=== PATIENT | male | born 1955 | race Caucasian/White ===

== ENCOUNTER 2016-10-30 13:52 | Emergency (ER) | payer BC ==
[2016-10-30 14:08] VITALS: TEMP 97.5
[2016-10-30] MEDS ORDERED: RX INFO: IV CONTRAST WAS GIVEN 1 EACH MISC MISCELLANE PRN (14:42)
[2016-10-30] MEDS ORDERED: KETOROLAC 30 MG/ML 1 ML VIAL IVP STA (14:42)
[2016-10-30] MEDS ORDERED: ONDANSETRON 4 MG/2 ML VIAL IVP STA (14:42)
[2016-10-30 14:52] LABS: Basophils % (A) 0 %; CH 29.2; CHCM 34.8; Eosinophils # (A) 0.2 k/uL (0-0.7); Eosinophils % (A) 2 %; HCT 42.8 % (39.0-53.0); HDW 2.57; HGB 14.5 gm/dL (13.0-17.5); Luc # (Auto) 0.23; Luc % (Auto) 3; Lymphocytes # (A) 2.1 k/uL (1.0-4.8); Lymphocytes % (A) 24 %; MCH 28.7 pg (25.0-35.0); MCV 84.5 fL (80.0-100.0); Mean Platelet Volume 7.3; Monocytes # (A) 0.6 k/uL (0-1.0); Monocytes % (A) 7 %; Neutrophils # (A) 5.7 k/uL (1.3-7.7); Neutrophils % (A) 64 %; RBC 5.07 m/uL (4.30-5.90); RDW 15.4 % (11.5-15.5); WBC 8.8 k/uL (3.8-10.6); WBC (Perox) 8.46
[2016-10-30 15:08] LABS: AST 15 U/L (17-59); Alkaline Phosphatase 101 U/L (38-126); Chloride 101 mmol/L (98-107); Non-African American GFR(MDRD) >60 (>60 ml/min/1.73 sqM); Sodium 136 mmol/L (137-145); Total Bilirubin 0.5 mg/dL (0.2-1.3)
[2016-10-30 15:29] LABS: ALT 30 U/L (21-72); Anion Gap 10 mmol/L; Blood Urea Nitrogen 13 mg/dL (9-20); Calcium 9.3 mg/dL (8.4-10.2); Carbon Dioxide 25 mmol/L (22-30); Glucose 169 mg/dL (74-99); Total Protein 6.9 g/dL (6.3-8.2)
--- NOTE | 2016-10-30 15:42 | ED ---
Abdominal Pain HPI - General Chief Complaint: Abdominal Pain Stated Complaint: ABDOMINAL TRAUMA Time Seen by Provider: 10/30/16 13:58 Source: EMS Mode of arrival: EMS Limitations: no limitations - History of Present Illness Initial Comments: 6-year-old male with past medical history of CHF, DM, GERD, HLD, HTN, OA and CAD presenting for evaluation of left-sided abdominal pain. He states that he was working with a table saw and as he was cutting a piece of board the other end of it kicked back and hit him in the abdomen. He says no ribs were hit when the board flew backwards however he has an abrasion and significant tenderness to the abdomen. He immediately came to the ER for further treatment and evaluation. He denies passing out or being on blood thinners. Has not had a bowel movement or pass urine since the incident. - Related Data Home Medications Medication Instructions Recorded Confirmed Furosemide [Lasix] 40 mg PO DAILY 05/02/14 10/30/16 Ibuprofen [Advil] 200 mg PO Q12HR PRN 05/02/14 10/30/16 Lisinopril [Zestril] 2.5 mg PO DAILY 05/02/14 10/30/16 Metoprolol Tartrate [Lopressor] 25 mg PO DAILY 05/02/14 10/30/16 Potassium Chloride ER [K-Dur 10] 10 meq PO DAILY 05/02/14 10/30/16 Simvastatin [Zocor] 40 mg PO HS 05/02/14 10/30/16 metFORMIN HCL [Glucophage] 1,000 mg PO BID 05/02/14 10/30/16 Allergies Allergy/AdvReac Type Severity Reaction Status Date / Time codeine Allergy Swelling Verified 10/30/16 15:00 Review of Systems ROS Statement: Those systems with pertinent positive or pertinent negative responses have been documented in the HPI. ROS Other: All systems not noted in ROS Statement are negative. Constitutional: Denies: fever, chills Eyes: Denies: eye pain, vision change ENT: Denies: ear pain, throat pain Respiratory: Denies: cough, dyspnea, wheezes Cardiovascular: Denies: chest pain, palpitations Endocrine: Denies: fatigue, polydipsia Gastrointestinal: Reports: abdominal pain, nausea. Denies: vomiting, diarrhea, constipation Genitourinary: Denies: urgency, dysuria Musculoskeletal: Denies: back pain, arthralgia Skin: Denies: rash, lesions Neurological: Denies: headache, weakness Psychiatric: Denies: anxiety, depression Hematological/Lymphatic: Denies: easy bleeding, easy bruising Past Medical History Past Medical History: Chest Pain / Angina, Heart Failure, Diabetes Mellitus, GERD/Reflux, Hyperlipidemia, Hypertension, Osteoarthritis (OA), Skin Disorder, Vascular Disorder Additional Past Medical History / Comment(s): 05/02/14 Pt has been having mostly sharp L sided chest pain and sometimes both sides of chest pained or sometimes center of chest. These pain started about 2 weeks. His physician thought he might have a pulled muscle in his chest-he was put on prednisone and levofloxin according to the pt. Chest pain has been getting worse over past one week. Pt also c/o watering in R eye for the past 3 weeks which he used home remedies on and it is getting better. 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 History of Any Multi-Drug Resistant Organisms: None Reported Past Surgical History: Back Surgery, Heart Catheterization, Orthopedic Surgery, Tonsillectomy Additional Past Surgical History / Comment(s): 2011 Cardiac cath with some blockages seen, low back surgery for ruptured disc, Past Anesthesia/Blood Transfusion Reactions: No Reported Reaction Past Psychological History: No Psychological Hx Reported Smoking Status: Current every day smoker Past Alcohol Use History: None Reported Past Drug Use History: None Reported - Past Family History Father Family Medical History: Coronary Artery Disease (CAD), Myocardial Infarction ([place] ) Additional Family Medical History / Comment(s): Father of [place] at age 68yrs. Mother Family Medical History: Coronary Artery Disease (CAD), Hypertension Additional Family Medical History / Comment(s): Mother has alot of allergies. General Exam Limitations: no limitations General appearance: alert, in distress Head exam: Present: atraumatic, normocephalic, normal inspection Eye exam: Present: normal appearance, PERRL, EOMI. Absent: scleral icterus, conjunctival injection, periorbital swelling ENT exam: Present: normal exam, mucous membranes moist Neck exam: Present: normal inspection. Absent: tenderness, meningismus, lymphadenopathy Respiratory exam: Present: normal lung sounds bilaterally. Absent: respiratory distress, wheezes, rales, rhonchi, stridor Cardiovascular Exam: Present: regular rate, normal rhythm, normal heart sounds. Absent: systolic murmur, diastolic murmur, rubs, gallop, clicks GI/Abdominal exam: Present: soft, tenderness, normal bowel sounds. Absent: distended, guarding, rebound, rigid Rectal exam: Present: deferred Extremities exam: Present: normal inspection, full ROM, normal capillary refill. Absent: tenderness, pedal edema, joint swelling, calf tenderness Back exam: Present: normal inspection Neurological exam: Present: alert, oriented X3, CN II-XII intact Psychiatric exam: Present: normal affect, normal mood Skin exam: Present: warm, dry, abrasion Course Vital Signs 10/30/16 10/30/16 10/30/16 14:04 15:44 16:49 Temperature 97.5 F L Pulse Rate 90 77 78 Respiratory 20 20 18 Rate Blood Pressure 164/74 149/68 142/74 O2 Sat by Pulse 97 97 97 Oximetry 10/30/16 17:23 Temperature 97.5 F L Pulse Rate 78 Respiratory 18 Rate Blood Pressure 142/74 O2 Sat by Pulse 97 Oximetry Medical Decision Making - Medical Decision Making 60-year-old male presented for evaluation of abdominal pain after a board he was cutting on a table saw flew back and hit him in the abdomen. On physical examination he does have a small abrasion to his abdomen however abdomen is soft and non-peritoneal without signs of guarding, rigidity, or rebound. Labs obtained which showed no acute process and CT abdomen and pelvis further revealed no significant traumatic etiology. The patient was informed of all results and on repeat examination he had improvement in his symptoms. He was advised to follow with his primary care physician but to return to this facility if his symptoms should worsen or persist. The patient acknowledged an understanding of this information and agreed with this plan of care. - Lab Data Result diagrams: 10/30/16 14:12 10/30/16 14:12 Lab Results 10/30/16 10/30/16 Range/Units 14:12 14:12 WBC 8.8 (3.8-10.6) k/uL RBC 5.07 (4.30-5.90) m/uL Hgb 14.5 (13.0-17.5) gm/dL Hct 42.8 (39.0-53.0) % MCV 84.5 (80.0-100.0) fL MCH 28.7 (25.0-35.0) pg MCHC 34.0 (31.0-37.0) g/dL RDW 15.4 (11.5-15.5) % Plt Count 259 (150-450) k/uL Neutrophils % 64 % Lymphocytes % 24 % Monocytes % 7 % Eosinophils % 2 % Basophils % 0 % Neutrophils # 5.7 (1.3-7.7) k/uL Lymphocytes # 2.1 (1.0-4.8) k/uL Monocytes # 0.6 (0-1.0) k/uL Eosinophils # 0.2 (0-0.7) k/uL Basophils # 0.0 (0-0.2) k/uL Sodium 136 L (137-145) mmol/L Potassium 4.0 (3.5-5.1) mmol/L Chloride 101 (98-107) mmol/L Carbon Dioxide 25 (22-30) mmol/L Anion Gap 10 mmol/L BUN 13 (9-20) mg/dL Creatinine 0.80 (0.66-1.25) mg/dL Est GFR (MDRD) Af Amer >60 (>60 ml/min/1.73 sqM) Est GFR (MDRD) Non-Af >60 (>60 ml/min/1.73 sqM) Glucose 169 H (74-99) mg/dL Calcium 9.3 (8.4-10.2) mg/dL Total Bilirubin 0.5 (0.2-1.3) mg/dL AST 15 L (17-59) U/L ALT 30 (21-72) U/L Alkaline Phosphatase 101 (38-126) U/L Total Protein 6.9 (6.3-8.2) g/dL Albumin 4.0 (3.5-5.0) g/dL Lipase 275 (23-300) U/L Disposition Clinical Impression: Abdominal pain Disposition: HOME SELF-CARE Condition: Stable Instructions: Abdominal Pain (ED) Referrals: Antonella Summers MD [Primary Care Provider] - 1-2 days Time of Disposition: 17:06
[2016-10-30 16:49] VITALS: BP 142/74; PULSE 78; RESP 18
--- NOTE | 2016-10-30 17:02 | CT ---
EXAMINATION TYPE: CT abdomen pelvis w con DATE OF EXAM: 10/30/2016 COMPARISON: NONE INDICATION: Patient complains of LUQ pain after blunt force trauma to the abdomen. Laceration at sit e. DLP: 993.8 mGycm, Automated exposure control for dose reduction was used. CONTRAST: 100 mL of Omnipaque 300. Study performed without Oral Contrast TECHNIQUE: Axial images were obtained from above the diaphragm to the pubic rami in the axial plane a t 5 mm thick sections. Reconstructed images are reviewed on the computer in the coronal plane. FINDINGS: Limited CT sections are obtained the lung bases. The lung bases are clear. There is calcification a long the pericardial margin. CT ABDOMEN: Liver: Normal. Note is made of a lipoma within the subcutaneous tissues lateral to the tip of the rig ht lobe of the liver. Spleen: Normal. No adjacent fluid collections or ascites is evident. Pancreas: Normal Adrenal glands: There is a 1.7 cm renal nodule on the left adrenal gland. Gallbladder: Gallstone is present. Kidneys: No masses are evident. No hydronephrosis is present. There is a 3.1 cm cyst on the medial left kidney. Delayed images were obtained through the kidneys, which remain unremarkable. Aorta: Vascular calcification is within the aorta. Inferior vena cava: Normal. CT PELVIS: A 1.2 cm periumbilical hernia containing mesenteric fat is present. Loops of bowel within the abdomen and pelvis are normal. Diverticular changes are within the sigm oid colon. No free fluid is within the pelvis. Appendix: Normal as visualized. Urinary bladder: Normal. Genitourinary structures: Prostate is unremarkable Osseous structures: No suspicious lytic or sclerotic lesions. IMPRESSIONS: 1. No suspicious posttraumatic changes. Spleen appears intact. No displaced rib fractures are eviden t.
== END 2016-10-30 17:24 | disposition home or self-care (01) ==
LOC: EC 13:52
DX: R10.9 Unspecified abdominal pain (principal); I11.0 Hypertensive heart disease with heart failure; I50.9 Heart failure, unspecified; E11.9 Type 2 diabetes mellitus without complications; K21.9 Gastro-esophageal reflux disease without esophagitis; E78.5 Hyperlipidemia, unspecified; M19.90 Unspecified osteoarthritis, unspecified site; F17.200 Nicotine dependence, unspecified, uncomplicated; Z79.84 Long term (current) use of oral hypoglycemic drugs; Z79.899 Other long term (current) drug therapy; Z88.5 Allergy status to narcotic agent; W22.8XXA Striking against or struck by other objects, initial encounter
CPT/HCPCS: 36415; 80053; 83690; 85025; 74177; 99285; 96374; 96375; J2405; J1885; Q9967

== ENCOUNTER 2018-03-22 15:05 | Observation (INO) | payer BC ==
[2018-03-22] MEDS ORDERED: MORPHINE SULFATE 4 MG/ML SYRINGE IV STA (15:19)
[2018-03-22] MEDS ORDERED: SODIUM CHLORIDE 0.9% 500 ML 500 ML IV STA (15:19)
--- NOTE | 2018-03-22 15:32 | ED ---
General Adult HPI - General Chief complaint: Abdominal Pain Stated complaint: abdominal pain Time Seen by Provider: 03/22/18 15:15 Source: patient, EMS, RN notes reviewed, old records reviewed Mode of arrival: EMS Limitations: no limitations - History of Present Illness Initial comments: 62-year-old male presents for evaluation of abdominal pain. Patient is 1 day postop laparoscopic umbilical hernia repair. Patient has had pain since the time of discharge. Pain is generalized abdominal pain severe in nature. He denies flatus, denies bowel movement. Denies vomiting. Patient denies any fever or chills. Denies chest pain. - Related Data Home Medications Medication Instructions Recorded Confirmed Furosemide [Lasix] 40 mg PO DAILY 05/02/14 03/22/18 Ibuprofen [Advil] 200 mg PO Q12HR PRN 05/02/14 03/22/18 Lisinopril [Zestril] 2.5 mg PO DAILY 05/02/14 03/22/18 Metoprolol Tartrate [Lopressor] 25 mg PO DAILY 05/02/14 03/22/18 Potassium Chloride ER [K-Dur 10] 10 meq PO DAILY 05/02/14 03/22/18 Simvastatin [Zocor] 40 mg PO HS 05/02/14 03/22/18 metFORMIN HCL [Glucophage] 1,000 mg PO BID 05/02/14 03/22/18 Acetaminophen Tab [Tylenol Tab] 1,000 mg PO Q6HR PRN 03/19/18 03/22/18 Previous Rx's Medication Instructions Recorded Docusate [Colace] 100 mg PO BID #20 capsule 03/21/18 HYDROcodone/APAP 7.5-325MG [Ramona 1 tab PO Q4H PRN 3 Days #18 tab 03/21/18 7.5-325] Allergies Allergy/AdvReac Type Severity Reaction Status Date / Time codeine Allergy Swelling Verified 03/22/18 15:56 Review of Systems ROS Statement: Those systems with pertinent positive or pertinent negative responses have been documented in the HPI. ROS Other: All systems not noted in ROS Statement are negative. Past Medical History Past Medical History: Chest Pain / Angina, Heart Failure, Diabetes Mellitus, GERD/Reflux, Hyperlipidemia, Hypertension, Osteoarthritis (OA), Skin Disorder, Vascular Disorder Additional Past Medical History / Comment(s): 05/02/14 Pt has been having mostly sharp L sided chest pain and sometimes both sides of chest pained or sometimes center of chest. These pain started about 2 weeks. His physician thought he might have a pulled muscle in his chest-he was put on prednisone and levofloxin according to the pt. Chest pain has been getting worse over past one week. Pt also c/o watering in R eye for the past 3 weeks which he used home remedies on and it is getting better. 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 History of Any Multi-Drug Resistant Organisms: None Reported Past Surgical History: Back Surgery, Heart Catheterization, Orthopedic Surgery, Tonsillectomy Additional Past Surgical History / Comment(s): 2011 Cardiac cath with some blockages seen, low back surgery for ruptured disc, LT FOOT SX, BILAT CATARACT SX Past Anesthesia/Blood Transfusion Reactions: No Reported Reaction Past Psychological History: No Psychological Hx Reported Smoking Status: Current every day smoker - Past Family History Sister(s) Family Medical History: Pulmonary Embolus Father Family Medical History: Coronary Artery Disease (CAD), Myocardial Infarction ([place] ) Additional Family Medical History / Comment(s): Father of [place] at age 68yrs. Mother Family Medical History: Cancer, Coronary Artery Disease (CAD), Deep Vein Thrombosis (DVT), Hypertension Additional Family Medical History / Comment(s): Mother has alot of allergies. RARE BLOOD CANCER General Exam Limitations: no limitations General appearance: alert, in no apparent distress Head exam: Present: atraumatic, normocephalic Eye exam: Present: normal appearance, PERRL ENT exam: Present: normal exam Neck exam: Present: normal inspection. Absent: tenderness, meningismus Respiratory exam: Present: normal lung sounds bilaterally. Absent: respiratory distress, wheezes Cardiovascular Exam: Present: regular rate, normal rhythm GI/Abdominal exam: Present: distended, tenderness, rigid. Absent: guarding, rebound Extremities exam: Present: pedal edema (Left lower extremity) Neurological exam: Present: alert, oriented X3, CN II-XII intact. Absent: motor sensory deficit Psychiatric exam: Present: normal affect, normal mood Skin exam: Present: warm, dry, intact. Absent: cyanosis, diaphoretic Course Vital Signs 03/22/18 03/22/18 03/22/18 15:09 17:33 19:22 Temperature 98.7 F 98.2 F Pulse Rate 83 66 82 Respiratory 18 18 17 Rate Blood Pressure 153/85 173/86 160/84 O2 Sat by Pulse 95 92 L 94 L Oximetry Medical Decision Making - Medical Decision Making 62-year-old male presenting with chief complaint of abdominal pain. Patient is 1 day postop laparoscopic umbilical hernia repair. He has mildly distended tender abdomen, surgical incisions are clean dry and intact. Workup in the emergency department reveals CBC with mild leukocytosis, otherwise unremarkable , normal CMP. CT is obtained which is negative for acute intra-abdominal process. No obstruction, no abnormal fluid collection. Patient given multiple doses of pain medication the emergency department, reevaluation he continues to have significant abdominal pain and has not passed gas. Case is discussed with Dr. Tai, will place patient in observation for continued symptomatically treatment of postoperative abdominal pain and likely ileus. PT placed on a clear liquid diet, IV fluids, pain medication and Reglan. - Lab Data Result diagrams: 03/22/18 15:21 03/22/18 15:21 Lab Results 03/22/18 03/22/18 03/22/18 Range/Units 15:21 15:21 15:21 WBC 12.3 H (3.8-10.6) k/uL RBC 4.90 (4.30-5.90) m/uL Hgb 13.6 (13.0-17.5) gm/dL Hct 41.8 (39.0-53.0) % MCV 85.4 (80.0-100.0) fL MCH 27.8 (25.0-35.0) pg MCHC 32.6 (31.0-37.0) g/dL RDW 14.7 (11.5-15.5) % Plt Count 239 (150-450) k/uL Neutrophils % 72 % Lymphocytes % 20 % Monocytes % 5 % Eosinophils % 1 % Basophils % 0 % Neutrophils # 8.9 H (1.3-7.7) k/uL Lymphocytes # 2.4 (1.0-4.8) k/uL Monocytes # 0.6 (0-1.0) k/uL Eosinophils # 0.1 (0-0.7) k/uL Basophils # 0.0 (0-0.2) k/uL Sodium 136 L (137-145) mmol/L Potassium 4.3 (3.5-5.1) mmol/L Chloride 103 (98-107) mmol/L Carbon Dioxide 24 (22-30) mmol/L Anion Gap 9 mmol/L BUN 16 (9-20) mg/dL Creatinine 0.70 (0.66-1.25) mg/dL Est GFR (CKD-EPI)AfAm >90 (>60 ml/min/1.73 sqM) Est GFR (CKD-EPI)NonAf >90 (>60 ml/min/1.73 sqM) Glucose 154 H (74-99) mg/dL Plasma Lactic Acid Tejinder 1.6 (0.7-2.0) mmol/L Calcium 9.1 (8.4-10.2) mg/dL Total Bilirubin 0.7 (0.2-1.3) mg/dL AST 24 (17-59) U/L ALT 33 (21-72) U/L Alkaline Phosphatase 74 (38-126) U/L Total Protein 7.1 (6.3-8.2) g/dL Albumin 4.0 (3.5-5.0) g/dL Amylase 68 (30-110) U/L Lipase 566 H (23-300) U/L Urine Color Urine Appearance (Clear) Urine pH (5.0-8.0) Ur Specific [place] (1.001-1.035) Urine Protein (Negative) Urine Glucose (UA) (Negative) Urine Ketones (Negative) Urine Blood (Negative) Urine Nitrite (Negative) Urine Bilirubin (Negative) Urine Urobilinogen (<2.0) mg/dL Ur Leukocyte Esterase (Negative) 03/22/18 Range/Units 17:56 WBC (3.8-10.6) k/uL RBC (4.30-5.90) m/uL Hgb (13.0-17.5) gm/dL Hct (39.0-53.0) % MCV (80.0-100.0) fL MCH (25.0-35.0) pg MCHC (31.0-37.0) g/dL RDW (11.5-15.5) % Plt Count (150-450) k/uL Neutrophils % % Lymphocytes % % Monocytes % % Eosinophils % % Basophils % % Neutrophils # (1.3-7.7) k/uL Lymphocytes # (1.0-4.8) k/uL Monocytes # (0-1.0) k/uL Eosinophils # (0-0.7) k/uL Basophils # (0-0.2) k/uL Sodium (137-145) mmol/L Potassium (3.5-5.1) mmol/L Chloride (98-107) mmol/L Carbon Dioxide (22-30) mmol/L Anion Gap mmol/L BUN (9-20) mg/dL Creatinine (0.66-1.25) mg/dL Est GFR (CKD-EPI)AfAm (>60 ml/min/1.73 sqM) Est GFR (CKD-EPI)NonAf (>60 ml/min/1.73 sqM) Glucose (74-99) mg/dL Plasma Lactic Acid Tejinder (0.7-2.0) mmol/L Calcium (8.4-10.2) mg/dL Total Bilirubin (0.2-1.3) mg/dL AST (17-59) U/L ALT (21-72) U/L Alkaline Phosphatase (38-126) U/L Total Protein (6.3-8.2) g/dL Albumin (3.5-5.0) g/dL Amylase (30-110) U/L Lipase (23-300) U/L Urine Color Yellow Urine Appearance Clear (Clear) Urine pH 5.5 (5.0-8.0) Ur Specific [place] >1.050 H (1.001-1.035) Urine Protein Trace H (Negative) Urine Glucose (UA) Negative (Negative) Urine Ketones Negative (Negative) Urine Blood Negative (Negative) Urine Nitrite Negative (Negative) Urine Bilirubin Negative (Negative) Urine Urobilinogen <2.0 (<2.0) mg/dL Ur Leukocyte Esterase Negative (Negative) Disposition Clinical Impression: Abdominal pain Disposition: ADMITTED IP TO THIS HOSP Condition: Stable Is patient prescribed a controlled substance at d/c from ED?: No Referrals: Antonella Summers MD [Primary Care Provider] - 1-2 days Decision to Admit Reason: Admit from EC Decision Date: 03/22/18 Decision Time: 19:28
[2018-03-22 15:46] LABS: Basophils % (A) 0 %; Eosinophils # (A) 0.1 k/uL (0-0.7); Eosinophils % (A) 1 %; HCT 41.8 % (39.0-53.0); HGB 13.6 gm/dL (13.0-17.5); Lymphocytes # (A) 2.4 k/uL (1.0-4.8); Lymphocytes % (A) 20 %; MCH 27.8 pg (25.0-35.0); MCHC 32.6 g/dL (31.0-37.0); MCV 85.4 fL (80.0-100.0); Mean Platelet Volume 6.3; Monocytes # (A) 0.6 k/uL (0-1.0); Monocytes % (A) 5 %; Neutrophils # (A) 8.9 k/uL (1.3-7.7); Neutrophils % (A) 72 %; Platelet Count 239 k/uL (150-450); RDW 14.7 % (11.5-15.5); WBC 12.3 k/uL (3.8-10.6)
[2018-03-22 16:02] LABS: ALT 33 U/L (21-72); AST 24 U/L (17-59); Alkaline Phosphatase 74 U/L (38-126); Amylase 68 U/L (30-110); Anion Gap 9 mmol/L; Blood Urea Nitrogen 16 mg/dL (9-20); Calcium 9.1 mg/dL (8.4-10.2); Carbon Dioxide 24 mmol/L (22-30); Chloride 103 mmol/L (98-107); Glucose 154 mg/dL (74-99); Lipase 566 U/L (23-300); Potassium 4.3 mmol/L (3.5-5.1); Sodium 136 mmol/L (137-145); Total Bilirubin 0.7 mg/dL (0.2-1.3); Total Protein 7.1 g/dL (6.3-8.2)
--- NOTE | 2018-03-22 16:10 | XR ---
EXAMINATION TYPE: XR KUB DATE OF EXAM: 03/22/2018 4:02 PM CLINICAL HISTORY: Abdominal pain TECHNIQUE: Single supine KUB image of the abdomen is obtained. COMPARISON: None. FINDINGS: There is mild gaseous dilatation of the colon up to 6.9 cm. There is a paucity of stool in the descending colon and moderate amount retained colonic stool throughout the remainder the colon. F ocus of air is seen within the rectum. No dilated small bowel is seen. Osseous structures are grossly intact with moderate degenerative change of the lumbosacral junction. IMPRESSION: Mild gaseous colonic dilation possibly representing clonic ileus. Distal colonic obstruct ion is possible.
[2018-03-22] MEDS ORDERED: HYDROmorphone 1 MG/ML 1 ML SYRINGE IVP STA (17:12)
--- NOTE | 2018-03-22 17:34 | CT ---
EXAMINATION TYPE: CT abdomen pelvis w con DATE OF EXAM: 03/22/2018 COMPARISON: 10/30/2016 HISTORY: Hernia repair and bowel surgery yesterday, pain since. CT DLP: 1179.4 mGycm Automated exposure control for dose reduction was used. TECHNIQUE: Helical acquisition of images was performed from the lung bases through the pelvis. CONTRAST: Performed without Oral Contrast and with IV Contrast, patient injected with 100 mL of Isovue 300. FINDINGS: ANTERIOR ABDOMINAL WALL: The anterior abdominal wall is intact. Postprocedural subcutaneous adipose c ompartment findings are present, but no unexpected findings. LUNG BASES: No acute findings, but coronary calcifications are noted. In addition, a 1 cm area of thi n pericardial calcification is seen. LIVER/GB: No significant abnormality is appreciated. PANCREAS: No significant abnormality is seen. SPLEEN: No significant abnormality is seen. ADRENALS: No significant abnormality is seen. KIDNEYS: No significant abnormality is seen. FREE AIR: No free air is visualized. RETROPERITONEAL ADENOPATHY: None visualized REPRODUCTIVE ORGANS: No significant abnormality is seen URINARY BLADDER: No significant abnormality is seen. PELVIC ADENOPATHY: None visualized. OSSEOUS STRUCTURES: No significant abnormality is seen. BOWEL: No significant abnormality is seen. OTHER: Prominent nonaneurysmal atherosclerotic changes are seen throughout the visualized arterial an atomy, with aortoiliac inflow stenosis evident. IMPRESSION: Postoperative CT. NO CT FINDING TO CORRESPOND WITH THE CURRENT SYMPTOMS. Incidental: Coronary Calcification with Aortoiliac Inflow Stenosis evident. Incidental: Pericardial Calcification.
[2018-03-22 18:06] LABS: Appearance,Urine Clear (Clear); Bilirubin,Urine Negative (Negative); Blood,Urine Negative (Negative); Color,Urine Yellow; Glucose,Urine (UA) Negative (Negative); Ketones,Urine Negative (Negative); Leukocyte Esterase,Urine Negative (Negative); Nitrite,Urine Negative (Negative); PH, Urine 5.5 (5.0-8.0); Protein,Urine Trace (Negative); Urobilinogen,Urine <2.0 mg/dL (<2.0)
[2018-03-22 18:31] LABS: Specific Gravity,Urine >1.050 (1.001-1.035)
[2018-03-22] MEDS ORDERED: NALOXONE 0.4 MG/ML 1 ML VIAL IV PRN (19:11)
[2018-03-22] MEDS ORDERED: HYDROmorphone 0.5 MG/0.5 ML SYRINGE IVP PRN (19:11)
[2018-03-22 19:48] LABS: Glucose,Whole Blood 143 mg/dL (75-99)
[2018-03-22] MEDS: HYDROmorphone 1 MG/ML 1 ML SYRINGE IVP PRN ×2 (19:55→23:00)
[2018-03-22 21:18] VITALS: BMI 30.5
[2018-03-22] MEDS: SODIUM CHLORIDE 0.9% 1,000 ML IV SCH (23:01)
[2018-03-23] MEDS: METOCLOPRAMIDE 5 MG/ML 2 ML VIAL IVP SCH ×4 (00:11→17:21)
[2018-03-23] MEDS: HYDROmorphone 1 MG/ML 1 ML SYRINGE IVP PRN ×5 (01:55→22:05)
[2018-03-23 04:22] LABS: Hemoglobin A1C 8.5 % (4.0-6.0)
[2018-03-23] MEDS: INSULIN ASPART 100 UNIT/ML 1 ML 10 ML VIAL SQ SCH ×4 (07:19→21:02)
[2018-03-23 07:29] LABS: Glucose,Whole Blood 121 mg/dL (75-99)
[2018-03-23 09:11] LABS: Basophils % (A) 0 %; Eosinophils # (A) 0.1 k/uL (0-0.7); Eosinophils % (A) 1 %; HCT 41.1 % (39.0-53.0); HGB 13.2 gm/dL (13.0-17.5); Lymphocytes # (A) 1.3 k/uL (1.0-4.8); Lymphocytes % (A) 14 %; MCHC 32.1 g/dL (31.0-37.0); MCV 87.1 fL (80.0-100.0); Mean Platelet Volume 7.1; Monocytes # (A) 0.6 k/uL (0-1.0); Monocytes % (A) 6 %; Neutrophils # (A) 7.1 k/uL (1.3-7.7); Neutrophils % (A) 76 %; Platelet Count 213 k/uL (150-450); RBC 4.72 m/uL (4.30-5.90); WBC 9.2 k/uL (3.8-10.6)
[2018-03-23 09:29] LABS: ALT 31 U/L (21-72); AST 24 U/L (17-59); Albumin 3.7 g/dL (3.5-5.0); Alkaline Phosphatase 68 U/L (38-126); Amylase 33 U/L (30-110); Anion Gap 7 mmol/L; Blood Urea Nitrogen 16 mg/dL (9-20); Calcium 8.7 mg/dL (8.4-10.2); Carbon Dioxide 27 mmol/L (22-30); Chloride 104 mmol/L (98-107); Glucose 137 mg/dL (74-99); Lipase 81 U/L (23-300); Potassium 4.1 mmol/L (3.5-5.1); Sodium 138 mmol/L (137-145); Total Bilirubin 0.6 mg/dL (0.2-1.3); Total Protein 6.6 g/dL (6.3-8.2)
[2018-03-23 11:40] LABS: Glucose,Whole Blood 131 mg/dL (75-99)
[2018-03-23] MEDS ORDERED: BISACODYL 10 MG SUPP RECTAL STA (12:21)
--- NOTE | 2018-03-23 12:27 | P.GSHP ---
History of Present Illness H&P Date: 03/23/18 Chief Complaint: abdominal pain CHIEF COMPLAINT: Abdominal pain HISTORY OF PRESENT ILLNESS: 62-year-old male who underwent laparoscopic robotic repair of incarcerated umbilical hernia and partial omentectomy on 03/21/2018. POD #2. The patient was discharged home in stable condition. He returns to the hospital with a chief complaint of abdominal pain. Patient denies passing flatus. Denies BM. Denies nausea or vomiting. WBC 12.3 on admission. Repeat 9.2. Lipase 566 on admission. Repeat normal at 81. He is afebrile. PAST MEDICAL HISTORY: See list. PAST SURGICAL HISTORY: See list. MEDICATIONS: See list. ALLERGIES: See list. SOCIAL HISTORY: No illicit drug use. REVIEW OF SYSTEMS: CONSTITUTIONAL: Denies fever or chills. HEENT: Denies blurred vision, vision changes, or eye pain. Denies hemoptysis ENDOCRINE: Denies heat or cold intolerance. CARDIOVASCULAR: Denies chest pain or pressure. RESPIRATORY: No shortness of breath. GASTROINTESTINAL: Reports abdominal pain. Denies nausea or vomiting. NEURO: Denies history of seizures. PSYCH: No depression or suicidal ideation HEMATOLOGIC: Denies bleeding disorders. LYMPHATIC: The patient denies any lumps and bumps around the neck. GENITOURINARY: Denies any blood in urine or increased urinary frequency. MUSCULOSKELETAL: Denies myalgias. Denies joint swelling. Denies decreased range of motion beyond patients baseline. SKIN: Denies pruitis. Denies rash. PHYSICAL EXAM: VITAL SIGNS: Currently stable. GENERAL: Well-developed in no acute distress. HEENT: No sclera icterus. Extraocular movements grossly intact. Moist buccal mucosa. Head is atraumatic, normocephalic. Hears conversational speech. No nasal drainage. NECK: Supple without lymphadenopathy. CHEST: Non-labored respirations and equal bilateral excursions. CARDIOVASCULAR: Regular rate with regular rhythm. Palpable 2+ radial pulses. ABDOMEN: Soft. Mildly distended. Tenderness noted upon palpation. Surgical incisions clean without drainage. MUSCULOSKELETAL: No clubbing, cyanosis or edema. NEUROLOGIC: No focal or lateralizing signs. Cranial nerves II through XII grossly intact. PSYCH: Appropriate affect. Alert and oriented to person, place and time. SKIN: Well perfused. Good skin turgor. ASSESSMENT: 1. Abdominal pain 2. Postoperative ileus 3. S/P laparoscopic robotic repair of incarcerated umbilical hernia and partial omentectomy on 03/21/2018 PLAN: Reglan 10mg IV q6 hours. Fleets enema x 1. Clear liquid diet as tolerated. Diet may be advanced when patient begins passing flatus. Increase activity as tolerated. Patient encouraged to ambulate in hallways. Nurse practitioner note has been reviewed by physician. Signing provider agrees with the documented findings, assessment, and plan of care. Past Medical History Past Medical History: Chest Pain / Angina, Heart Failure, Diabetes Mellitus, GERD/Reflux, Hyperlipidemia, Hypertension, Osteoarthritis (OA), Skin Disorder, Vascular Disorder Additional Past Medical History / Comment(s): 05/02/14 Pt has been having mostly sharp L sided chest pain and sometimes both sides of chest pained or sometimes center of chest. These pain started about 2 weeks. His physician thought he might have a pulled muscle in his chest-he was put on prednisone and levofloxin according to the pt. Chest pain has been getting worse over past one week. Pt also c/o watering in R eye for the past 3 weeks which he used home remedies on and it is getting better. 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 History of Any Multi-Drug Resistant Organisms: None Reported Past Surgical History: Back Surgery, Heart Catheterization, Orthopedic Surgery, Tonsillectomy Additional Past Surgical History / Comment(s): 2011 Cardiac cath with some blockages seen, low back surgery for ruptured disc, LT FOOT SX, BILAT CATARACT SX Past Anesthesia/Blood Transfusion Reactions: No Reported Reaction Past Psychological History: No Psychological Hx Reported Additional Psychological History / Comment(s): Pt lives at home with his . 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 Pt is independent. Smoking Status: Current every day smoker Past Alcohol Use History: None Reported Additional Past Alcohol Use History / Comment(s): SMOKES 1 PPD SINCE AGE 15 Past Drug Use History: None Reported - Past Family History Sister(s) Family Medical History: Pulmonary Embolus Father Family Medical History: Coronary Artery Disease (CAD), Myocardial Infarction ([place] ) Additional Family Medical History / Comment(s): Father of [place] at age 68yrs. Mother Family Medical History: Cancer, Coronary Artery Disease (CAD), Deep Vein Thrombosis (DVT), Hypertension Additional Family Medical History / Comment(s): Mother has alot of allergies. RARE BLOOD CANCER Medications and Allergies Home Medications Medication Instructions Recorded Confirmed Type Furosemide [Lasix] 40 mg PO DAILY 05/02/14 03/22/18 History Ibuprofen [Advil] 200 mg PO Q12HR PRN 05/02/14 03/22/18 History Lisinopril [Zestril] 2.5 mg PO DAILY 05/02/14 03/22/18 History Metoprolol Tartrate [Lopressor] 25 mg PO DAILY 05/02/14 03/22/18 History Potassium Chloride ER [K-Dur 10] 10 meq PO DAILY 05/02/14 03/22/18 History Simvastatin [Zocor] 40 mg PO HS 05/02/14 03/22/18 History metFORMIN HCL [Glucophage] 1,000 mg PO BID 05/02/14 03/22/18 History Acetaminophen Tab [Tylenol Tab] 1,000 mg PO Q6HR PRN 03/19/18 03/22/18 History Docusate [Colace] 100 mg PO BID #20 capsule 03/21/18 03/22/18 Rx HYDROcodone/APAP 7.5-325MG [Rillito 1 tab PO Q4H PRN 3 Days #18 tab 03/21/1803/22 Rx 7.5-325] Allergies Allergy/AdvReac Type Severity Reaction Status Date / Time codeine Allergy Swelling Verified 03/22/18 15:56 Surgical - Exam Vital Signs Temp Pulse Resp BP Pulse Ox 98.7 F 83 18 153/85 95 03/22/18 15:09 03/22/18 15:09 03/22/18 15:09 03/22/18 15:09 03/22/18 15:09 Results - Labs 03/23/18 08:52 03/23/18 08:52 Abnormal Lab Results - Last 24 Hours (Table) 03/22/18 03/22/18 03/22/18 Range/Units 15:21 15:21 15:21 WBC 12.3 H (3.8-10.6) k/uL Neutrophils # 8.9 H (1.3-7.7) k/uL Sodium 136 L (137-145) mmol/L Creatinine (0.66-1.25) mg/dL Glucose 154 H (74-99) mg/dL POC Glucose (mg/dL) (75-99) mg/dL Hemoglobin A1c 8.5 H (4.0-6.0) % Lipase 566 H (23-300) U/L Ur Specific [place] (1.001-1.035) Urine Protein (Negative) 03/22/18 03/22/18 03/23/18 Range/Units 17:56 19:44 07:17 WBC (3.8-10.6) k/uL Neutrophils # (1.3-7.7) k/uL Sodium (137-145) mmol/L Creatinine (0.66-1.25) mg/dL Glucose (74-99) mg/dL POC Glucose (mg/dL) 143 H 121 H (75-99) mg/dL Hemoglobin A1c (4.0-6.0) % Lipase (23-300) U/L Ur Specific [place] >1.050 H (1.001-1.035) Urine Protein Trace H (Negative) 03/23/18 03/23/18 Range/Units 08:52 11:29 WBC (3.8-10.6) k/uL Neutrophils # (1.3-7.7) k/uL Sodium (137-145) mmol/L Creatinine 0.64 L (0.66-1.25) mg/dL Glucose 137 H (74-99) mg/dL POC Glucose (mg/dL) 131 H (75-99) mg/dL Hemoglobin A1c (4.0-6.0) % Lipase (23-300) U/L Ur Specific [place] (1.001-1.035) Urine Protein (Negative) Diabetes panel 03/22/18 03/22/18 03/23/18 Range/Units 15:21 15:21 08:52 Sodium 136 L 138 (137-145) mmol/L Potassium 4.3 4.1 (3.5-5.1) mmol/L Chloride 103 104 (98-107) mmol/L Carbon Dioxide 24 27 (22-30) mmol/L BUN 16 16 (9-20) mg/dL Creatinine 0.70 0.64 L (0.66-1.25) mg/dL Glucose 154 H 137 H (74-99) mg/dL Hemoglobin A1c 8.5 H (4.0-6.0) % Calcium 9.1 8.7 (8.4-10.2) mg/dL AST 24 24 (17-59) U/L ALT 33 31 (21-72) U/L Alkaline Phosphatase 74 68 (38-126) U/L Total Protein 7.1 6.6 (6.3-8.2) g/dL Albumin 4.0 3.7 (3.5-5.0) g/dL Calcium panel 03/22/18 03/23/18 Range/Units 15:21 08:52 Calcium 9.1 8.7 (8.4-10.2) mg/dL Albumin 4.0 3.7 (3.5-5.0) g/dL Pituitary panel 03/22/18 03/23/18 Range/Units 15:21 08:52 Sodium 136 L 138 (137-145) mmol/L Potassium 4.3 4.1 (3.5-5.1) mmol/L Chloride 103 104 (98-107) mmol/L Carbon Dioxide 24 27 (22-30) mmol/L BUN 16 16 (9-20) mg/dL Creatinine 0.70 0.64 L (0.66-1.25) mg/dL Glucose 154 H 137 H (74-99) mg/dL Calcium 9.1 8.7 (8.4-10.2) mg/dL Adrenal panel 03/22/18 03/23/18 Range/Units 15:21 08:52 Sodium 136 L 138 (137-145) mmol/L Potassium 4.3 4.1 (3.5-5.1) mmol/L Chloride 103 104 (98-107) mmol/L Carbon Dioxide 24 27 (22-30) mmol/L BUN 16 16 (9-20) mg/dL Creatinine 0.70 0.64 L (0.66-1.25) mg/dL Glucose 154 H 137 H (74-99) mg/dL Calcium 9.1 8.7 (8.4-10.2) mg/dL Total Bilirubin 0.7 0.6 (0.2-1.3) mg/dL AST 24 24 (17-59) U/L ALT 33 31 (21-72) U/L Alkaline Phosphatase 74 68 (38-126) U/L Total Protein 7.1 6.6 (6.3-8.2) g/dL Albumin 4.0 3.7 (3.5-5.0) g/dL
[2018-03-23] MEDS: LISINOPRIL 2.5 MG TAB PO SCH (13:27)
[2018-03-23] MEDS: DOCUSATE 100 MG CAP PO SCH ×2 (13:28→22:05)
[2018-03-23] MEDS ORDERED: NA PHOS,M-B/NA PHOS,DI-BA 133 ML ENEMA RECTAL ONE (13:31)
[2018-03-23] MEDS: SODIUM CHLORIDE 0.9% 1,000 ML IV SCH (16:08)
[2018-03-23 17:12] LABS: Glucose,Whole Blood 132 mg/dL (75-99)
[2018-03-23 20:46] LABS: Glucose,Whole Blood 136 mg/dL (75-99)
[2018-03-24] MEDS: METOCLOPRAMIDE 5 MG/ML 2 ML VIAL IVP SCH ×4 (00:57→23:46)
[2018-03-24] MEDS: HYDROmorphone 1 MG/ML 1 ML SYRINGE IVP PRN ×3 (00:57→10:08)
[2018-03-24 07:11] LABS: Glucose,Whole Blood 181 mg/dL (75-99)
[2018-03-24] MEDS: metFORMIN 500 MG TAB PO SCH ×2 (10:03→21:27)
[2018-03-24] MEDS: INSULIN ASPART 100 UNIT/ML 1 ML 10 ML VIAL SQ SCH ×3 (10:03→23:46)
[2018-03-24] MEDS: LISINOPRIL 2.5 MG TAB PO SCH (10:04)
[2018-03-24] MEDS: METOPROLOL TARTRATE 25 MG TAB PO SCH (10:04)
[2018-03-24] MEDS: DOCUSATE 100 MG CAP PO SCH ×2 (10:04→21:27)
--- NOTE | 2018-03-24 11:53 | P.PN ---
Progress Note - Text Progress Note Date: 03/24/18 The patient is resting in his bed. He still has complaints of incisional pain. Patient has anxiety about being discharged home and having significant pain. He did have some small flatus last night. On exam his vital signs are stable. His abdomen is soft. Incision sites are clean dry and intact. Status post robotic system repair of hernia. Patient developed postoperative ileus which is slowly resolving. We dysphagia discharged home tomorrow.
[2018-03-24 12:20] LABS: Glucose,Whole Blood 182 mg/dL (75-99)
[2018-03-24] MEDS ORDERED: SODIUM CHLORIDE 0.9% 1,000 ML BAG ONE (13:00)
[2018-03-24] MEDS ORDERED: METOCLOPRAMIDE 5 MG/ML 2 ML VIAL ONE ×2 (13:00)
[2018-03-24] MEDS ORDERED: HYDROmorphone 1 MG/ML 1 ML SYRINGE ONE ×2 (13:00)
[2018-03-24] MEDS ORDERED: INSULIN ASPART 100 UNIT/ML 1 ML 10 ML VIAL SQ ONE ×2 (13:00)
[2018-03-24 18:47] LABS: Glucose,Whole Blood 116 mg/dL (75-99)
[2018-03-24 20:46] LABS: Glucose,Whole Blood 119 mg/dL (75-99)
[2018-03-24] MEDS: HYDROcodone/APAP 7.5-325MG 1 EACH TAB PO PRN (21:26)
[2018-03-24] MEDS: SODIUM CHLORIDE 0.9% 1,000 ML IV SCH (23:45)
[2018-03-25] MEDS: METOCLOPRAMIDE 5 MG/ML 2 ML VIAL IVP SCH ×3 (00:01→12:08)
[2018-03-25] MEDS: HYDROcodone/APAP 7.5-325MG 1 EACH TAB PO PRN ×3 (04:54→13:16)
[2018-03-25 07:14] LABS: Glucose,Whole Blood 125 mg/dL (75-99)
[2018-03-25] MEDS: INSULIN ASPART 100 UNIT/ML 1 ML 10 ML VIAL SQ SCH ×2 (08:16→12:08)
[2018-03-25 08:18] VITALS: RESP 17
[2018-03-25] MEDS: SODIUM CHLORIDE 0.9% 1,000 ML IV SCH (08:22)
[2018-03-25] MEDS: metFORMIN 500 MG TAB PO SCH (08:24)
[2018-03-25] MEDS: LISINOPRIL 2.5 MG TAB PO SCH (08:25)
[2018-03-25] MEDS: DOCUSATE 100 MG CAP PO SCH (08:25)
[2018-03-25] MEDS: METOPROLOL TARTRATE 25 MG TAB PO SCH (08:25)
[2018-03-25] MEDS: HYDROmorphone 1 MG/ML 1 ML SYRINGE IVP PRN (09:59)
[2018-03-25 11:51] LABS: Glucose,Whole Blood 159 mg/dL (75-99)
[2018-03-25 14:30] VITALS: BP 128/72; PULSE 74; TEMP 98
--- NOTE | 2018-03-25 15:01 | P.DS ---
Providers Date of admission: 03/22/18 19:11 Expected date of discharge: 03/25/18 Attending physician: Thomas Tai Primary care physician: Kristopher Berman [facility] Course: This a 62-year-old male who was readmitted to the hospital after robotic hernia repair due to ileus and postop pain. Patient did well postoperatively. Please see hospital chart for details. Procedures: None Patient Condition at Discharge: Good Plan - Discharge Summary Discharge Rx Participant: No New Discharge Prescriptions: No Action Potassium Chloride ER [K-Dur 10] 10 meq PO DAILY metFORMIN HCL [Glucophage] 1,000 mg PO BID Metoprolol Tartrate [Lopressor] 25 mg PO DAILY Simvastatin [Zocor] 40 mg PO HS Lisinopril [Zestril] 2.5 mg PO DAILY Furosemide [Lasix] 40 mg PO DAILY Ibuprofen [Advil] 200 mg PO Q12HR PRN PRN Reason: Pain Acetaminophen Tab [Tylenol Tab] 1,000 mg PO Q6HR PRN PRN Reason: Pain Docusate [Colace] 100 mg PO BID #20 capsule HYDROcodone/APAP 7.5-325MG [Campbell 7.5-325] 1 tab PO Q4H PRN 3 Days #18 tab PRN Reason: Pain Discharge Medication List Furosemide [Lasix] 40 mg PO DAILY 05/02/14 [History] Ibuprofen [Advil] 200 mg PO Q12HR PRN 05/02/14 [History] Lisinopril [Zestril] 2.5 mg PO DAILY 05/02/14 [History] Metoprolol Tartrate [Lopressor] 25 mg PO DAILY 05/02/14 [History] Potassium Chloride ER [K-Dur 10] 10 meq PO DAILY 05/02/14 [History] Simvastatin [Zocor] 40 mg PO HS 05/02/14 [History] metFORMIN HCL [Glucophage] 1,000 mg PO BID 05/02/14 [History] Acetaminophen Tab [Tylenol Tab] 1,000 mg PO Q6HR PRN 03/19/18 [History] Docusate [Colace] 100 mg PO BID #20 capsule 03/21/18 [Rx] HYDROcodone/APAP 7.5-325MG [Campbell 7.5-325] 1 tab PO Q4H PRN 3 Days #18 tab 03/21 [Rx] Follow up Appointment(s)/Referral(s): Antonella Summers MD [Primary Care Provider] - 1-2 days
--- NOTE | 2018-04-02 07:27 | CDI ---
Date: 04/02/18 CDS/Cp Bleacher Operator Name: Shanon Antoine Phone: If any questions, call Mely Patricia Ultrasound Manager at [phone] Patient Name: Dennys Youngblood Admit Date: 03/22/18 Discharge Date: 03/25/18 ATTENTION: The [facility] Coding Staff appreciate your assistance in clarifying documentation. Please respond to the clarification below the line at the bottom and electronically sign. The [facility] Coding staff will review the response and follow-up if needed. Please note: Queries are made part of the Legal Health Record. If you have any questions, please contact the Ultrasound Manager. Dear Dr. Tai, Please provide clarification as to the cause of the ileus. Please clarify if, in this case, this is a post-operative complication. Thank you for your kind consideration. The cause of the ileus is due to postoperative and narcotic use. YASMINE
== END 2018-03-25 15:40 | disposition home or self-care (01) ==
LOC: EC 15:05 → 4SSUR 19:11
PROVIDERS: ADMIT Surgery; ATTEND Surgery
DX: K91.30 Postprocedural intestinal obstruction, unspecified as to partial versus complete (principal); I25.10 Atherosclerotic heart disease of native coronary artery without angina pectoris; I11.0 Hypertensive heart disease with heart failure; I50.9 Heart failure, unspecified; F17.210 Nicotine dependence, cigarettes, uncomplicated; E78.5 Hyperlipidemia, unspecified; E11.9 Type 2 diabetes mellitus without complications; R60.0 Localized edema; M19.90 Unspecified osteoarthritis, unspecified site; L98.9 Disorder of the skin and subcutaneous tissue, unspecified; Z87.11 Personal history of peptic ulcer disease; Z82.49 Family history of ischemic heart disease and other diseases of the circulatory system; Z80.8 Family history of malignant neoplasm of other organs or systems; Z79.84 Long term (current) use of oral hypoglycemic drugs; Z79.899 Other long term (current) drug therapy; Z88.5 Allergy status to narcotic agent
CPT/HCPCS: 96376 ×5; 96375 ×2; 96361; 96374; 99285; 36415; 80053 ×2; 82150 ×2; 83605; 83690 ×2; 85025 ×2; 81003; 83036; 74018; 74177; G0378 ×4; J2270; J2765 ×3; J1170 ×5; Q9967

== ENCOUNTER 2018-09-27 10:15 | Observation (INO) | payer BC ==
[2018-09-27] MEDS ORDERED: HYDROmorphone 1 MG/ML 1 ML SYRINGE IVP STA (10:59)
--- NOTE | 2018-09-27 11:05 | ED ---
General Adult HPI - General Chief complaint: Extremity Problem,Nontraumatic Stated complaint: Poss blood poisoning Time Seen by Provider: 09/27/18 10:40 Source: patient, family, RN notes reviewed Mode of arrival: ambulatory Limitations: no limitations - History of Present Illness Initial comments: Patient is a pleasant 62-year-old male presenting to the emergency Department with complaints of right ankle as comfort. Onset of symptoms was this morning. Symptoms seem to improve with walking however were much worse following shower. Patient was hardly able to walk. Discomfort is mild to moderate at rest. Patient has noticed some redness. Patient states his right ankle is more swollen than normal. Patient has chronic left leg swelling which is unchanged . Patient denies fever however states he was shaky this morning. Patient does have a history of similar symptoms 2-3 times previously associated with blood poisoning. Patient states previous times for the same area. - Related Data Home Medications Medication Instructions Recorded Confirmed Furosemide [Lasix] 40 mg PO DAILY 05/02/14 09/27/18 Lisinopril [Zestril] 2.5 mg PO DAILY 05/02/14 09/27/18 Metoprolol Tartrate [Lopressor] 25 mg PO DAILY 05/02/14 09/27/18 Potassium Chloride ER [K-Dur 10] 10 meq PO DAILY 05/02/14 09/27/18 Simvastatin [Zocor] 40 mg PO DAILY 05/02/14 09/27/18 metFORMIN HCL [Glucophage] 500 mg PO BID 05/02/14 09/27/18 Allergies Allergy/AdvReac Type Severity Reaction Status Date / Time codeine Allergy Swelling Verified 09/27/18 10:52 Review of Systems ROS Statement: Those systems with pertinent positive or pertinent negative responses have been documented in the HPI. ROS Other: All systems not noted in ROS Statement are negative. Constitutional: Reports: as per HPI Eyes: Denies: eye pain ENT: Denies: ear pain Respiratory: Denies: dyspnea Cardiovascular: Denies: chest pain Endocrine: Denies: fatigue Gastrointestinal: Denies: abdominal pain Genitourinary: Denies: dysuria Musculoskeletal: Denies: back pain Skin: Reports: as per HPI, rash Neurological: Denies: weakness Past Medical History Past Medical History: Chest Pain / Angina, Heart Failure, Diabetes Mellitus, GERD/Reflux, Hyperlipidemia, Hypertension, Osteoarthritis (OA), Skin Disorder, Vascular Disorder Additional Past Medical History / Comment(s): 05/02/14 Pt has been having mostly sharp L sided chest pain and sometimes both sides of chest pained or sometimes center of chest. These pain started about 2 weeks. His physician thought he might have a pulled muscle in his chest-he was put on prednisone and levofloxin according to the pt. Chest pain has been getting worse over past one week. Pt also c/o watering in R eye for the past 3 weeks which he used home remedies on and it is getting better. 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 History of Any Multi-Drug Resistant Organisms: None Reported Past Surgical History: Back Surgery, Heart Catheterization, Orthopedic Surgery, Tonsillectomy Additional Past Surgical History / Comment(s): 2011 Cardiac cath with some blockages seen, low back surgery for ruptured disc, LT FOOT SX, BILAT CATARACT SX Past Anesthesia/Blood Transfusion Reactions: No Reported Reaction Past Psychological History: No Psychological Hx Reported Smoking Status: Current every day smoker Past Alcohol Use History: None Reported Past Drug Use History: None Reported - Past Family History Sister(s) Family Medical History: Pulmonary Embolus Father Family Medical History: Coronary Artery Disease (CAD), Myocardial Infarction ([place]) Additional Family Medical History / Comment(s): Father of [place] at age 68yrs. Mother Family Medical History: Cancer, Coronary Artery Disease (CAD), Deep Vein Thrombosis (DVT), Hypertension Additional Family Medical History / Comment(s): Mother has alot of allergies. RARE BLOOD CANCER General Exam Limitations: no limitations General appearance: alert, in no apparent distress Head exam: Present: atraumatic Eye exam: Present: normal appearance, PERRL ENT exam: Present: normal oropharynx Neck exam: Present: normal inspection Respiratory exam: Present: normal lung sounds bilaterally Cardiovascular Exam: Present: regular rate, normal rhythm Expanded Peripheral pulses: 2+: Dorsalis Pedis (R), Dorsalis Pedis (L) GI/Abdominal exam: Present: soft. Absent: tenderness Extremities exam: Present: full ROM, other (Left Greater than right lower leg swelling which patient states is normal for the left foot greater than normal and the right. There is erythema of the right medial malleolus region extending up towards the mid matthews region. There is tenderness. Minimal warmth.). Absent: calf tenderness Neurological exam: Present: alert Psychiatric exam: Present: normal affect, normal mood Skin exam: Present: erythema Course Vital Signs 09/27/18 09/27/18 10:24 12:27 Temperature 98.6 F 100.7 F H Pulse Rate 95 98 Respiratory 18 20 Rate Blood Pressure 144/74 125/71 O2 Sat by Pulse 99 97 Oximetry Medical Decision Making - Medical Decision Making Patient reevaluated and resting comfortably in bed. Patient has developed fever. Patient and family updated on results and plan. Case was discussed in detail with Dr. Ames, who will admit For Dr. kamara. Patient does meet sepsis criteria diagnosed at 1300. A culture and lactic acid were ordered. IV antibiotics have been ordered. - Lab Data Result diagrams: 09/27/18 11:20 09/27/18 11:20 Lab Results 09/27/18 09/27/18 09/27/18 Range/Units 11:20 11:20 11:20 WBC 19.4 H (3.8-10.6) k/uL RBC 5.30 (4.30-5.90) m/uL Hgb 15.1 (13.0-17.5) gm/dL Hct 46.3 (39.0-53.0) % MCV 87.4 (80.0-100.0) fL MCH 28.4 (25.0-35.0) pg MCHC 32.5 (31.0-37.0) g/dL RDW 15.7 H (11.5-15.5) % Plt Count 238 (150-450) k/uL Neutrophils % 89 % Lymphocytes % 5 % Monocytes % 4 % Eosinophils % 1 % Basophils % 0 % Neutrophils # 17.2 H (1.3-7.7) k/uL Lymphocytes # 1.0 (1.0-4.8) k/uL Monocytes # 0.9 (0-1.0) k/uL Eosinophils # 0.2 (0-0.7) k/uL Basophils # 0.0 (0-0.2) k/uL PT (9.0-12.0) sec INR (<1.2) APTT (22.0-30.0) sec Sodium 136 L (137-145) mmol/L Potassium 4.5 (3.5-5.1) mmol/L Chloride 101 (98-107) mmol/L Carbon Dioxide 24 (22-30) mmol/L Anion Gap 11 mmol/L BUN 14 (9-20) mg/dL Creatinine 0.72 (0.66-1.25) mg/dL Est GFR (CKD-EPI)AfAm >90 (>60 ml/min/1.73 sqM) Est GFR (CKD-EPI)NonAf >90 (>60 ml/min/1.73 sqM) Glucose 203 H (74-99) mg/dL Plasma Lactic Acid Tejinder 2.9 H* (0.7-2.0) mmol/L Uric Acid 5.3 (3.5-8.5) mg/dL Calcium 9.4 (8.4-10.2) mg/dL Total Bilirubin 0.7 (0.2-1.3) mg/dL AST 20 (17-59) U/L ALT 19 L (21-72) U/L Alkaline Phosphatase 96 (38-126) U/L C-Reactive Protein 12.8 H (<10.0) mg/L Total Protein 7.6 (6.3-8.2) g/dL Albumin 4.3 (3.5-5.0) g/dL 09/27/18 Range/Units 11:20 WBC (3.8-10.6) k/uL RBC (4.30-5.90) m/uL Hgb (13.0-17.5) gm/dL Hct (39.0-53.0) % MCV (80.0-100.0) fL MCH (25.0-35.0) pg MCHC (31.0-37.0) g/dL RDW (11.5-15.5) % Plt Count (150-450) k/uL Neutrophils % % Lymphocytes % % Monocytes % % Eosinophils % % Basophils % % Neutrophils # (1.3-7.7) k/uL Lymphocytes # (1.0-4.8) k/uL Monocytes # (0-1.0) k/uL Eosinophils # (0-0.7) k/uL Basophils # (0-0.2) k/uL PT 9.6 (9.0-12.0) sec INR 0.9 (<1.2) APTT 21.8 L (22.0-30.0) sec Sodium (137-145) mmol/L Potassium (3.5-5.1) mmol/L Chloride (98-107) mmol/L Carbon Dioxide (22-30) mmol/L Anion Gap mmol/L BUN (9-20) mg/dL Creatinine (0.66-1.25) mg/dL Est GFR (CKD-EPI)AfAm (>60 ml/min/1.73 sqM) Est GFR (CKD-EPI)NonAf (>60 ml/min/1.73 sqM) Glucose (74-99) mg/dL Plasma Lactic Acid Tejinder (0.7-2.0) mmol/L Uric Acid (3.5-8.5) mg/dL Calcium (8.4-10.2) mg/dL Total Bilirubin (0.2-1.3) mg/dL AST (17-59) U/L ALT (21-72) U/L Alkaline Phosphatase (38-126) U/L C-Reactive Protein (<10.0) mg/L Total Protein (6.3-8.2) g/dL Albumin (3.5-5.0) g/dL - Radiology Data Radiology results: report reviewed (Ultrasound negative for DVT), image reviewed (Right ankle x-ray negative for any acute process.) Critical Care Time Critical Care Time: Yes Total Critical Care Time: 32 Disposition Clinical Impression: Cellulitis, Severe sepsis Disposition: ADMITTED IP TO THIS HOSP Is patient prescribed a controlled substance at d/c from ED?: No Referrals: Antonella Summers MD [Primary Care Provider] - 1-2 days Decision Time: 13:07
[2018-09-27 11:44] LABS: Basophils % (A) 0 %; Eosinophils # (A) 0.2 k/uL (0-0.7); Eosinophils % (A) 1 %; HCT 46.3 % (39.0-53.0); HGB 15.1 gm/dL (13.0-17.5); Lymphocytes % (A) 5 %; MCH 28.4 pg (25.0-35.0); MCHC 32.5 g/dL (31.0-37.0); MCV 87.4 fL (80.0-100.0); Mean Platelet Volume 7.4; Monocytes # (A) 0.9 k/uL (0-1.0); Monocytes % (A) 4 %; Neutrophils # (A) 17.2 k/uL (1.3-7.7); Neutrophils % (A) 89 %; Platelet Count 238 k/uL (150-450); RDW 15.7 % (11.5-15.5); WBC 19.4 k/uL (3.8-10.6)
[2018-09-27 11:47] LABS: ALT 19 U/L (21-72); AST 20 U/L (17-59); African American GFR (CKD) >90 (>60 ml/min/1.73 sqM); Albumin 4.3 g/dL (3.5-5.0); Alkaline Phosphatase 96 U/L (38-126); Anion Gap 11 mmol/L; Blood Urea Nitrogen 14 mg/dL (9-20); C Reactive Protein 12.8 mg/L (<10.0); Calcium 9.4 mg/dL (8.4-10.2); Carbon Dioxide 24 mmol/L (22-30); Chloride 101 mmol/L (98-107); Glucose 203 mg/dL (74-99); Potassium 4.5 mmol/L (3.5-5.1); Sodium 136 mmol/L (137-145); Total Bilirubin 0.7 mg/dL (0.2-1.3); Total Protein 7.6 g/dL (6.3-8.2); Uric Acid 5.3 mg/dL (3.5-8.5)
[2018-09-27 11:57] LABS: INR 0.9 (<1.2); Prothrombin Time 9.6 sec (9.0-12.0)
--- NOTE | 2018-09-27 12:07 | US ---
EXAMINATION TYPE: US venous doppler duplex LE RT DATE OF EXAM: 09/27/2018 12:01 PM COMPARISON: NONE CLINICAL HISTORY: Pain. Right ankle pain. SIDE PERFORMED: Right TECHNIQUE: The lower extremity deep venous system is examined utilizing real time linear array sonog sony with graded compression, doppler sonography and color-flow sonography. VESSELS IMAGED: External Iliac Vein (EIV) Common Femoral Vein Deep Femoral Vein Greater Saphenous Vein * Femoral Vein Popliteal Vein Small Saphenous Vein * Proximal Calf Veins (* superficial vessels) Grayscale, color doppler, spectral doppler imaging performed of the deep veins of the right lower ext remity. There is normal flow, compressibility, vascular waveforms. Right Leg: Negative for DVT IMPRESSION: No sonographic evidence of deep venous arthrosis within the right lower extremity.
--- NOTE | 2018-09-27 12:23 | XR ---
EXAMINATION TYPE: XR ankle complete RT DATE OF EXAM: 09/27/2018 COMPARISON: NONE HISTORY: Pain FINDINGS: Three views of the ankle demonstrate the ankle mortise to be intact and symmetric. The joint spaces are preserved. The osseous structures are intact. IMPRESSION: 1. No definite acute fracture or dislocation, if symptoms persist follow-up study in 7 to 10 days wou ld be suggested.
[2018-09-27 12:26] LABS: Partial Thromboplastin Time 21.8 sec (22.0-30.0)
[2018-09-27] MEDS ORDERED: cefTRIAXone IN SWFI 1,000 MG/10 ML SYRINGE IVP STA (13:05)
[2018-09-27] MEDS ORDERED: VANCOMYCIN IV PER PHARMACY 1 EACH MISC MISCELLANE PRN (13:05)
[2018-09-27] MEDS ORDERED: ACETAMINOPHEN TAB 500 MG TAB PO STA (13:07)
[2018-09-27] MEDS ORDERED: HYDROmorphone 1 MG/ML 1 ML SYRINGE IVP PRN (13:07)
[2018-09-27] MEDS ORDERED: NALOXONE 0.4 MG/ML 1 ML VIAL IV PRN (13:07)
[2018-09-27] MEDS ORDERED: SODIUM CHLORIDE 0.9% 1,000 ML IV STA (13:07)
[2018-09-27 13:16] LABS: Glucose,Whole Blood 180 mg/dL (75-99)
[2018-09-27] MEDS ORDERED: metFORMIN 500 MG TAB PO STA (13:17)
[2018-09-27] MEDS ORDERED: VANCOMYCIN 1,750 MG in SODIUM CHLORIDE 0.9% 500 ML 500 ML IVPB ONE (13:30)
--- NOTE | 2018-09-27 15:02 | P.HPIM ---
History of Present Illness 60-year-old male came in with the complaints of redness swelling in the right ankle area. Patient was having burning discomfort in that area. Patient is found herself is around the ankle patient doesn't have any lymphadenopathy or streaking on exam. Patient denied any previous history of MRSA. Patient was started on vancomycin which will be set switched to cefazolin. Patient had fever here in the hospital. Blood cultures were obtained. Patient does have lactic acidosis and leukocytosis consistent with severe sepsis. She is diabetic and does take metformin at home which will be held because of lactic acidosis Review of Systems REVIEW OF SYSTEMS: CONSTITUTIONAL: No fever, no malaise, no fatigue. HEENT: No recent visual problems or hearing problems. Denied any sore throat. CARDIOVASCULAR: No chest pain, orthopnea, PND, no palpitations, no syncope. PULMONARY: No shortness of breath, no cough, no hemoptysis. GASTROINTESTINAL: No diarrhea, no nausea, no vomiting, no abdominal pain. NEUROLOGICAL: No headaches, no weakness, no numbness. HEMATOLOGICAL: Denies any bleeding or petechiae. GENITOURINARY: Denies any burning micturition, frequency, or urgency. MUSCULOSKELETAL/RHEUMATOLOGICAL: Denies any joint pain, swelling, or any muscle pain. ENDOCRINE: Denies any polyuria or polydipsia. The rest of the 14-point review of systems is negative. 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 History of Any Multi-Drug Resistant Organisms: None Reported Past Surgical History: Back Surgery, Heart Catheterization, Orthopedic Surgery, Tonsillectomy Additional Past Surgical History / Comment(s): 02/2018 umbilical hernia repair with "bowel complication", 2011 cardiac cath with some blockages, lower back surgery d/t ruptured discs, L foot surgery d/t injury, bilateral laser eye surgery for cataracts Past Anesthesia/Blood Transfusion Reactions: No Reported Reaction Smoking Status: Current every day smoker - Past Family History Sister(s) Family Medical History: Pulmonary Embolus Father Family Medical History: Coronary Artery Disease (CAD), Myocardial Infarction (DC) Additional Family Medical History / Comment(s): Father of DC at age 68yrs. Mother Family Medical History: Cancer, Coronary Artery Disease (CAD), Deep Vein Thrombosis (DVT), Hypertension Additional Family Medical History / Comment(s): Mother has alot of allergies. RARE BLOOD CANCER Medications and Allergies Home Medications Medication Instructions Recorded Confirmed Type Furosemide [Lasix] 40 mg PO DAILY 05/02/14 09/27/18 History Lisinopril [Zestril] 2.5 mg PO DAILY 05/02/14 09/27/18 History Metoprolol Tartrate [Lopressor] 25 mg PO DAILY 05/02/14 09/27/18 History Potassium Chloride ER [K-Dur 10] 10 meq PO DAILY 05/02/14 09/27/18 History Simvastatin [Zocor] 40 mg PO DAILY 05/02/14 09/27/18 History metFORMIN HCL [Glucophage] 500 mg PO BID 05/02/14 09/27/18 History Allergies Allergy/AdvReac Type Severity Reaction Status Date / Time codeine Allergy Swelling Verified 09/27/18 10:52 Physical Exam Vitals: Vital Signs Temp Pulse Pulse Resp BP BP Pulse Ox 09/27/18 14:32 99 F 91 17 119/55 96 09/27/18 13:35 98.2 F 93 18 129/70 96 09/27/18 12:27 100.7 F H 98 20 125/71 97 09/27/18 10:24 98.6 F 95 18 144/74 99 Intake and Output 09/26/18 09/27/18 09/27/18 22:59 06:59 14:59 Other: Weight 95.254 kg PHYSICAL EXAMINATION: GENERAL: The patient is alert and oriented x3, not in any acute distress. Well developed, well nourished. HEENT: Pupils are round and equally reacting to light. EOMI. No scleral icterus. No conjunctival pallor. Normocephalic, atraumatic. No pharyngeal erythema. No thyromegaly. CARDIOVASCULAR: S1 and S2 present. No murmurs, rubs, or gallops. PULMONARY: Chest is clear to auscultation, no wheezing or crackles. ABDOMEN: Soft, nontender, nondistended, normoactive bowel sounds. No palpable organomegaly. MUSCULOSKELETAL: No joint swelling or deformity. EXTREMITIES: No cyanosis, clubbing,. NEUROLOGICAL: Gross neurological examination did not reveal any focal deficits. SKIN: Right ankle cellulitis with circumferential redness local is of temperature patient does have swelling in the left leg as well but no cellu litis. Results CBC & Chem 7: 09/27/18 11:20 09/27/18 11:20 Labs: Abnormal Lab Results - Last 24 Hours (Table) 09/27/18 09/27/18 09/27/18 Range/Units 11:20 11:20 11:20 WBC 19.4 H (3.8-10.6) k/uL RDW 15.7 H (11.5-15.5) % Neutrophils # 17.2 H (1.3-7.7) k/uL APTT (22.0-30.0) sec Sodium 136 L (137-145) mmol/L Glucose 203 H (74-99) mg/dL POC Glucose (mg/dL) (75-99) mg/dL Plasma Lactic Acid Tejinder 2.9 H* (0.7-2.0) mmol/L ALT 19 L (21-72) U/L C-Reactive Protein 12.8 H (<10.0) mg/L 09/27/18 09/27/18 Range/Units 11:20 13:14 WBC (3.8-10.6) k/uL RDW (11.5-15.5) % Neutrophils # (1.3-7.7) k/uL APTT 21.8 L (22.0-30.0) sec Sodium (137-145) mmol/L Glucose (74-99) mg/dL POC Glucose (mg/dL) 180 H (75-99) mg/dL Plasma Lactic Acid Tejinder (0.7-2.0) mmol/L ALT (21-72) U/L C-Reactive Protein (<10.0) mg/L Assessment and Plan Plan: -Sepsis secondary to let us of the right lower extremity: Patient will be started on IV antibiotics patient was switched to ceftezole and vancomycin were discontinued with is no history of MRSA clinical exam findings are more consistent with a streptococcal infection. Blood cultures were obtained. -Lactic acidosis secondary to sepsis metformin will be held patient will continued on IV fluids -Type 2 diabetes mellitus patient with sliding scale insulin -Hypertension hold off lisinopril because of sepsis and concern for hypotension -Hyperlipidemia -Chronic venous insufficiency bilateral lower legs, rule out DVT -Gastroesophageal reflux disease -Patient will need GI prophylaxis due to prophylaxis early ambulation
[2018-09-27 16:59] LABS: Glucose,Whole Blood 226 mg/dL (75-99)
[2018-09-27] MEDS: SODIUM CHLORIDE 0.9% 1,000 ML IV SCH ×2 (17:43→21:24)
[2018-09-27] MEDS: INSULIN ASPART (NovoLOG) 100 UNIT/ML VIAL SQ SCH (17:44)
[2018-09-27 20:01] LABS: Glucose,Whole Blood 194 mg/dL (75-99)
[2018-09-27] MEDS ORDERED: metFORMIN 500 MG TAB PO SCH (21:00)
[2018-09-27] MEDS: FAMOTIDINE 20 MG TAB PO SCH (21:23)
[2018-09-28] MEDS ORDERED: VANCOMYCIN 1,750 MG in SODIUM CHLORIDE 0.9% 500 ML 500 ML IVPB SCH ×2
[2018-09-28] MEDS: HYDROcodone/APAP 5-325MG 1 EACH TAB PO PRN ×3 (00:43→21:37)
[2018-09-28 06:59] LABS: Glucose,Whole Blood 151 mg/dL (75-99)
[2018-09-28] MEDS: FAMOTIDINE 20 MG TAB PO SCH ×2 (08:27→21:36)
[2018-09-28] MEDS: ATORVASTATIN 20 MG TAB PO SCH (08:27)
[2018-09-28] MEDS: METOPROLOL TARTRATE 25 MG TAB PO SCH (08:27)
[2018-09-28] MEDS: POTASSIUM CHLORIDE ER 10 MEQ TAB.ER.PRT PO SCH (08:27)
[2018-09-28] MEDS: INSULIN ASPART (NovoLOG) 100 UNIT/ML VIAL SQ SCH ×3 (08:27→17:03)
[2018-09-28] MEDS ORDERED: LISINOPRIL 2.5 MG TAB PO SCH (09:00)
[2018-09-28] MEDS ORDERED: FUROSEMIDE 40 MG TAB PO SCH (09:00)
[2018-09-28 11:13] LABS: Glucose,Whole Blood 230 mg/dL (75-99)
[2018-09-28] MEDS: SODIUM CHLORIDE 0.9% 1,000 ML IV SCH ×2 (12:36→16:03)
--- NOTE | 2018-09-28 15:59 | P.CONS ---
History of Present Illness - Reason for Consult Consult date: 09/28/18 Right lower extremity cellulitis Requesting physician: Crispin Ames - Chief Complaint Right leg pain swelling redness 1 day - History of Present Illness Patient is 62-year-old male presenting to the ER at [facility] with chief complaint of right leg pain swelling and redness along with a fever and chills that started the morning of presentation to the hospital. Denies any history of any trauma patient did have diffuse swelling redness of th e right lower extremity he did have some dull aching pain to the right leg at times throbbing about 6-7 out of 10 and no radiation did have some pain on putting pressure and walking on that leg with the symptom the patient presented to the hospital the patient was evaluated by the physician patient did have a low-grade fever 100.7 along with elevated white count of 19.4 with a left shift the patient had did have a right lower extremity Doppler was negative for DVT the patient has been started on cefazolin but he did receive a dose of vancomycin the ER infections with positive for further recommendation regarding antibiotic therapy Review of Systems Positive point has been mentioned in the HPI rest of the systems are negative Past Medical History Past Medical History: Chest Pain / Angina, Heart Failure, Diabetes Mellitus, GERD/Reflux, Hyperlipidemia, Hypertension, Osteoarthritis (OA), Skin Disorder, Vascular Disorder Additional Past Medical History / Comment(s): Chronic L leg edema and occasi onally R leg edema, "blood poisoning"/cellulitis L leg twice, L achilles injury years ago, varicose veins L leg, NIDDM type II, neuropathy bilateral feet, duodenal ulcer that are healed, pt states he has been seen for some kind of skin condition that gives him areas of discoloration-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 History of Any Multi-Drug Resistant Organisms: None Reported Past Surgical History: Back Surgery, Heart Catheterization, Orthopedic Surgery, Tonsillectomy Additional Past Surgical History / Comment(s): 02/2018 umbilical hernia repair with "bowel complication", 2011 cardiac cath with some blockages, lower back surgery d/t ruptured discs, L foot surgery d/t injury, bilateral laser eye jorge camila for cataracts Past Anesthesia/Blood Transfusion Reactions: No Reported Reaction Smoking Status: Current every day smoker - Past Family History Sister(s) Family Medical History: Pulmonary Embolus Father Family Medical History: Coronary Artery Disease (CAD), Myocardial Infarction (DC) Additional Family Medical History / Comment(s): Father of DC at age 68yrs. Mother Family Medical History: Cancer, Coronary Artery Disease (CAD), Deep Vein Thrombosis (DVT), Hypertension Additional Family Medical History / Comment(s): Mother has alot of allergies. RARE BLOOD CANCER Medications and Allergies Home Medications Medication Instructions Recorded Confirmed Type Furosemide [Lasix] 40 mg PO DAILY 05/02/14 09/27/18 History Lisinopril [Zestril] 2.5 mg PO DAILY 05/02/14 09/27/18 History Metoprolol Tartrate [Lopressor] 25 mg PO DAILY 05/02/14 09/27/18 History Potassium Chloride ER [K-Dur 10] 10 meq PO DAILY 05/02/14 09/27/18 History Simvastatin [Zocor] 40 mg PO DAILY 05/02/14 09/27/18 History metFORMIN HCL [Glucophage] 500 mg PO BID 05/02/14 09/27/18 History Allergies Allergy/AdvReac Type Severity Reaction Status Date / Time codeine Allergy Swelling Verified 09/27/18 10:52 Physical Exam Vitals: Vital Signs Temp Pulse Resp BP Pulse Ox 09/28/18 11:44 97.6 F 75 18 148/74 96 09/28/18 04:48 98.2 F 76 16 108/53 93 L 09/27/18 20:51 98.2 F 89 16 125/66 97 Intake and Output 09/27/18 09/28/18 09/28/18 22:59 06:59 14:59 Intake Total 590 1730 Balance 590 1730 Intake: Intake, IV Titration 1140 Amount Sodium Chloride 0.9% 1, 1040 000 ml @ 130 mls/hr IV . Q7H42M [facility] Rx#:[id number] ceFAZolin 2 gm In Sodium 100 Chloride 0.9% 50 ml @ 100 mls/hr IVPB Q8HR [facility] Rx# :[id number] Oral 590 590 Other: Voiding Method Toilet Toilet # Voids 1 2 GENERAL DESCRIPTION: Middle-aged male lying in bed, no distress. No tachypnea or accessory muscle of respiration use. HEENT: Shows Pallor , no scleral icterus. Oral mucous membrane is dry. No pharyngeal erythema or thrush NECK: Trachea central, no thyromegaly. LUNGS: Unlabored breathing. Clear to auscultation anteriorly. No wheeze or crac kle. HEART: S1, S2, regular rate and rhythm. No loud murmur ABDOMEN: Soft, no tenderness , guarding or rigidity, no organomegaly EXTREMITIES: Right lower extremity with diffuse swelling and minimal redness slightly warm and tender to touch no open wound or any drainage. SKIN: No rash, no masses palpable. NEUROLOGICAL: The patient is awake, alert, oriented x3, mood and affect normal. Results CBC & Chem 7: 09/27/18 11:20 09/27/18 11:20 Labs: Abnormal Lab Results - Last 24 Hours (Table) 09/27/18 09/27/18 09/28/18 Range/Units 16:58 19:59 06:58 POC Glucose (mg/dL) 226 H 194 H 151 H (75-99) mg/dL 09/28/18 Range/Units 11:12 POC Glucose (mg/dL) 230 H (75-99) mg/dL Microbiology - Last 24 Hours (Table) 09/27/18 12:23 Blood Culture - Preliminary Blood No Growth after 24 hours 09/27/18 11:20 Blood Culture - Preliminary Blood No Growth after 24 hours Assessment and Plan Assessment: 1-patient admitted to the hospital with sepsis in this patient who did have a low-grade fever 100.7 mild tachycardia with heart rate of 91 and elevated white count 19,000 sources acute right lower extremity cellulitis with diffuse swelling redness likely streptococcal disease clinically doubt MRSA or gram- negative infection (1) Sepsis Current Visit: Yes Status: Acute Code(s): A41.9 - SEPSIS, UNSPECIFIED ORGANISM SNOMED Code(s): 13896771 (2) Cellulitis Current Visit: Yes Status: Acute Code(s): L03.90 - CELLULITIS, UNSPECIFIED SNOMED Code(s): 946811492 Plan: 1-marked the area of the redness and is an RN has been advised to apply Daniel wrap from just above the toe to below the knee 2-cefazolin 2 g daily down to continue will give him a few doses of clindamycin 900 every 8 hours 3-if the patient continued to improve to finish therapy with oral Keflex 500 mg by mouth every 6 hours for 7-10 days and a close outpatient follow-up We will follow on clinical condition and cultures to further adjust medication if needed Thank you for this consultation will follow this patient with you Time with Patient: Greater than 30
[2018-09-28] MEDS: CLINDAMYCIN 900 MG in DEXTROSE 5% IN WATER 50 ML IVPB SCH ×4 (16:03→23:32)
[2018-09-28 16:53] LABS: Glucose,Whole Blood 174 mg/dL (75-99)
[2018-09-28 20:09] LABS: Glucose,Whole Blood 241 mg/dL (75-99)
[2018-09-29] MEDS: HYDROcodone/APAP 5-325MG 1 EACH TAB PO PRN ×2 (02:31→12:58)
[2018-09-29 06:51] LABS: Glucose,Whole Blood 152 mg/dL (75-99)
[2018-09-29 07:27] LABS: Basophils % (A) 0 %; Eosinophils # (A) 0.1 k/uL (0-0.7); Eosinophils % (A) 2 %; HGB 12.2 gm/dL (13.0-17.5); Lymphocytes # (A) 1.5 k/uL (1.0-4.8); Lymphocytes % (A) 21 %; MCH 27.6 pg (25.0-35.0); MCHC 32.1 g/dL (31.0-37.0); MCV 86.1 fL (80.0-100.0); Mean Platelet Volume 7.1; Monocytes # (A) 0.6 k/uL (0-1.0); Monocytes % (A) 9 %; Neutrophils # (A) 4.3 k/uL (1.3-7.7); Neutrophils % (A) 64 %; Platelet Count 180 k/uL (150-450); RBC 4.41 m/uL (4.30-5.90); RDW 14.8 % (11.5-15.5); WBC 6.8 k/uL (3.8-10.6)
[2018-09-29 07:41] LABS: African American GFR (CKD) >90 (>60 ml/min/1.73 sqM); Anion Gap 6 mmol/L; Blood Urea Nitrogen 13 mg/dL (9-20); Calcium 8.6 mg/dL (8.4-10.2); Carbon Dioxide 26 mmol/L (22-30); Chloride 106 mmol/L (98-107); Glucose 156 mg/dL (74-99); Potassium 4.3 mmol/L (3.5-5.1); Sodium 138 mmol/L (137-145)
[2018-09-29] MEDS: POTASSIUM CHLORIDE ER 10 MEQ TAB.ER.PRT PO SCH (08:04)
[2018-09-29] MEDS: METOPROLOL TARTRATE 25 MG TAB PO SCH (08:05)
[2018-09-29] MEDS: INSULIN ASPART (NovoLOG) 100 UNIT/ML VIAL SQ SCH (08:05)
[2018-09-29] MEDS: FAMOTIDINE 20 MG TAB PO SCH (08:05)
[2018-09-29] MEDS: ATORVASTATIN 20 MG TAB PO SCH (08:05)
[2018-09-29] MEDS: CLINDAMYCIN 900 MG in DEXTROSE 5% IN WATER 50 ML IVPB SCH ×2 (09:13)
[2018-09-29 11:29] LABS: Glucose,Whole Blood 217 mg/dL (75-99)
[2018-09-29 11:56] VITALS: BP 162/77; PULSE 68; RESP 17; TEMP 97.9
--- NOTE | 2018-09-29 12:45 | P.DS ---
Providers Date of admission: 09/27/18 13:08 Attending physician: Crispin Ames Consults: 09/28/18 14:47 Consult Physician Routine Consulting Provider: Chas Archuleta Consult Reason/Comments: cellulitis Do you want consulting provider notified?: Yes Primary care physician: [facility] Course: Patient was admitted facilities of the right leg significant improvement on Cefazolin and patient will be discharged on Keflex. Patient was also on clindamycin here. Patient had lactic as well as on admission which is secondary to sepsis metformin may be contributing to that as well because of which I discarded metformin patient was started on Januvia, if Januvia is expensive patient can resume his metformin and follow up with primary care physician as an outpatient PHYSICAL EXAMINATION: GENERAL: The patient is alert and oriented x3, not in any acute distress. Well developed, well nourished. HEENT: Pupils are round and equally reacting to light. EOMI. No scleral icterus. No conjunctival pallor. Normocephalic, atraumatic. No pharyngeal erythema. No thyromegaly. CARDIOVASCULAR: S1 and S2 present. No murmurs, rubs, or gallops. PULMONARY: Chest is clear to auscultation, no wheezing or crackles. ABDOMEN: Soft, nontender, nondistended, normoactive bowel sounds. No palpable organomegaly. MUSCULOSKELETAL: No joint swelling or deformity. EXTREMITIES: No cyanosis, clubbing, bilateral lower extremity edema secondary to chronic venous stasis patient will resume his Lasix on as-needed basis along with Daniel bandages NEUROLOGICAL: Gross neurological examination did not reveal any focal deficits. SKIN: No rashes. Assessment and Plan Plan: -Sepsis secondary to right lower extremity cellulitis: Improved -Lactic acidosis secondary to sepsis metformin from improved with IV fluids -Type 2 diabetes mellitus patient with sliding scale insulin -Hypertension patient will resume his lisinopril -Hyperlipidemia -Chronic venous insufficiency bilateral lower legs, ruled out DVT -Gastroesophageal reflux disease Plan - Discharge Summary Discharge Rx Participant: No New Discharge Prescriptions: New Cephalexin [Keflex] 500 mg PO Q8HR #21 cap sitaGLIPtin [Januvia] 100 mg PO DAILY #30 tab Continue Potassium Chloride ER [K-Dur 10] 10 meq PO DAILY Metoprolol Tartrate [Lopressor] 25 mg PO DAILY Simvastatin [Zocor] 40 mg PO DAILY Lisinopril [Zestril] 2.5 mg PO DAILY Furosemide [Lasix] 40 mg PO DAILY Discontinued metFORMIN HCL [Glucophage] 500 mg PO BID Discharge Medication List Furosemide [Lasix] 40 mg PO DAILY 05/02/14 [History] Lisinopril [Zestril] 2.5 mg PO DAILY 05/02/14 [History] Metoprolol Tartrate [Lopressor] 25 mg PO DAILY 05/02/14 [History] Potassium Chloride ER [K-Dur 10] 10 meq PO DAILY 05/02/14 [History] Simvastatin [Zocor] 40 mg PO DAILY 05/02/14 [History] Cephalexin [Keflex] 500 mg PO Q8HR #21 cap 09/29/18 [Rx] sitaGLIPtin [Januvia] 100 mg PO DAILY #30 tab 09/29/18 [Rx] Follow up Appointment(s)/Referral(s): Antonella Summers MD [Primary Care Provider] - 1-2 days (patient to call Dr. Summers's office to schedule follow up appointment. The office is closed at time of discharge. ) [facility] [NON-STAFF] - 1-2 Days Chas Archuleta MD [STAFF PHYSICIAN] - 1 Week (patient to call Dr. Archuleta's office to schedule follow up appointment. The office is closed at time of discharge. ) Patient Instructions/Handouts: Cephalexin (By mouth), Sitagliptin (By mouth), Cellulitis (DC), Sepsis (GEN) Discharge Disposition: HOME SELF-CARE
--- NOTE | 2018-09-29 16:34 | P.PN ---
Subjective Progress Note Date: 09/28/18 Principal diagnosis: This is a 62-year-old male that was admitted to the hospital for right lower extremity cellulitis and is being monitored closely. Patient states today that his right ankle area is more swollen than previous and is concerned because he has not been taking his Lasix that he takes normally at home. Patient did have an elevated lactic level of 2.9 yesterday that has improved to 1.7. Patient is currently on IV antibiotics. Infectious disease was consulted. We will discontinue IV fluids at this time and continue to monitor closely. We will recheck a.m. labs. Patient is drinking plenty of water and tolerating diet. Patient denies any pain with walking on that extremity. Patient states that he can feel the pain and pressure while he is lying in bed. Patient denies any shortness of breath, chest pain, or palpitations at this time. Patient is afeb rile. Guarded prognosis. Objective - Vital Signs Vital signs: Vital Signs Temp 97.9 F 09/29/18 11:55 Pulse 68 09/29/18 11:55 Resp 17 09/29/18 11:55 BP 162/77 09/29/18 11:55 Pulse Ox 98 09/29/18 11:55 Intake & Output 09/28/18 09/29/18 09/29/18 18:59 06:59 18:59 Intake Total 50 450 Balance 50 450 Intake: Intake, IV Titration 50 100 Amount Clindamycin 900 mg In 50 Dextrose 5% in Water 50 ml @ 50 mls/hr IVPB Q8HR [facility] Rx#:[id number] ceFAZolin 2 gm In Sodium 50 50 Chloride 0.9% 50 ml @ 100 mls/hr IVPB Q8HR REPLACED BY [facility] Rx# :[id number] Oral 350 Other: Voiding Method Toilet Toilet Toilet # Voids 1 - Exam This is a 62-year-old male sitting up in bed in no acute distress. Vital signs are stable. HEENT: Conjunctive are normal. EOMs intact Neck: No JVD noted, supple Cardiovascular: S1 and S2 are normal. No murmurs noted. Respiratory: Lung sounds clear to auscultation with no wheezing or rhonchi noted Abdomen: Soft, non-tender, obese Legs: Mild pedal edema noted bilaterally. Right foot and lower extremity displays some redness, warmth, swelling Nervous system: No focal deficits gait is steady Skin: No rashes or lesions noted. Some redness and swelling noted to the right lower extremity and right foot. - Labs CBC & Chem 7: 09/29/18 06:57 09/29/18 06:57 Labs: Abnormal Lab Results - Last 24 Hours (Table) 09/28/18 09/28/18 09/29/18 Range/Units 16:50 20:08 06:49 Hgb (13.0-17.5) gm/dL Hct (39.0-53.0) % Creatinine (0.66-1.25) mg/dL Glucose (74-99) mg/dL POC Glucose (mg/dL) 174 H 241 H 152 H (75-99) mg/dL 09/29/18 09/29/18 09/29/18 Range/Units 06:57 06:57 11:28 Hgb 12.2 L (13.0-17.5) gm/dL Hct 38.0 L (39.0-53.0) % Creatinine 0.62 L (0.66-1.25) mg/dL Glucose 156 H (74-99) mg/dL POC Glucose (mg/dL) 217 H (75-99) mg/dL Microbiology - Last 24 Hours (Table) 09/27/18 12:23 Blood Culture - Preliminary Blood No Growth after 48 hours 09/27/18 11:20 Blood Culture - Preliminary Blood No Growth after 48 hours Assessment and Plan Assessment: Sepsis secondary to cellulitis of the right lower extremity: Patient is on IV antibiotic therapy. Infectious disease is consulted. Lactic acidosis secondary to sepsis: Metformin was held, patient was on IV fluids and will be discontinued. Will continue to monitor vital signs and labs. Diabetes mellitus type 2: Metformin was discontinued and patient will be monitored and treated with sliding scale Hypertension Hyperlipidemia Chronic venous insufficiency to bilateral lower legs, DVT ruled out Gastroesophageal reflux disease GI prophylaxis DVT prophylaxis with early ambulation Recommendations and discussion: Recommend to continue current medication management and symptomatic treatment. Will continue to monitor closely. Infectious disease was consulted and will await report. Patient will continue on IV antibiotics at this time. Guarded prognosis. Further recommendations to follow. Possible discharge in 24 to 48 hours.
== END 2018-09-29 13:30 | disposition home or self-care (01) ==
LOC: EC 10:15 → 3NMEDONC 13:08
PROVIDERS: ADMIT Internal Medicine; ATTEND Internal Medicine
DX: A41.9 Sepsis, unspecified organism (principal); R65.20 Severe sepsis without septic shock; I11.0 Hypertensive heart disease with heart failure; I50.9 Heart failure, unspecified; M19.90 Unspecified osteoarthritis, unspecified site; K21.9 Gastro-esophageal reflux disease without esophagitis; I87.2 Venous insufficiency (chronic) (peripheral); E11.42 Type 2 diabetes mellitus with diabetic polyneuropathy; L03.115 Cellulitis of right lower limb; E87.2 Acidosis; E78.5 Hyperlipidemia, unspecified; Z98.42 Cataract extraction status, left eye; Z98.41 Cataract extraction status, right eye; Z79.84 Long term (current) use of oral hypoglycemic drugs; F17.200 Nicotine dependence, unspecified, uncomplicated; Z87.11 Personal history of peptic ulcer disease; Z79.899 Other long term (current) drug therapy; Z82.49 Family history of ischemic heart disease and other diseases of the circulatory system; Z80.9 Family history of malignant neoplasm, unspecified; Z88.5 Allergy status to narcotic agent
CPT/HCPCS: 96361 ×3; 96365; 96366 ×2; 96367; 96376; 96375; 99291; 36415; 97161; 80053; 80048; 83605; 84550; 85025 ×2; 85610; 85730; 86140; 87040; 73610; 93971; G0378 ×3; J0690 ×3; J0696; J1170

== ENCOUNTER 2018-10-26 09:56 | Emergency (ER) | payer BC ==
[2018-10-26] MEDS ORDERED: ONDANSETRON 4 MG/2 ML VIAL IVP STA (10:28)
[2018-10-26] MEDS ORDERED: SODIUM CHLORIDE 0.9% 1,000 ML IV STA (10:28)
[2018-10-26] MEDS ORDERED: MORPHINE SULFATE 4 MG/ML SYRINGE IVP STA (10:28)
--- NOTE | 2018-10-26 10:37 | ED ---
General Adult HPI - General Chief complaint: Extremity Injury, Lower Stated complaint: Leg Weakness Time Seen by Provider: 10/26/18 10:06 Source: patient Mode of arrival: ambulatory Limitations: no limitations - History of Present Illness Initial comments: Patient is a 62-year-old male with past medical history of diabetes and hypertension, presenting to emergency Department with complaints of right lower leg pain x 1 day. Patient was recently hospitalized for cellulitis of the right lower leg on 09/27/18, and he feels like it has not completely cleared up. Patient started having increase in pain and swelling yesterday and it continues to progress. 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 Patient states it is very painful to walk and he is having increase in redness as well. Patient denies any recorded fevers but states he has been feeling warm and was nauseous and vomiting yesterday. Patient denies diarrhea, urinary complaints. Patient denies chest pain, shortness of breath. Patient has no other complaints at this time. Upon arrival to ER, vital signs are stable, afebrile - Related Data Home Medications Medication Instructions Recorded Confirmed Furosemide [Lasix] 40 mg PO DAILY 05/02/14 10/26/18 Lisinopril [Zestril] 2.5 mg PO DAILY 05/02/14 10/26/18 Metoprolol Tartrate [Lopressor] 25 mg PO DAILY 05/02/14 10/26/18 Potassium Chloride ER [K-Dur 10] 10 meq PO DAILY 05/02/14 10/26/18 Simvastatin [Zocor] 40 mg PO DAILY 05/02/14 10/26/18 Previous Rx's Medication Instructions Recorded sitaGLIPtin [Januvia] 100 mg PO DAILY #30 tab 09/29/18 Cephalexin [Keflex] 500 mg PO Q6HR 10 Days #40 cap 10/26/18 Ketorolac [Toradol] 10 mg PO Q8HR #15 tab 10/26/18 Allergies Allergy/AdvReac Type Severity Reaction Status Date / Time codeine Allergy Swelling Verified 10/26/18 10:46 Review of Systems ROS Statement: Those systems with pertinent positive or pertinent negative responses have been documented in the HPI. ROS Other: All systems not noted in ROS Statement are negative. 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 History of Any Multi-Drug Resistant Organisms: None Reported Past Surgical History: Back Surgery, Heart Catheterization, Orthopedic Surgery, Tonsillectomy Additional Past Surgical History / Comment(s): 02/2018 umbilical hernia repair with "bowel complication", 2011 cardiac cath with some blockages, lower back surgery d/t ruptured discs, L foot surgery d/t injury, bilateral laser eye surgery for cataracts Past Anesthesia/Blood Transfusion Reactions: No Reported Reaction Past Psychological History: No Psychological Hx Reported Smoking Status: Current every day smoker Past Alcohol Use History: None Reported Past Drug Use History: None Reported - Past Family History Sister(s) Family Medical History: Pulmonary Embolus Father Family Medical History: Coronary Artery Disease (CAD), Myocardial Infarction (MS) Additional Family Medical History / Comment(s): Father of MS at age 68yrs. Mother Family Medical History: Cancer, Coronary Artery Disease (CAD), Deep Vein Thrombo sis (DVT), Hypertension Additional Family Medical History / Comment(s): Mother has alot of allergies. RARE BLOOD CANCER General Exam - General Exam Comments Initial Comments: GENERAL: Well-appearing, well-nourished and in no acute distress, although appears uncomfortable. HEAD: Atraumatic, normocephalic. EYES: Pupils equal round and reactive to light, extraocular movements intact, sclera anicteric, conjunctiva are normal. ENT: TMs normal, nares patent, oropharynx clear without exudates. Moist mucous membranes. NECK: Normal range of motion, supple without lymphadenopathy or JVD. LUNGS: Breath sounds clear to auscultation bilaterally and equal. No wheezes rales or rhonchi. HEART: Regular rate and rhythm without murmurs, rubs or gallops. ABDOMEN: Soft, nontender, normoactive bowel sounds. No guarding, no rebound. No masses appreciated. : Deferred EXTREMITIES: Right lower leg is erythematous, painful to touch, and warm compared to other lower leg. Bilateral lower leg edema, R>L. neurovascular intact. Normal range of motion although painful of the right ankle. NEUROLOGICAL: Cranial nerves II through XII grossly intact. Normal speech, normal gait. PSYCH: Normal mood, normal affect. SKIN: Warm, Dry, normal turgor, no rashes, except for described above. Limitations: no limitations Course Vital Signs 10/26/18 10/26/18 10:02 13:15 Temperature 98.1 F 98.0 F Pulse Rate 100 86 Respiratory 8 L 16 Rate Blood Pressure 157/78 140/73 O2 Sat by Pulse 98 99 Oximetry Medical Decision Making - Medical Decision Making Patient is a 62-year-old male presenting with pain and redness in his right lower leg x 1 day. Patient was recently hospitalized for right lower leg cellulitis one month ago. Was discharged on Keflex. Patient reports improvement until yesterday when he noticed increased in pain and swelling. Patient denies fever, chills, diarrhea. Upon presentation today, vital signs stable, afebrile. On exam patient has erythema and mild edema to the right lower leg, right ankle area. Pain with palpation. White count is 13.4, CMP is within normal limits. Lactic acid is 1.6. Ultrasound of right lower extremity reveals no evidence for DVT. Patient will be given 1 g Rocephin in the ER and discharged home on Keflex 4 times daily. Patient will follow up with Dr. Summers on Monday. Patient is in agreement with this plan. Return parameters were discussed with the patient he verbalizes understanding. Case discussed with Dr. Mccormick. - Lab Data Result diagrams: 10/26/18 10:54 10/26/18 10:54 Lab Results 10/26/18 10/26/18 10/26/18 Range/Units 10:54 10:54 10:54 WBC 13.4 H (3.8-10.6) k/uL RBC 5.09 (4.30-5.90) m/uL Hgb 14.5 (13.0-17.5) gm/dL Hct 43.6 (39.0-53.0) % MCV 85.7 (80.0-100.0) fL MCH 28.5 (25.0-35.0) pg MCHC 33.3 (31.0-37.0) g/dL RDW 16.2 H (11.5-15.5) % Plt Count 207 (150-450) k/uL Neutrophils % 85 % Lymphocytes % 9 % Monocytes % 4 % Eosinophils % 1 % Basophils % 0 % Neutrophils # 11.4 H (1.3-7.7) k/uL Lymphocytes # 1.2 (1.0-4.8) k/uL Monocytes # 0.6 (0-1.0) k/uL Eosinophils # 0.1 (0-0.7) k/uL Basophils # 0.0 (0-0.2) k/uL Anisocytosis Slight PT (9.0-12.0) sec INR (<1.2) APTT (22.0-30.0) sec Sodium 137 (137-145) mmol/L Potassium 4.2 (3.5-5.1) mmol/L Chloride 103 (98-107) mmol/L Carbon Dioxide 24 (22-30) mmol/L Anion Gap 10 mmol/L BUN 17 (9-20) mg/dL Creatinine 0.75 (0.66-1.25) mg/dL Est GFR (CKD-EPI)AfAm >90 (>60 ml/min/1.73 sqM) Est GFR (CKD-EPI)NonAf >90 (>60 ml/min/1.73 sqM) Glucose 185 H (74-99) mg/dL Plasma Lactic Acid Tejinder 1.6 (0.7-2.0) mmol/L Calcium 9.4 (8.4-10.2) mg/dL Total Bilirubin 0.7 (0.2-1.3) mg/dL AST 14 L (17-59) U/L ALT 21 (21-72) U/L Alkaline Phosphatase 77 (38-126) U/L Total Protein 6.9 (6.3-8.2) g/dL Albumin 3.8 (3.5-5.0) g/dL 10/26/18 Range/Units 10:54 WBC (3.8-10.6) k/uL RBC (4.30-5.90) m/uL Hgb (13.0-17.5) gm/dL Hct (39.0-53.0) % MCV (80.0-100.0) fL MCH (25.0-35.0) pg MCHC (31.0-37.0) g/dL RDW (11.5-15.5) % Plt Count (150-450) k/uL Neutrophils % % Lymphocytes % % Monocytes % % Eosinophils % % Basophils % % Neutrophils # (1.3-7.7) k/uL Lymphocytes # (1.0-4.8) k/uL Monocytes # (0-1.0) k/uL Eosinophils # (0-0.7) k/uL Basophils # (0-0.2) k/uL Anisocytosis PT 9.9 (9.0-12.0) sec INR 0.9 (<1.2) APTT 23.4 (22.0-30.0) sec Sodium (137-145) mmol/L Potassium (3.5-5.1) mmol/L Chloride (98-107) mmol/L Carbon Dioxide (22-30) mmol/L Anion Gap mmol/L BUN (9-20) mg/dL Creatinine (0.66-1.25) mg/dL Est GFR (CKD-EPI)AfAm (>60 ml/min/1.73 sqM) Est GFR (CKD-EPI)NonAf (>60 ml/min/1.73 sqM) Glucose (74-99) mg/dL Plasma Lactic Acid Tejinder (0.7-2.0) mmol/L Calcium (8.4-10.2) mg/dL Total Bilirubin (0.2-1.3) mg/dL AST (17-59) U/L ALT (21-72) U/L Alkaline Phosphatase (38-126) U/L Total Protein (6.3-8.2) g/dL Albumin (3.5-5.0) g/dL Disposition Clinical Impression: Cellulitis of right lower leg Disposition: HOME SELF-CARE Condition: Stable Instructions (If sedation given, give patient instructions): Cellulitis (ED) Additional Instructions: Please return to the Emergency Department if symptoms worsen or any other concerns. Follow-up with Dr. Summers on Monday. Prescriptions: Cephalexin [Keflex] 500 mg PO Q6HR 10 Days #40 cap Ketorolac [Toradol] 10 mg PO Q8HR #15 tab Is patient prescribed a controlled substance at d/c from ED?: No Referrals: Antonella Summers MD [Primary Care Provider] - 1-2 days
[2018-10-26 11:32] LABS: Anisocytosis Slight; Basophils % (A) 0 %; Eosinophils # (A) 0.1 k/uL (0-0.7); Eosinophils % (A) 1 %; HCT 43.6 % (39.0-53.0); HGB 14.5 gm/dL (13.0-17.5); Lymphocytes # (A) 1.2 k/uL (1.0-4.8); Lymphocytes % (A) 9 %; MCH 28.5 pg (25.0-35.0); MCHC 33.3 g/dL (31.0-37.0); MCV 85.7 fL (80.0-100.0); Mean Platelet Volume 7.3; Monocytes # (A) 0.6 k/uL (0-1.0); Monocytes % (A) 4 %; Neutrophils # (A) 11.4 k/uL (1.3-7.7); Neutrophils % (A) 85 %; Platelet Count 207 k/uL (150-450); RBC 5.09 m/uL (4.30-5.90); RDW 16.2 % (11.5-15.5); WBC 13.4 k/uL (3.8-10.6)
[2018-10-26 11:35] LABS: ALT 21 U/L (21-72); AST 14 U/L (17-59); African American GFR (CKD) >90 (>60 ml/min/1.73 sqM); Albumin 3.8 g/dL (3.5-5.0); Alkaline Phosphatase 77 U/L (38-126); Anion Gap 10 mmol/L; Blood Urea Nitrogen 17 mg/dL (9-20); Calcium 9.4 mg/dL (8.4-10.2); Carbon Dioxide 24 mmol/L (22-30); Chloride 103 mmol/L (98-107); Glucose 185 mg/dL (74-99); INR 0.9 (<1.2); Partial Thromboplastin Time 23.4 sec (22.0-30.0); Potassium 4.2 mmol/L (3.5-5.1); Prothrombin Time 9.9 sec (9.0-12.0); Sodium 137 mmol/L (137-145); Total Bilirubin 0.7 mg/dL (0.2-1.3); Total Protein 6.9 g/dL (6.3-8.2)
--- NOTE | 2018-10-26 11:39 | US ---
EXAMINATION TYPE: US venous doppler duplex LE RT DATE OF EXAM: 10/26/2018 10:30 AM COMPARISON: NONE CLINICAL HISTORY: Pain. Pain SIDE PERFORMED: Right TECHNIQUE: The lower extremity deep venous system is examined utilizing real time linear array sonog sony with graded compression, doppler sonography and color-flow sonography. VESSELS IMAGED: External Iliac Vein (EIV) Common Femoral Vein Deep Femoral Vein Greater Saphenous Vein * Femoral Vein Popliteal Vein Small Saphenous Vein * Proximal Calf Veins (* superficial vessels) Right Leg: Negative for DVT IMPRESSION: Grayscale, color doppler, spectral doppler imaging performed of the deep veins of the lo wer extremities. There is no diagnostic evidence of DVT as visualized
[2018-10-26] MEDS ORDERED: cefTRIAXone IN SWFI 1,000 MG/10 ML SYRINGE IVP STA (13:07)
[2018-10-26 13:39] VITALS: BP 140/73; PULSE 86; RESP 16; TEMP 98
== END 2018-10-26 13:36 | disposition home or self-care (01) ==
LOC: EC 09:56
DX: L03.115 Cellulitis of right lower limb (principal); R60.0 Localized edema; M25.571 Pain in right ankle and joints of right foot; E78.5 Hyperlipidemia, unspecified; I11.0 Hypertensive heart disease with heart failure; I50.9 Heart failure, unspecified; F17.200 Nicotine dependence, unspecified, uncomplicated; Z88.5 Allergy status to narcotic agent; Z79.899 Other long term (current) drug therapy
CPT/HCPCS: 99284; 96374; 96375 ×2; 96361; 36415; 80053; 83605; 85025; 85610; 85730; 87040; 93971; J2270; J2405; J0696

== ENCOUNTER → 2018-12-19 | Outpatient (CLI) | payer BC ==
[2018-12-19 08:19] LABS: African American GFR (CKD) >90 (>60 ml/min/1.73 sqM); Blood Urea Nitrogen 16 mg/dL (9-20)
--- NOTE | 2018-12-19 09:38 | CT ---
EXAMINATION TYPE: CT abdomen wo/w con DATE OF EXAM: 12/19/2018 COMPARISON: CT abdomen and pelvis March 22, [address] October 30, 2016 HISTORY: Abn MRI, renal mass of Lt kidney CT DLP: 1540 mGycm, Automated Exposure Control for Dose Reduction was Utilized. CONTRAST: CT scan of the abdomen is performed with oral and without and with IV Contrast, patient injected with 100 mL of Isovue 300. FINDINGS: LUNG BASES: Persistent pericardial calcification anteriorly. LIVER/GB: Noncontrast images show liver hypodense relative to spleen consistent with diffuse fatty in filtration. Small dependent gallstone in gallbladder axial image 26 series 3 redemonstrated. PANCREAS: No significant abnormality is seen. SPLEEN: No significant abnormality is seen. ADRENALS: There is stable from 2017 CT 1.9 cm left adrenal mass axial image 24. Hounsfield units aver age -1 on noncontrast images. Findings are consistent with benign lipid rich adenoma. KIDNEYS: Noncontrast images show no renal calculi bilaterally. Postcontrast images show symmetric or directly uptake and excretion without hydronephrosis seen bilaterally. There is persistent round exop hytic 2.9 cm lesion mid pole level medially posteriorly left kidney image 37 unchanged in size and ap pearance from 2017 CT with Hounsfield units averaging 15 without definitive postcontrast enhancement both reflect a proteinaceous cyst given interval stability from prior CTs BOWEL: Oral contrast has not reached terminal ileum. Normal-appearing appendix from cecum in the righ t mid to lower abdomen is noted. There is no suspicious small or large bowel dilatation. There is mod [id number] concentric wall thickening of a moderate length segment jejunal loop just past ligame nt of Treitz in the left midabdomen. LYMPH NODES: No greater than 1cm abdominal lymph nodes are appreciated. OSSEOUS STRUCTURES: No significant abnormality is seen. OTHER: Moderate to severe calcified plaque of the aorta extends into branch vessels. Suspect signific ant stenosis at origin of celiac artery coronal image 61 and sagittal image 42. IMPRESSION: 1. Presumed lesion of concern is slightly proteinaceous 2.9 cm cyst posterior medially mid pole level left kidney. Correlate with outside MRI advised. This lesion is unchanged from October 30, 2016 CT. Bosniak type II lesion. 2. Note is made of a moderate to severe focal enteritis involving proximal jejunum. Differential incl udes infectious inflammatory and ischemic etiologies. 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 Advise endovascular surgical referral to further assess.
== END | disposition home or self-care (01) ==
LOC: RADCTMAIN 07:38
PROVIDERS: ATTEND Internal Medicine
DX: N28.89 Other specified disorders of kidney and ureter (principal); K52.89 Other specified noninfective gastroenteritis and colitis; Z88.5 Allergy status to narcotic agent
CPT/HCPCS: 82565; 84520; 74170; 36415; Q9967

== ENCOUNTER 2020-07-11 16:22 | Inpatient (IN) | payer BC ==
--- NOTE | 2020-07-11 16:49 | ED ---
General Adult HPI - General Chief complaint: Chest Pain Stated complaint: chest pain Time Seen by Provider: 07/11/20 16:47 Source: patient Mode of arrival: ambulatory Limitations: no limitations - History of Present Illness Initial comments: Patient presents the ED with his for evaluation. Patient states for the past 2 months or so, he has been experiencing intermittent pain that begins in his right upper abdomen and radiates up to the right side of his chest. Patient states that this pain has radiated to his right shoulder at times as well. Patient states that his pain is worse after eating. Patient states that he has a history of a hiatal hernia and GERD. Patient states that his pain is very mild currently. Patient denies trauma or injury, fever or chills, headache, focal neuro deficit, left-sided chest pain, neck/jaw/back pain, pleuritic pain, dyspnea, cough or cold symptoms, palpitations, dizziness, nausea/vomiting/diaphoresis, abdominal pain, urinary symptoms, leg or calf swelling or pain, or any other symptoms or complaints. - Related Data Home Medications Medication Instructions Recorded Confirmed Furosemide [Lasix] 40 mg PO DAILY 05/02/14 07/11/20 Metoprolol Tartrate [Lopressor] 25 mg PO DAILY 05/02/14 07/11/20 Potassium Chloride ER [K-Dur 10] 10 meq PO DAILY 05/02/14 07/11/20 Simvastatin [Zocor] 40 mg PO HS 05/02/14 07/11/20 lisinopriL [Zestril] 2.5 mg PO DAILY 05/02/14 07/11/20 metFORMIN HCL [Glucophage] 500 mg PO TID 07/11/20 07/11/20 Previous Rx's Medication Instructions Recorded sitaGLIPtin [Januvia] 100 mg PO DAILY #30 tab 09/29/18 Allergies Allergy/AdvReac Type Severity Reaction Status Date / Time codeine Allergy Swelling Verified 07/11/20 18:55 Review of Systems ROS Statement: Those systems with pertinent positive or pertinent negative responses have been documented in the HPI. ROS Other: All systems not noted in ROS Statement are negative. 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 History of Any Multi-Drug Resistant Organisms: None Reported Past Surgical History: Back Surgery, Heart Catheterization, Orthopedic Surgery, Tonsillectomy Additional Past Surgical History / Comment(s): 02/2018 umbilical hernia repair with "bowel complication", 2011 cardiac cath with some blockages, lower back surgery d/t ruptured discs, L foot surgery d/t injury, bilateral laser eye surgery for cataracts Past Anesthesia/Blood Transfusion Reactions: No Reported Reaction Past Psychological History: No Psychological Hx Reported Smoking Status: Current every day smoker Past Alcohol Use History: None Reported Past Drug Use History: None Reported - Past Family History Sister(s) Family Medical History: Pulmonary Embolus Father Family Medical History: Coronary Artery Disease (CAD), Myocardial Infarction (M I) Additional Family Medical History / Comment(s): Father of DC at age 68yrs. Mother Family Medical History: Cancer, Coronary Artery Disease (CAD), Deep Vein Thrombosis (DVT), Hypertension Additional Family Medical History / Comment(s): Mother has alot of allergies. RARE BLOOD CANCER General Exam Limitations: no limitations Course Vital Signs 07/11/20 07/11/20 07/11/20 16:24 16:38 18:02 Temperature 97.7 F Pulse Rate 92 89 82 Respiratory 20 20 18 Rate Blood Pressure 178/82 196/95 179/77 O2 Sat by Pulse 97 99 97 Oximetry 07/11/20 19:10 Temperature Pulse Rate 98 Respiratory 20 Rate Blood Pressure 182/99 O2 Sat by Pulse 99 Oximetry - Reevaluation(s) Reevaluation #1: 07/11/20 19:27 Case, H&P, test results and ED management were discussed with ZAY Kline. She accepts hospital admission on behalf of herself and Dr. Henderson. She agrees with cardiology consultation. She has no further recommendations at this time. 07/11/20 19:43 Patient denies development of any new symptoms while in the ED. Patient remains alert and breathing comfortably with a normal room air oxygen saturation. Patient and are aware of the patient's test results, and patient agrees with hospital admission at this time. EKG Findings - EKG Comments: EKG Findings:: Normal sinus rhythm, no ectopy, ventricular rate of 96 bpm, normal TX and QRS intervals, mildly prolonged QTc interval of 467 ms, left anterior fascicular block, minimal voltage criteria for LVH, anterolateral ST and T-wave abnormality Medical Decision Making - Medical Decision Making Given the patient's test results, EKG findings and elevated troponin, I suspect that the patient's right-sided chest pain radiating to his right shoulder is likely atypical pain from coronary artery disease. I suspect the patient has likely had a non-ST elevation DC. Patient has been treated with oral aspirin, as well as IV heparin in the ED. ZAY Kline has accepted hospital admission. A cardiology consultation order has been placed. - Lab Data Result diagrams: 07/11/20 17:03 07/11/20 17:03 Lab Results 07/11/20 07/11/20 07/11/20 Range/Units 17:03 17:03 17:03 WBC 11.0 H (3.8-10.6) k/uL RBC 4.90 (4.30-5.90) m/uL Hgb 14.1 (13.0-17.5) gm/dL Hct 41.1 (39.0-53.0) % MCV 83.8 (80.0-100.0) fL MCH 28.7 (25.0-35.0) pg MCHC 34.2 (31.0-37.0) g/dL RDW 15.5 (11.5-15.5) % Plt Count 236 (150-450) k/uL MPV 7.7 Neutrophils % 68 % Lymphocytes % 22 % Monocytes % 7 % Eosinophils % 2 % Basophils % 0 % Neutrophils # 7.5 (1.3-7.7) k/uL Lymphocytes # 2.4 (1.0-4.8) k/uL Monocytes # 0.8 (0-1.0) k/uL Eosinophils # 0.2 (0-0.7) k/uL Basophils # 0.0 (0-0.2) k/uL PT 10.3 (9.0-12.0) sec INR 1.0 (<1.2) APTT 20.9 L (22.0-30.0) sec D-Dimer 1.00 H (<0.60) mg/L FEU Sodium 138 (137-145) mmol/L Potassium 4.4 (3.5-5.1) mmol/L Chloride 104 (98-107) mmol/L Carbon Dioxide 23 (22-30) mmol/L Anion Gap 11 mmol/L BUN 9 (9-20) mg/dL Creatinine 0.75 (0.66-1.25) mg/dL Est GFR (CKD-EPI)AfAm >90 (>60 ml/min/1.73 sqM) Est GFR (CKD-EPI)NonAf >90 (>60 ml/min/1.73 sqM) Glucose 148 H (74-99) mg/dL Calcium 9.6 (8.4-10.2) mg/dL Total Bilirubin 0.5 (0.2-1.3) mg/dL AST 27 (17-59) U/L ALT 31 (4-49) U/L Alkaline Phosphatase 89 (38-126) U/L Troponin I (0.000-0.034) ng/mL NT-Pro-B Natriuret Pep pg/mL Total Protein 7.3 (6.3-8.2) g/dL Albumin 4.3 (3.5-5.0) g/dL Lipase 371 H (23-300) U/L 07/11/20 07/11/20 Range/Units 17:03 17:03 WBC (3.8-10.6) k/uL RBC (4.30-5.90) m/uL Hgb (13.0-17.5) gm/dL Hct (39.0-53.0) % MCV (80.0-100.0) fL MCH (25.0-35.0) pg MCHC (31.0-37.0) g/dL RDW (11.5-15.5) % Plt Count (150-450) k/uL MPV Neutrophils % % Lymphocytes % % Monocytes % % Eosinophils % % Basophils % % Neutrophils # (1.3-7.7) k/uL Lymphocytes # (1.0-4.8) k/uL Monocytes # (0-1.0) k/uL Eosinophils # (0-0.7) k/uL Basophils # (0-0.2) k/uL PT (9.0-12.0) sec INR (<1.2) APTT (22.0-30.0) sec D-Dimer (<0.60) mg/L FEU Sodium (137-145) mmol/L Potassium (3.5-5.1) mmol/L Chloride (98-107) mmol/L Carbon Dioxide (22-30) mmol/L Anion Gap mmol/L BUN (9-20) mg/dL Creatinine (0.66-1.25) mg/dL Est GFR (CKD-EPI)AfAm (>60 ml/min/1.73 sqM) Est GFR (CKD-EPI)NonAf (>60 ml/min/1.73 sqM) Glucose (74-99) mg/dL Calcium (8.4-10.2) mg/dL Total Bilirubin (0.2-1.3) mg/dL AST (17-59) U/L ALT (4-49) U/L Alkaline Phosphatase (38-126) U/L Troponin I 0.254 H* (0.000-0.034) ng/mL NT-Pro-B Natriuret Pep 848 pg/mL Total Protein (6.3-8.2) g/dL Albumin (3.5-5.0) g/dL Lipase (23-300) U/L - Radiology Data Radiology results: report reviewed (Chest x-ray: Normal chest, no change; gallbladder ultrasound: There is a single gallstone identified, there is evidence of fatty infiltration of the liver, no dilated ducts; CT angiogram chest: No evidence of pulmonary embolism, atherosclerotic vascular disease) Critical Care Time Critical Care Time: Yes Total Critical Care Time: 50 (NSTEMI) Disposition Clinical Impression: Chest pain, Elevated troponin Narrative: Suspected NSTEMI Disposition: ADMITTED IP TO THIS [facility] Condition: Stable Is patient prescribed a controlled substance at d/c from ED?: No Referrals: Antonella Summers MD [Primary Care Provider] - 1-2 days Time of Disposition: 19:27
[2020-07-11] MEDS ORDERED: MAG HYDROX/AL HYDROX/SIMETH 30 ML, HYOSCYAMINE ELIXIR 10 ML, LIDOCAINE VISCOUS 2% 10 ML PO STA ×3 (16:59)
[2020-07-11 17:13] LABS: Basophils % (A) 0 %; Eosinophils # (A) 0.2 k/uL (0-0.7); Eosinophils % (A) 2 %; HCT 41.1 % (39.0-53.0); HGB 14.1 gm/dL (13.0-17.5); Lymphocytes # (A) 2.4 k/uL (1.0-4.8); Lymphocytes % (A) 22 %; MCH 28.7 pg (25.0-35.0); MCHC 34.2 g/dL (31.0-37.0); MCV 83.8 fL (80.0-100.0); Mean Platelet Volume 7.7; Monocytes # (A) 0.8 k/uL (0-1.0); Monocytes % (A) 7 %; Neutrophils # (A) 7.5 k/uL (1.3-7.7); Neutrophils % (A) 68 %; Platelet Count 236 k/uL (150-450); RDW 15.5 % (11.5-15.5)
[2020-07-11 17:21] LABS: ALT 31 U/L (4-49); AST 27 U/L (17-59); African American GFR (CKD) >90 (>60 ml/min/1.73 sqM); Albumin 4.3 g/dL (3.5-5.0); Alkaline Phosphatase 89 U/L (38-126); Anion Gap 11 mmol/L; Blood Urea Nitrogen 9 mg/dL (9-20); Calcium 9.6 mg/dL (8.4-10.2); Carbon Dioxide 23 mmol/L (22-30); Chloride 104 mmol/L (98-107); Glucose 148 mg/dL (74-99); Lipase 371 U/L (23-300); Non-African American GFR(CKD) >90 (>60 ml/min/1.73 sqM); Potassium 4.4 mmol/L (3.5-5.1); Sodium 138 mmol/L (137-145); Total Bilirubin 0.5 mg/dL (0.2-1.3); Total Protein 7.3 g/dL (6.3-8.2)
[2020-07-11 17:37] LABS: Partial Thromboplastin Time 20.9 sec (22.0-30.0); Prothrombin Time 10.3 sec (9.0-12.0)
--- NOTE | 2020-07-11 17:46 | XR ---
EXAMINATION TYPE: XR chest 2V DATE OF EXAM: 07/11/2020 COMPARISON: 05/02/2014 HISTORY: Chest pain TECHNIQUE: FINDINGS: Heart and mediastinum are normal. Lungs are clear. Diaphragm is normal. Bony thorax is inta ct. There are chest leads. IMPRESSION: Normal chest. No change.
[2020-07-11] MEDS ORDERED: ASPIRIN 81 MG PO STA (17:56)
--- NOTE | 2020-07-11 18:40 | US ---
EXAMINATION TYPE: US gallbladder DATE OF EXAM: 07/11/2020 COMPARISON: CT 2019 CLINICAL HISTORY: pain. Chest pain, N/V EXAM MEASUREMENTS: Liver Length: 15.5 cm Gallbladder Wall: 0.2 cm CBD: 0.5 cm Right Kidney: 11.1 x 5.3 x 5.5 cm Pancreas: obscured by overlying midline bowel gas Liver: attenuating, increased echogenicity, heterogeneous with 2.6cm hypoechoic area near gallbladde r Gallbladder: 0.9cm echogenic focus seen Evidence for sonographic Paul's sign: no CBD: visualized portions wnl, limited by overlying bowel gas Right Kidney: wnl IMPRESSION: There is a single gallstone identified. There is evidence of fatty infiltration of the liver. No dila mitchell ducts.
--- NOTE | 2020-07-11 19:12 | CT ---
EXAMINATION TYPE: CT chest angio for PE DATE OF EXAM: 07/11/2020 COMPARISON: None HISTORY: Right sided chest pain with shortness of breath. CT DLP: 547 mGycm Automated exposure control for dose reduction was used. CONTRAST: Performed with IV Contrast, patient injected with 100 mL of Isovue 370. There are 3-D post processed images. The lungs are clear of consolidation. There is no evidence of a pulmonary mass. There is no pleural e ffusion. Heart appears normal. There is no pericardial effusion. There is no mediastinal adenopathy. There are no hilar masses. Thoracic aorta is atheromatous. There is variable plaque formation in the descending thoracic aorta. There is normal contrast opacification of the pulmonary arteries. There are no filling defects. There is 2.4 cm cyst on the posterior left kidney. There is 1.5 cm hypodensity left adrenal gland that is likely benign. This appears unchanged compared to CT scan of 12/16/2018. Thoracic spine is intact. There is no compression fracture. Sternum is intact. The ribs appear intact . IMPRESSION: No evidence of pulmonary embolism. Atherosclerotic vascular disease.
[2020-07-11] MEDS ORDERED: HEPARIN SODIUM 1,000 UN/ML (10ML VL) IV PRN (19:35)
[2020-07-11] MEDS ORDERED: HEPARIN SODIUM 1,000 UN/ML (10ML VL) IV ONE (19:35)
[2020-07-11] MEDS: HEPARIN SOD,PORK IN 0.45% NACL 25,000 UNIT in 0.45% NACL 1 250ML.BAG IV SCH (20:28)
[2020-07-11 21:14] LABS: Basophils % (A) 0 %; Eosinophils # (A) 0.3 k/uL (0-0.7); Eosinophils % (A) 3 %; HCT 40.2 % (39.0-53.0); HGB 13.6 gm/dL (13.0-17.5); Lymphocytes # (A) 1.9 k/uL (1.0-4.8); Lymphocytes % (A) 19 %; MCH 28.4 pg (25.0-35.0); MCHC 33.8 g/dL (31.0-37.0); MCV 84.2 fL (80.0-100.0); Mean Platelet Volume 7.8; Monocytes # (A) 0.7 k/uL (0-1.0); Monocytes % (A) 7 %; Neutrophils # (A) 6.8 k/uL (1.3-7.7); Neutrophils % (A) 69 %; Platelet Count 222 k/uL (150-450); RBC 4.77 m/uL (4.30-5.90); RDW 15.6 % (11.5-15.5); WBC 9.8 k/uL (3.8-10.6)
[2020-07-11 21:42] LABS: INR 1.1 (<1.2); Partial Thromboplastin Time 41.2 sec (22.0-30.0); Prothrombin Time 11.1 sec (9.0-12.0)
[2020-07-11] MEDS: ATORVASTATIN 20 MG TAB PO SCH (22:27)
[2020-07-12 04:03] LABS: Basophils % (A) 0 %; Eosinophils # (A) 0.2 k/uL (0-0.7); Eosinophils % (A) 3 %; HCT 38.6 % (39.0-53.0); HGB 12.8 gm/dL (13.0-17.5); Lymphocytes % (A) 27 %; MCH 28.1 pg (25.0-35.0); MCHC 33.2 g/dL (31.0-37.0); MCV 84.6 fL (80.0-100.0); Mean Platelet Volume 7.4; Monocytes # (A) 0.7 k/uL (0-1.0); Monocytes % (A) 9 %; Neutrophils # (A) 4.4 k/uL (1.3-7.7); Neutrophils % (A) 59 %; Platelet Count 217 k/uL (150-450); RBC 4.56 m/uL (4.30-5.90); RDW 15.6 % (11.5-15.5); WBC 7.4 k/uL (3.8-10.6)
[2020-07-12 04:14] LABS: ALT 28 U/L (4-49); AST 22 U/L (17-59); African American GFR (CKD) >90 (>60 ml/min/1.73 sqM); Albumin 3.6 g/dL (3.5-5.0); Alkaline Phosphatase 78 U/L (38-126); Anion Gap 7 mmol/L; Blood Urea Nitrogen 10 mg/dL (9-20); Carbon Dioxide 26 mmol/L (22-30); Chloride 106 mmol/L (98-107); Glucose 137 mg/dL (74-99); Non-African American GFR(CKD) >90 (>60 ml/min/1.73 sqM); Potassium 4.7 mmol/L (3.5-5.1); Sodium 139 mmol/L (137-145); Total Bilirubin 0.3 mg/dL (0.2-1.3); Total Protein 6.4 g/dL (6.3-8.2)
[2020-07-12 04:31] LABS: Partial Thromboplastin Time 33.7 sec (22.0-30.0); Prothrombin Time 10.6 sec (9.0-12.0)
[2020-07-12 06:17] LABS: Glucose,Whole Blood 114 mg/dL (75-99)
[2020-07-12] MEDS: INSULIN ASPART (NovoLOG) 100 UNIT/ML VIAL SQ SCH ×4 (06:19→20:53)
[2020-07-12] MEDS ORDERED: metFORMIN 500 MG TAB PO SCH (07:30)
[2020-07-12] MEDS: POTASSIUM CHLORIDE ER 10 MEQ TAB.ER.PRT PO SCH (08:08)
[2020-07-12] MEDS: LINAGLIPTIN 5 MG TABLET PO SCH (08:08)
[2020-07-12] MEDS: METOPROLOL TARTRATE 25 MG TAB PO SCH (08:08)
[2020-07-12] MEDS ORDERED: FUROSEMIDE 40 MG TAB PO SCH (09:00)
[2020-07-12 11:55] LABS: Glucose,Whole Blood 124 mg/dL (75-99)
--- NOTE | 2020-07-12 14:12 | P.HPIM ---
History of Present Illness H&P Date: 07/12/20 Chief Complaint: Chest pain 64-year-old Patient, with history of hypertension, hyperlipidemia, diabetes mellitus, CHF, presents the ED with his for evaluation. Patient states for the past 2 months or so, he has been experiencing intermittent pain that begins in his right upper abdomen and radiates up to the right side of his chest. Patient states that this pain has radiated to his right shoulder at times as well. Patient states that his pain is worse after eating. Patient states that he has a history of a hiatal hernia and GERD. Patient states that his pain is very mild currently. Patient denies trauma or injury, fever or chills, headache, focal neuro deficit, left-sided chest pain, neck/jaw/back pain, pleuritic pain, dyspnea, cough or cold symptoms, palpitations, dizziness, nausea/vomiting/diaphoresis, abdominal pain, urinary symptoms, leg or calf swe lling or pain, or any other symptoms or complaints. EKG Findings:: Normal sinus rhythm, no ectopy, ventricular rate of 96 bpm, normal KS and QRS intervals, mildly prolonged QTc interval of 467 ms, left anterior fascicular block, minimal voltage criteria for LVH, anterolateral ST and T-wave abnormality Labs done in ED revealed WBC of 11.0, hemoglobin of 14.1 and platelet count of 236; chemical profile sodium 138, potassium 4.4, BUN/creatinine of 19/0.75 and blood glucose of 148; lipase of 370; troponin is elevated at 0.254; proBNP of 848 Chest x-ray: Normal chest, no change; gallbladder ultrasound: There is a single gallstone identified, there is evidence of fatty infiltration of the liver, no dilated ducts; CT angiogram chest: No evidence of pulmonary embolism, ath erosclerotic vascular disease Patient is started on IV heparin infusion and is admitted to the hospital for further cardiac evaluation Review of Systems REVIEW OF SYSTEMS: CONSTITUTIONAL: No fever, no malaise, no fatigue. HEENT: No recent visual problems or hearing problems. Denied any sore throat. CARDIOVASCULAR: Positive for chest pain, orthopnea, PND, no palpitations, no syncope. PULMONARY: No shortness of breath, no cough, no hemoptysis. GASTROINTESTINAL: No diarrhea, no nausea, no vomiting, no abdominal pain. NEUROLOGICAL: No headaches, no weakness, no numbness. HEMATOLOGICAL: Denies any bleeding or petechiae. GENITOURINARY: Denies any burning micturition, frequency, or urgency. MUSCULOSKELETAL/RHEUMATOLOGICAL: Denies any joint pain, swelling, or any muscle pain. ENDOCRINE: Denies any polyuria or polydipsia. The rest of the 14-point review of systems is negative. Past Medical History Past Medical History: Chest Pain / Angina, Heart Failure, Diabetes Mellitus, GERD/Reflux, Hyperlipidemia, Hypertension, Osteoarthritis (OA), Skin Disorder, Vascular Disorder Additional Past Medical History / Comment(s): Chronic L leg edema and occasionally R leg edema, varicose veins L leg, NIDDM type II, neuropathy bilateral feet, duodenal ulcer that are healed, arthritis R wrist, post op umbilical hernia ileus/infection, History of Any Multi-Drug Resistant Organisms: None Reported Past Surgical History: Back Surgery, Heart Catheterization, Orthopedic Surgery, Tonsillectomy Additional Past Surgical History / Comment(s): 02/2018 umbilical hernia repair with "bowel complication", 2011 cardiac cath with some blockages, lower back surgery d/t ruptured discs, L foot surgery d/t injury, bilateral laser eye surgery for cataracts Past Anesthesia/Blood Transfusion Reactions: No Reported Reaction Past Psychological History: No Psychological Hx Reported Smoking Status: Current every day smoker Past Alcohol Use History: None Reported Additional Past Alcohol Use History / Comment(s): SMOKES 1 PPD SINCE AGE 15 Past Drug Use History: None Reported - Past Family History Sister(s) Family Medical History: Pulmonary Embolus Father Family Medical History: Coronary Artery Disease (CAD), Myocardial Infarction ([place]) Additional Family Medical History / Comment(s): Father of [place] at age 68yrs. Mother Family Medical History: Cancer, Coronary Artery Disease (CAD), Deep Vein Thrombosis (DVT), Hypertension Additional Family Medical History / Comment(s): Mother has alot of allergies. RARE BLOOD CANCER Medications and Allergies Home Medications Medication Instructions Recorded Confirmed Type Furosemide [Lasix] 40 mg PO DAILY 05/02/14 07/11/20 History Metoprolol Tartrate [Lopressor] 25 mg PO DAILY 05/02/14 07/11/20 History Potassium Chloride ER [K-Dur 10] 10 meq PO DAILY 05/02/14 07/11/20 History Simvastatin [Zocor] 40 mg PO HS 05/02/14 07/11/20 History lisinopriL [Zestril] 2.5 mg PO DAILY 05/02/14 07/11/20 History sitaGLIPtin [Januvia] 100 mg PO DAILY #30 tab 09/29/18 07/11/20 Rx metFORMIN HCL [Glucophage] 500 mg PO TID 07/11/20 07/11/20 History Allergies Allergy/AdvReac Type Severity Reaction Status Date / Time codeine Allergy Swelling Verified 07/11/20 18:55 Physical Exam Vitals: Vital Signs Temp Pulse Pulse Resp BP BP Pulse Ox 07/12/20 12:16 98.2 F 71 18 135/77 97 07/12/20 08:05 98.1 F 73 16 139/62 97 07/12/20 04:00 97.7 F 84 16 180/80 97 07/12/20 00:59 92 16 07/12/20 00:00 92 16 164/74 97 07/11/20 21:38 98.1 F 87 18 188/86 99 07/11/20 21:36 98.1 F 77 18 176/92 99 07/11/20 20:15 98.1 F 75 18 173/81 99 07/11/20 19:10 98 20 182/99 99 07/11/20 18:02 82 18 179/77 97 07/11/20 16:38 89 20 196/95 99 07/11/20 16:24 97.7 F 92 20 178/82 97 Intake and Output 07/11/20 07/12/20 07/12/20 22:59 06:59 14:59 Intake Total 15.333 83.092 105.628 Balance 15.333 83.092 105.628 Intake: Intake, IV Titration 15.333 83.092 105.628 Amount Heparin Sod,Pork in 0.45% 15.333 83.092 105.628 NaCl 25,000 unit In 0.45 % NaCl 1 250ml.bag @ 11. 023 UNITS/KG/HR 10 mls/hr IV .Q24H [facility] Rx#: [id number] Other: Voiding Method Toilet Toilet # Voids 2 Weight 90.718 kg 90.5 kg - Constitutional General appearance: Present: average body habitus, cooperative, no acute distress - EENT Eyes: Present: anicteric sclerae, EOMI, PERRLA, normal appearance ENT: Present: hearing grossly normal, normal oropharynx Ears: bilateral: normal - Neck Neck: Present: normal ROM. Absent: lymphadenopathy, rigidity, thyromegaly Carotids: negative: bruit present Thyroid: bilateral: normal size, negative: enlarged, nodule - Respiratory Respiratory: bilateral: CTA, negative: rales, rhonchi, wheezing - Cardiovascular Rhythm: regular Heart sounds: normal: S1, S2 Abnormal Heart Sounds: Absent: systolic murmur, diastolic murmur - Gastrointestinal General gastrointestinal: Present: normal bowel sounds, soft. Absent: distended, organomegaly, tenderness - Genitourinary Genitourinary Comment(s): deferred - Integumentary Integumentary: Present: normal turgor. Absent: jaundiced, rash, ulcer - Neurologic Neurologic: Present: CNII-XII intact. Absent: focal deficits - Musculoskeletal Musculoskeletal: Present: gait normal, strength equal bilaterally - Psychiatric Psychiatric: Present: A&O x's 3, appropriate affect, intact judgment & insight Results CBC & Chem 7: 07/12/20 03:35 07/12/20 03:35 Labs: Abnormal Lab Results - Last 24 Hours (Table) 07/11/20 07/11/20 07/11/20 Range/Units 17:03 17:03 17:03 WBC 11.0 H (3.8-10.6) k/uL Hgb (13.0-17.5) gm/dL Hct (39.0-53.0) % RDW (11.5-15.5) % APTT 20.9 L (22.0-30.0) sec D-Dimer 1.00 H (<0.60) mg/L FEU Glucose 148 H (74-99) mg/dL POC Glucose (mg/dL) (75-99) mg/dL Troponin I (0.000-0.034) ng/mL Lipase 371 H (23-300) U/L 07/11/20 07/11/20 07/11/20 Range/Units 17:03 21:01 21:01 WBC (3.8-10.6) k/uL Hgb (13.0-17.5) gm/dL Hct (39.0-53.0) % RDW 15.6 H (11.5-15.5) % APTT 41.2 H (22.0-30.0) sec D-Dimer (<0.60) mg/L FEU Glucose (74-99) mg/dL POC Glucose (mg/dL) (75-99) mg/dL Troponin I 0.254 H* (0.000-0.034) ng/mL Lipase (23-300) U/L 07/11/20 07/11/20 07/12/20 Range/Units 21:01 23:44 03:35 WBC (3.8-10.6) k/uL Hgb (13.0-17.5) gm/dL Hct (39.0-53.0) % RDW (11.5-15.5) % APTT (22.0-30.0) sec D-Dimer (<0.60) mg/L FEU Glucose 137 H (74-99) mg/dL POC Glucose (mg/dL) (75-99) mg/dL Troponin I 0.356 H* 0.330 H* (0.000-0.034) ng/mL Lipase (23-300) U/L 07/12/20 07/12/20 07/12/20 Range/Units 03:35 03:35 06:11 WBC (3.8-10.6) k/uL Hgb 12.8 L (13.0-17.5) gm/dL Hct 38.6 L (39.0-53.0) % RDW 15.6 H (11.5-15.5) % APTT 33.7 H (22.0-30.0) sec D-Dimer (<0.60) mg/L FEU Glucose (74-99) mg/dL POC Glucose (mg/dL) 114 H (75-99) mg/dL Troponin I (0.000-0.034) ng/mL Lipase (23-300) U/L 07/12/20 07/12/20 Range/Units 10:23 11:54 WBC (3.8-10.6) k/uL Hgb (13.0-17.5) gm/dL Hct (39.0-53.0) % RDW (11.5-15.5) % APTT 43.8 H (22.0-30.0) sec D-Dimer (<0.60) mg/L FEU Glucose (74-99) mg/dL POC Glucose (mg/dL) 124 H (75-99) mg/dL Troponin I (0.000-0.034) ng/mL Lipase (23-300) U/L Thrombosis Risk Factor Assmnt - Choose All That Apply Any of the Below Risk Factors Present?: Yes Each Factor Represents 1 point: Swollen legs (current) Other Risk Factors: Yes Each Risk Factor Represents 2 Points: Age 61-74 years Other congenital or acquired thrombophilia - If yes, enter type in comment: No Thrombosis Risk Factor Assessment Total Risk Factor Score: 3 Thrombosis Risk Factor Assessment Level: Moderate Risk Assessment and Plan Assessment: 1. Non-ST elevation [place] - Patient is started on IV heparin, received aspirin 324 mg 1 in ED and Lipitor 20 mg daily at bedtime - We will plan to trend troponin and monitor EKG; cardiology is consulted and recommendations are pending - 2-D echocardiogram ordered and results are pending 2. Hypertension; stable on home dose of metoprolol 25 mg daily and lisinopril 2.5 mg daily 3. Hyperlipidemia; Lipitor 20 mg by mouth daily at bedtime 4. Diabetes mellitus type 2; Tradjenta 5 mg daily; we will monitor Accu-Cheks every before meals and at bedtime with insulin sliding scale 5. History of congestive heart failure; compensated; patient will continue with home dose of Lasix 40 mg daily; we will monitor strict NEAL's, daily weights; low-salt and fluid restricted diet 6. Elevated lipase; patient is currently asymptomatic; gallbladder ultrasound reveals single gallstone with fatty infiltration of liver; bile ducts are unremarkable; we will monitor closely for any biliary symptoms DVT prophylaxis; SCDs/IV heparin CODE STATUS; full code
[2020-07-12] MEDS ORDERED: SODIUM CHLORIDE 0.9% 1,000 ML in EMPTY BAG 1 BAG IV ONE (16:34)
[2020-07-12] MEDS ORDERED: ASPIRIN 325 MG TAB PO STA (16:34)
[2020-07-12] MEDS ORDERED: ALPRAZolam 0.5 MG TAB PO PRN (16:34)
[2020-07-12] MEDS ORDERED: NITROGLYCERIN SL TABS 0.4 MG TAB SUBLINGUAL PRN (16:34)
[2020-07-12] MEDS ORDERED: ALPRAZolam 0.25 MG TAB PO PRN (16:34)
[2020-07-12] MEDS ORDERED: ATORVASTATIN 80 MG TAB PO STA (16:34)
--- NOTE | 2020-07-12 16:34 | P.CRDCN ---
History of Present Illness History of present illness: HISTORY OF PRESENTING ILLNESS This is a pleasant 64-year-old with past medical history significant for hypertension, hyperlipidemia, tobacco abuse, back pain, previous nonobstructive coronary artery disease by last heart catheterization 2011. Patient has not believe he is followed in some time however passed followed with Dr. Flores. He has noted over the last month or so episodes of pain in the right-sided chest pressure sensation which is worse after eating as well as worse with minimal exercise. He states normally it will ease up after 5-10 minutes of rest or after digesting. Patient minutes to some associated diaphoresis at times and some nausea. He had an episode which occurred yesterday without any bleeding and while at rest and therefore decided from the emergency department. In emergency he had a CAT scan and after CAT scan he had a further episode while transferring to the bed. He has had no recurrence since being in the hospital. Blood work showed white blood cell count 7.4, hemoglobin 12.8, platelets 217, BUN 10, creatinine 0.78, AST 22, ALT 28, alk phos 78, troponin 0.25, 0.35, 0.33, 0.29, d-dimer 1.0, oquendo virus not detected, lipase 371, proBNP 848. He therefore underwent CTA which showed no PE however did show vascular calcifications. He admits he is still smoking, occasional alcohol and no illicit drugs. EKG showed normal sinus rhythm, ST depressions V3 through V6, mildly prolonged QT. Gallbladder ultrasound showed 1 gallstone without any d ilated ducts. REVIEW OF SYSTEMS At the time of my exam: CONSTITUTIONAL: Denies fever or chills. CARDIOVASCULAR: +chest pain, +shortness of breath, no orthopnea, PND or palpitations. RESPIRATORY: Denies cough. GASTROINTESTINAL: Denies abdominal pain, diarrhea, constipation, +nausea, no vomiting. MUSCULOSKELETAL: Denies myalgias. NEUROLOGIC: Denies numbness, tingling or weakness. ENDOCRINE: Denies fatigue, weight change, polydipsia or polyurina. GENITOURINARY: Denies burning, hematuria or urgency with micturation. HEMATOLOGIC: Denies history of anemia or bleeding. PHYSICAL EXAMINATION Vital signs reviewed. CONSTITUTIONAL: No apparent distress, obese HEENT: Head is normocephalic. Pupils are equal, round. Sclerae anicteric. Mucous membranes of the mouth are moist. No JVD. No carotid bruit. CHEST EXAMINATION: Lungs are clear to auscultation. No chest wall tenderness is noted on palpation or with deep breathing. HEART EXAMINATION: Regular rate and rhythm. S1, S2 heard. No murmurs, gallops or rub. ABDOMEN: Soft, nontender. Positive bowel sounds. EXTREMITIES: 2+ peripheral pulses, no lower extremity edema and no calf tenderness. NEUROLOGIC EXAMINATION: Patient is awake, alert and oriented x3. ASSESSMENT 1. Non-STEMI with what appears to be unstable angina, postprandial angina 2. History of non-obstructive coronary artery disease by prior heart catheterization approximately 9 years ago 3. Hypertension 4. Hyperlipidemia 5. Diabetes mellitus type 2 6. Obesity 7. Tobacco abuse PLAN Patient with new symptoms over the last few months worsening with what appears to be unstable angina, chest pain at rest and postprandial angina. Patient did have incidental gallstones noted however suspect majority of his symptoms are related to angina. Recommend left heart catheterization with possible PCI. Continue aspirin and heparin drip. Check 2-D echo. Tobacco cessation. Further recommendations to follow. Past Medical History Past Medical History: Chest Pain / Angina, Heart Failure, Diabetes Mellitus, GERD/Reflux, Hyperlipidemia, Hypertension, Osteoarthritis (OA), Skin Disorder, Vascular Disorder Additional Past Medical History / Comment(s): Chronic L leg edema and occasionally R leg edema, varicose veins L leg, NIDDM type II, neuropathy bilateral feet, duodenal ulcer that are healed, arthritis R wrist, post op umbilical hernia ileus/infection, History of Any Multi-Drug Resistant Organisms: None Reported Past Surgical History: Back Surgery, Heart Catheterization, Orthopedic Surgery, Tonsillectomy Additional Past Surgical History / Comment(s): 02/2018 umbilical hernia repair with "bowel complication", 2011 cardiac cath with some blockages, lower back surgery d/t ruptured discs, L foot surgery d/t injury, bilateral laser eye surgery for cataracts Past Anesthesia/Blood Transfusion Reactions: No Reported Reaction Past Psychological History: No Psychological Hx Reported Smoking Status: Current every day smoker Past Alcohol Use History: None Reported Additional Past Alcohol Use History / Comment(s): SMOKES 1 PPD SINCE AGE 15 Past Drug Use History: None Reported - Past Family History Sister(s) Family Medical History: Pulmonary Embolus Father Family Medical History: Coronary Artery Disease (CAD), Myocardial Infarction ([place]) Additional Family Medical History / Comment(s): Father of [place] at age 68yrs. Mother Family Medical History: Cancer, Coronary Artery Disease (CAD), Deep Vein Thrombosis (DVT), Hypertension Additional Family Medical History / Comment(s): Mother has alot of allergies. RARE BLOOD CANCER Medications and Allergies Home Medications Medication Instructions Recorded Confirmed Type Furosemide [Lasix] 40 mg PO DAILY 05/02/14 07/11/20 History Metoprolol Tartrate [Lopressor] 25 mg PO DAILY 05/02/14 07/11/20 History Potassium Chloride ER [K-Dur 10] 10 meq PO DAILY 05/02/14 07/11/20 History Simvastatin [Zocor] 40 mg PO HS 05/02/14 07/11/20 History lisinopriL [Zestril] 2.5 mg PO DAILY 05/02/14 07/11/20 History sitaGLIPtin [Januvia] 100 mg PO DAILY #30 tab 09/29/18 07/11/20 Rx metFORMIN HCL [Glucophage] 500 mg PO TID 07/11/20 07/11/20 History Allergies Allergy/AdvReac Type Severity Reaction Status Date / Time codeine Allergy Swelling Verified 07/11/20 18:55 Physical Exam Vitals: Vital Signs Temp Pulse Pulse Resp BP BP Pulse Ox 07/12/20 15:27 98.3 F 76 16 122/58 97 07/12/20 14:00 18 07/12/20 12:16 98.2 F 71 18 135/77 97 07/12/20 08:05 98.1 F 73 16 139/62 97 07/12/20 04:00 97.7 F 84 16 180/80 97 07/12/20 00:59 92 16 07/12/20 00:00 92 16 164/74 97 07/11/20 21:38 98.1 F 87 18 188/86 99 07/11/20 21:36 98.1 F 77 18 176/92 99 07/11/20 20:15 98.1 F 75 18 173/81 99 07/11/20 19:10 98 20 182/99 99 07/11/20 18:02 82 18 179/77 97 07/11/20 16:38 89 20 196/95 99 Intake and Output 07/12/20 07/12/20 07/12/20 06:59 14:59 22:59 Intake Total 83.092 341.628 Balance 83.092 341.628 Intake: Intake, IV Titration 83.092 105.628 Amount Heparin Sod,Pork in 0.45% 83.092 105.628 NaCl 25,000 unit In 0.45 % NaCl 1 250ml.bag @ 11. 023 UNITS/KG/HR 10 mls/hr IV .Q24H [facility] Rx#: [id number] Oral 236 Other: Voiding Method Toilet Toilet # Voids 2 Weight 90.5 kg Results 07/12/20 03:35 07/12/20 03:35 Cardiac Enzymes 07/11/20 07/11/20 07/11/20 Range/Units 17:03 17:03 21:01 AST 27 (17-59) U/L Troponin I 0.254 H* 0.356 H* (0.000-0.034) ng/mL 07/11/20 07/12/20 07/12/20 Range/Units 23:44 03:35 14:43 AST 22 (17-59) U/L Troponin I 0.330 H* 0.296 H* (0.000-0.034) ng/mL Coagulation 07/11/20 07/11/20 07/12/20 Range/Units 17:03 21:01 03:35 PT 10.3 11.1 10.6 (9.0-12.0) sec APTT 20.9 L 41.2 H 33.7 H (22.0-30.0) sec 07/12/20 Range/Units 10:23 PT (9.0-12.0) sec APTT 43.8 H (22.0-30.0) sec CBC 07/11/20 07/11/20 07/12/20 Range/Units 17:03 21:01 03:35 WBC 11.0 H 9.8 7.4 (3.8-10.6) k/uL RBC 4.90 4.77 4.56 (4.30-5.90) m/uL Hgb 14.1 13.6 12.8 L (13.0-17.5) gm/dL Hct 41.1 40.2 38.6 L (39.0-53.0) % Plt Count 236 222 217 (150-450) k/uL Comprehensive Metabolic Panel 07/11/20 07/12/20 Range/Units 17:03 03:35 Sodium 138 139 (137-145) mmol/L Potassium 4.4 4.7 (3.5-5.1) mmol/L Chloride 104 106 (98-107) mmol/L Carbon Dioxide 23 26 (22-30) mmol/L BUN 9 10 (9-20) mg/dL Creatinine 0.75 0.78 (0.66-1.25) mg/dL Glucose 148 H 137 H (74-99) mg/dL Calcium 9.6 9.0 (8.4-10.2) mg/dL AST 27 22 (17-59) U/L ALT 31 28 (4-49) U/L Alkaline Phosphatase 89 78 (38-126) U/L Total Protein 7.3 6.4 (6.3-8.2) g/dL Albumin 4.3 3.6 (3.5-5.0) g/dL Current Medications Generic Name Dose Route Start Last Admin Trade Name Freq PRN Reason Stop Dose Admin Aspirin 81 mg 07/12/20 16:15 Aspirin 81 Mg PO DAILY OSEI Atorvastatin Calcium 20 mg 07/11/20 21:00 07/11/20 22:27 Atorvastatin 20 Mg Tab PO Not Given HS OSEI Furosemide 40 mg 07/12/20 09:00 07/12/20 08:08 Furosemide 40 Mg Tab PO 40 mg DAILY OSEI Administration Heparin Sodium (Porcine) 0 unit 07/11/20 19:35 Heparin Sodium 1,000 Un/Ml (10ml Vl) IV PER PROTOCOL PRN Low PTT Protocol Heparin Sodium/Sodium Chloride 250 mls @ 10 mls/hr 07/11/20 19:45 07/12/20 12:18 25,000 unit/ Sodium Chloride IV 18.023 units/kg/hr .Q24H [facility]SEI 16.35 mls/hr Titration Protocol 11.023 UNITS/KG/HR Insulin Aspart 0 unit 07/12/20 07:30 07/12/20 12:04 Insulin Aspart (Novolog) 100 Unit/Ml Vial SQ Not Given ACHS OSEI Protocol Linagliptin 5 mg 07/12/20 09:00 07/12/20 08:08 Linagliptin 5 Mg Tablet PO 5 mg DAILY O[facility]I Administration Lisinopril 2.5 mg 07/12/20 09:00 07/12/20 08:08 Lisinopril 2.5 Mg Tab PO 2.5 mg DAILY OSEI Administration Metoprolol Tartrate 25 mg 07/12/20 09:00 07/12/20 08:08 Metoprolol Tartrate 25 Mg Tab PO 25 mg DAILY [facility] Administration Morphine Sulfate 4 mg 07/11/20 20:39 Morphine Sulfate 4 Mg/Ml Syringe IVP Q4H PRN Pain Potassium Chloride 10 meq 07/12/20 09:00 07/12/20 08:08 Potassium Chloride Er 10 Meq Tab.Er.Prt PO 10 meq DAILY OSEI Administration Intake and Output 07/12/20 07/12/20 07/12/20 06:59 14:59 22:59 Intake Total 83.092 341.628 Balance 83.092 341.628 Intake: Intake, IV Titration 83.092 105.628 Amount Heparin Sod,Pork in 0.45% 83.092 105.628 NaCl 25,000 unit In 0.45 % NaCl 1 250ml.bag @ 11. 023 UNITS/KG/HR 10 mls/hr IV .Q24H [facility] Rx#: [id number] Oral 236 Other: Voiding Method Toilet Toilet # Voids 2 Weight 90.5 kg 07/12/20 03:35 07/12/20 03:35
[2020-07-12 17:10] LABS: Glucose,Whole Blood 136 mg/dL (75-99)
[2020-07-12] MEDS: ASPIRIN 81 MG PO SCH (18:07)
[2020-07-12] MEDS: HEPARIN SOD,PORK IN 0.45% NACL 25,000 UNIT in 0.45% NACL 1 250ML.BAG IV SCH (18:20)
[2020-07-12 19:57] LABS: Glucose,Whole Blood 175 mg/dL (75-99)
[2020-07-12] MEDS: ATORVASTATIN 20 MG TAB PO SCH (20:53)
[2020-07-12 23:07] LABS: Hemoglobin A1C 7.3 % (4.0-6.0)
[2020-07-13] MEDS: HEPARIN SOD,PORK IN 0.45% NACL 25,000 UNIT in 0.45% NACL 1 250ML.BAG IV SCH ×2 (03:33→18:18)
[2020-07-13 06:01] LABS: Glucose,Whole Blood 135 mg/dL (75-99)
[2020-07-13] MEDS: METOPROLOL TARTRATE 25 MG TAB PO SCH (06:33)
[2020-07-13] MEDS: INSULIN ASPART (NovoLOG) 100 UNIT/ML VIAL SQ SCH ×4 (06:37→20:17)
[2020-07-13] MEDS: ASPIRIN 81 MG PO SCH (06:39)
[2020-07-13] MEDS: POTASSIUM CHLORIDE ER 10 MEQ TAB.ER.PRT PO SCH (06:39)
[2020-07-13] MEDS ORDERED: HEPARIN SODIUM,PORCINE 10,000 UNIT in SODIUM CHLORIDE 0.9% 1,000 ML IRRIGATION PRN ×4 (07:00)
[2020-07-13] MEDS ORDERED: HEPARIN SODIUM,PORCINE 2,500 UNIT in SODIUM CHLORIDE 0.9% 250 ML IRRIGATION PRN ×4 (07:00)
[2020-07-13 07:59] LABS: Basophils % (A) 0 %; Eosinophils # (A) 0.2 k/uL (0-0.7); Eosinophils % (A) 2 %; HCT 36.9 % (39.0-53.0); Lymphocytes # (A) 1.2 k/uL (1.0-4.8); Lymphocytes % (A) 15 %; MCH 27.8 pg (25.0-35.0); MCHC 32.6 g/dL (31.0-37.0); MCV 85.1 fL (80.0-100.0); Mean Platelet Volume 7.6; Monocytes # (A) 0.5 k/uL (0-1.0); Monocytes % (A) 7 %; Neutrophils # (A) 5.6 k/uL (1.3-7.7); Neutrophils % (A) 74 %; Platelet Count 187 k/uL (150-450); RBC 4.33 m/uL (4.30-5.90); RDW 15.8 % (11.5-15.5); WBC 7.7 k/uL (3.8-10.6)
[2020-07-13] MEDS ORDERED: ALPRAZolam 0.5 MG TAB PO PRN (08:24)
[2020-07-13] MEDS ORDERED: ALPRAZolam 0.25 MG TAB PO PRN (08:24)
[2020-07-13] MEDS ORDERED: ATORVASTATIN 80 MG TAB PO STA (08:24)
[2020-07-13] MEDS ORDERED: NITROGLYCERIN SL TABS 0.4 MG TAB SUBLINGUAL PRN (08:24)
[2020-07-13] MEDS ORDERED: ASPIRIN 325 MG TAB PO STA (08:24)
[2020-07-13] MEDS ORDERED: SODIUM CHLORIDE 0.9% 1,000 ML in EMPTY BAG 1 BAG IV ONE (08:24)
[2020-07-13] MEDS ORDERED: LIDOCAINE 1% INJ 10MG/ML (20 ML MDV) ONE (08:38)
[2020-07-13] MEDS ORDERED: fentaNYL (PF) 50 MCG/ML 2 ML AMP ONE (08:38)
[2020-07-13] MEDS ORDERED: IV FLUID CONTINUATION 550 ML IV ONE (08:50)
[2020-07-13] MEDS ORDERED: MIDAZOLAM 2 MG/2 ML VIAL IVP ONE (09:10)
[2020-07-13] MEDS ORDERED: fentaNYL (PF) 50 MCG/ML 2 ML AMP IVP ONE (09:10)
[2020-07-13] MEDS ORDERED: LIDOCAINE 1% INJ 10MG/ML (20 ML MDV) SQ ONE (09:12)
[2020-07-13] MEDS ORDERED: NITROGLYCERIN OINT 1 INCH/GM PACKET TOPICAL ONE ×2 (09:42→09:46)
[2020-07-13 09:46] LABS: African American GFR (CKD) >90 (>60 ml/min/1.73 sqM); Anion Gap 6 mmol/L; Blood Urea Nitrogen 12 mg/dL (9-20); Carbon Dioxide 22 mmol/L (22-30); Chloride 110 mmol/L (98-107); Glucose 140 mg/dL (74-99); Non-African American GFR(CKD) >90 (>60 ml/min/1.73 sqM); Potassium 4.7 mmol/L (3.5-5.1); Sodium 138 mmol/L (137-145)
[2020-07-13] MEDS ORDERED: IOPAMIDOL-370 100ML BTL INJ ONE ×2 (09:46)
[2020-07-13 11:10] LABS: Glucose,Whole Blood 113 mg/dL (75-99)
[2020-07-13] MEDS ORDERED: RX INFO: IV CONTRAST WAS GIVEN 1 EACH MISC MISCELLANE PRN (11:22)
[2020-07-13] MEDS ORDERED: HYDROmorphone 0.5 MG/0.5 ML SYRINGE IVP STA ×2 (11:22→11:29)
[2020-07-13] MEDS ORDERED: HYDROmorphone 0.5 MG/0.5 ML SYRINGE IVP ONE (11:31)
[2020-07-13 11:52] LABS: Magnesium 2.2 mg/dL (1.6-2.3)
--- NOTE | 2020-07-13 12:41 | ECHOF ---
Referral Reason:pre CABG MEASUREMENTS -------- HEIGHT: 175.3 cm WEIGHT: 92.1 kg BP: RVIDd: 2.5 cm (< 3.3) IVSd: 1.2 cm (0.6 - 1.1) LVIDd: 4.3 cm (3.9 - 5.3) LVPWd: 1.2 cm (0.6 - 1.1) IVSs: 1.7 cm LVIDs: 2.8 cm LVPWs: 1.5 cm LA Diam: 3.2 cm (2.7 - 3.8) Ao Diam: 3.0 cm (2.0 - 3.7) AV Cusp: 1.6 cm (1.5 - 2.6) MV EXCURSION: 16.659 mm (> 18.000) MV EF SLOPE: 89 mm/s (70 - 150) EPSS: 0.9 cm MV E Drew: 0.83 m/s MV DecT: 247 ms MV A Drew: 0.86 m/s MV E/A Ratio: 0.96 AV maxP.22 mmHg AV meanP.67 mmHg RAP: 15.00 mmHg RVSP: 35.15 mmHg FINDINGS -------- Sinus rhythm. This was a technically adequate study. The left ventricular size is normal. There is borderline concentric left ventricular hypertrophy. Overall left ventricular systolic function is mild-moderately impaired with, an EF between 40 - 45 % . Basal anteroseptal LV wall motion is hypokinetic. Mid anteroseptal LV wall motion is normal. Apical septum LV wall motion is hypokinetic. Inferior basal Hypokinesis The right ventricle is normal in size. The left atrium is normal in size. The right atrium is normal in size. Interatrial and interventricular septum intact. There is mild aortic valve sclerosis. Peak/mean gradient across the Aortic Valve is 11.22mmHg / 5.6 7mmHg. Mild mitral annular calcification present. Mild mitral regurgitation is present. Trace tricuspid regurgitation present. There is mild pulmonary hypertension. The right ventricula r systolic pressure, as measured by Doppler, is 35.15mmHg. Trace/mild (physiologic) pulmonic regurgitation. The aortic root size is normal. The inferior vena cava is dilated with no significant inspiratory collapse which is consistent estima mitchell right atrial pressure of >15 mmHg. There is no pericardial effusion. CONCLUSIONS -------- 1. The left ventricular size is normal. 2. There is borderline concentric left ventricular hypertrophy. 3. Overall left ventricular systolic function is mild-moderately impaired with, an EF between 40 - 45 %. 4. Mid anteroseptal LV wall motion is normal. 5. Apical septum LV wall motion is hypokinetic. 6. Inferior basal Hypokinesis 7. There is mild aortic valve sclerosis. 8. Peak/mean gradient across the Aortic Valve is 11.22mmHg / 5.67mmHg. 9. Mild mitral annular calcification present. 10. Mild mitral regurgitation is present. 11. Trace tricuspid regurgitation present. 12. There is mild pulmonary hypertension. 13. The right ventricular systolic pressure, as measured by Doppler, is 35.15mmHg. 14. Trace/mild (physiologic) pulmonic regurgitation. 15. The inferior vena cava is dilated with no significant inspiratory collapse which is consistent es timated right atrial pressure of >15 mmHg. 16. There is no pericardial effusion. RIDING TEACHER: Racquel Anderson RDCS
[2020-07-13 12:59] LABS: Glucose,Whole Blood 94 mg/dL (75-99)
[2020-07-13] MEDS ORDERED: IPRATROPIUM-ALBUTEROL 3 ML NEB INHALATION PRN (13:08)
[2020-07-13] MEDS ORDERED: MD COMMUNICATION TO PHARMACY 1 EACH MISC PO ONE ×2 (14:10→14:12)
[2020-07-13] MEDS: LINAGLIPTIN 5 MG TABLET PO SCH (14:20)
--- NOTE | 2020-07-13 14:27 | US ---
EXAMINATION TYPE: US carotid duplex BILAT DATE OF EXAM: 07/13/2020 COMPARISON: NONE CLINICAL HISTORY: Pre-Op Cardiac Surgery. EXAM MEASUREMENTS: RIGHT: Peak Systolic Velocity (PSV) cm/sec ----- Right CCA: 67.7 ----- Right ICA: 118.2 ----- Right ECA: 90.5 ICA/CCA ratio: 1.7 RIGHT: End Diastole cm/sec ----- Right CCA: 13.8 ----- Right ICA: 45.7 ----- Right ECA: 14.1 LEFT: Peak Systolic Velocity (PSV) cm/sec ----- Left CCA: 64.7 ----- Left ICA: 139.9 ----- Left ECA: 102.7 ICA/CCA ratio: 2.2 LEFT: End Diastole cm/sec ----- Left CCA: 14.2 ----- Left ICA: 38.1 ----- Left ECA: 22.0 VERTEBRALS (direction of flow): Right Vertebral: Antegrade Left Vertebral: Antegrade Mild to moderate atherosclerotic changes mild proximal left internal carotid artery velocity increase in velocity noted. Grayscale, color Doppler, spectral Doppler imaging performed of the carotid arter ies. IMPRESSION: There is some borderline hemodynamic significant stenosis of the proximal internal caroti d artery on the left likely corresponding to 50-69% diameter reduction by Doppler criteria, an indire ct measurement of carotid stenosis Criteria for Assigning % of Stenosis / Diameter reduction (Estimation based on the indirect measurements of the internal carotid artery velocities (ICA PSV). 1. Normal (no stenosis)=ICA PSV < 125 cm/s: ratio < 2.0: ICA EDV<40 cm/s. 2. Less than 50% stenosis=ICA PSV < 125 cm/s: ratio < 2.0: ICA EDV<40 cm/s. 3. 50 to 69% stenosis=ICA PSV of 125 to 230 cm/s: ration 2.0 ? 4.0: ICA EDV 40-100 cm/s. 4. Greater than 70% stenosis to near occlusion= ICA PSV > 230 cm/s: ratio > 4.0: ICA EDV > 100 cm/s. 5. Near occlusion= ICA PSV velocities may be low or undetectable: variable ratio and ICA EDV. 6. Total occlusion=unable to detect flow.
--- NOTE | 2020-07-13 14:46 | P.CNPUL ---
History of Present Illness Consult date: 07/13/20 Requesting physician: Ed Henderson Reason for consult: dyspnea, chest pain Chief complaint: Coronary artery disease, preop clearance, possible COPD. History of present illness: Pulmonary consult dated 07/13/2020. 64-year-old male, who presents to the emergency department, for evaluation. He apparently came into the ED with complaints of 2 months or so of intermittent chest pain. Apparently initially started in the area of the right upper abdomen, and radiated into the right side of his chest. Sometimes when into his right shoulder as well. Apparently the pain is worse after eating. He does have a history of hiatal hernia and acid reflux disease. The patient underwent a thorough evaluation, including a catheterization, which apparently showed evidence of significant coronary artery disease, including left main disease. Unfortunately, the catheterization report is not yet available. The patient may end up having open heart surgery tomorrow. We are asked to see the patient in preoperative evaluation. He has not yet had his preoperative lung function test. A chest x-ray was normal. A CT angiogram was negative for pulmonary embolism, but did show atherosclerotic vascular disease, and also calcification of the pericardium. The patient likely does have some underlying chronic lung disease as he smoked since the age of 15, to the age of 64, at 1 pack a day. Sometimes he smoked more than that. 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 When asked about symptoms, such as shortness of breath, he only admits to chronic morning cough, with occasional clear to white phlegm production, and wheezing, according to her significant other. He denies any hemoptysis. He doesn't really even admit to shortness of breath. Lab data includes a white count 7.7, hemoglobin 12, hematocrit 36.9, and platelet count 187,000. Sodium 138, potassium 4.7, Seferino 110, CO2 22, anion gap 6, BUN 12, creatinine 0.71. Review of Systems REVIEW OF SYSTEMS: CONSTITUTIONAL: [Negative.] NEUROLOGIC: [ Negative.] HEENT: [ Negative.] CARDIAC: Chest pain. PULMONARY: Chronic cough, occasional phlegm production, and wheezing. GI: Right upper quadrant abdominal pain. : [Negative.] RHEUMATOLOGIC: [ Negative.] IMMUNOLOGIC: [ Negative.] ENDOCRINE: [Negative. ] DERMATOLOGIC: [Negative.] Past Medical History Past Medical History: Chest Pain / Angina, Heart Failure, Diabetes Mellitus, GERD/Reflux, Hyperlipidemia, Hypertension, Osteoarthritis (OA), Skin Disorder, Vascular Disorder Additional Past Medical History / Comment(s): Chronic L leg edema and occasionally R leg edema, varicose veins L leg, NIDDM type II, neuropathy b ilateral feet, duodenal ulcer that are healed, arthritis R wrist, post op umbilical hernia ileus/infection, History of Any Multi-Drug Resistant Organisms: None Reported Past Surgical History: Back Surgery, Heart Catheterization, Orthopedic Surgery, Tonsillectomy Additional Past Surgical History / Comment(s): 02/2018 umbilical hernia repair with "bowel complication", 2011 cardiac cath with some blockages, lower back surgery d/t ruptured discs, L foot surgery d/t injury, bilateral laser eye surgery for cataracts Past Anesthesia/Blood Transfusion Reactions: No Reported Reaction Past Psychological History: No Psychological Hx Reported Smoking Status: Current every day smoker Past Alcohol Use History: None Reported Additional Past Alcohol Use History / Comment(s): SMOKES 1 PPD SINCE AGE 15 Past Drug Use History: None Reported - Past Family History Sister(s) Family Medical History: Pulmonary Embolus Father Family Medical History: Coronary Artery Disease (CAD), Myocardial Infarction (SC) Additional Family Medical History / Comment(s): Father of SC at age 68yrs. Mother Family Medical History: Cancer, Coronary Artery Disease (CAD), Deep Vein Thrombosis (DVT), Hypertension Additional Family Medical History / Comment(s): Mother has alot of allergies. RARE BLOOD CANCER Medications and Allergies Home Medications Medication Instructions Recorded Confirmed Type Furosemide [Lasix] 40 mg PO DAILY 05/02/14 07/11/20 History Metoprolol Tartrate [Lopressor] 25 mg PO DAILY 05/02/14 07/11/20 History Potassium Chloride ER [K-Dur 10] 10 meq PO DAILY 05/02/14 07/11/20 History Simvastatin [Zocor] 40 mg PO HS 05/02/14 07/11/20 History lisinopriL [Zestril] 2.5 mg PO DAILY 05/02/14 07/11/20 History sitaGLIPtin [Januvia] 100 mg PO DAILY #30 tab 09/29/18 07/11/20 Rx metFORMIN HCL [Glucophage] 500 mg PO TID 07/11/20 07/11/20 History Allergies Allergy/AdvReac Type Severity Reaction Status Date / Time codeine Allergy Swelling Verified 07/11/20 18:55 Physical Exam Osteopathic Statement: *. No significant issues noted on an osteopathic structural exam other than those noted in the History and Physical/Consult. Vitals: Vital Signs Temp Pulse Pulse Pulse Resp BP Pulse Ox 07/13/20 14:00 62 18 95 07/13/20 13:45 70 93 L 07/13/20 13:30 66 93 L 07/13/20 13:15 64 92 L 07/13/20 13:07 97.5 F L 64 16 102/63 94 L 07/13/20 13:02 67 12 95 07/13/20 12:05 69 16 137/70 97 07/13/20 11:32 66 16 151/74 96 07/13/20 11:05 72 16 166/77 97 07/13/20 10:50 66 16 140/68 95 07/13/20 10:35 68 16 146/70 96 07/13/20 10:20 66 16 153/73 96 07/13/20 08:00 98.3 F 64 18 167/67 97 07/13/20 04:00 98.1 F 79 16 155/71 96 07/13/20 00:00 98.3 F 78 18 143/66 97 07/12/20 20:00 98.3 F 79 16 125/49 95 07/12/20 15:27 98.3 F 76 16 122/58 97 Intake and Output 07/12/20 07/13/20 07/13/20 22:59 06:59 14:59 Intake Total 304.205 132.435 250 Balance 304.205 132.435 250 Intake: IV 250 0.9 Sodium Chloride 75 Intake, IV Titration 64.205 132.435 Amount Heparin Sod,Pork in 0.45% 64.205 132.435 NaCl 25,000 unit In 0.45 % NaCl 1 250ml.bag @ 11. 023 UNITS/KG/HR 10 mls/hr IV .Q24H [facility] Rx#: [id number] Oral 240 Other: Voiding Method Toilet Toilet # Voids 1 1 Weight 92.5 kg ABP, PAP, CO, CI - Last 8 Hours Arterial Blood Pressure 94/58 Arterial Blood Pressure 107/64 Arterial Blood Pressure 96/59 Arterial Blood Pressure 101/61 Arterial Blood Pressure 122/78 No acute distress, oriented 3. Currently, patient's on room air, with saturations of 95%. HEENT examination is grossly unremarkable. Neck supple. Full range of motion. No adenopathy thyromegaly or neck vein distention. Cardiovascular examination reveals regular rhythm rate. S1-S2 normal. No S3 or S4. No discernible murmur noted. Heart rate 62 bpm. Lungs reveal mostly clear breath sounds. A few scattered mild rhonchi are noted. Breath sounds are equal bilaterally but diminished throughout. No wheezes or crackles appreciated. Abdomen soft bowel sounds are heard. No masses or tenderness. Extremities are intact. No cyanosis clubbing or edema. Skin is without rash or lesion. Neurologic examination is brief but nonfocal. Results - Laboratory Findings CBC and BMP: 07/13/20 07:18 07/13/20 07:18 PT/INR, D-dimer PT 10.6 sec (9.0-12.0) 07/12/20 03:35 INR 1.0 (<1.2) 07/12/20 03:35 D-Dimer 1.00 mg/L FEU (<0.60) H 07/11/20 17:03 Abnormal lab findings: Abnormal Labs 07/11/20 07/11/20 07/11/20 17:03 17:03 17:03 WBC 11.0 H Hgb Hct RDW APTT 20.9 L D-Dimer 1.00 H Chloride Glucose 148 H POC Glucose (mg/dL) Hemoglobin A1c Troponin I HDL Cholesterol Lipase 371 H 07/11/20 07/11/20 07/11/20 17:03 21:01 21:01 WBC Hgb Hct RDW 15.6 H APTT 41.2 H D-Dimer Chloride Glucose POC Glucose (mg/dL) Hemoglobin A1c Troponin I 0.254 H* HDL Cholesterol Lipase 07/11/20 07/11/20 07/12/20 21:01 23:44 03:35 WBC Hgb Hct RDW APTT D-Dimer Chloride Glucose 137 H POC Glucose (mg/dL) Hemoglobin A1c Troponin I 0.356 H* 0.330 H* HDL Cholesterol Lipase 07/12/20 07/12/20 07/12/20 03:35 03:35 06:11 WBC Hgb 12.8 L Hct 38.6 L RDW 15.6 H APTT 33.7 H D-Dimer Chloride Glucose POC Glucose (mg/dL) 114 H Hemoglobin A1c Troponin I HDL Cholesterol Lipase 07/12/20 07/12/20 07/12/20 10:23 10:23 11:54 WBC Hgb Hct RDW APTT 43.8 H D-Dimer Chloride Glucose POC Glucose (mg/dL) 124 H Hemoglobin A1c 7.3 H Troponin I HDL Cholesterol Lipase 07/12/20 07/12/20 07/12/20 14:43 17:09 18:32 WBC Hgb Hct RDW APTT 52.3 H D-Dimer Chloride Glucose POC Glucose (mg/dL) 136 H Hemoglobin A1c Troponin I 0.296 H* HDL Cholesterol Lipase 07/12/20 07/13/20 07/13/20 19:56 05:59 07:18 WBC Hgb 12.0 L Hct 36.9 L RDW 15.8 H APTT D-Dimer Chloride Glucose POC Glucose (mg/dL) 175 H 135 H Hemoglobin A1c Troponin I HDL Cholesterol Lipase 07/13/20 07/13/20 07/13/20 07:18 07:18 11:08 WBC Hgb Hct RDW APTT D-Dimer Chloride 110 H Glucose 140 H POC Glucose (mg/dL) 113 H Hemoglobin A1c Troponin I HDL Cholesterol 34 L Lipase - Diagnostic Findings Chest x-ray: image reviewed CT scan - chest: image reviewed Assessment and Plan Assessment: Significant coronary artery disease including left main disease, with anticipated bypass grafting tomorrow. Probable COPD based on 50 years of tobacco use, and symptoms of cough, phlegm production, and wheezing. Spirometry have yet to be completed. History of angina pectoris. History of diabetes mellitus. History of heart failure. History of gastroesophageal reflux disease. History of hyperlipidemia. History of hypertension. History of DJD. History of varicose veins. History of bilateral lower extremity neuropathy. History of duodenal ulcer. Plan: Plan dated 07/13/2020. The patient has not yet had his pulmonary function test. He denies any shortness of breath on exertion. He does admit to chronic cough phlegm production and occasional wheezing. The patient has smoked for 50 years. Jared tional recommendations and suggestions are forthcoming. We will continue to follow. Apparently having surgery tomorrow morning. The patient apparently has left main disease. The catheterization report is not yet available. Time with Patient: Greater than 30
[2020-07-13 15:51] LABS: Appearance,Urine Clear (Clear); Bilirubin,Urine Negative (Negative); Blood,Urine Negative (Negative); Color,Urine Yellow; Glucose,Urine (UA) Negative (Negative); Ketones,Urine Negative (Negative); Leukocyte Esterase,Urine Negative (Negative); Nitrite,Urine Negative (Negative); Protein,Urine Negative (Negative); Urobilinogen,Urine <2.0 mg/dL (<2.0)
[2020-07-13 15:52] LABS: Amylase 47 U/L (30-110); Lipase 112 U/L (23-300)
--- NOTE | 2020-07-13 16:12 | P.PN ---
Subjective 64-year-old the female was admitted for non-ST elevation myocardial infarction underwent cardiac catheterization which showed critical lesion in left anterior descending patient will undergo coronary artery bypass grafting tomorrow. Cardio thoracic surgery was consulted. Patient is presently on IV heparin. Constitutional: Denied any fatigue denied any fever. Cardio vascular: denied any chest pain, palpitations Gastrointestinal denied any nausea vomiting Pulmonary: Denied any shortness of breath cough Neurologic denied any new focal deficits All inpatient medications were reviewed and appropriate changes in these medications as dictated in the interval history and assessment and plan. Objective - Vital Signs Vital signs: Vital Signs Temp 97.5 F L 07/13/20 13:07 Pulse 66 07/13/20 15:15 Resp 14 07/13/20 15:15 BP 146/80 07/13/20 15:15 Pulse Ox 94 L 07/13/20 15:15 Intake & Output 07/12/20 07/13/20 07/13/20 18:59 06:59 18:59 Intake Total 627.575 150.693 331 Output Total 300 Balance 627.575 150.693 31 Weight 92.5 kg Intake: IV 331 0.9 Sodium Chloride 150 pressure bag 6 Intake, IV Titration 151.575 150.693 Amount Heparin Sod,Pork in 0.45% 151.575 150.693 NaCl 25,000 unit In 0.45 % NaCl 1 250ml.bag @ 11. 023 UNITS/KG/HR 10 mls/hr IV .Q24H [facility] Rx#: [id number] Oral 476 Output: Urine 300 Other: Voiding Method Toilet Toilet # Voids 2 1 1 ABP, PAP, CO, CI - Last Documented Arterial Blood Pressure 119/68 - Exam PHYSICAL EXAMINATION: GENERAL: The patient is alert and oriented x3, not in any acute distress. Well developed, well nourished. HEENT: Pupils are round and equally reacting to light. EOMI. No scleral icterus. No conjunctival pallor. Normocephalic, atraumatic. No pharyngeal erythema. No thyromegaly. CARDIOVASCULAR: S1 and S2 present. No murmurs, rubs, or gallops. PULMONARY: Chest is clear to auscultation, no wheezing or crackles. ABDOMEN: Soft, nontender, nondistended, normoactive bowel sounds. No palpable organomegaly. MUSCULOSKELETAL: No joint swelling or deformity. EXTREMITIES: No cyanosis, clubbing, or pedal edema. NEUROLOGICAL: Gross neurological examination did not reveal any focal deficits. SKIN: No rashes. - Labs CBC & Chem 7: 07/13/20 07:18 07/13/20 07:18 Labs: Abnormal Lab Results - Last 24 Hours (Table) 07/12/20 07/12/20 07/12/20 Range/Units 10:23 17:09 18:32 Hgb (13.0-17.5) gm/dL Hct (39.0-53.0) % RDW (11.5-15.5) % APTT 52.3 H (22.0-30.0) sec Chloride (98-107) mmol/L Glucose (74-99) mg/dL POC Glucose (mg/dL) 136 H (75-99) mg/dL Hemoglobin A1c 7.3 H (4.0-6.0) % HDL Cholesterol (40-60) mg/dL 07/12/20 07/13/20 07/13/20 Range/Units 19:56 05:59 07:18 Hgb 12.0 L (13.0-17.5) gm/dL Hct 36.9 L (39.0-53.0) % RDW 15.8 H (11.5-15.5) % APTT (22.0-30.0) sec Chloride (98-107) mmol/L Glucose (74-99) mg/dL POC Glucose (mg/dL) 175 H 135 H (75-99) mg/dL Hemoglobin A1c (4.0-6.0) % HDL Cholesterol (40-60) mg/dL 07/13/20 07/13/20 07/13/20 Range/Units 07:18 07:18 11:08 Hgb (13.0-17.5) gm/dL Hct (39.0-53.0) % RDW (11.5-15.5) % APTT (22.0-30.0) sec Chloride 110 H (98-107) mmol/L Glucose 140 H (74-99) mg/dL POC Glucose (mg/dL) 113 H (75-99) mg/dL Hemoglobin A1c (4.0-6.0) % HDL Cholesterol 34 L (40-60) mg/dL Assessment and Plan Plan: 1 acute non-ST elevation myocardial infarction: Patient is being continued on IV heparin patient is on aspirin patient underwent cardiac catheterization which showed LAD lesion for which patient will undergo coronary artery artery bypass grafting referred to cardiology is documentation for further details -Hypertension -hyperlipidemia -Type 2 diabetes mellitus -Nicotine use: Counseling was provided
[2020-07-13 16:28] LABS: Hepatitis A Antibody IgM Non-Reactive (Non-Reactive); Hepatitis B Core IgM Non-Reactive (Non-Reactive); Hepatitis B Surface Antigen Non-Reactive (Non-Reactive); Hepatitis C IgG Antibody Non-Reactive (Non-Reactive)
--- NOTE | 2020-07-13 16:45 | P.GSCN ---
History of Present Illness Consult date: 07/13/20 Reason for Consult: Multivessel coronary artery disease, non-ST elevated myocardial infarction this admission. Requesting physician: Bruce Archibald History of present illness: This is a 64-year-old gentleman who follows with Dr. Summers on an outpatient basis for his primary care service. He is also seen Dr. Archibald in the past from [facility] but has not followed up on a regular basis. He is a past medical history significant for hypertension, hyperlipidemia, remote history of pneumonia with pericarditis, congestive heart failure with diastolic dysfunction, obesity with a BMI 30.1,diabetes mellitus type 2, skin disorder, chronic back pain, neuropathy to his bilateral lower extremities, peripheral vas cular disease, GERD, and chronic ongoing tobacco abuse smoking 1 pack per day. On 07/11/2020 the patient presents to the emergency department here at [facility] with complaints of right upper quadrant pain, right chest pain, right shoulder pain and radiating pain down his right arm. The patient reports that this pain has been episodic over the last couple of months which is progressively been getting worse. The pain was also associated with some nausea and vomiting and denies any complaints of shortness of breath, diaphoresis, headache, fever, chills, dizziness, presyncope or syncope. On admission a 12- lead EKG was completed which demonstrated normal sinus rhythm with left anterior fascicular block,and ST and T-wave abnormality. Initial laboratory results showed a WBC count 9.8, hemoglobin 13.6, hematocrit 40.2, platelets 222, d-dimer 1.00, BUN 9, creatinine 0.75, glucose 148, hemoglobin A1c 7.3, and positive troponins as high as 0.356. His last troponin was trending down at 0.296. A COVID 19 test was shown as nondetected and of note the patient reports he had his vaccination about 3 weeks ago for COVID 19. A CT chest angiogram for pulmonary embolism was completed which showed no evidence of pulmonary embolism, atherosclerotic vascular disease and some pericardial calcification on the right side. Subsequently, due to the patient's presenting symptoms, EKG changes and positive troponins a consult was placed to Dr. Archibald from [facility] for further evaluation and treatment recommendations. The patient underwent a heart catheterization today performed by Dr. Archibald which demonstrated multivessel coronary artery disease with left main stenosis of 70%. A 2-D echocardiogram was also completed which showed an overall left ventricular systolic function to be mild to moderately impaired with an ejection fraction between 40 and 45%, peak/mean gradient across aortic valve to be 11.22 mmHg/5.67 mmHg, mild mitral annular calcification, mild mitral valve regurgitation, trace tricuspid valve regurgitation and trace/mild pulmonic regurgitation. Due to the findings on the heart catheterization a consult was placed to Dr. Rosanna Jarvis from cardiothoracic surgery for further evaluation, and treatment recommendations including myocardial revascularization surgery. Review of Systems A 14 point review of systems was completed and was negative except as mentioned in the HPI. Past Medical History Past Medical History: Chest Pain / Angina, Heart Failure, Diabetes Mellitus, GE RD/Reflux, Hyperlipidemia, Hypertension, Osteoarthritis (OA), Skin Disorder, Vascular Disorder Additional Past Medical History / Comment(s): Chronic L leg edema and occasional ly R leg edema, varicose veins right leg, NIDDM type II, neuropathy bilateral feet, duodenal ulcer that are healed, arthritis R wrist, post op umbilical hernia ileus/infection,remote history of pneumonia with pericarditis. History of Any Multi-Drug Resistant Organisms: None Reported Past Surgical History: Back Surgery, Heart Catheterization, Hernia Repair, Orthopedic Surgery, Tonsillectomy Additional Past Surgical History / Comment(s): 02/2018 umbilical hernia repair with "bowel complication", 2011 cardiac cath with some blockages, lower back surgery d/t ruptured discs, L foot surgery d/t injury, bilateral laser eye cavazos rgery for cataracts Past Anesthesia/Blood Transfusion Reactions: No Reported Reaction Past Psychological History: No Psychological Hx Reported Smoking Status: Current every day smoker Past Alcohol Use History: None Reported Additional Past Alcohol Use History / Comment(s): SMOKES 1 PPD SINCE AGE 15 Past Drug Use History: None Reported - Past Family History Sister(s) Family Medical History: Pulmonary Embolus Father Family Medical History: Coronary Artery Disease (CAD), Myocardial Infarction (VT) Additional Family Medical History / Comment(s): Father of VT at age 68yrs. Mother Family Medical History: Cancer, Coronary Artery Disease (CAD), Deep Vein Thrombosis (DVT), Hypertension Additional Family Medical History / Comment(s): Mother has alot of allergies. RARE BLOOD CANCER Medications and Allergies Home Medications Medication Instructions Recorded Confirmed Type Furosemide [Lasix] 40 mg PO DAILY 05/02/14 07/11/20 History Metoprolol Tartrate [Lopressor] 25 mg PO DAILY 05/02/14 07/11/20 History Potassium Chloride ER [K-Dur 10] 10 meq PO DAILY 05/02/14 07/11/20 History Simvastatin [Zocor] 40 mg PO HS 05/02/14 07/11/20 History lisinopriL [Zestril] 2.5 mg PO DAILY 05/02/14 07/11/20 History sitaGLIPtin [Januvia] 100 mg PO DAILY #30 tab 09/29/18 07/11/20 Rx metFORMIN HCL [Glucophage] 500 mg PO TID 07/11/20 07/11/20 History Allergies Allergy/AdvReac Type Severity Reaction Status Date / Time codeine Allergy Swelling Verified 07/11/20 18:55 Surgical - Exam Vital Signs Temp Pulse Resp BP Pulse Ox 97.7 F 92 20 178/82 97 07/11/20 16:24 07/11/20 16:24 07/11/20 16:24 07/11/20 16:24 07/11/20 16:24 - General well developed, well nourished, no distress, moderate pain (to his back), chronically ill, obese - Eyes PERRL, normal ocular movement - ENT normal pinna, normal nares, normal mucosa, no hearing loss, no congestion, poor jail - Neck Neck is supple, no JVD. no masses, no bruits, trachea midline, no venous distension - Respiratory Lung sounds are essentially clear throughout, diminished to his bilateral bases. Respirations are symmetrical and nonlabored. No wheezes, rhonchi or crackles. Oxygen saturation is 97% on room air. - Cardiovascular Regular rhythm and rate, negative for S3, gallop or murmur. Bedside telemetry showing normal sinus rhythm heart rate 70 bpm. No edema present. Right groin femoral sheath in place and functioning. - Abdomen Abdomen is soft, nontender and nondistended. Active bowel sounds present all 4 abdominal quadrants. No guarding or rigidity. No organomegaly appreciated. - Genitourinary Deferred - Rectum Deferred - Integumentary Skin is warm and dry. No clubbing or cyanosis is present. no rash - Neurologic Cranial nerves II through XII intact. No focal deficits. - Musculoskeletal Moves all 4 extremities with equal strength. - Psychiatric oriented to time, oriented to person, oriented to place, speech is normal, memory intact Results - Labs 07/13/20 07:18 07/13/20 07:18 Abnormal Lab Results - Last 24 Hours (Table) 07/12/20 07/12/20 07/12/20 Range/Units 10:23 14:43 17:09 Hgb (13.0-17.5) gm/dL Hct (39.0-53.0) % RDW (11.5-15.5) % APTT (22.0-30.0) sec Chloride (98-107) mmol/L Glucose (74-99) mg/dL POC Glucose (mg/dL) 136 H (75-99) mg/dL Hemoglobin A1c 7.3 H (4.0-6.0) % Troponin I 0.296 H* (0.000-0.034) ng/mL HDL Cholesterol (40-60) mg/dL 07/12/20 07/12/20 07/13/20 Range/Units 18:32 19:56 05:59 Hgb (13.0-17.5) gm/dL Hct (39.0-53.0) % RDW (11.5-15.5) % APTT 52.3 H (22.0-30.0) sec Chloride (98-107) mmol/L Glucose (74-99) mg/dL POC Glucose (mg/dL) 175 H 135 H (75-99) mg/dL Hemoglobin A1c (4.0-6.0) % Troponin I (0.000-0.034) ng/mL HDL Cholesterol (40-60) mg/dL 07/13/20 07/13/20 07/13/20 Range/Units 07:18 07:18 07:18 Hgb 12.0 L (13.0-17.5) gm/dL Hct 36.9 L (39.0-53.0) % RDW 15.8 H (11.5-15.5) % APTT (22.0-30.0) sec Chloride 110 H (98-107) mmol/L Glucose 140 H (74-99) mg/dL POC Glucose (mg/dL) (75-99) mg/dL Hemoglobin A1c (4.0-6.0) % Troponin I (0.000-0.034) ng/mL HDL Cholesterol 34 L (40-60) mg/dL 07/13/20 Range/Units 11:08 Hgb (13.0-17.5) gm/dL Hct (39.0-53.0) % RDW (11.5-15.5) % APTT (22.0-30.0) sec Chloride (98-107) mmol/L Glucose (74-99) mg/dL POC Glucose (mg/dL) 113 H (75-99) mg/dL Hemoglobin A1c (4.0-6.0) % Troponin I (0.000-0.034) ng/mL HDL Cholesterol (40-60) mg/dL Diabetes panel 07/12/20 07/13/20 07/13/20 Range/Units 10:23 07:18 07:18 Sodium 138 (137-145) mmol/L Potassium 4.7 (3.5-5.1) mmol/L Chloride 110 H (98-107) mmol/L Carbon Dioxide 22 (22-30) mmol/L BUN 12 (9-20) mg/dL Creatinine 0.71 (0.66-1.25) mg/dL Glucose 140 H (74-99) mg/dL Hemoglobin A1c 7.3 H (4.0-6.0) % Calcium 9.0 (8.4-10.2) mg/dL Triglycerides 116 (<150) mg/dL HDL Cholesterol 34 L (40-60) mg/dL Thyroid panel 07/13/20 Range/Units 07:18 TSH 2.500 (0.465-4.680) mIU/L Calcium panel 07/13/20 Range/Units 07:18 Calcium 9.0 (8.4-10.2) mg/dL Pituitary panel 07/13/20 07/13/20 Range/Units 07:18 07:18 Sodium 138 (137-145) mmol/L Potassium 4.7 (3.5-5.1) mmol/L Chloride 110 H (98-107) mmol/L Carbon Dioxide 22 (22-30) mmol/L BUN 12 (9-20) mg/dL Creatinine 0.71 (0.66-1.25) mg/dL Glucose 140 H (74-99) mg/dL Calcium 9.0 (8.4-10.2) mg/dL TSH 2.500 (0.465-4.680) mIU/L Adrenal panel 07/13/20 Range/Units 07:18 Sodium 138 (137-145) mmol/L Potassium 4.7 (3.5-5.1) mmol/L Chloride 110 H (98-107) mmol/L Carbon Dioxide 22 (22-30) mmol/L BUN 12 (9-20) mg/dL Creatinine 0.71 (0.66-1.25) mg/dL Glucose 140 H (74-99) mg/dL Calcium 9.0 (8.4-10.2) mg/dL - Imaging Chest x-ray: report reviewed, image reviewed CT scan - chest: report reviewed, image reviewed Additional studies: 2-D echocardiogram results and cardiac catheterization results and films reviewed by Dr. Rosanna Jarvis from cardiothoracic surgery. Assessment and Plan Assessment: 1. Multivessel coronary artery disease with left main disease 2. Overall left ventricular systolic function mild to moderately impaired with an ejection fraction between 40 and 45% 3. Non-ST elevated myocardial infarction this admission, with elevated troponins as high as 0.356 4. History of hypertension 5. History of hyperlipidemia 6. Diabetes mellitus type 2, with preoperative hemoglobin A1c 7.3% 7. Obesity with a BMI of 30.1 kg/m 8. Chronic ongoing tobacco dependence 9. History of chronic back pain, degenerative joint disease 10. Remote history of pneumonia with pericarditis 11. History of skin disorder 12. History of bilateral lower extremity neuropathy 13. Peripheral vascular disease 14. Gastroesophageal reflux disease 15. Varicose veins to his right lower extremity 16. Preoperative elevation of his lipase 371, cholelithiasis, lipase has normalized and is 112 today Plan: The patient was seen and examined at his bedside in the intensive care unit. H is chart and diagnostics were reviewed. He was seen and examined by Dr. Rosanna Jarvis from cardiothoracic surgery. Preoperative testing and preoperative teaching initiated. Dr. Jarvis discussed the risks and benefits of myocardial revascularization surgery with the patient including the STS risk score. Knowing and understanding the risks of myocardial revascularization surgery he wishes to proceed with the surgery which will be scheduled tomorrow 07/14/2020 to be performed by Dr. Rosanna Jarvis. Continue to maximize medical management with aspirin, statin and beta kale. Okay to remove femoral sheath from his right groin when okay with cardiology. We will discontinue his heparin drip at 7 AM tomorrow 07/14/2020. The importance of risk modifications including smoking cessation was discussed with the patient. Encourage use of his incentive spirometry 10 times every hour while awake. Consult pulmonary for/critical care medicine for preoperative pulmonary clearance. We were unable to obtain a 5 m walk test as the patient is on bed rest. Nothing by mouth after midnight. More recommendations to follow based on patient's clinical course. Thank you Dr. Archibald for this consult and we look forward to working with you in the care of this patient. Time with Patient: Greater than 30
[2020-07-13] MEDS: IPRATROPIUM-ALBUTEROL 3 ML NEB INHALATION SCH ×2 (16:54→20:59)
[2020-07-13 17:02] LABS: Glucose,Whole Blood 132 mg/dL (75-99)
--- NOTE | 2020-07-13 18:57 | CC ---
CARDIAC CATHETERIZATION REPORT INDICATION: Acute ltc-[id number]-elevation MN. PROCEDURE NOTE: After obtaining informed consent, left heart catheterization and coronary angiogram were performed via the right femoral artery using standard Jessi catheters. Patient has significant peripheral arterial disease and we had to use special Glidewire to traverse the common iliac artery and the lower abdominal aorta and used a long exchange- length wire to exchange the catheters in the descending thoracic aorta. Procedure was completed uneventfully. Patient received moderate conscious sedation. Total sedation time was 31 minutes. FINDINGS: HEMODYNAMICS: Left ventricular end-diastolic pressure is 28 mm. There is no significant gradient across the aortic valve. LEFT VENTRICULOGRAM: Left ventriculogram was not performed. ANGIOGRAPHIC DATA Left main coronary artery. Left main coronary artery appears calcified. The distal left main shows an 80% to 90% stenosis and the stenosis extends into the ostial portion of the circumflex coronary artery. LAD shows mild to moderate atherosclerotic plaque in its mid portion. Right coronary artery is a codominant system. It shows mild nonobstructive disease in its mid portion. CONCLUSIONS: Severe left main coronary artery stenosis with involvement of the ostium of the circumflex coronary artery. PLAN: Patient needs emergent bypass surgery. He is hemodynamically stable at the moment. He will be treated with aspirin, Lipitor, IV heparin, beta blockers and nitroglycerin paste. I will leave the sheath in until he is seen by the cardiothoracic surgeon sees him. I called and spoke to Dr. Jarvis, who is going to see him as soon as he can today. MMODL / IJN: [id number] /
[2020-07-13] MEDS ORDERED: LACTATED RINGERS 1,000 ML IV SCH (19:15)
[2020-07-13 19:58] LABS: Glucose,Whole Blood 173 mg/dL (75-99)
[2020-07-13] MEDS: ATORVASTATIN 20 MG TAB PO SCH (20:17)
[2020-07-13] MEDS: MORPHINE SULFATE 4 MG/ML SYRINGE IVP PRN (20:22)
[2020-07-13] MEDS: SYMBICORT 160-4.5 MCG INHALER INHALATION SCH (20:59)
[2020-07-13] MEDS ORDERED: MUPIROCIN 2% OINT 22 GM TUBE NASAL SCH (21:00)
[2020-07-14] MEDS: MORPHINE SULFATE 4 MG/ML SYRINGE IVP PRN ×2 (00:38→03:56)
[2020-07-14 04:40] LABS: Basophils % (A) 0 %; Eosinophils # (A) 0.2 k/uL (0-0.7); Eosinophils % (A) 2 %; HCT 34.2 % (39.0-53.0); HGB 11.5 gm/dL (13.0-17.5); Lymphocytes # (A) 1.4 k/uL (1.0-4.8); Lymphocytes % (A) 14 %; MCH 28.8 pg (25.0-35.0); MCHC 33.6 g/dL (31.0-37.0); MCV 85.7 fL (80.0-100.0); Mean Platelet Volume 8.7; Monocytes # (A) 0.7 k/uL (0-1.0); Monocytes % (A) 8 %; Neutrophils # (A) 7.2 k/uL (1.3-7.7); Neutrophils % (A) 75 %; Platelet Count 150 k/uL (150-450); RBC 3.99 m/uL (4.30-5.90); RDW 15.8 % (11.5-15.5); WBC 9.7 k/uL (3.8-10.6)
[2020-07-14] MEDS ORDERED: TRANEXAMIC ACID 2,000 MG in SODIUM CHLORIDE 0.9% 80 ML IV ONE (05:00)
[2020-07-14] MEDS ORDERED: SODIUM BICARB 8.4% 50 ML SYR (1 MEQ/ML) IV ONE (05:00)
[2020-07-14] MEDS ORDERED: MANNITOL 25% 12.5 GM/50 ML VIAL IV ONE ×2 (05:00)
[2020-07-14] MEDS ORDERED: [UNRECOGNIZED DRUG - OTHER] IV SCH ×6 (05:00)
[2020-07-14] MEDS ORDERED: ALBUMIN HUMAN 25% 50 ML in EMPTY BAG 1 BAG IVPB ONE (05:00)
[2020-07-14] MEDS ORDERED: ALBUMIN HUMAN 5% 500 ML in EMPTY BAG 1 BAG IVPB ONE ×6 (05:00)
[2020-07-14] MEDS ORDERED: CHLORHEXIDINE GLUCONATE 15 ML CUP MUCOUS MEM ONE (05:00)
[2020-07-14] MEDS ORDERED: POTASSIUM CHLORIDE IV SCH ×6 (05:00)
[2020-07-14] MEDS ORDERED: DILTIAZEM 125 MG in SODIUM CHLORIDE 0.9% 100 ML IV SCH (05:00)
[2020-07-14] MEDS ORDERED: ATORVASTATIN 10 MG TAB PO ONE (05:00)
[2020-07-14] MEDS ORDERED: NITROGLYCERIN-D5W PMX 50 MG in DEXTROSE/WATER 1 250ML.BAG IV SCH (05:00)
[2020-07-14] MEDS ORDERED: ELECTROLYTE-A SOLUTION 1,000 ML with POTASSIUM CHLORIDE 100 MEQ, MAGNESIUM SULFATE 16 M... IV SCH ×5 (05:00)
[2020-07-14] MEDS ORDERED: METOPROLOL TARTRATE 12.5 MG TAB PO ONE (05:00)
[2020-07-14] MEDS ORDERED: CALCIUM CHLORIDE 100 MG/ML 10 ML SYRINGE IVP ONE (05:00)
[2020-07-14] MEDS ORDERED: INSULIN REGULAR 100 UNIT in SODIUM CHLORIDE 0.9% 100 ML IV SCH (05:00)
[2020-07-14] MEDS ORDERED: DEXTROSE 5% IN WATER 1,000 ML with POTASSIUM CHLORIDE 110 MEQ, MAGNESIUM SULFATE 16 MEQ... IV SCH ×5 (05:00)
[2020-07-14] MEDS ORDERED: NOREPINEPHRINE 4 MG in SODIUM CHLORIDE 0.9% 250 ML IV SCH (05:00)
[2020-07-14] MEDS ORDERED: MAGNESIUM SULFATE SYG 4.06 MEQ/ML SYRINGE IV ONE (05:00)
[2020-07-14] MEDS ORDERED: SODIUM CHLORIDE 0.9% 1,000 ML IV SCH (05:00)
[2020-07-14] MEDS ORDERED: WATER IV SCH ×6 (05:00)
[2020-07-14] MEDS ORDERED: PROTAMINE SULFATE 250 MG in EMPTY BAG 1 BAG IV ONE (05:00)
[2020-07-14] MEDS ORDERED: PHENYLEPHRINE 40 MG in SODIUM CHLORIDE 0.9% 250 ML IV ONE (05:00)
[2020-07-14] MEDS ORDERED: ceFAZolin 1,000 MG in SODIUM CHLORIDE 0.9% IRRIGATIO 1,000 ML IRRIGATION ONE (05:00)
[2020-07-14] MEDS ORDERED: PROTAMINE SULFATE 10 MG/ML 25 ML VIAL IV ONE ×2 (05:00→09:21)
[2020-07-14] MEDS ORDERED: ELECTROLYTE-A SOLUTION 1,000 ML with POTASSIUM CHLORIDE 40 MEQ, MAGNESIUM SULFATE 16 ME... IV SCH ×5 (05:00)
[2020-07-14] MEDS ORDERED: NITROGLYCERIN-D5W PMX 25 MG/250 ML BTL IV ONE (05:00)
[2020-07-14] MEDS ORDERED: ASPIRIN 325 MG TAB PO ONE (05:00)
[2020-07-14] MEDS ORDERED: DEXTROSE IV SCH ×6 (05:00)
[2020-07-14] MEDS ORDERED: HEPARIN SODIUM 1,000 UN/ML (10ML VL) IV ONE (05:00)
[2020-07-14] MEDS ORDERED: PHENYLEPHRINE 10 MG/ML VIAL IV ONE (05:00)
[2020-07-14] MEDS ORDERED: HEPARIN SODIUM,PORCINE 5,000 UNIT in SODIUM CHLORIDE 0.9% 500 ML 500 ML IV ONE (05:00)
[2020-07-14] MEDS ORDERED: PAPAVERINE 360 MG in SODIUM CHLORIDE 0.9% 90 ML IV ONE (05:00)
[2020-07-14] MEDS: ATORVASTATIN 20 MG TAB PO SCH (05:13)
[2020-07-14 05:52] LABS: ALT 30 U/L (4-49); AST 27 U/L (17-59); African American GFR (CKD) >90 (>60 ml/min/1.73 sqM); Albumin 3.5 g/dL (3.5-5.0); Alkaline Phosphatase 72 U/L (38-126); Anion Gap 7 mmol/L; Blood Urea Nitrogen 12 mg/dL (9-20); Calcium 8.7 mg/dL (8.4-10.2); Carbon Dioxide 23 mmol/L (22-30); Chloride 108 mmol/L (98-107); Glucose 114 mg/dL (74-99); Non-African American GFR(CKD) >90 (>60 ml/min/1.73 sqM); Potassium 4.5 mmol/L (3.5-5.1); Sodium 138 mmol/L (137-145); Total Bilirubin 0.6 mg/dL (0.2-1.3); Total Protein 6.4 g/dL (6.3-8.2)
[2020-07-14] MEDS: INSULIN ASPART (NovoLOG) 100 UNIT/ML VIAL SQ SCH (06:09)
[2020-07-14] MEDS: IPRATROPIUM-ALBUTEROL 3 ML NEB INHALATION SCH ×3 (08:02→16:23)
[2020-07-14] MEDS: SYMBICORT 160-4.5 MCG INHALER INHALATION SCH (08:02)
[2020-07-14] MEDS ORDERED: PHENYLEPHRINE-0.9% NACL SYG 1,000 MCG/10 ML SYRINGE ONE (09:21)
[2020-07-14] MEDS ORDERED: MAGNESIUM SULFATE 4 MEQ/ML 10ML VIAL ONE (09:21)
[2020-07-14] MEDS ORDERED: LIDOCAINE 2% SYG (PF) 100 MG/5 ML ONE (09:21)
[2020-07-14] MEDS ORDERED: fentaNYL (PF) 50 MCG/ML 50 ML VIAL ONE (09:21)
[2020-07-14] MEDS ORDERED: fentaNYL (PF) 50 MCG/ML 2 ML AMP ONE (09:21)
[2020-07-14] MEDS ORDERED: SODIUM CHLORIDE 0.9% (PF) 10 ML VIAL ONE (09:21)
[2020-07-14] MEDS ORDERED: VECURONIUM 10 MG VIAL IV ONE (09:21)
[2020-07-14] MEDS ORDERED: SODIUM CHLORIDE 0.9% 100 ML BAG ONE (09:21)
[2020-07-14] MEDS ORDERED: MIDAZOLAM 2 MG/2 ML VIAL ONE (09:21)
[2020-07-14] MEDS ORDERED: SODIUM CHLORIDE 0.9% 250 ML BAG ONE (09:21)
[2020-07-14] MEDS ORDERED: CALCIUM CHLORIDE 100 MG/ML 10 ML SYRINGE ONE (09:21)
[2020-07-14] MEDS ORDERED: HEPARIN SODIUM,PORCINE 10,000 UNIT/ML 1 ML VIAL ONE (09:21)
[2020-07-14] MEDS ORDERED: ALBUMIN HUMAN 5% (25gm) 500 ML VIAL IVPB ONE (09:21)
[2020-07-14] MEDS ORDERED: TRANEXAMIC ACID 1,000 MG/10 ML VIAL ONE (09:21)
[2020-07-14] MEDS ORDERED: SUCCINYLCHOLINE CHLORIDE 100 MG/5 ML SYR IV ONE (09:21)
[2020-07-14] MEDS ORDERED: ceFAZolin 1,000 MG VIAL ONE (09:21)
[2020-07-14] MEDS ORDERED: ELECTROLYTE-A SOLUTION 1,000 ML with POTASSIUM CHLORIDE 40 MEQ, MAGNESIUM SULFATE 16 ME... IV ONE ×5 (11:00)
[2020-07-14] MEDS ORDERED: ELECTROLYTE-A SOLUTION 1,000 ML with POTASSIUM CHLORIDE 100 MEQ, MAGNESIUM SULFATE 16 M... IV ONE ×5 (11:00)
[2020-07-14 11:29] LABS: ABG Base Excess -0.7 mmol/L; ABG Glucose Whole Blood 111 mg/dL (75-99); ABG HCO3 24 mmol/L (21-25); ABG Hematocrit 33 % (34.0-46.0); ABG Ionized Calcium 4.8 mg/dL (4.5-5.3); ABG Lactic Acid Whole Blood 0.8 mmol/L (0.5-1.6); ABG PCO2 41 mmHg (35-45); ABG PH 7.38 (7.35-7.45); ABG PO2 380 mmHg (83-108); ABG Potassium Whole Blood 4.6 mmol/L (3.4-4.5); ABG Sodium Whole Blood 138 mmol/L (135-146); ABG TCO2 26 mmol/L (19-24)
--- NOTE | 2020-07-14 11:50 | P.PN ---
Subjective Progress Note Date: 07/14/20 HISTORY OF PRESENT ILLNESS: Patient examined this morning at the bedside with Dr. Archibald. Patient underwent cardiac cath yesterday revealing multivessel coronary artery disease with left main stenosis of 70%. Patient was seen and evaluated by cardiothoracic surgery and is scheduled for surgery today. He denies chest pain or pressure. Denies shortness of breath. Echocardiogram completed revealing ejection fraction 40- 45%, mild aortic valve sclerosis, mild mitral regurgitation, trace tricuspid regurgitation, and mild pulmonary hypertension. Blood pressure 149/86. Telemetry reveals sinus mechanism. PHYSICAL EXAM: VITAL SIGNS: Reviewed. GENERAL: Well-developed in no acute distress. NECK: Supple. No JVD or thyromegaly LUNGS: Respirations even and unlabored. Lungs essentially clear to auscultation bilaterally. HEART: Regular rate and rhythm. S1 and S2 heard. EXTREMITIES: Normal range of motion. No clubbing or cyanosis. Peripheral pulses intact. No lower extremity edema ASSESSMENT: Non-STEMI Multivessel coronary artery disease with left main disease Hypertension Hyperlipidemia Diabetes Mellitus Peripheral vascular disease GERD Chronic back pain Nicotine dependence PLAN: Continue aspirin, lipitor, and metoprolol Begin YEIMI postoperatively when appropriate Add nitro paste per Dr. Archibald Patient to undergo CABG today Will continue to follow patient postoperatively and make further recommendations Nurse practitioner note has been reviewed by physician. Signing provider agrees with the documented findings, assessment, and plan of care. Objective - Vital Signs Vital signs: Vital Signs Temp 98 F 07/14/20 08:00 Pulse 71 07/14/20 08:17 Resp 13 07/14/20 08:05 BP 149/86 07/14/20 08:05 Pulse Ox 96 07/14/20 08:05 Intake & Output 07/13/20 07/14/20 07/14/20 18:59 06:59 18:59 Intake Total 797.163 440 228.739 Output Total 300 800 0 Balance 497.163 -360 228.739 Weight 93.5 kg Intake: IV 556 440 20 0.9 Sodium Chloride 375 Lactated Ringers 1,000 ml 440 20 @ 20 mls/hr IV .Q24H REPLACED BY [facility] Rx#:[id number] pressure bag 6 Intake, IV Titration 241.163 208.739 Amount Heparin Sod,Pork in 0.45% 241.163 208.739 NaCl 25,000 unit In 0.45 % NaCl 1 250ml.bag @ 11. 023 UNITS/KG/HR 10 mls/hr IV .Q24H REPLACED BY [facility] Rx#: [id number] Output: Urine 300 800 0 Other: Voiding Method Urinal Urinal Urinal # Voids 1 ABP, PAP, CO, CI - Last Documented Arterial Blood Pressure 119/68 - Labs CBC & Chem 7: 07/14/20 04:07 07/14/20 04:07 Labs: Abnormal Lab Results - Last 24 Hours (Table) 07/13/20 07/13/20 07/13/20 Range/Units 07:18 15:22 15:22 RBC (4.30-5.90) m/uL Hgb (13.0-17.5) gm/dL Hct (39.0-53.0) % RDW (11.5-15.5) % APTT (22.0-30.0) sec Chloride (98-107) mmol/L Glucose (74-99) mg/dL POC Glucose (mg/dL) (75-99) mg/dL HDL Cholesterol 34 L (40-60) mg/dL Ur Specific Waterman 1.050 H (1.001-1.035) Crossmatch See Detail 07/13/20 07/13/20 07/14/20 Range/Units 17:01 19:57 00:14 RBC (4.30-5.90) m/uL Hgb (13.0-17.5) gm/dL Hct (39.0-53.0) % RDW (11.5-15.5) % APTT 47.2 H (22.0-30.0) sec Chloride (98-107) mmol/L Glucose (74-99) mg/dL POC Glucose (mg/dL) 132 H 173 H (75-99) mg/dL HDL Cholesterol (40-60) mg/dL Ur Specific Waterman (1.001-1.035) Crossmatch 07/14/20 07/14/20 Range/Units 04:07 04:07 RBC 3.99 L (4.30-5.90) m/uL Hgb 11.5 L (13.0-17.5) gm/dL Hct 34.2 L (39.0-53.0) % RDW 15.8 H (11.5-15.5) % APTT (22.0-30.0) sec Chloride 108 H (98-107) mmol/L Glucose 114 H (74-99) mg/dL POC Glucose (mg/dL) (75-99) mg/dL HDL Cholesterol (40-60) mg/dL Ur Specific Waterman (1.001-1.035) Crossmatch Microbiology - Last 24 Hours (Table) 07/13/20 13:40 Nasal Screen MRSA/MSSA - Preliminary Nasopharyngeal Swab
[2020-07-14 13:42] LABS: ABG Base Excess -1.2 mmol/L; ABG Glucose Whole Blood 128 mg/dL (75-99); ABG HCO3 24 mmol/L (21-25); ABG Hematocrit 30 % (34.0-46.0); ABG Ionized Calcium 4.7 mg/dL (4.5-5.3); ABG Lactic Acid Whole Blood 1.3 mmol/L (0.5-1.6); ABG PCO2 41 mmHg (35-45); ABG PH 7.38 (7.35-7.45); ABG PO2 395 mmHg (83-108); ABG Potassium Whole Blood 4.5 mmol/L (3.4-4.5); ABG Sodium Whole Blood 137 mmol/L (135-146); ABG TCO2 25 mmol/L (19-24)
[2020-07-14 14:42] LABS: ABG Glucose Whole Blood 132 mg/dL (75-99); ABG HCO3 23 mmol/L (21-25); ABG Hematocrit 25 % (34.0-46.0); ABG Ionized Calcium 4.2 mg/dL (4.5-5.3); ABG Lactic Acid Whole Blood 1.5 mmol/L (0.5-1.6); ABG PCO2 38 mmHg (35-45); ABG PH 7.39 (7.35-7.45); ABG PO2 310 mmHg (83-108); ABG Potassium Whole Blood 4.8 mmol/L (3.4-4.5); ABG Sodium Whole Blood 133 mmol/L (135-146); ABG TCO2 24 mmol/L (19-24)
[2020-07-14] MEDS ORDERED: ALBUMIN HUMAN 5% 250 ML IVPB ONE (15:12)
[2020-07-14 15:19] LABS: ABG Base Excess -2.3 mmol/L; ABG Glucose Whole Blood 139 mg/dL (75-99); ABG HCO3 24 mmol/L (21-25); ABG Hematocrit 26 % (34.0-46.0); ABG Ionized Calcium 4.4 mg/dL (4.5-5.3); ABG Oxygen Saturation 99.4 % (94-97); ABG PCO2 47 mmHg (35-45); ABG PH 7.32 (7.35-7.45); ABG PO2 129 mmHg (83-108); ABG Potassium Whole Blood 5.8 mmol/L (3.4-4.5); ABG Sodium Whole Blood 135 mmol/L (135-146); ABG TCO2 25 mmol/L (19-24)
[2020-07-14 15:51] LABS: ABG Base Excess -2.5 mmol/L; ABG Glucose Whole Blood 167 mg/dL (75-99); ABG HCO3 23 mmol/L (21-25); ABG Ionized Calcium 4.3 mg/dL (4.5-5.3); ABG PCO2 44 mmHg (35-45); ABG PH 7.33 (7.35-7.45); ABG PO2 317 mmHg (83-108); ABG Sodium Whole Blood 133 mmol/L (135-146); ABG TCO2 25 mmol/L (19-24)
[2020-07-14] MEDS ORDERED: NITROGLYCERIN OINT 1 INCH/GM PACKET TOPICAL SCH (16:00)
[2020-07-14 16:08] LABS: ABG Lactic Acid Whole Blood 2.1 mmol/L (0.5-1.6)
[2020-07-14 16:09] LABS: ABG Hematocrit 23 % (34.0-46.0); ABG Lactic Acid Whole Blood 2.6 mmol/L (0.5-1.6)
[2020-07-14 16:14] LABS: ABG Base Excess -1.1 mmol/L; ABG Glucose Whole Blood 169 mg/dL (75-99); ABG HCO3 25 mmol/L (21-25); ABG Ionized Calcium 4.3 mg/dL (4.5-5.3); ABG PCO2 45 mmHg (35-45); ABG PH 7.35 (7.35-7.45); ABG PO2 270 mmHg (83-108); ABG Potassium Whole Blood 5.9 mmol/L (3.4-4.5); ABG Sodium Whole Blood 136 mmol/L (135-146); ABG TCO2 26 mmol/L (19-24)
[2020-07-14 17:20] LABS: ABG Base Excess -1.8 mmol/L; ABG Glucose Whole Blood 141 mg/dL (75-99); ABG HCO3 23 mmol/L (21-25); ABG Ionized Calcium 4.9 mg/dL (4.5-5.3); ABG PCO2 36 mmHg (35-45); ABG PH 7.41 (7.35-7.45); ABG PO2 388 mmHg (83-108); ABG Sodium Whole Blood 137 mmol/L (135-146); ABG TCO2 24 mmol/L (19-24)
[2020-07-14] MEDS ORDERED: Phosphorus Replacement Protoco 1 EACH MISC MISCELLANE PRN (17:37)
[2020-07-14] MEDS ORDERED: MORPHINE SULFATE 2 MG/ML SYRINGE IVP PRN (17:37)
[2020-07-14] MEDS ORDERED: BENZOCAINE/MENTHOL LOZENG 1 EACH LOZENGE MUCOUS MEM PRN (17:37)
[2020-07-14] MEDS ORDERED: DEXTROSE 5% IN WATER 100 ML with AMIODARONE 150 MG IV PRN (17:37)
[2020-07-14] MEDS ORDERED: METOCLOPRAMIDE 5 MG/ML 2 ML VIAL IVP PRN (17:37)
[2020-07-14] MEDS ORDERED: IPRATROPIUM-ALBUTEROL 3 ML NEB INHALATION PRN (17:37)
[2020-07-14] MEDS ORDERED: Magnesium Replacement Protocol 1 EACH MISC MISCELLANE PRN (17:37)
[2020-07-14] MEDS ORDERED: ONDANSETRON 4 MG/2 ML VIAL IVP PRN (17:37)
[2020-07-14] MEDS ORDERED: ALBUMIN HUMAN 5% 250 ML in EMPTY BAG 1 BAG IVPB PRN (17:37)
[2020-07-14] MEDS ORDERED: AMIODARONE 360 MG in DEXTROSE 5% IN WATER 200 ML IV PRN ×2 (17:37)
[2020-07-14] MEDS ORDERED: Potassium Replacement Protocol 1 EACH MISC MISCELLANE PRN (17:37)
[2020-07-14] MEDS ORDERED: AMIODARONE 450 MG in DEXTROSE 5% IN WATER 250 ML IV PRN ×2 (17:37)
[2020-07-14] MEDS ORDERED: CALCIUM GLUCONATE 2 GM in SODIUM CHLORIDE 0.9% 100 ML IVPB PRN (17:37)
[2020-07-14 17:42] LABS: ABG Base Excess -1.8 mmol/L; ABG Glucose Whole Blood 124 mg/dL (75-99); ABG HCO3 23 mmol/L (21-25); ABG Hematocrit 26 % (34.0-46.0); ABG Ionized Calcium 4.7 mg/dL (4.5-5.3); ABG PCO2 35 mmHg (35-45); ABG PH 7.42 (7.35-7.45); ABG PO2 344 mmHg (83-108); ABG Potassium Whole Blood 4.7 mmol/L (3.4-4.5); ABG Sodium Whole Blood 137 mmol/L (135-146); ABG TCO2 24 mmol/L (19-24)
[2020-07-14] MEDS: SODIUM CHLORIDE 0.9% 1,000 ML IV SCH (18:00)
[2020-07-14] MEDS: NITROGLYCERIN-D5W PMX 50 MG in DEXTROSE/WATER 1 250ML.BAG IV SCH (18:00)
[2020-07-14 18:10] LABS: Glucose,Whole Blood 130 mg/dL (75-99)
[2020-07-14 18:17] LABS: ABG Hematocrit 23 % (34.0-46.0); ABG Lactic Acid Whole Blood 3.6 mmol/L (0.5-1.6)
[2020-07-14 18:18] LABS: ABG Hematocrit 22 % (34.0-46.0); ABG Lactic Acid Whole Blood 4.1 mmol/L (0.5-1.6)
[2020-07-14 18:18] LABS: ABG Lactic Acid Whole Blood 3.7 mmol/L (0.5-1.6)
[2020-07-14 18:27] LABS: Basophils % (A) 0 %; Eosinophils % (A) 1 %; Lymphocytes # (A) 0.9 k/uL (1.0-4.8); Lymphocytes % (A) 13 %; MCH 28.5 pg (25.0-35.0); MCHC 33.4 g/dL (31.0-37.0); MCV 85.4 fL (80.0-100.0); Mean Platelet Volume 9.1; Monocytes # (A) 0.5 k/uL (0-1.0); Monocytes % (A) 7 %; Neutrophils # (A) 5.5 k/uL (1.3-7.7); Neutrophils % (A) 78 %; RBC 3.04 m/uL (4.30-5.90); RDW 15.9 % (11.5-15.5); WBC 7.1 k/uL (3.8-10.6)
[2020-07-14 18:29] LABS: ALT 17 U/L (4-49); AST 25 U/L (17-59); African American GFR (CKD) >90 (>60 ml/min/1.73 sqM); Albumin 2.5 g/dL (3.5-5.0); Alkaline Phosphatase 34 U/L (38-126); Anion Gap 5 mmol/L; Blood Urea Nitrogen 11 mg/dL (9-20); Calcium 8.3 mg/dL (8.4-10.2); Carbon Dioxide 23 mmol/L (22-30); Chloride 108 mmol/L (98-107); Glucose 117 mg/dL (74-99); INR 1.2 (<1.2); Magnesium 2.5 mg/dL (1.6-2.3); Non-African American GFR(CKD) >90 (>60 ml/min/1.73 sqM); Partial Thromboplastin Time 27.4 sec (22.0-30.0); Potassium 4.8 mmol/L (3.5-5.1); Prothrombin Time 12.3 sec (9.0-12.0); Sodium 136 mmol/L (137-145); Total Bilirubin 0.7 mg/dL (0.2-1.3); Total Protein 4.4 g/dL (6.3-8.2)
[2020-07-14 18:30] LABS: HGB 8.7 gm/dL (13.0-17.5)
[2020-07-14] MEDS: INSULIN REGULAR 100 UNIT in SODIUM CHLORIDE 0.9% 100 ML IV SCH (18:31)
[2020-07-14 18:35] LABS: Platelet Count 92 k/uL (150-450)
[2020-07-14 18:38] LABS: ABG Base Excess -1.3 mmol/L; ABG HCO3 25 mmol/L (21-25); ABG PCO2 47 mmHg (35-45); ABG PH 7.33 (7.35-7.45); ABG PO2 314 mmHg (83-108); ABG TCO2 26 mmol/L (19-24); Allen Test Performed? Yes
--- NOTE | 2020-07-14 18:46 | OP ---
OPERATIVE REPORT DATE OF SURGERY: 07/14/2020 SURGEON: Dr. Rosanna Jarvis. ASSISTANTS: 1. MARTHA Quinones. 2. MARTHA Eid. PREOPERATIVE DIAGNOSES: 1. Uif-IF-mlwkbtctu myocardial infarction. 2. Moderate left ventricular dysfunction. 3. Obesity. 4. Hypertension. 5. Hyperlipidemia. 6. Diabetes mellitus. 7. Aortoiliac occlusive disease. 8. Prior history of pericarditis with calcified pericardium on CT scan. 9. Tobacco abuse. POSTOPERATIVE DIAGNOSES: 1. Dml-AV-ummkbmjqv myocardial infarction. 2. Moderate left ventricular dysfunction. 3. Obesity. 4. Hypertension. 5. Hyperlipidemia. 6. Diabetes mellitus. 7. Aortoiliac occlusive disease. 8. Prior history of pericarditis with calcified pericardium on CT scan. 9. Tobacco abuse. 10.Presence of extensive pericardial adhesions and a calcified pericardial plaque into the diaphragmatic surface of the right ventricle with diffuse coronary artery disease. PROCEDURE: 1. Lysis of pericardial adhesions. 2. Triple-vessel coronary artery bypass grafting using the left internal mammary artery to the left anterior descending artery, the left radial artery from the aorta to the obtuse marginal artery, reverse saphenous vein graft from the aorta to the right coronary artery. 3. Endoscopic harvesting of the left radial artery. 4. Endoscopic harvesting of the left greater saphenous vein. 5. Intraoperative graft flow measurements using the [employer] system. 6. Intraoperative transesophageal echocardiogram and epiaortic scanning. INDICATION FOR SURGERY: The patient is a 64-year-old gentleman who presented with chest pain and was ruled in for a zot-PS-ykkqxjugm myocardial infarction. Cardiac catheterization followed and that showed severe left main disease with moderate mid RCA disease. Ejection fraction was estimated at around 40%. During cardiac catheterization via the right femoral artery, presence of aortoiliac disease was encountered. On a CT scan of the abdomen and pelvis performed last year, the patient had evidence of severe calcification of the distal aorta and the aortoiliac bifurcation. The patient is a current smoker. In view of his severe left main disease, the patient was taken at this point urgently the next day after cardiac catheterization for coronary artery bypass grafting. Chest CT scan showed calcified pericardial plaque laterally on the right side. Patient admits to a history of pneumonia and water around the heart, likely representing pericarditis at that time. The STS risk was discussed with him. He understood it and agreed to proceed. DESCRIPTION OF THE PROCEDURE: With the patient in supine position in the preoperative holding area, right internal jugular [place]-Justin catheter and a right radial arterial line were placed. PA pressure was 47/22. Cardiac index was 2.1. Subsequently the patient was brought to the operating room and general endotracheal anesthesia was induced uneventfully. A Lou catheter was inserted. He received 2 grams of cefazolin intravenously. The chest, abdomen , both lower extremeties and the left upper extremity were prepped and draped using ChloraPrep. Ioban was used to cover the skin. Transesophageal echocardiogram confirmed the preoperative finding of mild to moderate left ventricular dysfunction with distal anteroapical hypokinesia and no significant mitral valve regurgitation. A midline sternotomy was performed and no bone wax was used. Ostene was used. The left hemisternum was elevated and the left internal mammary artery was harvested in a somewhat skeletonized fashion. The left pleura was intentionally opened in this process and was drained with a 19-Surinamese Mateo drain. The right pleura remained grossly intact. The patient was given 5000 units of heparin. The mammary artery was clipped distally and transected. It had an excellent pulsatile flow in it and was around 2 mm in diameter. In the same setting, the left radial artery was initially exposed at the wrist, and a clamping trial revealed preserved signal in the left index oxygen saturation probe. Subsequently the radial artery was harvested endoscopically without using a tourniquet. The forearm incision was closed over a drain. The radial artery was prepared by incising the fascia all along its volar aspect and clipping all its branches. It was of good quality, around 2.5 mm in diameter. Also in the same setting, the left greater saphenous vein was harvested endoscopically from groin to above ankle level. We had a good segment at the level of the thigh, which was around 4 mm in diameter. The leg incisions were closed over a drain. The vein was harvested after administration of 2500 units of heparin to the patient. Ankeney retractor was used. Mediastinal fat was transected between 2 ties. Epiaortic scanning revealed concentric intimal thickening and some posterior wall disease, but no protruding atheroma. At this point we could palpate an anterior calcified pericardial plaque, more so to the right side. We opened the pericardium over the aorta and there were adhesions. Those were lysed over the aorta. Subsequently we worked our way to the right side and were able to dissect the right atrial appendage and just a partial part of the right atrium, as there were dense adhesions at that level. Beyond that was a calcified pericardium with dense adhesions. For that reason, I heparinized and placed a couple of pledgeted pursestrings for the aortic cannulation in the proximal arch and a pledgeted pursestring at the level of the right atrial appendage. Aortic cannulation and venous cannulation with a 21-Surinamese Soft flow cannula and a 3-stage 29-Surinamese cannula were performed, respectively. Antegrade cardioplegia catheter was placed after placement of a horizontal mattress suture in the mid ascending aorta. No retrograde catheter or strategy was pursued in this case. All the conduits were prepped before going on bypass. The patient's temperature was allowed to drift down to 34 degrees Celsius. At this point, we proceeded with tedious dissection of the heart. The adhesions on the left side were moderate and were all taken down sharply. However, the adhesions around the right atrium and the diaphragmatic surface of the right ventricle were dense and partially calcified. Eventually we freed the right ventricle. At the level of the diaphragmatic surface there were two spicules of calcium into the muscle of the RV, which were dissected. At this point, the aorta was clamped and myocardial protection was achieved with an initial dose of 1.2 L of antegrade cold blood cardioplegia. All subsequent doses were given retrograde at 15-minute intervals. The first distal anastomosis was between a segment of vein and the RCA proper, which was found in all these dense adhesions and was around 2 mm in diameter, thickened, using Prolene 7-0 in continuous fashion. The second distal anastomosis was between the left radial artery and the obtuse marginal artery, which was a vessel with scattered disease and wall disease eccentrically. It was opened, was around 1.5 mm in diameter, using Prolene 7-0 in continuous fashion. The left atrial appendage was totally sucked into the adhesions, and for that reason it was not excluded. The third and last distal anastomosis was between the left internal mammary artery and the mid to distal aspect of the left anterior descending artery, which was opened and was around 1.5 mm in diameter, somewhat thickened, using Prolene 7-0 in continuous fashion. A groove was made in the left pleural pericardial fat to accommodate the mammary artery medial to the lung and away from the posterior sternal table. Satisfied with the distal anastomoses, slow rewarming was started as we punched out 2 buttons of the ascending aorta and performed 2 proximal anastomoses of the vein and the radial artery to the aorta using running Prolene. The patient was given lidocaine and magnesium. De-airing maneuvers were performed. Subsequently, with the aortic root vent on maximum, we unclamped the aorta. The patient regained spontaneous sinus rhythm. Two 19-Surinamese Mateo drains were left substernally. Two monopolar atrial pacing wires were affixed to the pursestring around the right atrial appendage. After a period of reperfusion, we were able to wean off cardiopulmonary bypass without the need of any inotropic or vasopressor support. Cardiac index was 3 and PA pressure was 40/20. ISSA showed almost normal LV function. At this point, we proceeded with graft flow measurements using the [employer] system. A 4 mm probe was selected. The flow into the vein to the RCA was 51 mL/minute, pulsatility index of 2, and diastolic filling of 49%, showing an excellent functioning graft. The flow into the radial artery to the obtuse marginal artery was excellent at 120 mL/minute, pulsatility index of 0.9, and diastolic filling of 64%, showing an excellent functioning patent graft. The flow into the left internal mammary artery to the left anterior descending artery was 37 mL/minute, pulsatility index of 2.4, diastolic filling of 66%, showing an excellent functioning graft. With that, all pump suckers were stopped and test-dose, then full-dose protamine was given. Decannulation followed. FloSeal was applied to all the anastomotic sites and to the sloughed area into the diaphragmatic surface of the RV where pledgeted 4-0 Prolene was used to control an epicardial venous bleed. Another pledgeted 4-0 Prolene was used to control mid right atrial wall bleeding. Eventually hemostasis was satisfactory. Pericardial fat was approximated over the heart and all the grafts. After ensuring adequate hemostasis and hemodynamics and after correct sponge, instrument and needle counts, the sternum was closed using 5 [id number]-bl-wimhw cables after interposing Fibrillar between the sternal edges. Thorough irrigation with cefazolin followed. The rest of the closure proceeded in layers. Skin glue was applied. Patient did not receive any blood bank products but received 500 mL of Cell Saver blood. He was transferred to the ICU in stable condition with excellent hemodynamics on low-dose nitroglycerin for radial artery spasm prevention. SHELLY / JAYCEN: [id number] / MTDD
--- NOTE | 2020-07-14 19:07 | XR ---
EXAMINATION TYPE: XR chest 1V portable DATE OF EXAM: 07/14/2020 COMPARISON: CT 07/11/2020. HISTORY: Postoperative cardiac surgery. TECHNIQUE: Single frontal view of the chest is obtained. FINDINGS: There is demonstration of an endotracheal tube terminating 3.9 cm above the prasanna. There is a nasogastric tube with tip overlying the stomach. There is a right IJ [place]-Justin catheter with tip overlying the pulmonary outflow tract. There is mild perihilar and bibasilar opacities, most notable of the left lung base. There is a left chest tube in place. No significant pleural effusion or pneum othorax. The cardiac silhouette is mildly enlarged. Cardiothoracic postsurgical changes are seen. Oth erwise no acute osseous abnormality. IMPRESSION: Cardiac postoperative changes with support apparatus in place as above.
[2020-07-14] MEDS: CLEVIDIPINE BUTYRATE 25 MG in EMPTY BAG 1 BAG IV SCH ×2 (19:15→20:54)
[2020-07-14 19:20] LABS: Glucose,Whole Blood 118 mg/dL (75-99)
[2020-07-14] MEDS: ACETAMINOPHEN IV (For NPO) 1,000 MG in EMPTY BAG 1 BAG IVPB SCH (19:58)
[2020-07-14] MEDS: MUPIROCIN 2% OINT 22 GM TUBE NASAL SCH ×2 (19:59→20:02)
[2020-07-14] MEDS ORDERED: IPRATROPIUM-ALBUTEROL 3 ML NEB INHALATION SCH (20:00)
[2020-07-14] MEDS: traMADol 50 MG TAB PO SCH (20:08)
[2020-07-14 20:31] LABS: Glucose,Whole Blood 132 mg/dL (75-99)
[2020-07-14] MEDS: KETOROLAC 15 MG/ML 1 ML VIAL IVP SCH (20:33)
[2020-07-14 20:35] LABS: Anisocytosis Slight; Basophils % (A) 0 %; Eosinophils # (A) 0.1 k/uL (0-0.7); Eosinophils % (A) 1 %; HCT 30.8 % (39.0-53.0); HGB 9.8 gm/dL (13.0-17.5); Hypochromasia Slight; Lymphocytes # (A) 1.1 k/uL (1.0-4.8); Lymphocytes % (A) 12 %; MCH 27.4 pg (25.0-35.0); MCHC 31.9 g/dL (31.0-37.0); MCV 85.7 fL (80.0-100.0); Monocytes # (A) 0.6 k/uL (0-1.0); Monocytes % (A) 7 %; Neutrophils # (A) 7.1 k/uL (1.3-7.7); Neutrophils % (A) 79 %; Platelet Count 121 k/uL (150-450); RBC 3.59 m/uL (4.30-5.90)
[2020-07-14 21:51] LABS: Glucose,Whole Blood 162 mg/dL (75-99)
[2020-07-14 22:03] LABS: ABG Base Excess -1.9 mmol/L; ABG HCO3 24 mmol/L (21-25); ABG Oxygen Saturation 94.9 % (94-97); ABG PCO2 47 mmHg (35-45); ABG PH 7.32 (7.35-7.45); ABG PO2 78 mmHg (83-108); ABG TCO2 26 mmol/L (19-24); Allen Test Performed? Yes
[2020-07-14 23:01] LABS: Glucose,Whole Blood 169 mg/dL (75-99)
[2020-07-14 23:07] LABS: Anisocytosis Slight; Basophils % (A) 0 %; Eosinophils % (A) 0 %; HCT 31.6 % (39.0-53.0); HGB 9.9 gm/dL (13.0-17.5); Hypochromasia Slight; Lymphocytes # (A) 0.7 k/uL (1.0-4.8); Lymphocytes % (A) 7 %; MCH 27.2 pg (25.0-35.0); MCHC 31.3 g/dL (31.0-37.0); MCV 86.8 fL (80.0-100.0); Mean Platelet Volume 9.8; Monocytes # (A) 0.6 k/uL (0-1.0); Monocytes % (A) 6 %; Neutrophils # (A) 8.5 k/uL (1.3-7.7); Neutrophils % (A) 85 %; Platelet Count 129 k/uL (150-450); RBC 3.64 m/uL (4.30-5.90); WBC 9.9 k/uL (3.8-10.6)
[2020-07-15 00:08] LABS: Glucose,Whole Blood 167 mg/dL (75-99)
[2020-07-15] MEDS: HEPARIN SODIUM,PORCINE/PF 5,000 UNIT/0.5 ML SYRINGE SQ SCH ×3 (00:23→17:04)
[2020-07-15] MEDS: ACETAMINOPHEN IV (For NPO) 1,000 MG in EMPTY BAG 1 BAG IVPB SCH (00:54)
[2020-07-15 01:07] LABS: Glucose,Whole Blood 160 mg/dL (75-99)
[2020-07-15] MEDS: CLEVIDIPINE BUTYRATE 25 MG in EMPTY BAG 1 BAG IV SCH ×5 (01:08→23:50)
[2020-07-15 02:18] LABS: Glucose,Whole Blood 141 mg/dL (75-99)
[2020-07-15] MEDS: KETOROLAC 15 MG/ML 1 ML VIAL IVP SCH ×4 (02:19→20:32)
[2020-07-15 03:41] LABS: Glucose,Whole Blood 130 mg/dL (75-99)
[2020-07-15 04:09] LABS: Basophils % (A) 0 %; Eosinophils % (A) 0 %; HCT 28.3 % (39.0-53.0); HGB 9.8 gm/dL (13.0-17.5); Lymphocytes # (A) 0.6 k/uL (1.0-4.8); Lymphocytes % (A) 7 %; MCHC 34.5 g/dL (31.0-37.0); Mean Platelet Volume 8.6; Monocytes # (A) 0.7 k/uL (0-1.0); Monocytes % (A) 8 %; Neutrophils # (A) 7.7 k/uL (1.3-7.7); Neutrophils % (A) 84 %; Platelet Count 112 k/uL (150-450); RBC 3.37 m/uL (4.30-5.90); WBC 9.1 k/uL (3.8-10.6)
[2020-07-15 04:35] LABS: ALT 22 U/L (4-49); AST 40 U/L (17-59); African American GFR (CKD) >90 (>60 ml/min/1.73 sqM); Albumin 2.9 g/dL (3.5-5.0); Alkaline Phosphatase 47 U/L (38-126); Anion Gap 3 mmol/L; Blood Urea Nitrogen 10 mg/dL (9-20); Calcium 8.2 mg/dL (8.4-10.2); Carbon Dioxide 27 mmol/L (22-30); Chloride 108 mmol/L (98-107); Glucose 124 mg/dL (74-99); Magnesium 2.3 mg/dL (1.6-2.3); Non-African American GFR(CKD) >90 (>60 ml/min/1.73 sqM); Potassium 4.2 mmol/L (3.5-5.1); Sodium 138 mmol/L (137-145); Total Bilirubin 0.7 mg/dL (0.2-1.3); Total Protein 5.1 g/dL (6.3-8.2)
[2020-07-15 06:11] LABS: Glucose,Whole Blood 105 mg/dL (75-99)
[2020-07-15 07:11] LABS: Glucose,Whole Blood 132 mg/dL (75-99)
[2020-07-15] MEDS: IPRATROPIUM-ALBUTEROL 3 ML NEB INHALATION SCH ×4 (07:16→22:40)
[2020-07-15] MEDS: SYMBICORT 160-4.5 MCG INHALER INHALATION SCH ×2 (07:16→22:39)
[2020-07-15 08:12] LABS: Glucose,Whole Blood 152 mg/dL (75-99)
[2020-07-15] MEDS: METOPROLOL TARTRATE 25 MG TAB PO SCH ×2 (08:26→20:34)
[2020-07-15] MEDS: CLOPIDOGREL 75 MG TAB PO SCH (08:27)
[2020-07-15] MEDS: PANTOPRAZOLE 40 MG/10 ML VIAL IVP SCH (08:27)
[2020-07-15] MEDS: ATORVASTATIN 40 MG TAB PO SCH (08:27)
[2020-07-15] MEDS: ASPIRIN 325 MG TAB PO SCH (08:27)
[2020-07-15] MEDS: traMADol 50 MG TAB PO SCH ×3 (08:27→22:13)
[2020-07-15] MEDS ORDERED: METOPROLOL TARTRATE 12.5 MG TAB PO SCH (09:00)
[2020-07-15] MEDS ORDERED: MAGNESIUM HYDROXIDE 2,400 MG/10 ML CUP PO PRN (09:00)
[2020-07-15] MEDS ORDERED: amLODIPine 5 MG TAB PO SCH (09:00)
[2020-07-15] MEDS ORDERED: bisacodyL 10 MG SUPP RECTAL PRN (09:00)
--- NOTE | 2020-07-15 09:11 | P.PN ---
Subjective Progress Note Date: 07/15/20 Principal diagnosis: Symptomatic multivessel coronary artery disease with left main disease, non-ST elevated myocardial infarction this admission. Past medical history significant for hypertension, hyperlipidemia, diabetes mellitus type 2 with a preoperative hemoglobin A1c of 7.3%, obesity, chronic ongoing tobacco dependence, history of chronic back pain with degenerative joint disease, remote history of pneumonia with pericarditis, peripheral vascular disease, history of skin disorder, neuropathy to his bilateral lower extremities, GERD, varicose veins to his right lower extremity and evidence of cholelithiasis on preoperative abdominal ultrasound. 1. Multivessel coronary artery disease with left main disease 2. Overall left ventricular systolic function mild to moderately impaired with an ejection fraction between 40 and 45% 3. Non-ST elevated myocardial infarction this admission, with elevated troponins as high as 0.356 4. History of hypertension 5. History of hyperlipidemia 6. Diabetes mellitus type 2, with preoperative hemoglobin A1c 7.3% 7. Obesity with a BMI of 30.1 kg/m 8. Chronic ongoing tobacco dependence 9. History of chronic back pain, degenerative joint disease 10. Remote history of pneumonia with pericarditis 11. History of skin disorder 12. History of bilateral lower extremity neuropathy 13. Peripheral vascular disease 14. Gastroesophageal reflux disease 15. Varicose veins to his right lower extremity 16. Preoperative elevation of his lipase 371, cholelithiasis, lipase has normalized and is 112 today POD #1 lysis of pericardial adhesions, triple-vessel coronary artery bypass grafting using the left internal mammary artery to left anterior descending coronary artery, the left radial artery from the aorta to the obtuse marginal coronary artery, and a reverse greater saphenous vein graft from the aorta to the right coronary artery. Endoscopic harvesting of the left radial artery, endoscopic harvesting of the left greater saphenous vein, intraoperative graft flow measurement using the [employer] system, intraoperative transesophageal echocardiogram and epi-aortic scanning. Postoperative acute blood loss anemia and thrombocytopenia, expected outcome given hemodilution and cardiopulmonary bypass. The patient was seen in follow-up today 07/15/2020 at his bedside in the intensive care unit. Currently he is sitting up to the bedside chair, as awake, alert and oriented 3 and is in no acute apparent distress. He is complaining of some surgical type pain to his chest tube insertion sites and denies any complaints of shortness of breath. He was successfully extubated at 10:15 PM last night and is currently on 6 L nasal cannula with oxygen saturations 95%. He is achieving 500-750 mL on his incentive spirometry with much encouragement. He remains hemodynamically stable. Cleviprex drip is infusing at 5 mg per hour for blood pressure control. Bedside telemetry showing normal sinus rhythm heart rate 75 BPM. Right IJ Cordis and Adams-Justin catheter remains in place with current hemodynamic showing a cardiac output of 5.2, cardiac index 2.5, PA pressures 24/7 and CVP 5 mmHg. Mediastinal and left pleural chest tubes remain in place to low continuous wall suction -20 cm H2O. No air leak is present. Draining thin serosanguineous drainage. Mediastinal chest tubes drained 80 mL output in the last 8 hours and 210 mL output since surgery. Left pleural chest tube drained 70 mL output in the last 8 hours and 210 mL output since surgery. Eugene catheter remains in place with 950 mL of urine output in the last 8 hours. Objective - Vital Signs Vital signs: Vital Signs Temp 99.9 F H 07/15/20 08:00 Pulse 90 07/15/20 08:00 Resp 15 07/15/20 08:00 BP 127/54 07/15/20 04:15 Pulse Ox 92 L 07/15/20 08:00 Intake & Output 07/14/20 07/15/20 07/15/20 18:59 06:59 18:59 Intake Total 166.102 3228.647 163.371 Output Total 2310 2092 145 Balance -1946.761 -1082.353 18.371 Weight 95.1 kg Intake: IV 154.5 829.5 118 Cardiac Output 20 120 30 Lactated Ringers 1,000 ml 20 @ 20 mls/hr IV .Q24H [facility] Rx#:[id number] Nitroglycerin-D5w Pmx 50 1.5 1.5 mg In Dextrose/Water 1 250ml.bag @ 5 MCG/MIN 1.5 mls/hr IV .Q24H [facility] Rx#: [id number] Pressure Bags 9 108 18 Sodium Chloride 0.9% 1, 50 600 70 000 ml @ 20 mls/hr IV . Q24H [facility] Rx#:[id number] Intake, IV Titration 208.739 180.147 45.371 Amount Clevidipine Butyrate 25 137.667 21.800 mg In Empty Bag 1 bag @ 1 MG/HR 2 mls/hr IV .Q24H [facility] Rx#:[id number] Heparin Sod,Pork in 0.45% 208.739 NaCl 25,000 unit In 0.45 % NaCl 1 250ml.bag @ 11. 023 UNITS/KG/HR 10 mls/hr IV .Q24H [facility] Rx#: [id number] Insulin Regular 100 unit 37.244 3.771 In Sodium Chloride 0.9% 100 ml @ Per Protocol IV .Q0M [facility] Rx#:[id number] Nitroglycerin-D5w Pmx 50 19.8 mg In Dextrose/Water 1 250ml.bag @ 5 MCG/MIN 1.5 mls/hr IV .Q24H [facility] Rx#: [id number] propofoL 1,000 mg In 5.236 Empty Bag 1 bag @ Titrate IV .Q0M [facility] Rx#: [id number] Output: Chest Tube Drainage 125 297 20 Bilateral Lower 75 141 10 Mediastinal Chest Tube Left Lateral 50 156 10 Chest Drainage 30 Left Calf 20 Left Wrist 10 Urine 685 1765 125 Estimated Blood Loss 1500 Other: Voiding Method Indwelling Catheter Indwelling Catheter ABP, PAP, CO, CI - Last Documented Arterial Blood Pressure 134/38 Pulmonary Artery Pressure 26/6 Cardiac Output 7.4 Cardiac Index 3.5 - Exam CONSTITUTIONAL: Sitting up to the bedside chair in the intensive care unit, appears comfortable, cooperative, no apparent acute distress. HEENT: Neck is supple, no JVD, no lymphadenopathy. Right IJ Cordis and Adams- Justin catheter in place and functioning. RESPIRATORY: Lungs sounds essentially clear throughout, diminished to his bilateral bases. Respirations are symmetrical and nonlabored. Currently on 6 L nasal cannula with oxygen saturations 95%. Able to achieve 500-750 mL on his incentive spirometry. Strong cough. CARDIOVASCULAR: Regular rhythm and rate. S1 and S2 present, negative for S3, gallop or murmur. Sternum is stable. Palpable peripheral pulses bilaterally, positive Doppler pulses to his bilateral peels. +1 edema to his bilateral lower extremities. No calf pain or tenderness noted. Heart hugger in place with patient demonstrating appropriate use. Knee-high DOINE hose and sequential compression devices in place to his bilateral lower extremities. GASTROINTESTINAL: Abdomen soft, nontender, nondistended. Hypoactive bowel sounds present 4 quadrants. Tolerating diet. Passing flatus. No guarding or rigidity. GENITOURINARY: Eugene present draining clear, yellow urine. Output 950 mL in the last 8 hours INTEGUMENTARY: Skin is warm and dry with evidence of good perfusion. Midline sternal incision clean dry and well approximated, covered with dry intact dressing. Left lower extremity EVH sites well approximated without redness or drainage. Left arm radial artery harvest sites clean, dry and approximated. No drainage or redness is present. NEUROLOGIC: Cranial nerves II through XII intact. No focal deficits. MUSKULOSKELETAL: Able to move all extremities, strength equal bilaterally, generalized weakness. PSYCHIATRIC: Alert and oriented to person place and time, appropriate affect, intact judgment and insight. INVASIVE LINES AND TUBES: Mediastinal/left pleural chest tubes present and connected to low continuous wall suction, no air leaks present. Mediastinal tube with 80 mL of thin serosanguineous drainage overnight, 210 mL output since surgery. Left pleural chest tube with 70 mL of thin serosanguineous drainage overnight, 210 mL output since surgery. Atrial epicardial pacemaker wires present, connected to generator, AAI backup rate 50 bpm. Right internal jugular Adams/Cordis, right radial arterial line present. Last CO 5.2, CI 2.5, PA 24/7 and CVP 5 mmHg. Left arm VANGIE drain in place with scant thin serosanguineous drainage, 10 mL output in the last 8 hours. Left lower extremity VANGIE drain in place with scant thin serosanguineous drainage with 20 mL output in the last 8 hours. - Labs CBC & Chem 7: 07/15/20 03:40 07/15/20 03:40 Labs: Abnormal Lab Results - Last 24 Hours (Table) 07/13/20 07/14/20 07/14/20 Range/Units 15:22 11:31 13:44 RBC (4.30-5.90) m/uL Hgb (13.0-17.5) gm/dL Hct (39.0-53.0) % RDW (11.5-15.5) % Plt Count (150-450) k/uL Neutrophils # (1.3-7.7) k/uL Lymphocytes # (1.0-4.8) k/uL PT (9.0-12.0) sec INR (<1.2) ABG pH (7.35-7.45) ABG pCO2 (35-45) mmHg ABG pO2 380 H 395 H (83-108) mmHg ABG Total CO2 26 H 25 H (19-24) mmol/L ABG O2 Saturation 100.0 H 100.0 H (94-97) % ABG Hematocrit 33 L 30 L (34.0-46.0) % ABG Sodium (135-146) mmol/L ABG Potassium 4.6 H (3.4-4.5) mmol/L ABG Ionized Calcium (4.5-5.3) mg/dL ABG Glucose 111 H 128 H (75-99) mg/dL ABG Lactic Acid (0.5-1.6) mmol/L Hemoglobin 10.9 L 9.7 L (13.0-17.5) gm/dL Sodium (137-145) mmol/L Chloride (98-107) mmol/L Glucose (74-99) mg/dL POC Glucose (mg/dL) (75-99) mg/dL Calcium (8.4-10.2) mg/dL Magnesium (1.6-2.3) mg/dL Alkaline Phosphatase (38-126) U/L Total Protein (6.3-8.2) g/dL Albumin (3.5-5.0) g/dL Arterial Blood Potassium 4.6 H (3.4-4.5) mmol/L Arterial Blood Glucose 111 H 128 H (75-99) mg/dL Crossmatch See Detail 07/14/20 07/14/20 07/14/20 Range/Units 14:43 15:21 15:53 RBC (4.30-5.90) m/uL Hgb (13.0-17.5) gm/dL Hct (39.0-53.0) % RDW (11.5-15.5) % Plt Count (150-450) k/uL Neutrophils # (1.3-7.7) k/uL Lymphocytes # (1.0-4.8) k/uL PT (9.0-12.0) sec INR (<1.2) ABG pH 7.32 L 7.33 L (7.35-7.45) ABG pCO2 47 H (35-45) mmHg ABG pO2 310 H 129 H 317 H (83-108) mmHg ABG Total CO2 25 H 25 H (19-24) mmol/L ABG O2 Saturation 100.0 H 99.4 H 100.0 H (94-97) % ABG Hematocrit 25 L 26 L 23 L (34.0-46.0) % ABG Sodium 133 L 133 L (135-146) mmol/L ABG Potassium 4.8 H 5.8 H 6.0 H (3.4-4.5) mmol/L ABG Ionized Calcium 4.2 L 4.4 L 4.3 L (4.5-5.3) mg/dL ABG Glucose 132 H 139 H 167 H (75-99) mg/dL ABG Lactic Acid 2.1 H 2.6 H* (0.5-1.6) mmol/L Hemoglobin 8.1 L 8.3 L 7.6 L (13.0-17.5) gm/dL Sodium (137-145) mmol/L Chloride (98-107) mmol/L Glucose (74-99) mg/dL POC Glucose (mg/dL) (75-99) mg/dL Calcium (8.4-10.2) mg/dL Magnesium (1.6-2.3) mg/dL Alkaline Phosphatase (38-126) U/L Total Protein (6.3-8.2) g/dL Albumin (3.5-5.0) g/dL Arterial Blood Potassium 4.8 H 5.8 H 6.0 H (3.4-4.5) mmol/L Arterial Blood Glucose 132 H 139 H 167 H (75-99) mg/dL Crossmatch 07/14/20 07/14/20 07/14/20 Range/Units 16:16 17:22 17:43 RBC (4.30-5.90) m/uL Hgb (13.0-17.5) gm/dL Hct (39.0-53.0) % RDW (11.5-15.5) % Plt Count (150-450) k/uL Neutrophils # (1.3-7.7) k/uL Lymphocytes # (1.0-4.8) k/uL PT (9.0-12.0) sec INR (<1.2) ABG pH (7.35-7.45) ABG pCO2 (35-45) mmHg ABG pO2 270 H 388 H 344 H (83-108) mmHg ABG Total CO2 26 H (19-24) mmol/L ABG O2 Saturation 100.0 H 100.0 H 100.0 H (94-97) % ABG Hematocrit 23 L 22 L 26 L (34.0-46.0) % ABG Sodium (135-146) mmol/L ABG Potassium 5.9 H 5.0 H 4.7 H (3.4-4.5) mmol/L ABG Ionized Calcium 4.3 L (4.5-5.3) mg/dL ABG Glucose 169 H 141 H 124 H (75-99) mg/dL ABG Lactic Acid 3.6 H* 4.1 H* 3.7 H* (0.5-1.6) mmol/L Hemoglobin 7.5 L 7.3 L 8.4 L (13.0-17.5) gm/dL Sodium (137-145) mmol/L Chloride (98-107) mmol/L Glucose (74-99) mg/dL POC Glucose (mg/dL) (75-99) mg/dL Calcium (8.4-10.2) mg/dL Magnesium (1.6-2.3) mg/dL Alkaline Phosphatase (38-126) U/L Total Protein (6.3-8.2) g/dL Albumin (3.5-5.0) g/dL Arterial Blood Potassium 5.9 H 5.0 H 4.7 H (3.4-4.5) mmol/L Arterial Blood Glucose 169 H 141 H 124 H (75-99) mg/dL Crossmatch 07/14/20 07/14/20 07/14/20 Range/Units 18:07 18:08 18:08 RBC 3.04 L (4.30-5.90) m/uL Hgb 8.7 L D (13.0-17.5) gm/dL Hct 26.0 L (39.0-53.0) % RDW 15.9 H (11.5-15.5) % Plt Count 92 L (150-450) k/uL Neutrophils # (1.3-7.7) k/uL Lymphocytes # 0.9 L (1.0-4.8) k/uL PT 12.3 H (9.0-12.0) sec INR 1.2 H (<1.2) ABG pH (7.35-7.45) ABG pCO2 (35-45) mmHg ABG pO2 (83-108) mmHg ABG Total CO2 (19-24) mmol/L ABG O2 Saturation (94-97) % ABG Hematocrit (34.0-46.0) % ABG Sodium (135-146) mmol/L ABG Potassium (3.4-4.5) mmol/L ABG Ionized Calcium (4.5-5.3) mg/dL ABG Glucose (75-99) mg/dL ABG Lactic Acid (0.5-1.6) mmol/L Hemoglobin (13.0-17.5) gm/dL Sodium (137-145) mmol/L Chloride (98-107) mmol/L Glucose (74-99) mg/dL POC Glucose (mg/dL) 130 H (75-99) mg/dL Calcium (8.4-10.2) mg/dL Magnesium (1.6-2.3) mg/dL Alkaline Phosphatase (38-126) U/L Total Protein (6.3-8.2) g/dL Albumin (3.5-5.0) g/dL Arterial Blood Potassium (3.4-4.5) mmol/L Arterial Blood Glucose (75-99) mg/dL Crossmatch 07/14/20 07/14/20 07/14/20 Range/Units 18:08 18:31 19:19 RBC (4.30-5.90) m/uL Hgb (13.0-17.5) gm/dL Hct (39.0-53.0) % RDW (11.5-15.5) % Plt Count (150-450) k/uL Neutrophils # (1.3-7.7) k/uL Lymphocytes # (1.0-4.8) k/uL PT (9.0-12.0) sec INR (<1.2) ABG pH 7.33 L (7.35-7.45) ABG pCO2 47 H (35-45) mmHg ABG pO2 314 H (83-108) mmHg ABG Total CO2 26 H (19-24) mmol/L ABG O2 Saturation 100.0 H (94-97) % ABG Hematocrit (34.0-46.0) % ABG Sodium (135-146) mmol/L ABG Potassium (3.4-4.5) mmol/L ABG Ionized Calcium (4.5-5.3) mg/dL ABG Glucose (75-99) mg/dL ABG Lactic Acid (0.5-1.6) mmol/L Hemoglobin (13.0-17.5) gm/dL Sodium 136 L (137-145) mmol/L Chloride 108 H (98-107) mmol/L Glucose 117 H (74-99) mg/dL POC Glucose (mg/dL) 118 H (75-99) mg/dL Calcium 8.3 L (8.4-10.2) mg/dL Magnesium 2.5 H (1.6-2.3) mg/dL Alkaline Phosphatase 34 L (38-126) U/L Total Protein 4.4 L (6.3-8.2) g/dL Albumin 2.5 L (3.5-5.0) g/dL Arterial Blood Potassium (3.4-4.5) mmol/L Arterial Blood Glucose (75-99) mg/dL Crossmatch 07/14/20 07/14/20 07/14/20 Range/Units 20:26 20:32 21:50 RBC 3.59 L (4.30-5.90) m/uL Hgb 9.8 L (13.0-17.5) gm/dL Hct 30.8 L (39.0-53.0) % RDW 16.0 H (11.5-15.5) % Plt Count 121 L (150-450) k/uL Neutrophils # (1.3-7.7) k/uL Lymphocytes # (1.0-4.8) k/uL PT (9.0-12.0) sec INR (<1.2) ABG pH (7.35-7.45) ABG pCO2 (35-45) mmHg ABG pO2 (83-108) mmHg ABG Total CO2 (19-24) mmol/L ABG O2 Saturation (94-97) % ABG Hematocrit (34.0-46.0) % ABG Sodium (135-146) mmol/L ABG Potassium (3.4-4.5) mmol/L ABG Ionized Calcium (4.5-5.3) mg/dL ABG Glucose (75-99) mg/dL ABG Lactic Acid (0.5-1.6) mmol/L Hemoglobin (13.0-17.5) gm/dL Sodium (137-145) mmol/L Chloride (98-107) mmol/L Glucose (74-99) mg/dL POC Glucose (mg/dL) 132 H 162 H (75-99) mg/dL Calcium (8.4-10.2) mg/dL Magnesium (1.6-2.3) mg/dL Alkaline Phosphatase (38-126) U/L Total Protein (6.3-8.2) g/dL Albumin (3.5-5.0) g/dL Arterial Blood Potassium (3.4-4.5) mmol/L Arterial Blood Glucose (75-99) mg/dL Crossmatch 07/14/20 07/14/20 07/14/20 Range/Units 22:00 22:55 22:59 RBC 3.64 L (4.30-5.90) m/uL Hgb 9.9 L (13.0-17.5) gm/dL Hct 31.6 L (39.0-53.0) % RDW 16.0 H (11.5-15.5) % Plt Count 129 L (150-450) k/uL Neutrophils # 8.5 H (1.3-7.7) k/uL Lymphocytes # 0.7 L (1.0-4.8) k/uL PT (9.0-12.0) sec INR (<1.2) ABG pH 7.32 L (7.35-7.45) ABG pCO2 47 H (35-45) mmHg ABG pO2 78 L (83-108) mmHg ABG Total CO2 26 H (19-24) mmol/L ABG O2 Saturation (94-97) % ABG Hematocrit (34.0-46.0) % ABG Sodium (135-146) mmol/L ABG Potassium (3.4-4.5) mmol/L ABG Ionized Calcium (4.5-5.3) mg/dL ABG Glucose (75-99) mg/dL ABG Lactic Acid (0.5-1.6) mmol/L Hemoglobin (13.0-17.5) gm/dL Sodium (137-145) mmol/L Chloride (98-107) mmol/L Glucose (74-99) mg/dL POC Glucose (mg/dL) 169 H (75-99) mg/dL Calcium (8.4-10.2) mg/dL Magnesium (1.6-2.3) mg/dL Alkaline Phosphatase (38-126) U/L Total Protein (6.3-8.2) g/dL Albumin (3.5-5.0) g/dL Arterial Blood Potassium (3.4-4.5) mmol/L Arterial Blood Glucose (75-99) mg/dL Crossmatch 07/15/20 07/15/20 07/15/20 Range/Units 00:08 01:06 02:16 RBC (4.30-5.90) m/uL Hgb (13.0-17.5) gm/dL Hct (39.0-53.0) % RDW (11.5-15.5) % Plt Count (150-450) k/uL Neutrophils # (1.3-7.7) k/uL Lymphocytes # (1.0-4.8) k/uL PT (9.0-12.0) sec INR (<1.2) ABG pH (7.35-7.45) ABG pCO2 (35-45) mmHg ABG pO2 (83-108) mmHg ABG Total CO2 (19-24) mmol/L ABG O2 Saturation (94-97) % ABG Hematocrit (34.0-46.0) % ABG Sodium (135-146) mmol/L ABG Potassium (3.4-4.5) mmol/L ABG Ionized Calcium (4.5-5.3) mg/dL ABG Glucose (75-99) mg/dL ABG Lactic Acid (0.5-1.6) mmol/L Hemoglobin (13.0-17.5) gm/dL Sodium (137-145) mmol/L Chloride (98-107) mmol/L Glucose (74-99) mg/dL POC Glucose (mg/dL) 167 H 160 H 141 H (75-99) mg/dL Calcium (8.4-10.2) mg/dL Magnesium (1.6-2.3) mg/dL Alkaline Phosphatase (38-126) U/L Total Protein (6.3-8.2) g/dL Albumin (3.5-5.0) g/dL Arterial Blood Potassium (3.4-4.5) mmol/L Arterial Blood Glucose (75-99) mg/dL Crossmatch 07/15/20 07/15/20 07/15/20 Range/Units 03:39 03:40 03:40 RBC 3.37 L (4.30-5.90) m/uL Hgb 9.8 L (13.0-17.5) gm/dL Hct 28.3 L (39.0-53.0) % RDW 16.0 H (11.5-15.5) % Plt Count 112 L (150-450) k/uL Neutrophils # (1.3-7.7) k/uL Lymphocytes # 0.6 L (1.0-4.8) k/uL PT (9.0-12.0) sec INR (<1.2) ABG pH (7.35-7.45) ABG pCO2 (35-45) mmHg ABG pO2 (83-108) mmHg ABG Total CO2 (19-24) mmol/L ABG O2 Saturation (94-97) % ABG Hematocrit (34.0-46.0) % ABG Sodium (135-146) mmol/L ABG Potassium (3.4-4.5) mmol/L ABG Ionized Calcium (4.5-5.3) mg/dL ABG Glucose (75-99) mg/dL ABG Lactic Acid (0.5-1.6) mmol/L Hemoglobin (13.0-17.5) gm/dL Sodium (137-145) mmol/L Chloride 108 H (98-107) mmol/L Glucose 124 H (74-99) mg/dL POC Glucose (mg/dL) 130 H (75-99) mg/dL Calcium 8.2 L (8.4-10.2) mg/dL Magnesium (1.6-2.3) mg/dL Alkaline Phosphatase (38-126) U/L Total Protein 5.1 L (6.3-8.2) g/dL Albumin 2.9 L (3.5-5.0) g/dL Arterial Blood Potassium (3.4-4.5) mmol/L Arterial Blood Glucose (75-99) mg/dL Crossmatch 07/15/20 07/15/20 07/15/20 Range/Units 06:10 07:10 08:11 RBC (4.30-5.90) m/uL Hgb (13.0-17.5) gm/dL Hct (39.0-53.0) % RDW (11.5-15.5) % Plt Count (150-450) k/uL Neutrophils # (1.3-7.7) k/uL Lymphocytes # (1.0-4.8) k/uL PT (9.0-12.0) sec INR (<1.2) ABG pH (7.35-7.45) ABG pCO2 (35-45) mmHg ABG pO2 (83-108) mmHg ABG Total CO2 (19-24) mmol/L ABG O2 Saturation (94-97) % ABG Hematocrit (34.0-46.0) % ABG Sodium (135-146) mmol/L ABG Potassium (3.4-4.5) mmol/L ABG Ionized Calcium (4.5-5.3) mg/dL ABG Glucose (75-99) mg/dL ABG Lactic Acid (0.5-1.6) mmol/L Hemoglobin (13.0-17.5) gm/dL Sodium (137-145) mmol/L Chloride (98-107) mmol/L Glucose (74-99) mg/dL POC Glucose (mg/dL) 105 H 132 H 152 H (75-99) mg/dL Calcium (8.4-10.2) mg/dL Magnesium (1.6-2.3) mg/dL Alkaline Phosphatase (38-126) U/L Total Protein (6.3-8.2) g/dL Albumin (3.5-5.0) g/dL Arterial Blood Potassium (3.4-4.5) mmol/L Arterial Blood Glucose (75-99) mg/dL Crossmatch Microbiology - Last 24 Hours (Table) 07/13/20 13:40 Nasal Screen MRSA/MSSA - Final Nasopharyngeal Swab Assessment and Plan Assessment: 1. Multivessel coronary artery disease with left main disease, status post three-vessel coronary artery bypass grafting surgery 2. Overall left ventricular systolic function mild to moderately impaired with an ejection fraction between 40 and 45% 3. Non-ST elevated myocardial infarction this admission, with elevated troponins as high as 0.356 4. COPD with a preoperative FEV1 59% of predicted value 5. History of hypertension 6. History of hyperlipidemia 7. Diabetes mellitus type 2, with preoperative hemoglobin A1c 7.3% 8. Obesity with a BMI of 30.1 kg/m 9. Chronic ongoing tobacco dependence 10. History of chronic back pain, degenerative joint disease 11. Remote history of pneumonia with pericarditis, with calcified pericardium on computed tomography scan of the chest 12. History of skin disorder 13. History of bilateral lower extremity neuropathy 14. Peripheral vascular disease, with aortoiliac occlusive disease 15. Gastroesophageal reflux disease 16. Varicose veins to his right lower extremity 17. Preoperative elevation of his lipase 371, cholelithiasis, lipase has normalized and is 112 today 18. Postoperative acute blood loss anemia, expected Plan: 1. Continue to optimize medical management with aspirin, statin, Plavix and beta kale. Metoprolol tartrate increased to 25 mg by mouth twice a day today. 2. Start amlodipine 5 mg by mouth daily for radial artery spasm prophylaxis. Please do not to discontinue calcium channel kale without discussing with cardiac surgery prior. 3. Wean oxygen as tolerated. Encourage incentive spirometry use 10x every hour while, bronchodilators per pulmonology management. 4. Increase activity, ambulate as tolerated. PT/OT/cardiac rehab consulted. 5. Will monitor daily labs and daily CXR. Electrolyte replacement per protocol. 6. Insulin management per primary care. Patient needs tight blood sugar control to promote healing, union of the sternal bone. The patient is a diabetic with a preoperative hemoglobin A1c of 7.3%. 7. GI/DVT prophylaxis. 8. Remove Adams-Justin catheter, keep right IJ Cordis in place to continuous CVP monitoring. 9. Continue chest tubes for another 24 hours. 10. Continue eugene catheter for another 24 hours for strict accurate I/Os. Daily weights. 11. Pain control with current medication regimen. Toradol has been added. 12. Wean Cleviprex to off. 13. Discontinue nitroglycerin drip. 14. Risk modification discussed with the patient including importance of smoking cessation. 15. More recommendations to follow based on patient's clinical course. Time with Patient: Greater than 30
--- NOTE | 2020-07-15 09:36 | P.ARTDOP ---
Arterial Doppler Study performed: Bilateral radial artery testing Date of study: 07/13/2020 Reason for study: Preop CABG Doppler assessment shows no significant right to left or segmental pressure gradient. On plethysmography with radial artery compression we observe 56 mmHg change on the right and 43 mmHg change on the left. Right radial measures 3.2 x 3 mm proximally, 3.2 x 2.5 mm mid, and 3.4 x 3 mm distally. Left radial measures 3.4 x 3 2 mm proximally, 2.5 x 2.7 mm mid, and 3.1 x 2.7 mm distally. Impression: Neither radial artery meets criteria for use based on greater than 40 mmHg pressure change on radial artery compression.
--- NOTE | 2020-07-15 09:50 | P.VSCSTY ---
Greater Saphenous Vein Mapping This is bilateral lower extremity greater saphenous vein mapping. Date of service: 07/13/2020 Vein quality and ultrasound appearance: We see no intraluminal thrombus or wall changes. Vein size groin right : Not visualized due to sheath groin left: 6.8 x 7.0 High thigh right: 7.6 x 5.3 high thigh left: 4.2 x 4.1 Mid thigh right: 5.1 x 4.1 mid thigh left: 2.9 x 2.5 Above-knee right: 5.8 x 3.8 above- knee left: 4.3 x 3.3 Below knee right: 5.2 x 3.9 below-knee left: 3.5 x 3.2 Mid calf right: 2.2 x 1.9 mid calf left: 2.9 x 2.0 Ankle right: 3.1 x 2.1 ankle left: 3.8 x 2.9 Impression: Usable bilateral greater saphenous vein. High in the thigh may be a bit large for use on the right..
--- NOTE | 2020-07-15 09:58 | P.PN ---
Subjective Progress Note Date: 07/15/20 Principal diagnosis: Coronary artery disease status post coronary artery bypass grafting 64-year-old male, who presents to the emergency department, for evaluation. He apparently came into the ED with complaints of 2 months or so of intermittent chest pain. Apparently initially started in the area of the right upper abdomen, and radiated into the right side of his chest. Sometimes when into his right shoulder as well. Apparently the pain is worse after eating. He does h ave a history of hiatal hernia and acid reflux disease. The patient underwent a thorough evaluation, including a catheterization, which apparently showed evidence of significant coronary artery disease, including left main disease. Unfortunately, the catheterization report is not yet available. The patient may end up having open heart surgery tomorrow. We are asked to see the patient in preoperative evaluation. He has not yet had his preoperative lung function test. A chest x-ray was normal. A CT angiogram was negative for pulmonary embolism, but did show atherosclerotic vascular disease, and also calcification of the pericardium. The patient likely does have some underlying chronic lung disease as he smoked since the age of 15, to the age of 64, at 1 pack a day. Sometimes he smoked more than that. 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 When asked about symptoms, such as shortness of breath, he only admits to chronic morning cough, with occasional clear to white phlegm production, and wheezing, according to her significant other. He denies any hemoptysis. He doesn't really even admit to shortness of breath. Lab data includes a white count 7.7, hemoglobin 12, hematocrit 36.9, and platelet count 187,000. Sodium 138, potassium 4.7, Seferino 110, CO2 22, anion gap 6, BUN 12, creatinine 0.71. The patient is seen today 07/15/2020 in follow-up in the intensive care unit. This is postoperative day #1. He did undergo coronary artery bypass grafting 3 yesterday with a GARCIA to the LAD, left radial artery to the obtuse marginal, saphenous vein graft to the RCA. He was extubated at 4.5 hours after surgery. He is currently sitting up in a chair at the bedside. Awake and alert in no acute distress. His pain is fairly well managed. He is currently on 6 L high flow nasal cannula to maintain O2 saturation in the 90s. He is 0.9 normal saline at KVO. [place] proximal at 5 mg per hour, insulin drip at 4 units per hour. Heparin for DVT prophylaxis. Receiving cefazolin per protocol. PA pressure 26/6, CVP is 4. Cardiac output 7.4. Cardiac index 3.5. Chest x-ray revealing mild perihilar and basilar opacities. Mediastinal chest tube in place 2, left pleural chest tube in place. White count 9.1. Hemoglobin 9.8. Platelets 112. Sodium 138. Potassium 4.2. Creatinine 0.71. AST 40. ALT 22. Albumin 2.9. Glucose 124. Objective - Vital Signs Vital signs: Vital Signs Temp 99.9 F H 07/15/20 08:00 Pulse 91 07/15/20 09:00 Resp 18 07/15/20 09:00 BP 127/54 07/15/20 04:15 Pulse Ox 94 L 07/15/20 09:00 Intake & Output 07/14/20 07/15/20 07/15/20 18:59 06:59 18:59 Intake Total 990.175 5780.647 192.371 Output Total 2310 2092 180 Balance -1946.761 -1082.353 12.371 Weight 95.1 kg Intake: IV 154.5 829.5 147 Cardiac Output 20 120 30 Lactated Ringers 1,000 ml 20 @ 20 mls/hr IV .Q24H [facility] Rx#:[id number] Nitroglycerin-D5w Pmx 50 1.5 1.5 mg In Dextrose/Water 1 250ml.bag @ 5 MCG/MIN 1.5 mls/hr IV .Q24H [facility] Rx#: [id number] Pressure Bags 9 108 27 Sodium Chloride 0.9% 1, 50 600 90 000 ml @ 20 mls/hr IV . Q24H [facility] Rx#:[id number] Intake, IV Titration 208.739 180.147 45.371 Amount Clevidipine Butyrate 25 137.667 21.800 mg In Empty Bag 1 bag @ 1 MG/HR 2 mls/hr IV .Q24H [facility] Rx#:[id number] Heparin Sod,Pork in 0.45% 208.739 NaCl 25,000 unit In 0.45 % NaCl 1 250ml.bag @ 11. 023 UNITS/KG/HR 10 mls/hr IV .Q24H [facility] Rx#: [id number] Insulin Regular 100 unit 37.244 3.771 In Sodium Chloride 0.9% 100 ml @ Per Protocol IV .Q0M [facility] Rx#:[id number] Nitroglycerin-D5w Pmx 50 19.8 mg In Dextrose/Water 1 250ml.bag @ 5 MCG/MIN 1.5 mls/hr IV .Q24H [facility] Rx#: [id number] propofoL 1,000 mg In 5.236 Empty Bag 1 bag @ Titrate IV .Q0M [facility] Rx#: [id number] Output: Chest Tube Drainage 125 297 20 Bilateral Lower 75 141 10 Mediastinal Chest Tube Left Lateral 50 156 10 Chest Drainage 30 Left Calf 20 Left Wrist 10 Urine 685 1765 160 Estimated Blood Loss 1500 Other: Voiding Method Indwelling Catheter Indwelling Catheter ABP, PAP, CO, CI - Last Documented Arterial Blood Pressure 129/34 Pulmonary Artery Pressure 26/6 Cardiac Output 7.4 Cardiac Index 3.5 - Exam GENERAL EXAM: Alert, oriented, pleasant 64-year-old gentleman, on 6 L nasal cannula, up in a chair at the bedside. HEAD: Normocephalic. EYES: Normal reaction of pupils, equal size. NOSE: Clear with pink turbinates. THROAT: No erythema or exudates. NECK: No masses, no JVD. [place] catheter in place CHEST: Sternal dressing dry and intact. Heart Hugger in place. Mediastinal chest tube 2, left pleural chest tube in place. LUNGS: Equal air entry with few scattered rhonchi. CVS: S1 and S2 normal with no audible murmur, regular rhythm. ABDOMEN: No hepatosplenomegaly, normal bowel sounds, no guarding or rigidity. SPINE: No scoliosis or deformity SKIN: No rashes CENTRAL NERVOUS SYSTEM: No focal deficits, tone is normal in all 4 extremities. EXTREMITIES: Left radial VANGIE, left lower extremity VANGIE in place. Dressings dry and intact. There is trace peripheral edema. No clubbing, no cyanosis. Peripheral pulses are intact. - Labs CBC & Chem 7: 07/15/20 03:40 07/15/20 03:40 Labs: Abnormal Lab Results - Last 24 Hours (Table) 07/13/20 07/14/20 07/14/20 Range/Units 15:22 11:31 13:44 RBC (4.30-5.90) m/uL Hgb (13.0-17.5) gm/dL Hct (39.0-53.0) % RDW (11.5-15.5) % Plt Count (150-450) k/uL Neutrophils # (1.3-7.7) k/uL Lymphocytes # (1.0-4.8) k/uL PT (9.0-12.0) sec INR (<1.2) ABG pH (7.35-7.45) ABG pCO2 (35-45) mmHg ABG pO2 380 H 395 H (83-108) mmHg ABG Total CO2 26 H 25 H (19-24) mmol/L ABG O2 Saturation 100.0 H 100.0 H (94-97) % ABG Hematocrit 33 L 30 L (34.0-46.0) % ABG Sodium (135-146) mmol/L ABG Potassium 4.6 H (3.4-4.5) mmol/L ABG Ionized Calcium (4.5-5.3) mg/dL ABG Glucose 111 H 128 H (75-99) mg/dL ABG Lactic Acid (0.5-1.6) mmol/L Hemoglobin 10.9 L 9.7 L (13.0-17.5) gm/dL Sodium (137-145) mmol/L Chloride (98-107) mmol/L Glucose (74-99) mg/dL POC Glucose (mg/dL) (75-99) mg/dL Calcium (8.4-10.2) mg/dL Magnesium (1.6-2.3) mg/dL Alkaline Phosphatase (38-126) U/L Total Protein (6.3-8.2) g/dL Albumin (3.5-5.0) g/dL Arterial Blood Potassium 4.6 H (3.4-4.5) mmol/L Arterial Blood Glucose 111 H 128 H (75-99) mg/dL Crossmatch See Detail 07/14/20 07/14/20 07/14/20 Range/Units 14:43 15:21 15:53 RBC (4.30-5.90) m/uL Hgb (13.0-17.5) gm/dL Hct (39.0-53.0) % RDW (11.5-15.5) % Plt Count (150-450) k/uL Neutrophils # (1.3-7.7) k/uL Lymphocytes # (1.0-4.8) k/uL PT (9.0-12.0) sec INR (<1.2) ABG pH 7.32 L 7.33 L (7.35-7.45) ABG pCO2 47 H (35-45) mmHg ABG pO2 310 H 129 H 317 H (83-108) mmHg ABG Total CO2 25 H 25 H (19-24) mmol/L ABG O2 Saturation 100.0 H 99.4 H 100.0 H (94-97) % ABG Hematocrit 25 L 26 L 23 L (34.0-46.0) % ABG Sodium 133 L 133 L (135-146) mmol/L ABG Potassium 4.8 H 5.8 H 6.0 H (3.4-4.5) mmol/L ABG Ionized Calcium 4.2 L 4.4 L 4.3 L (4.5-5.3) mg/dL ABG Glucose 132 H 139 H 167 H (75-99) mg/dL ABG Lactic Acid 2.1 H 2.6 H* (0.5-1.6) mmol/L Hemoglobin 8.1 L 8.3 L 7.6 L (13.0-17.5) gm/dL Sodium (137-145) mmol/L Chloride (98-107) mmol/L Glucose (74-99) mg/dL POC Glucose (mg/dL) (75-99) mg/dL Calcium (8.4-10.2) mg/dL Magnesium (1.6-2.3) mg/dL Alkaline Phosphatase (38-126) U/L Total Protein (6.3-8.2) g/dL Albumin (3.5-5.0) g/dL Arterial Blood Potassium 4.8 H 5.8 H 6.0 H (3.4-4.5) mmol/L Arterial Blood Glucose 132 H 139 H 167 H (75-99) mg/dL Crossmatch 07/14/20 07/14/20 07/14/20 Range/Units 16:16 17:22 17:43 RBC (4.30-5.90) m/uL Hgb (13.0-17.5) gm/dL Hct (39.0-53.0) % RDW (11.5-15.5) % Plt Count (150-450) k/uL Neutrophils # (1.3-7.7) k/uL Lymphocytes # (1.0-4.8) k/uL PT (9.0-12.0) sec INR (<1.2) ABG pH (7.35-7.45) ABG pCO2 (35-45) mmHg ABG pO2 270 H 388 H 344 H (83-108) mmHg ABG Total CO2 26 H (19-24) mmol/L ABG O2 Saturation 100.0 H 100.0 H 100.0 H (94-97) % ABG Hematocrit 23 L 22 L 26 L (34.0-46.0) % ABG Sodium (135-146) mmol/L ABG Potassium 5.9 H 5.0 H 4.7 H (3.4-4.5) mmol/L ABG Ionized Calcium 4.3 L (4.5-5.3) mg/dL ABG Glucose 169 H 141 H 124 H (75-99) mg/dL ABG Lactic Acid 3.6 H* 4.1 H* 3.7 H* (0.5-1.6) mmol/L Hemoglobin 7.5 L 7.3 L 8.4 L (13.0-17.5) gm/dL Sodium (137-145) mmol/L Chloride (98-107) mmol/L Glucose (74-99) mg/dL POC Glucose (mg/dL) (75-99) mg/dL Calcium (8.4-10.2) mg/dL Magnesium (1.6-2.3) mg/dL Alkaline Phosphatase (38-126) U/L Total Protein (6.3-8.2) g/dL Albumin (3.5-5.0) g/dL Arterial Blood Potassium 5.9 H 5.0 H 4.7 H (3.4-4.5) mmol/L Arterial Blood Glucose 169 H 141 H 124 H (75-99) mg/dL Crossmatch 07/14/20 07/14/20 07/14/20 Range/Units 18:07 18:08 18:08 RBC 3.04 L (4.30-5.90) m/uL Hgb 8.7 L D (13.0-17.5) gm/dL Hct 26.0 L (39.0-53.0) % RDW 15.9 H (11.5-15.5) % Plt Count 92 L (150-450) k/uL Neutrophils # (1.3-7.7) k/uL Lymphocytes # 0.9 L (1.0-4.8) k/uL PT 12.3 H (9.0-12.0) sec INR 1.2 H (<1.2) ABG pH (7.35-7.45) ABG pCO2 (35-45) mmHg ABG pO2 (83-108) mmHg ABG Total CO2 (19-24) mmol/L ABG O2 Saturation (94-97) % ABG Hematocrit (34.0-46.0) % ABG Sodium (135-146) mmol/L ABG Potassium (3.4-4.5) mmol/L ABG Ionized Calcium (4.5-5.3) mg/dL ABG Glucose (75-99) mg/dL ABG Lactic Acid (0.5-1.6) mmol/L Hemoglobin (13.0-17.5) gm/dL Sodium (137-145) mmol/L Chloride (98-107) mmol/L Glucose (74-99) mg/dL POC Glucose (mg/dL) 130 H (75-99) mg/dL Calcium (8.4-10.2) mg/dL Magnesium (1.6-2.3) mg/dL Alkaline Phosphatase (38-126) U/L Total Protein (6.3-8.2) g/dL Albumin (3.5-5.0) g/dL Arterial Blood Potassium (3.4-4.5) mmol/L Arterial Blood Glucose (75-99) mg/dL Crossmatch 07/14/20 07/14/20 07/14/20 Range/Units 18:08 18:31 19:19 RBC (4.30-5.90) m/uL Hgb (13.0-17.5) gm/dL Hct (39.0-53.0) % RDW (11.5-15.5) % Plt Count (150-450) k/uL Neutrophils # (1.3-7.7) k/uL Lymphocytes # (1.0-4.8) k/uL PT (9.0-12.0) sec INR (<1.2) ABG pH 7.33 L (7.35-7.45) ABG pCO2 47 H (35-45) mmHg ABG pO2 314 H (83-108) mmHg ABG Total CO2 26 H (19-24) mmol/L ABG O2 Saturation 100.0 H (94-97) % ABG Hematocrit (34.0-46.0) % ABG Sodium (135-146) mmol/L ABG Potassium (3.4-4.5) mmol/L ABG Ionized Calcium (4.5-5.3) mg/dL ABG Glucose (75-99) mg/dL ABG Lactic Acid (0.5-1.6) mmol/L Hemoglobin (13.0-17.5) gm/dL Sodium 136 L (137-145) mmol/L Chloride 108 H (98-107) mmol/L Glucose 117 H (74-99) mg/dL POC Glucose (mg/dL) 118 H (75-99) mg/dL Calcium 8.3 L (8.4-10.2) mg/dL Magnesium 2.5 H (1.6-2.3) mg/dL Alkaline Phosphatase 34 L (38-126) U/L Total Protein 4.4 L (6.3-8.2) g/dL Albumin 2.5 L (3.5-5.0) g/dL Arterial Blood Potassium (3.4-4.5) mmol/L Arterial Blood Glucose (75-99) mg/dL Crossmatch 07/14/20 07/14/20 07/14/20 Range/Units 20:26 20:32 21:50 RBC 3.59 L (4.30-5.90) m/uL Hgb 9.8 L (13.0-17.5) gm/dL Hct 30.8 L (39.0-53.0) % RDW 16.0 H (11.5-15.5) % Plt Count 121 L (150-450) k/uL Neutrophils # (1.3-7.7) k/uL Lymphocytes # (1.0-4.8) k/uL PT (9.0-12.0) sec INR (<1.2) ABG pH (7.35-7.45) ABG pCO2 (35-45) mmHg ABG pO2 (83-108) mmHg ABG Total CO2 (19-24) mmol/L ABG O2 Saturation (94-97) % ABG Hematocrit (34.0-46.0) % ABG Sodium (135-146) mmol/L ABG Potassium (3.4-4.5) mmol/L ABG Ionized Calcium (4.5-5.3) mg/dL ABG Glucose (75-99) mg/dL ABG Lactic Acid (0.5-1.6) mmol/L Hemoglobin (13.0-17.5) gm/dL Sodium (137-145) mmol/L Chloride (98-107) mmol/L Glucose (74-99) mg/dL POC Glucose (mg/dL) 132 H 162 H (75-99) mg/dL Calcium (8.4-10.2) mg/dL Magnesium (1.6-2.3) mg/dL Alkaline Phosphatase (38-126) U/L Total Protein (6.3-8.2) g/dL Albumin (3.5-5.0) g/dL Arterial Blood Potassium (3.4-4.5) mmol/L Arterial Blood Glucose (75-99) mg/dL Crossmatch 07/14/20 07/14/20 07/14/20 Range/Units 22:00 22:55 22:59 RBC 3.64 L (4.30-5.90) m/uL Hgb 9.9 L (13.0-17.5) gm/dL Hct 31.6 L (39.0-53.0) % RDW 16.0 H (11.5-15.5) % Plt Count 129 L (150-450) k/uL Neutrophils # 8.5 H (1.3-7.7) k/uL Lymphocytes # 0.7 L (1.0-4.8) k/uL PT (9.0-12.0) sec INR (<1.2) ABG pH 7.32 L (7.35-7.45) ABG pCO2 47 H (35-45) mmHg ABG pO2 78 L (83-108) mmHg ABG Total CO2 26 H (19-24) mmol/L ABG O2 Saturation (94-97) % ABG Hematocrit (34.0-46.0) % ABG Sodium (135-146) mmol/L ABG Potassium (3.4-4.5) mmol/L ABG Ionized Calcium (4.5-5.3) mg/dL ABG Glucose (75-99) mg/dL ABG Lactic Acid (0.5-1.6) mmol/L Hemoglobin (13.0-17.5) gm/dL Sodium (137-145) mmol/L Chloride (98-107) mmol/L Glucose (74-99) mg/dL POC Glucose (mg/dL) 169 H (75-99) mg/dL Calcium (8.4-10.2) mg/dL Magnesium (1.6-2.3) mg/dL Alkaline Phosphatase (38-126) U/L Total Protein (6.3-8.2) g/dL Albumin (3.5-5.0) g/dL Arterial Blood Potassium (3.4-4.5) mmol/L Arterial Blood Glucose (75-99) mg/dL Crossmatch 07/15/20 07/15/20 07/15/20 Range/Units 00:08 01:06 02:16 RBC (4.30-5.90) m/uL Hgb (13.0-17.5) gm/dL Hct (39.0-53.0) % RDW (11.5-15.5) % Plt Count (150-450) k/uL Neutrophils # (1.3-7.7) k/uL Lymphocytes # (1.0-4.8) k/uL PT (9.0-12.0) sec INR (<1.2) ABG pH (7.35-7.45) ABG pCO2 (35-45) mmHg ABG pO2 (83-108) mmHg ABG Total CO2 (19-24) mmol/L ABG O2 Saturation (94-97) % ABG Hematocrit (34.0-46.0) % ABG Sodium (135-146) mmol/L ABG Potassium (3.4-4.5) mmol/L ABG Ionized Calcium (4.5-5.3) mg/dL ABG Glucose (75-99) mg/dL ABG Lactic Acid (0.5-1.6) mmol/L Hemoglobin (13.0-17.5) gm/dL Sodium (137-145) mmol/L Chloride (98-107) mmol/L Glucose (74-99) mg/dL POC Glucose (mg/dL) 167 H 160 H 141 H (75-99) mg/dL Calcium (8.4-10.2) mg/dL Magnesium (1.6-2.3) mg/dL Alkaline Phosphatase (38-126) U/L Total Protein (6.3-8.2) g/dL Albumin (3.5-5.0) g/dL Arterial Blood Potassium (3.4-4.5) mmol/L Arterial Blood Glucose (75-99) mg/dL Crossmatch 07/15/20 07/15/20 07/15/20 Range/Units 03:39 03:40 03:40 RBC 3.37 L (4.30-5.90) m/uL Hgb 9.8 L (13.0-17.5) gm/dL Hct 28.3 L (39.0-53.0) % RDW 16.0 H (11.5-15.5) % Plt Count 112 L (150-450) k/uL Neutrophils # (1.3-7.7) k/uL Lymphocytes # 0.6 L (1.0-4.8) k/uL PT (9.0-12.0) sec INR (<1.2) ABG pH (7.35-7.45) ABG pCO2 (35-45) mmHg ABG pO2 (83-108) mmHg ABG Total CO2 (19-24) mmol/L ABG O2 Saturation (94-97) % ABG Hematocrit (34.0-46.0) % ABG Sodium (135-146) mmol/L ABG Potassium (3.4-4.5) mmol/L ABG Ionized Calcium (4.5-5.3) mg/dL ABG Glucose (75-99) mg/dL ABG Lactic Acid (0.5-1.6) mmol/L Hemoglobin (13.0-17.5) gm/dL Sodium (137-145) mmol/L Chloride 108 H (98-107) mmol/L Glucose 124 H (74-99) mg/dL POC Glucose (mg/dL) 130 H (75-99) mg/dL Calcium 8.2 L (8.4-10.2) mg/dL Magnesium (1.6-2.3) mg/dL Alkaline Phosphatase (38-126) U/L Total Protein 5.1 L (6.3-8.2) g/dL Albumin 2.9 L (3.5-5.0) g/dL Arterial Blood Potassium (3.4-4.5) mmol/L Arterial Blood Glucose (75-99) mg/dL Crossmatch 07/15/20 07/15/20 07/15/20 Range/Units 06:10 07:10 08:11 RBC (4.30-5.90) m/uL Hgb (13.0-17.5) gm/dL Hct (39.0-53.0) % RDW (11.5-15.5) % Plt Count (150-450) k/uL Neutrophils # (1.3-7.7) k/uL Lymphocytes # (1.0-4.8) k/uL PT (9.0-12.0) sec INR (<1.2) ABG pH (7.35-7.45) ABG pCO2 (35-45) mmHg ABG pO2 (83-108) mmHg ABG Total CO2 (19-24) mmol/L ABG O2 Saturation (94-97) % ABG Hematocrit (34.0-46.0) % ABG Sodium (135-146) mmol/L ABG Potassium (3.4-4.5) mmol/L ABG Ionized Calcium (4.5-5.3) mg/dL ABG Glucose (75-99) mg/dL ABG Lactic Acid (0.5-1.6) mmol/L Hemoglobin (13.0-17.5) gm/dL Sodium (137-145) mmol/L Chloride (98-107) mmol/L Glucose (74-99) mg/dL POC Glucose (mg/dL) 105 H 132 H 152 H (75-99) mg/dL Calcium (8.4-10.2) mg/dL Magnesium (1.6-2.3) mg/dL Alkaline Phosphatase (38-126) U/L Total Protein (6.3-8.2) g/dL Albumin (3.5-5.0) g/dL Arterial Blood Potassium (3.4-4.5) mmol/L Arterial Blood Glucose (75-99) mg/dL Crossmatch Microbiology - Last 24 Hours (Table) 07/13/20 13:40 Nasal Screen MRSA/MSSA - Final Nasopharyngeal Swab Assessment and Plan Assessment: 1 Significant coronary artery disease including left main disease, status post coronary artery bypass grafting utilizing a GARCIA to the LAD, left radial artery to the OM, SVG to the RCA. Postoperative day #1. 2 Probable COPD based on 50 years of tobacco use, and symptoms of cough, phlegm production, and wheezing. Patient was extubated and 4.5 hours postop. Currently on 6 L. 3 History of angina pectoris. 4 History of diabetes mellitus. 5 History of heart failure. 6 History of gastroesophageal reflux disease. 7 History of hyperlipidemia. 8 History of hypertension. 9 History of DJD. 10 History of varicose veins. 11 History of bilateral lower extremity neuropathy. 12 History of duodenal ulcer. Plan: The patient was seen and evaluated by Dr. Hernandez Chest x-ray and labs reviewed Encouraged increased use of the incentive spirometer Titrate the FiO2 as tolerated Continue bronchodilators Increase his activity as tolerated We will continue to follow I, the cosigning physician, performed a history & physical examination of the patient. Lungs sounds few scattered rhonchi. Maintaining good O2 saturations in the 90s on 6 L/m per nasal cannula. I discussed the assessment and plan of care with my nurse practitioner, Kelsey Tang. I attest to the above note as dictated by her.
[2020-07-15 10:03] LABS: Glucose,Whole Blood 251 mg/dL (75-99)
--- NOTE | 2020-07-15 10:15 | XR ---
EXAMINATION TYPE: XR chest 1V portable DATE OF EXAM: 07/15/2020 COMPARISON: Chest x-ray 07/14/2020 HISTORY: Postop cardiac surgery TECHNIQUE: Single frontal view of the chest is obtained. FINDINGS: Right jugular central venous catheter remains in place with the tip overlying the pulmonar y artery, median sternal drains are in place. There is a left chest tube as on prior, no evident pneu mothorax. Endotracheal tube and orogastric tube have been removed. Patient is post median sternotomy. Cardiac mediastinal silhouette shows a similar appearance. Lung volumes are low. Retrocardiac densit y obscures the left hemidiaphragm. Central vascularity and interstitium appear prominently. IMPRESSION: Interval extubation. Difficult to exclude pulmonary venous hypertension and interstitial edema, findings may be due to technique, expiratory exam.
--- NOTE | 2020-07-15 11:21 | P.PN ---
Subjective Progress Note Date: 07/15/20 HISTORY OF PRESENT ILLNESS: 07/14/2020 Patient examined this morning at the bedside with Dr. Archibald. Patient underwent cardiac cath yesterday revealing multivessel coronary artery disease with left main stenosis of 70%. Patient was seen and evaluated by cardiothoracic surgery and is scheduled for surgery today. He denies chest pain or pressure. Denies shortness of breath. Echocardiogram completed revealing ejection fraction 40- 45%, mild aortic valve sclerosis, mild mitral regurgitation, trace tricuspid regurgitation, and mild pulmonary hypertension. Blood pressure 149/86. Telemetry reveals sinus mechanism. 07/15/2020 Patient is s/p CABG x 3 with GARCIA to LAD, left radial artery to obtuse marginal, and reverse saphenous vein graft to the RCA with Dr. Jarvis. POD #1. Patient e xamined this morning in the ICU. Patient was extubated yesterday. Patient is on 4L NC with oxygen saturations greater than 92%. Patient is sitting up in the chair. Patient is on Cleviprex infusion. Patient complains of discomfort this morning and has not been using his incentive spirometer very often. PHYSICAL EXAM: VITAL SIGNS: Reviewed. GENERAL: Well-developed in no acute distress. NECK: Supple. No JVD or thyromegaly LUNGS: Respirations even and unlabored. Lungs diminished bilaterally. Chest tubes noted. HEART: Regular rate and rhythm. S1 and S2 heard. Heart hugger present. Sternal dressing clean dry and intact. EXTREMITIES: Normal range of motion. No clubbing or cyanosis. Peripheral pulses intact. No lower extremity edema ASSESSMENT: Non-STEMI Multivessel coronary artery disease with left main disease, s/p CABG x 3 with GARCIA to LAD, left radial artery to obtuse marginal, and reverse saphenous vein graft to the RCA Hypertension Hyperlipidemia Diabetes Mellitus Peripheral vascular disease GERD Chronic back pain Nicotine dependence PLAN: Postoperative management per CTS Continue aspirin, lipitor, amlodipine, and metoprolol Resume home dose of YEIMI postoperatively when appropriate Increase activity as tolerated Encouraged use of incentive spirometer Will continue to follow patient postoperatively and make further recommendations Nurse practitioner note has been reviewed by physician. Signing provider agrees with the documented findings, assessment, and plan of care. Objective - Vital Signs Vital signs: Vital Signs Temp 99.9 F H 07/15/20 08:00 Pulse 80 07/15/20 10:59 Resp 12 07/15/20 10:00 BP 127/54 07/15/20 04:15 Pulse Ox 94 L 07/15/20 10:00 Intake & Output 07/14/20 07/15/20 07/15/20 18:59 06:59 18:59 Intake Total 905.529 8804.647 228.980 Output Total 2310 2092 290 Balance -1946.761 -1082.353 -61.020 Weight 95.1 kg Intake: IV 154.5 829.5 176 Cardiac Output 20 120 30 Lactated Ringers 1,000 ml 20 @ 20 mls/hr IV .Q24H [facility] Rx#:[id number] Nitroglycerin-D5w Pmx 50 1.5 1.5 mg In Dextrose/Water 1 250ml.bag @ 5 MCG/MIN 1.5 mls/hr IV .Q24H [facility] Rx#: [id number] Pressure Bags 9 108 36 Sodium Chloride 0.9% 1, 50 600 110 000 ml @ 20 mls/hr IV . Q24H [facility] Rx#:[id number] Intake, IV Titration 208.739 180.147 52.980 Amount Clevidipine Butyrate 25 137.667 21.800 mg In Empty Bag 1 bag @ 1 MG/HR 2 mls/hr IV .Q24H [facility] Rx#:[id number] Heparin Sod,Pork in 0.45% 208.739 NaCl 25,000 unit In 0.45 % NaCl 1 250ml.bag @ 11. 023 UNITS/KG/HR 10 mls/hr IV .Q24H [facility] Rx#: [id number] Insulin Regular 100 unit 37.244 11.380 In Sodium Chloride 0.9% 100 ml @ Per Protocol IV .Q0M [facility] Rx#:[id number] Nitroglycerin-D5w Pmx 50 19.8 mg In Dextrose/Water 1 250ml.bag @ 5 MCG/MIN 1.5 mls/hr IV .Q24H [facility] Rx#: [id number] propofoL 1,000 mg In 5.236 Empty Bag 1 bag @ Titrate IV .Q0M [facility] Rx#: [id number] Output: Chest Tube Drainage 125 297 30 Bilateral Lower 75 141 15 Mediastinal Chest Tube Left Lateral 50 156 15 Chest Drainage 30 Left Calf 20 Left Wrist 10 Urine 685 1765 260 Estimated Blood Loss 1500 Other: Voiding Method Indwelling Catheter Indwelling Catheter Indwelling Catheter ABP, PAP, CO, CI - Last Documented Arterial Blood Pressure 126/35 Pulmonary Artery Pressure 26/6 Cardiac Output 7.4 Cardiac Index 3.5 - Labs CBC & Chem 7: 07/15/20 03:40 07/15/20 03:40 Labs: Abnormal Lab Results - Last 24 Hours (Table) 07/13/20 07/14/20 07/14/20 Range/Units 15:22 11:31 13:44 RBC (4.30-5.90) m/uL Hgb (13.0-17.5) gm/dL Hct (39.0-53.0) % RDW (11.5-15.5) % Plt Count (150-450) k/uL Neutrophils # (1.3-7.7) k/uL Lymphocytes # (1.0-4.8) k/uL PT (9.0-12.0) sec INR (<1.2) ABG pH (7.35-7.45) ABG pCO2 (35-45) mmHg ABG pO2 380 H 395 H (83-108) mmHg ABG Total CO2 26 H 25 H (19-24) mmol/L ABG O2 Saturation 100.0 H 100.0 H (94-97) % ABG Hematocrit 33 L 30 L (34.0-46.0) % ABG Sodium (135-146) mmol/L ABG Potassium 4.6 H (3.4-4.5) mmol/L ABG Ionized Calcium (4.5-5.3) mg/dL ABG Glucose 111 H 128 H (75-99) mg/dL ABG Lactic Acid (0.5-1.6) mmol/L Hemoglobin 10.9 L 9.7 L (13.0-17.5) gm/dL Sodium (137-145) mmol/L Chloride (98-107) mmol/L Glucose (74-99) mg/dL POC Glucose (mg/dL) (75-99) mg/dL Calcium (8.4-10.2) mg/dL Magnesium (1.6-2.3) mg/dL Alkaline Phosphatase (38-126) U/L Total Protein (6.3-8.2) g/dL Albumin (3.5-5.0) g/dL Arterial Blood Potassium 4.6 H (3.4-4.5) mmol/L Arterial Blood Glucose 111 H 128 H (75-99) mg/dL Crossmatch See Detail 07/14/20 07/14/20 07/14/20 Range/Units 14:43 15:21 15:53 RBC (4.30-5.90) m/uL Hgb (13.0-17.5) gm/dL Hct (39.0-53.0) % RDW (11.5-15.5) % Plt Count (150-450) k/uL Neutrophils # (1.3-7.7) k/uL Lymphocytes # (1.0-4.8) k/uL PT (9.0-12.0) sec INR (<1.2) ABG pH 7.32 L 7.33 L (7.35-7.45) ABG pCO2 47 H (35-45) mmHg ABG pO2 310 H 129 H 317 H (83-108) mmHg ABG Total CO2 25 H 25 H (19-24) mmol/L ABG O2 Saturation 100.0 H 99.4 H 100.0 H (94-97) % ABG Hematocrit 25 L 26 L 23 L (34.0-46.0) % ABG Sodium 133 L 133 L (135-146) mmol/L ABG Potassium 4.8 H 5.8 H 6.0 H (3.4-4.5) mmol/L ABG Ionized Calcium 4.2 L 4.4 L 4.3 L (4.5-5.3) mg/dL ABG Glucose 132 H 139 H 167 H (75-99) mg/dL ABG Lactic Acid 2.1 H 2.6 H* (0.5-1.6) mmol/L Hemoglobin 8.1 L 8.3 L 7.6 L (13.0-17.5) gm/dL Sodium (137-145) mmol/L Chloride (98-107) mmol/L Glucose (74-99) mg/dL POC Glucose (mg/dL) (75-99) mg/dL Calcium (8.4-10.2) mg/dL Magnesium (1.6-2.3) mg/dL Alkaline Phosphatase (38-126) U/L Total Protein (6.3-8.2) g/dL Albumin (3.5-5.0) g/dL Arterial Blood Potassium 4.8 H 5.8 H 6.0 H (3.4-4.5) mmol/L Arterial Blood Glucose 132 H 139 H 167 H (75-99) mg/dL Crossmatch 07/14/20 07/14/20 07/14/20 Range/Units 16:16 17:22 17:43 RBC (4.30-5.90) m/uL Hgb (13.0-17.5) gm/dL Hct (39.0-53.0) % RDW (11.5-15.5) % Plt Count (150-450) k/uL Neutrophils # (1.3-7.7) k/uL Lymphocytes # (1.0-4.8) k/uL PT (9.0-12.0) sec INR (<1.2) ABG pH (7.35-7.45) ABG pCO2 (35-45) mmHg ABG pO2 270 H 388 H 344 H (83-108) mmHg ABG Total CO2 26 H (19-24) mmol/L ABG O2 Saturation 100.0 H 100.0 H 100.0 H (94-97) % ABG Hematocrit 23 L 22 L 26 L (34.0-46.0) % ABG Sodium (135-146) mmol/L ABG Potassium 5.9 H 5.0 H 4.7 H (3.4-4.5) mmol/L ABG Ionized Calcium 4.3 L (4.5-5.3) mg/dL ABG Glucose 169 H 141 H 124 H (75-99) mg/dL ABG Lactic Acid 3.6 H* 4.1 H* 3.7 H* (0.5-1.6) mmol/L Hemoglobin 7.5 L 7.3 L 8.4 L (13.0-17.5) gm/dL Sodium (137-145) mmol/L Chloride (98-107) mmol/L Glucose (74-99) mg/dL POC Glucose (mg/dL) (75-99) mg/dL Calcium (8.4-10.2) mg/dL Magnesium (1.6-2.3) mg/dL Alkaline Phosphatase (38-126) U/L Total Protein (6.3-8.2) g/dL Albumin (3.5-5.0) g/dL Arterial Blood Potassium 5.9 H 5.0 H 4.7 H (3.4-4.5) mmol/L Arterial Blood Glucose 169 H 141 H 124 H (75-99) mg/dL Crossmatch 07/14/20 07/14/20 07/14/20 Range/Units 18:07 18:08 18:08 RBC 3.04 L (4.30-5.90) m/uL Hgb 8.7 L D (13.0-17.5) gm/dL Hct 26.0 L (39.0-53.0) % RDW 15.9 H (11.5-15.5) % Plt Count 92 L (150-450) k/uL Neutrophils # (1.3-7.7) k/uL Lymphocytes # 0.9 L (1.0-4.8) k/uL PT 12.3 H (9.0-12.0) sec INR 1.2 H (<1.2) ABG pH (7.35-7.45) ABG pCO2 (35-45) mmHg ABG pO2 (83-108) mmHg ABG Total CO2 (19-24) mmol/L ABG O2 Saturation (94-97) % ABG Hematocrit (34.0-46.0) % ABG Sodium (135-146) mmol/L ABG Potassium (3.4-4.5) mmol/L ABG Ionized Calcium (4.5-5.3) mg/dL ABG Glucose (75-99) mg/dL ABG Lactic Acid (0.5-1.6) mmol/L Hemoglobin (13.0-17.5) gm/dL Sodium (137-145) mmol/L Chloride (98-107) mmol/L Glucose (74-99) mg/dL POC Glucose (mg/dL) 130 H (75-99) mg/dL Calcium (8.4-10.2) mg/dL Magnesium (1.6-2.3) mg/dL Alkaline Phosphatase (38-126) U/L Total Protein (6.3-8.2) g/dL Albumin (3.5-5.0) g/dL Arterial Blood Potassium (3.4-4.5) mmol/L Arterial Blood Glucose (75-99) mg/dL Crossmatch 07/14/20 07/14/20 07/14/20 Range/Units 18:08 18:31 19:19 RBC (4.30-5.90) m/uL Hgb (13.0-17.5) gm/dL Hct (39.0-53.0) % RDW (11.5-15.5) % Plt Count (150-450) k/uL Neutrophils # (1.3-7.7) k/uL Lymphocytes # (1.0-4.8) k/uL PT (9.0-12.0) sec INR (<1.2) ABG pH 7.33 L (7.35-7.45) ABG pCO2 47 H (35-45) mmHg ABG pO2 314 H (83-108) mmHg ABG Total CO2 26 H (19-24) mmol/L ABG O2 Saturation 100.0 H (94-97) % ABG Hematocrit (34.0-46.0) % ABG Sodium (135-146) mmol/L ABG Potassium (3.4-4.5) mmol/L ABG Ionized Calcium (4.5-5.3) mg/dL ABG Glucose (75-99) mg/dL ABG Lactic Acid (0.5-1.6) mmol/L Hemoglobin (13.0-17.5) gm/dL Sodium 136 L (137-145) mmol/L Chloride 108 H (98-107) mmol/L Glucose 117 H (74-99) mg/dL POC Glucose (mg/dL) 118 H (75-99) mg/dL Calcium 8.3 L (8.4-10.2) mg/dL Magnesium 2.5 H (1.6-2.3) mg/dL Alkaline Phosphatase 34 L (38-126) U/L Total Protein 4.4 L (6.3-8.2) g/dL Albumin 2.5 L (3.5-5.0) g/dL Arterial Blood Potassium (3.4-4.5) mmol/L Arterial Blood Glucose (75-99) mg/dL Crossmatch 07/14/20 07/14/20 07/14/20 Range/Units 20:26 20:32 21:50 RBC 3.59 L (4.30-5.90) m/uL Hgb 9.8 L (13.0-17.5) gm/dL Hct 30.8 L (39.0-53.0) % RDW 16.0 H (11.5-15.5) % Plt Count 121 L (150-450) k/uL Neutrophils # (1.3-7.7) k/uL Lymphocytes # (1.0-4.8) k/uL PT (9.0-12.0) sec INR (<1.2) ABG pH (7.35-7.45) ABG pCO2 (35-45) mmHg ABG pO2 (83-108) mmHg ABG Total CO2 (19-24) mmol/L ABG O2 Saturation (94-97) % ABG Hematocrit (34.0-46.0) % ABG Sodium (135-146) mmol/L ABG Potassium (3.4-4.5) mmol/L ABG Ionized Calcium (4.5-5.3) mg/dL ABG Glucose (75-99) mg/dL ABG Lactic Acid (0.5-1.6) mmol/L Hemoglobin (13.0-17.5) gm/dL Sodium (137-145) mmol/L Chloride (98-107) mmol/L Glucose (74-99) mg/dL POC Glucose (mg/dL) 132 H 162 H (75-99) mg/dL Calcium (8.4-10.2) mg/dL Magnesium (1.6-2.3) mg/dL Alkaline Phosphatase (38-126) U/L Total Protein (6.3-8.2) g/dL Albumin (3.5-5.0) g/dL Arterial Blood Potassium (3.4-4.5) mmol/L Arterial Blood Glucose (75-99) mg/dL Crossmatch 07/14/20 07/14/20 07/14/20 Range/Units 22:00 22:55 22:59 RBC 3.64 L (4.30-5.90) m/uL Hgb 9.9 L (13.0-17.5) gm/dL Hct 31.6 L (39.0-53.0) % RDW 16.0 H (11.5-15.5) % Plt Count 129 L (150-450) k/uL Neutrophils # 8.5 H (1.3-7.7) k/uL Lymphocytes # 0.7 L (1.0-4.8) k/uL PT (9.0-12.0) sec INR (<1.2) ABG pH 7.32 L (7.35-7.45) ABG pCO2 47 H (35-45) mmHg ABG pO2 78 L (83-108) mmHg ABG Total CO2 26 H (19-24) mmol/L ABG O2 Saturation (94-97) % ABG Hematocrit (34.0-46.0) % ABG Sodium (135-146) mmol/L ABG Potassium (3.4-4.5) mmol/L ABG Ionized Calcium (4.5-5.3) mg/dL ABG Glucose (75-99) mg/dL ABG Lactic Acid (0.5-1.6) mmol/L Hemoglobin (13.0-17.5) gm/dL Sodium (137-145) mmol/L Chloride (98-107) mmol/L Glucose (74-99) mg/dL POC Glucose (mg/dL) 169 H (75-99) mg/dL Calcium (8.4-10.2) mg/dL Magnesium (1.6-2.3) mg/dL Alkaline Phosphatase (38-126) U/L Total Protein (6.3-8.2) g/dL Albumin (3.5-5.0) g/dL Arterial Blood Potassium (3.4-4.5) mmol/L Arterial Blood Glucose (75-99) mg/dL Crossmatch 07/15/20 07/15/20 07/15/20 Range/Units 00:08 01:06 02:16 RBC (4.30-5.90) m/uL Hgb (13.0-17.5) gm/dL Hct (39.0-53.0) % RDW (11.5-15.5) % Plt Count (150-450) k/uL Neutrophils # (1.3-7.7) k/uL Lymphocytes # (1.0-4.8) k/uL PT (9.0-12.0) sec INR (<1.2) ABG pH (7.35-7.45) ABG pCO2 (35-45) mmHg ABG pO2 (83-108) mmHg ABG Total CO2 (19-24) mmol/L ABG O2 Saturation (94-97) % ABG Hematocrit (34.0-46.0) % ABG Sodium (135-146) mmol/L ABG Potassium (3.4-4.5) mmol/L ABG Ionized Calcium (4.5-5.3) mg/dL ABG Glucose (75-99) mg/dL ABG Lactic Acid (0.5-1.6) mmol/L Hemoglobin (13.0-17.5) gm/dL Sodium (137-145) mmol/L Chloride (98-107) mmol/L Glucose (74-99) mg/dL POC Glucose (mg/dL) 167 H 160 H 141 H (75-99) mg/dL Calcium (8.4-10.2) mg/dL Magnesium (1.6-2.3) mg/dL Alkaline Phosphatase (38-126) U/L Total Protein (6.3-8.2) g/dL Albumin (3.5-5.0) g/dL Arterial Blood Potassium (3.4-4.5) mmol/L Arterial Blood Glucose (75-99) mg/dL Crossmatch 07/15/20 07/15/20 07/15/20 Range/Units 03:39 03:40 03:40 RBC 3.37 L (4.30-5.90) m/uL Hgb 9.8 L (13.0-17.5) gm/dL Hct 28.3 L (39.0-53.0) % RDW 16.0 H (11.5-15.5) % Plt Count 112 L (150-450) k/uL Neutrophils # (1.3-7.7) k/uL Lymphocytes # 0.6 L (1.0-4.8) k/uL PT (9.0-12.0) sec INR (<1.2) ABG pH (7.35-7.45) ABG pCO2 (35-45) mmHg ABG pO2 (83-108) mmHg ABG Total CO2 (19-24) mmol/L ABG O2 Saturation (94-97) % ABG Hematocrit (34.0-46.0) % ABG Sodium (135-146) mmol/L ABG Potassium (3.4-4.5) mmol/L ABG Ionized Calcium (4.5-5.3) mg/dL ABG Glucose (75-99) mg/dL ABG Lactic Acid (0.5-1.6) mmol/L Hemoglobin (13.0-17.5) gm/dL Sodium (137-145) mmol/L Chloride 108 H (98-107) mmol/L Glucose 124 H (74-99) mg/dL POC Glucose (mg/dL) 130 H (75-99) mg/dL Calcium 8.2 L (8.4-10.2) mg/dL Magnesium (1.6-2.3) mg/dL Alkaline Phosphatase (38-126) U/L Total Protein 5.1 L (6.3-8.2) g/dL Albumin 2.9 L (3.5-5.0) g/dL Arterial Blood Potassium (3.4-4.5) mmol/L Arterial Blood Glucose (75-99) mg/dL Crossmatch 07/15/20 07/15/20 07/15/20 Range/Units 06:10 07:10 08:11 RBC (4.30-5.90) m/uL Hgb (13.0-17.5) gm/dL Hct (39.0-53.0) % RDW (11.5-15.5) % Plt Count (150-450) k/uL Neutrophils # (1.3-7.7) k/uL Lymphocytes # (1.0-4.8) k/uL PT (9.0-12.0) sec INR (<1.2) ABG pH (7.35-7.45) ABG pCO2 (35-45) mmHg ABG pO2 (83-108) mmHg ABG Total CO2 (19-24) mmol/L ABG O2 Saturation (94-97) % ABG Hematocrit (34.0-46.0) % ABG Sodium (135-146) mmol/L ABG Potassium (3.4-4.5) mmol/L ABG Ionized Calcium (4.5-5.3) mg/dL ABG Glucose (75-99) mg/dL ABG Lactic Acid (0.5-1.6) mmol/L Hemoglobin (13.0-17.5) gm/dL Sodium (137-145) mmol/L Chloride (98-107) mmol/L Glucose (74-99) mg/dL POC Glucose (mg/dL) 105 H 132 H 152 H (75-99) mg/dL Calcium (8.4-10.2) mg/dL Magnesium (1.6-2.3) mg/dL Alkaline Phosphatase (38-126) U/L Total Protein (6.3-8.2) g/dL Albumin (3.5-5.0) g/dL Arterial Blood Potassium (3.4-4.5) mmol/L Arterial Blood Glucose (75-99) mg/dL Crossmatch 07/15/20 Range/Units 10:02 RBC (4.30-5.90) m/uL Hgb (13.0-17.5) gm/dL Hct (39.0-53.0) % RDW (11.5-15.5) % Plt Count (150-450) k/uL Neutrophils # (1.3-7.7) k/uL Lymphocytes # (1.0-4.8) k/uL PT (9.0-12.0) sec INR (<1.2) ABG pH (7.35-7.45) ABG pCO2 (35-45) mmHg ABG pO2 (83-108) mmHg ABG Total CO2 (19-24) mmol/L ABG O2 Saturation (94-97) % ABG Hematocrit (34.0-46.0) % ABG Sodium (135-146) mmol/L ABG Potassium (3.4-4.5) mmol/L ABG Ionized Calcium (4.5-5.3) mg/dL ABG Glucose (75-99) mg/dL ABG Lactic Acid (0.5-1.6) mmol/L Hemoglobin (13.0-17.5) gm/dL Sodium (137-145) mmol/L Chloride (98-107) mmol/L Glucose (74-99) mg/dL POC Glucose (mg/dL) 251 H (75-99) mg/dL Calcium (8.4-10.2) mg/dL Magnesium (1.6-2.3) mg/dL Alkaline Phosphatase (38-126) U/L Total Protein (6.3-8.2) g/dL Albumin (3.5-5.0) g/dL Arterial Blood Potassium (3.4-4.5) mmol/L Arterial Blood Glucose (75-99) mg/dL Crossmatch Microbiology - Last 24 Hours (Table) 07/13/20 13:40 Nasal Screen MRSA/MSSA - Final Nasopharyngeal Swab
[2020-07-15 11:23] LABS: Glucose,Whole Blood 191 mg/dL (75-99)
[2020-07-15 12:11] LABS: Glucose,Whole Blood 173 mg/dL (75-99)
[2020-07-15] MEDS: SODIUM CHLORIDE 0.9% 1,000 ML IV SCH (12:52)
[2020-07-15 12:59] LABS: Glucose,Whole Blood 148 mg/dL (75-99)
[2020-07-15 14:23] LABS: Glucose,Whole Blood 186 mg/dL (75-99)
--- NOTE | 2020-07-15 14:44 | P.PN ---
Subjective 64-year-old the female was admitted for non-ST elevation myocardial infarction underwent cardiac catheterization which showed critical lesion in left anterior descending patient will undergo coronary artery bypass grafting tomorrow. Cardio thoracic surgery was consulted. Patient is presently on IV heparin. 07/15/2020 and patient is postoperative day one underwent coronary artery bypass grafting which is a GARCIA to LAD and left radial artery to obtuse marginal and saphenous vein graft to RCA. Patient was extubated yesterday. Patient prese ntly has 2 chest tubes left and mediastinal. Patient is presently on insulin drip. Patient is also on clevedipine. Patient has a [place] in place Constitutional: Denied any fatigue denied any fever. Cardio vascular: denied any chest pain, palpitations Gastrointestinal denied any nausea vomiting Pulmonary: Denied any shortness of breath cough Neurologic denied any new focal deficits All inpatient medications were reviewed and appropriate changes in these medications as dictated in the interval history and assessment and plan. Objective - Vital Signs Vital signs: Vital Signs Temp 97.7 F 07/15/20 12:00 Pulse 80 07/15/20 14:00 Resp 15 07/15/20 14:00 BP 127/54 07/15/20 04:15 Pulse Ox 94 L 07/15/20 14:00 Intake & Output 07/14/20 07/15/20 07/15/20 18:59 06:59 18:59 Intake Total 683.485 0338.647 407.793 Output Total 2310 2092 765 Balance -1946.761 -1082.353 -357.207 Weight 95.1 kg Intake: IV 154.5 829.5 280 Cardiac Output 20 120 30 Lactated Ringers 1,000 ml 20 @ 20 mls/hr IV .Q24H [facility] Rx#:[id number] Nitroglycerin-D5w Pmx 50 1.5 1.5 mg In Dextrose/Water 1 250ml.bag @ 5 MCG/MIN 1.5 mls/hr IV .Q24H [facility] Rx#: [id number] Pressure Bags 9 108 60 Sodium Chloride 0.9% 1, 50 600 190 000 ml @ 20 mls/hr IV . Q24H [facility] Rx#:[id number] Intake, IV Titration 208.739 180.147 127.793 Amount Clevidipine Butyrate 25 137.667 68.400 mg In Empty Bag 1 bag @ 1 MG/HR 2 mls/hr IV .Q24H [facility] Rx#:[id number] Heparin Sod,Pork in 0.45% 208.739 NaCl 25,000 unit In 0.45 % NaCl 1 250ml.bag @ 11. 023 UNITS/KG/HR 10 mls/hr IV .Q24H [facility] Rx#: [id number] Insulin Regular 100 unit 37.244 39.593 In Sodium Chloride 0.9% 100 ml @ Per Protocol IV .Q0M [facility] Rx#:[id number] Nitroglycerin-D5w Pmx 50 19.8 mg In Dextrose/Water 1 250ml.bag @ 5 MCG/MIN 1.5 mls/hr IV .Q24H [facility] Rx#: [id number] propofoL 1,000 mg In 5.236 Empty Bag 1 bag @ Titrate IV .Q0M [facility] Rx#: [id number] Output: Chest Tube Drainage 125 297 100 Bilateral Lower 75 141 55 Mediastinal Chest Tube Left Lateral 50 156 45 Chest Drainage 30 Left Calf 20 Left Wrist 10 Urine 685 1765 665 Estimated Blood Loss 1500 Other: Voiding Method Indwelling Catheter Indwelling Catheter Indwelling Catheter ABP, PAP, CO, CI - Last Documented Arterial Blood Pressure 117/41 Pulmonary Artery Pressure 26/6 Cardiac Output 7.4 Cardiac Index 3.5 - Exam PHYSICAL EXAMINATION: GENERAL: The patient is alert and oriented x3, not in any acute distress. Well developed, well nourished. HEENT: Pupils are round and equally reacting to light. EOMI. No scleral icterus. No conjunctival pallor. Normocephalic, atraumatic. No pharyngeal erythema. No th yromegaly. CARDIOVASCULAR: S1 and S2 present. No murmurs, rubs, or gallops. PULMONARY: Chest is clear to auscultation, no wheezing or crackles. Chest tubes and [place] as mentioned above ABDOMEN: Soft, nontender, nondistended, normoactive bowel sounds. No palpable organomegaly. MUSCULOSKELETAL: No joint swelling or deformity. EXTREMITIES: No cyanosis, clubbing, or pedal edema. NEUROLOGICAL: Gross neurological examination did not reveal any focal deficits. SKIN: No rashes. - Labs CBC & Chem 7: 07/15/20 03:40 07/15/20 03:40 Labs: Abnormal Lab Results - Last 24 Hours (Table) 05/07/14/20 07/14/20 Range/Units 15:22 11:31 13:44 RBC (4.30-5.90) m/uL Hgb (13.0-17.5) gm/dL Hct (39.0-53.0) % RDW (11.5-15.5) % Plt Count (150-450) k/uL Neutrophils # (1.3-7.7) k/uL Lymphocytes # (1.0-4.8) k/uL PT (9.0-12.0) sec INR (<1.2) ABG pH (7.35-7.45) ABG pCO2 (35-45) mmHg ABG pO2 380 H 395 H (83-108) mmHg ABG Total CO2 26 H 25 H (19-24) mmol/L ABG O2 Saturation 100.0 H 100.0 H (94-97) % ABG Hematocrit 33 L 30 L (34.0-46.0) % ABG Sodium (135-146) mmol/L ABG Potassium 4.6 H (3.4-4.5) mmol/L ABG Ionized Calcium (4.5-5.3) mg/dL ABG Glucose 111 H 128 H (75-99) mg/dL ABG Lactic Acid (0.5-1.6) mmol/L Hemoglobin 10.9 L 9.7 L (13.0-17.5) gm/dL Sodium (137-145) mmol/L Chloride (98-107) mmol/L Glucose (74-99) mg/dL POC Glucose (mg/dL) (75-99) mg/dL Calcium (8.4-10.2) mg/dL Magnesium (1.6-2.3) mg/dL Alkaline Phosphatase (38-126) U/L Total Protein (6.3-8.2) g/dL Albumin (3.5-5.0) g/dL Arterial Blood Potassium 4.6 H (3.4-4.5) mmol/L Arterial Blood Glucose 111 H 128 H (75-99) mg/dL Crossmatch See Detail 07/14/20 07/14/20 07/14/20 Range/Units 14:43 15:21 15:53 RBC (4.30-5.90) m/uL Hgb (13.0-17.5) gm/dL Hct (39.0-53.0) % RDW (11.5-15.5) % Plt Count (150-450) k/uL Neutrophils # (1.3-7.7) k/uL Lymphocytes # (1.0-4.8) k/uL PT (9.0-12.0) sec INR (<1.2) ABG pH 7.32 L 7.33 L (7.35-7.45) ABG pCO2 47 H (35-45) mmHg ABG pO2 310 H 129 H 317 H (83-108) mmHg ABG Total CO2 25 H 25 H (19-24) mmol/L ABG O2 Saturation 100.0 H 99.4 H 100.0 H (94-97) % ABG Hematocrit 25 L 26 L 23 L (34.0-46.0) % ABG Sodium 133 L 133 L (135-146) mmol/L ABG Potassium 4.8 H 5.8 H 6.0 H (3.4-4.5) mmol/L ABG Ionized Calcium 4.2 L 4.4 L 4.3 L (4.5-5.3) mg/dL ABG Glucose 132 H 139 H 167 H (75-99) mg/dL ABG Lactic Acid 2.1 H 2.6 H* (0.5-1.6) mmol/L Hemoglobin 8.1 L 8.3 L 7.6 L (13.0-17.5) gm/dL Sodium (137-145) mmol/L Chloride (98-107) mmol/L Glucose (74-99) mg/dL POC Glucose (mg/dL) (75-99) mg/dL Calcium (8.4-10.2) mg/dL Magnesium (1.6-2.3) mg/dL Alkaline Phosphatase (38-126) U/L Total Protein (6.3-8.2) g/dL Albumin (3.5-5.0) g/dL Arterial Blood Potassium 4.8 H 5.8 H 6.0 H (3.4-4.5) mmol/L Arterial Blood Glucose 132 H 139 H 167 H (75-99) mg/dL Crossmatch 07/14/20 07/14/20 07/14/20 Range/Units 16:16 17:22 17:43 RBC (4.30-5.90) m/uL Hgb (13.0-17.5) gm/dL Hct (39.0-53.0) % RDW (11.5-15.5) % Plt Count (150-450) k/uL Neutrophils # (1.3-7.7) k/uL Lymphocytes # (1.0-4.8) k/uL PT (9.0-12.0) sec INR (<1.2) ABG pH (7.35-7.45) ABG pCO2 (35-45) mmHg ABG pO2 270 H 388 H 344 H (83-108) mmHg ABG Total CO2 26 H (19-24) mmol/L ABG O2 Saturation 100.0 H 100.0 H 100.0 H (94-97) % ABG Hematocrit 23 L 22 L 26 L (34.0-46.0) % ABG Sodium (135-146) mmol/L ABG Potassium 5.9 H 5.0 H 4.7 H (3.4-4.5) mmol/L ABG Ionized Calcium 4.3 L (4.5-5.3) mg/dL ABG Glucose 169 H 141 H 124 H (75-99) mg/dL ABG Lactic Acid 3.6 H* 4.1 H* 3.7 H* (0.5-1.6) mmol/L Hemoglobin 7.5 L 7.3 L 8.4 L (13.0-17.5) gm/dL Sodium (137-145) mmol/L Chloride (98-107) mmol/L Glucose (74-99) mg/dL POC Glucose (mg/dL) (75-99) mg/dL Calcium (8.4-10.2) mg/dL Magnesium (1.6-2.3) mg/dL Alkaline Phosphatase (38-126) U/L Total Protein (6.3-8.2) g/dL Albumin (3.5-5.0) g/dL Arterial Blood Potassium 5.9 H 5.0 H 4.7 H (3.4-4.5) mmol/L Arterial Blood Glucose 169 H 141 H 124 H (75-99) mg/dL Crossmatch 07/14/20 07/14/20 07/14/20 Range/Units 18:07 18:08 18:08 RBC 3.04 L (4.30-5.90) m/uL Hgb 8.7 L D (13.0-17.5) gm/dL Hct 26.0 L (39.0-53.0) % RDW 15.9 H (11.5-15.5) % Plt Count 92 L (150-450) k/uL Neutrophils # (1.3-7.7) k/uL Lymphocytes # 0.9 L (1.0-4.8) k/uL PT 12.3 H (9.0-12.0) sec INR 1.2 H (<1.2) ABG pH (7.35-7.45) ABG pCO2 (35-45) mmHg ABG pO2 (83-108) mmHg ABG Total CO2 (19-24) mmol/L ABG O2 Saturation (94-97) % ABG Hematocrit (34.0-46.0) % ABG Sodium (135-146) mmol/L ABG Potassium (3.4-4.5) mmol/L ABG Ionized Calcium (4.5-5.3) mg/dL ABG Glucose (75-99) mg/dL ABG Lactic Acid (0.5-1.6) mmol/L Hemoglobin (13.0-17.5) gm/dL Sodium (137-145) mmol/L Chloride (98-107) mmol/L Glucose (74-99) mg/dL POC Glucose (mg/dL) 130 H (75-99) mg/dL Calcium (8.4-10.2) mg/dL Magnesium (1.6-2.3) mg/dL Alkaline Phosphatase (38-126) U/L Total Protein (6.3-8.2) g/dL Albumin (3.5-5.0) g/dL Arterial Blood Potassium (3.4-4.5) mmol/L Arterial Blood Glucose (75-99) mg/dL Crossmatch 07/14/20 07/14/20 07/14/20 Range/Units 18:08 18:31 19:19 RBC (4.30-5.90) m/uL Hgb (13.0-17.5) gm/dL Hct (39.0-53.0) % RDW (11.5-15.5) % Plt Count (150-450) k/uL Neutrophils # (1.3-7.7) k/uL Lymphocytes # (1.0-4.8) k/uL PT (9.0-12.0) sec INR (<1.2) ABG pH 7.33 L (7.35-7.45) ABG pCO2 47 H (35-45) mmHg ABG pO2 314 H (83-108) mmHg ABG Total CO2 26 H (19-24) mmol/L ABG O2 Saturation 100.0 H (94-97) % ABG Hematocrit (34.0-46.0) % ABG Sodium (135-146) mmol/L ABG Potassium (3.4-4.5) mmol/L ABG Ionized Calcium (4.5-5.3) mg/dL ABG Glucose (75-99) mg/dL ABG Lactic Acid (0.5-1.6) mmol/L Hemoglobin (13.0-17.5) gm/dL Sodium 136 L (137-145) mmol/L Chloride 108 H (98-107) mmol/L Glucose 117 H (74-99) mg/dL POC Glucose (mg/dL) 118 H (75-99) mg/dL Calcium 8.3 L (8.4-10.2) mg/dL Magnesium 2.5 H (1.6-2.3) mg/dL Alkaline Phosphatase 34 L (38-126) U/L Total Protein 4.4 L (6.3-8.2) g/dL Albumin 2.5 L (3.5-5.0) g/dL Arterial Blood Potassium (3.4-4.5) mmol/L Arterial Blood Glucose (75-99) mg/dL Crossmatch 07/14/20 07/14/20 07/14/20 Range/Units 20:26 20:32 21:50 RBC 3.59 L (4.30-5.90) m/uL Hgb 9.8 L (13.0-17.5) gm/dL Hct 30.8 L (39.0-53.0) % RDW 16.0 H (11.5-15.5) % Plt Count 121 L (150-450) k/uL Neutrophils # (1.3-7.7) k/uL Lymphocytes # (1.0-4.8) k/uL PT (9.0-12.0) sec INR (<1.2) ABG pH (7.35-7.45) ABG pCO2 (35-45) mmHg ABG pO2 (83-108) mmHg ABG Total CO2 (19-24) mmol/L ABG O2 Saturation (94-97) % ABG Hematocrit (34.0-46.0) % ABG Sodium (135-146) mmol/L ABG Potassium (3.4-4.5) mmol/L ABG Ionized Calcium (4.5-5.3) mg/dL ABG Glucose (75-99) mg/dL ABG Lactic Acid (0.5-1.6) mmol/L Hemoglobin (13.0-17.5) gm/dL Sodium (137-145) mmol/L Chloride (98-107) mmol/L Glucose (74-99) mg/dL POC Glucose (mg/dL) 132 H 162 H (75-99) mg/dL Calcium (8.4-10.2) mg/dL Magnesium (1.6-2.3) mg/dL Alkaline Phosphatase (38-126) U/L Total Protein (6.3-8.2) g/dL Albumin (3.5-5.0) g/dL Arterial Blood Potassium (3.4-4.5) mmol/L Arterial Blood Glucose (75-99) mg/dL Crossmatch 07/14/20 07/14/20 07/14/20 Range/Units 22:00 22:55 22:59 RBC 3.64 L (4.30-5.90) m/uL Hgb 9.9 L (13.0-17.5) gm/dL Hct 31.6 L (39.0-53.0) % RDW 16.0 H (11.5-15.5) % Plt Count 129 L (150-450) k/uL Neutrophils # 8.5 H (1.3-7.7) k/uL Lymphocytes # 0.7 L (1.0-4.8) k/uL PT (9.0-12.0) sec INR (<1.2) ABG pH 7.32 L (7.35-7.45) ABG pCO2 47 H (35-45) mmHg ABG pO2 78 L (83-108) mmHg ABG Total CO2 26 H (19-24) mmol/L ABG O2 Saturation (94-97) % ABG Hematocrit (34.0-46.0) % ABG Sodium (135-146) mmol/L ABG Potassium (3.4-4.5) mmol/L ABG Ionized Calcium (4.5-5.3) mg/dL ABG Glucose (75-99) mg/dL ABG Lactic Acid (0.5-1.6) mmol/L Hemoglobin (13.0-17.5) gm/dL Sodium (137-145) mmol/L Chloride (98-107) mmol/L Glucose (74-99) mg/dL POC Glucose (mg/dL) 169 H (75-99) mg/dL Calcium (8.4-10.2) mg/dL Magnesium (1.6-2.3) mg/dL Alkaline Phosphatase (38-126) U/L Total Protein (6.3-8.2) g/dL Albumin (3.5-5.0) g/dL Arterial Blood Potassium (3.4-4.5) mmol/L Arterial Blood Glucose (75-99) mg/dL Crossmatch 07/15/20 07/15/20 07/15/20 Range/Units 00:08 01:06 02:16 RBC (4.30-5.90) m/uL Hgb (13.0-17.5) gm/dL Hct (39.0-53.0) % RDW (11.5-15.5) % Plt Count (150-450) k/uL Neutrophils # (1.3-7.7) k/uL Lymphocytes # (1.0-4.8) k/uL PT (9.0-12.0) sec INR (<1.2) ABG pH (7.35-7.45) ABG pCO2 (35-45) mmHg ABG pO2 (83-108) mmHg ABG Total CO2 (19-24) mmol/L ABG O2 Saturation (94-97) % ABG Hematocrit (34.0-46.0) % ABG Sodium (135-146) mmol/L ABG Potassium (3.4-4.5) mmol/L ABG Ionized Calcium (4.5-5.3) mg/dL ABG Glucose (75-99) mg/dL ABG Lactic Acid (0.5-1.6) mmol/L Hemoglobin (13.0-17.5) gm/dL Sodium (137-145) mmol/L Chloride (98-107) mmol/L Glucose (74-99) mg/dL POC Glucose (mg/dL) 167 H 160 H 141 H (75-99) mg/dL Calcium (8.4-10.2) mg/dL Magnesium (1.6-2.3) mg/dL Alkaline Phosphatase (38-126) U/L Total Protein (6.3-8.2) g/dL Albumin (3.5-5.0) g/dL Arterial Blood Potassium (3.4-4.5) mmol/L Arterial Blood Glucose (75-99) mg/dL Crossmatch 07/15/20 07/15/20 07/15/20 Range/Units 03:39 03:40 03:40 RBC 3.37 L (4.30-5.90) m/uL Hgb 9.8 L (13.0-17.5) gm/dL Hct 28.3 L (39.0-53.0) % RDW 16.0 H (11.5-15.5) % Plt Count 112 L (150-450) k/uL Neutrophils # (1.3-7.7) k/uL Lymphocytes # 0.6 L (1.0-4.8) k/uL PT (9.0-12.0) sec INR (<1.2) ABG pH (7.35-7.45) ABG pCO2 (35-45) mmHg ABG pO2 (83-108) mmHg ABG Total CO2 (19-24) mmol/L ABG O2 Saturation (94-97) % ABG Hematocrit (34.0-46.0) % ABG Sodium (135-146) mmol/L ABG Potassium (3.4-4.5) mmol/L ABG Ionized Calcium (4.5-5.3) mg/dL ABG Glucose (75-99) mg/dL ABG Lactic Acid (0.5-1.6) mmol/L Hemoglobin (13.0-17.5) gm/dL Sodium (137-145) mmol/L Chloride 108 H (98-107) mmol/L Glucose 124 H (74-99) mg/dL POC Glucose (mg/dL) 130 H (75-99) mg/dL Calcium 8.2 L (8.4-10.2) mg/dL Magnesium (1.6-2.3) mg/dL Alkaline Phosphatase (38-126) U/L Total Protein 5.1 L (6.3-8.2) g/dL Albumin 2.9 L (3.5-5.0) g/dL Arterial Blood Potassium (3.4-4.5) mmol/L Arterial Blood Glucose (75-99) mg/dL Crossmatch 07/15/20 07/15/20 07/15/20 Range/Units 06:10 07:10 08:11 RBC (4.30-5.90) m/uL Hgb (13.0-17.5) gm/dL Hct (39.0-53.0) % RDW (11.5-15.5) % Plt Count (150-450) k/uL Neutrophils # (1.3-7.7) k/uL Lymphocytes # (1.0-4.8) k/uL PT (9.0-12.0) sec INR (<1.2) ABG pH (7.35-7.45) ABG pCO2 (35-45) mmHg ABG pO2 (83-108) mmHg ABG Total CO2 (19-24) mmol/L ABG O2 Saturation (94-97) % ABG Hematocrit (34.0-46.0) % ABG Sodium (135-146) mmol/L ABG Potassium (3.4-4.5) mmol/L ABG Ionized Calcium (4.5-5.3) mg/dL ABG Glucose (75-99) mg/dL ABG Lactic Acid (0.5-1.6) mmol/L Hemoglobin (13.0-17.5) gm/dL Sodium (137-145) mmol/L Chloride (98-107) mmol/L Glucose (74-99) mg/dL POC Glucose (mg/dL) 105 H 132 H 152 H (75-99) mg/dL Calcium (8.4-10.2) mg/dL Magnesium (1.6-2.3) mg/dL Alkaline Phosphatase (38-126) U/L Total Protein (6.3-8.2) g/dL Albumin (3.5-5.0) g/dL Arterial Blood Potassium (3.4-4.5) mmol/L Arterial Blood Glucose (75-99) mg/dL Crossmatch 07/15/20 07/15/20 07/15/20 Range/Units 10:02 11:21 12:10 RBC (4.30-5.90) m/uL Hgb (13.0-17.5) gm/dL Hct (39.0-53.0) % RDW (11.5-15.5) % Plt Count (150-450) k/uL Neutrophils # (1.3-7.7) k/uL Lymphocytes # (1.0-4.8) k/uL PT (9.0-12.0) sec INR (<1.2) ABG pH (7.35-7.45) ABG pCO2 (35-45) mmHg ABG pO2 (83-108) mmHg ABG Total CO2 (19-24) mmol/L ABG O2 Saturation (94-97) % ABG Hematocrit (34.0-46.0) % ABG Sodium (135-146) mmol/L ABG Potassium (3.4-4.5) mmol/L ABG Ionized Calcium (4.5-5.3) mg/dL ABG Glucose (75-99) mg/dL ABG Lactic Acid (0.5-1.6) mmol/L Hemoglobin (13.0-17.5) gm/dL Sodium (137-145) mmol/L Chloride (98-107) mmol/L Glucose (74-99) mg/dL POC Glucose (mg/dL) 251 H 191 H 173 H (75-99) mg/dL Calcium (8.4-10.2) mg/dL Magnesium (1.6-2.3) mg/dL Alkaline Phosphatase (38-126) U/L Total Protein (6.3-8.2) g/dL Albumin (3.5-5.0) g/dL Arterial Blood Potassium (3.4-4.5) mmol/L Arterial Blood Glucose (75-99) mg/dL Crossmatch 07/15/20 07/15/20 Range/Units 12:58 14:22 RBC (4.30-5.90) m/uL Hgb (13.0-17.5) gm/dL Hct (39.0-53.0) % RDW (11.5-15.5) % Plt Count (150-450) k/uL Neutrophils # (1.3-7.7) k/uL Lymphocytes # (1.0-4.8) k/uL PT (9.0-12.0) sec INR (<1.2) ABG pH (7.35-7.45) ABG pCO2 (35-45) mmHg ABG pO2 (83-108) mmHg ABG Total CO2 (19-24) mmol/L ABG O2 Saturation (94-97) % ABG Hematocrit (34.0-46.0) % ABG Sodium (135-146) mmol/L ABG Potassium (3.4-4.5) mmol/L ABG Ionized Calcium (4.5-5.3) mg/dL ABG Glucose (75-99) mg/dL ABG Lactic Acid (0.5-1.6) mmol/L Hemoglobin (13.0-17.5) gm/dL Sodium (137-145) mmol/L Chloride (98-107) mmol/L Glucose (74-99) mg/dL POC Glucose (mg/dL) 148 H 186 H (75-99) mg/dL Calcium (8.4-10.2) mg/dL Magnesium (1.6-2.3) mg/dL Alkaline Phosphatase (38-126) U/L Total Protein (6.3-8.2) g/dL Albumin (3.5-5.0) g/dL Arterial Blood Potassium (3.4-4.5) mmol/L Arterial Blood Glucose (75-99) mg/dL Crossmatch Microbiology - Last 24 Hours (Table) 07/13/20 13:40 Nasal Screen MRSA/MSSA - Final Nasopharyngeal Swab Assessment and Plan Plan: 1 acute non-ST elevation myocardial infarction: Patient the had a coronary artery bypass grafting. -Possibility of COPD without any acute exacerbation at this time -Hypertension -hyperlipidemia -Type 2 diabetes mellitus and patient is presently on IV insulin which will be transitioned to long-acting and pre-meal insulin tomorrow -Diabetic neuropathy -Nicotine use: Counseling was provided
[2020-07-15 15:13] LABS: Glucose,Whole Blood 164 mg/dL (75-99)
[2020-07-15] MEDS ORDERED: amLODIPine 5 MG TAB PO STA (15:38)
[2020-07-15 16:04] LABS: Glucose,Whole Blood 127 mg/dL (75-99)
[2020-07-15] MEDS: NITROGLYCERIN-D5W PMX 50 MG in DEXTROSE/WATER 1 250ML.BAG IV SCH (17:05)
[2020-07-15 17:25] LABS: Glucose,Whole Blood 101 mg/dL (75-99)
[2020-07-15 18:18] LABS: Glucose,Whole Blood 146 mg/dL (75-99)
[2020-07-15 19:03] LABS: Glucose,Whole Blood 223 mg/dL (75-99)
[2020-07-15 20:34] LABS: Glucose,Whole Blood 191 mg/dL (75-99)
[2020-07-15] MEDS: SENNOSIDES-DOCUSATE SODIUM 1 EACH TAB PO SCH (20:34)
[2020-07-15] MEDS: MUPIROCIN 2% OINT 22 GM TUBE NASAL SCH (20:35)
[2020-07-15] MEDS: INSULIN REGULAR 100 UNIT in SODIUM CHLORIDE 0.9% 100 ML IV SCH (21:20)
[2020-07-15 21:25] LABS: Glucose,Whole Blood 196 mg/dL (75-99)
[2020-07-15 22:12] LABS: Glucose,Whole Blood 122 mg/dL (75-99)
[2020-07-15 23:18] LABS: Glucose,Whole Blood 93 mg/dL (75-99)
[2020-07-16] MEDS: HEPARIN SODIUM,PORCINE/PF 5,000 UNIT/0.5 ML SYRINGE SQ SCH ×3 (00:01→16:53)
[2020-07-16 00:12] LABS: Glucose,Whole Blood 102 mg/dL (75-99)
[2020-07-16 01:13] LABS: Glucose,Whole Blood 153 mg/dL (75-99)
[2020-07-16 02:02] LABS: Glucose,Whole Blood 129 mg/dL (75-99)
[2020-07-16] MEDS: KETOROLAC 15 MG/ML 1 ML VIAL IVP SCH ×4 (02:11→21:34)
[2020-07-16 03:16] LABS: Glucose,Whole Blood 159 mg/dL (75-99)
[2020-07-16 04:06] LABS: Glucose,Whole Blood 139 mg/dL (75-99)
[2020-07-16 04:32] LABS: Anisocytosis Slight; Basophils % (A) 0 %; Eosinophils # (A) 0.1 k/uL (0-0.7); Eosinophils % (A) 1 %; HCT 27.3 % (39.0-53.0); HGB 9.2 gm/dL (13.0-17.5); Lymphocytes # (A) 0.7 k/uL (1.0-4.8); Lymphocytes % (A) 9 %; MCH 28.6 pg (25.0-35.0); MCHC 33.7 g/dL (31.0-37.0); Mean Platelet Volume 9.1; Monocytes # (A) 0.6 k/uL (0-1.0); Monocytes % (A) 7 %; Neutrophils # (A) 6.6 k/uL (1.3-7.7); Neutrophils % (A) 82 %; Platelet Count 115 k/uL (150-450); RBC 3.22 m/uL (4.30-5.90); RDW 16.1 % (11.5-15.5); WBC 8.1 k/uL (3.8-10.6)
[2020-07-16 05:06] LABS: Ionized Calcium 4.9 mg/dL (4.5-5.3)
[2020-07-16 05:07] LABS: Glucose,Whole Blood 134 mg/dL (75-99)
[2020-07-16 05:14] LABS: ALT 18 U/L (4-49); AST 41 U/L (17-59); African American GFR (CKD) >90 (>60 ml/min/1.73 sqM); Albumin 2.7 g/dL (3.5-5.0); Alkaline Phosphatase 51 U/L (38-126); Anion Gap 2 mmol/L; Blood Urea Nitrogen 13 mg/dL (9-20); Calcium 8.2 mg/dL (8.4-10.2); Carbon Dioxide 26 mmol/L (22-30); Chloride 106 mmol/L (98-107); Glucose 129 mg/dL (74-99); Non-African American GFR(CKD) >90 (>60 ml/min/1.73 sqM); Potassium 3.7 mmol/L (3.5-5.1); Sodium 134 mmol/L (137-145); Total Bilirubin 0.6 mg/dL (0.2-1.3)
[2020-07-16] MEDS: CLEVIDIPINE BUTYRATE 25 MG in EMPTY BAG 1 BAG IV SCH (05:47)
[2020-07-16 06:04] LABS: Glucose,Whole Blood 107 mg/dL (75-99)
[2020-07-16 07:00] LABS: Glucose,Whole Blood 83 mg/dL (75-99)
[2020-07-16] MEDS ORDERED: POTASSIUM CHLORIDE ER 20 MEQ TAB.ER PO SCH (07:00)
[2020-07-16] MEDS ORDERED: POTASSIUM CHLORIDE ER 10 MEQ TAB.ER.PRT PO STA (07:11)
[2020-07-16] MEDS ORDERED: FUROSEMIDE 10 MG/ML 2 ML VIAL IV STA ×2 (07:11→17:07)
[2020-07-16 08:12] LABS: Glucose,Whole Blood 105 mg/dL (75-99)
[2020-07-16] MEDS: SYMBICORT 160-4.5 MCG INHALER INHALATION SCH ×2 (08:17→20:40)
[2020-07-16] MEDS: IPRATROPIUM-ALBUTEROL 3 ML NEB INHALATION SCH ×4 (08:17→20:40)
--- NOTE | 2020-07-16 08:19 | XR ---
EXAMINATION TYPE: XR chest 1V portable DATE OF EXAM: 07/16/2020 COMPARISON: Chest x-ray 07/15/2020 HISTORY: Postop cardiac surgery, abnormal chest x-ray TECHNIQUE: Single frontal view of the chest is obtained. FINDINGS: The right jugular central venous catheter has been removed, sheath remains in place. There is no evident pneumothorax. Left chest tube remains in place. No sizable effusion. Cardiac mediastin al silhouette is enlarged as on prior exam, patient is post median sternotomy. There is prominence in terstitium, central vascularity. Median sternal drain remains in place. Perihilar air space disease s uspected. IMPRESSION: There may be a component of volume overload, pulmonary venous hypertension and interstit ial edema.
[2020-07-16] MEDS: MUPIROCIN 2% OINT 22 GM TUBE NASAL SCH ×2 (08:32→21:36)
[2020-07-16] MEDS: PANTOPRAZOLE 40 MG/10 ML VIAL IVP SCH (08:32)
[2020-07-16] MEDS: ASPIRIN 325 MG TAB PO SCH (08:34)
[2020-07-16] MEDS: ATORVASTATIN 40 MG TAB PO SCH (08:34)
[2020-07-16] MEDS: amLODIPine 10 MG TAB PO SCH (08:34)
[2020-07-16] MEDS: traMADol 50 MG TAB PO SCH ×3 (08:34→22:36)
[2020-07-16] MEDS: METOPROLOL TARTRATE 25 MG TAB PO SCH ×2 (08:34→21:35)
[2020-07-16] MEDS: CLOPIDOGREL 75 MG TAB PO SCH (08:34)
[2020-07-16 09:33] LABS: Glucose,Whole Blood 145 mg/dL (75-99)
--- NOTE | 2020-07-16 10:00 | P.PN ---
Subjective Progress Note Date: 07/16/20 Principal diagnosis: Symptomatic multivessel coronary artery disease with left main disease, non-ST elevated myocardial infarction this admission. Past medical history significant for hypertension, hyperlipidemia, diabetes mellitus type 2 with a preoperative hemoglobin A1c of 7.3%, obesity, chronic ongoing tobacco dependence, history of chronic back pain with degenerative joint disease, remote history of pneumonia with pericarditis, peripheral vascular disease, history of skin disorder, neuropathy to his bilateral lower extremities, GERD, varicose veins to his right lower extremity and evidence of cholelithiasis on preoperative abdominal ultrasound. POD #2 lysis of pericardial adhesions, triple-vessel coronary artery bypass grafting using the left internal mammary artery to left anterior descending coronary artery, the left radial artery from the aorta to the obtuse marginal coronary artery, and a reverse greater saphenous vein graft from the aorta to the right coronary artery. Endoscopic harvesting of the left radial artery, endoscopic harvesting of the left greater saphenous vein, intraoperative graft flow measurement using the Medist[employer] system, intraoperative transesophageal echocardiogram and epi-aortic scanning. Postoperative acute blood loss anemia and thrombocytopenia, expected outcome given hemodilution and cardiopulmonary bypass. The patient was seen in follow-up today 07/16/2020 at his bedside in the intensive care unit. Currently sitting up to the bedside chair, is awake, alert and oriented 3 and is in no acute apparent distress. This morning he is complaining of some back pain which is chronic in nature, denies any surgical type pain and denies any complaints of shortness of breath. He remains on 6 L nasal cannula with oxygen saturations 96%. He is achieving 500-750 mL on his incentive spirometry with encouragement. He remained hemodynamically stable and is on Cleviprex drip infusing at 3 mg per hour for blood pressure control. He was started on Norvasc yesterday for radial artery spasm prophylaxis, although the dose was increased to 10 mg by mouth daily to help wean off the Cleviprex drip. His right IJ Munster-Justin catheter was removed yesterday, right IJ Cordis remains with continuous CVP monitoring. Current CVP pressure is 8 mmHg. Bedside telemetry showing normal sinus rhythm heart rate 75 BPM. Mediastinal and left pleural chest tubes remain in place to low continuous wall suction -20 cm H2O. No air leak is present. Draining thin serosanguineous drainage. Mediastinal chest tubes drained 20 mL output in the last 8 hours and 80 mL output in the last 24 hours. Left pleural chest tube drained 110 mL output in the last 8 hours and 230 mL output in the last 24 hours. Eugene catheter remains in place for accurate I's and O's with 280 mL output in the last 8 hours. He has been afebrile since surgery. The patient reports he ambulated in the intensive care unit hallway yesterday with assistance from nursing staff, physical/occupational therapy staff. Objective - Vital Signs Vital signs: Vital Signs Temp 98.0 F 07/16/20 04:00 Pulse 78 07/16/20 07:00 Resp 20 07/16/20 07:00 BP 127/54 07/15/20 04:15 Pulse Ox 100 07/16/20 07:00 Intake & Output 07/15/20 07/16/20 07/16/20 18:59 06:59 18:59 Intake Total 779.780 417.942 26 Output Total 1040 838 40 Balance -260.220 -420.058 -14 Weight 96.1 kg Intake: IV 384 306 26 Cardiac Output 30 Pressure Bags 84 66 6 Sodium Chloride 0.9% 1, 270 240 20 000 ml @ 20 mls/hr IV . Q24H [facility] Rx#:[id number] Intake, IV Titration 145.780 111.942 Amount Clevidipine Butyrate 25 68.400 81.433 mg In Empty Bag 1 bag @ 1 MG/HR 2 mls/hr IV .Q24H [facility] Rx#:[id number] Insulin Regular 100 unit 57.580 30.509 In Sodium Chloride 0.9% 100 ml @ Per Protocol IV .Q0M [facility] Rx#:[id number] Nitroglycerin-D5w Pmx 50 19.8 mg In Dextrose/Water 1 250ml.bag @ 5 MCG/MIN 1.5 mls/hr IV .Q24H [facility] Rx#: [id number] Oral 250 Output: Chest Tube Drainage 130 260 Bilateral Lower 65 60 Mediastinal Chest Tube Left Lateral 65 200 Chest Urine 910 578 40 Other: Voiding Method Indwelling Catheter Indwelling Catheter ABP, PAP, CO, CI - Last Documented Arterial Blood Pressure 131/39 Pulmonary Artery Pressure 26/6 Cardiac Output 7.4 Cardiac Index 3.5 - Exam CONSTITUTIONAL: Sitting up to the bedside chair in the intensive care unit, appears comfortable, cooperative, no apparent acute distress. HEENT: Neck is supple, no JVD, no lymphadenopathy. Right IJ Cordis in place and functioning. RESPIRATORY: Lungs sounds with few scattered crackles throughout, and diminished to his bilateral bases. Respirations are symmetrical and nonlabored. Currently on 6 L nasal cannula with oxygen saturations 96%. Able to achieve 500-750 mL on his incentive spirometry. Strong cough. CARDIOVASCULAR: Regular rhythm and rate. S1 and S2 present, negative for S3, gallop or murmur. Sternum is stable. Palpable peripheral pulses bilaterally, positive Doppler pulses to his bilateral peels. +1 edema to his bilateral lower extremities. No calf pain or tenderness noted. Heart hugger in place with patient demonstrating appropriate use. Knee-high DIONE hose and sequential compression devices in place to his bilateral lower extremities. GASTROINTESTINAL: Abdomen soft, nontender, nondistended. Hypoactive bowel sounds present 4 quadrants. Tolerating diet. Passing flatus. No guarding or rigidity. GENITOURINARY: Eugene present draining clear, yellow urine. Output 280 mL in the last 8 hours INTEGUMENTARY: Skin is warm and dry with evidence of good perfusion. Midline sternal incision clean dry and well approximated, covered with dry intact dressing. Left lower extremity EVH sites well approximated without redness or drainage. Left arm radial artery harvest sites clean, dry and approximated. No drainage or redness is present. NEUROLOGIC: Cranial nerves II through XII intact. No focal deficits. MUSKULOSKELETAL: Able to move all extremities, strength equal bilaterally, generalized weakness. PSYCHIATRIC: Alert and oriented to person place and time, appropriate affect, intact judgment and insight. INVASIVE LINES AND TUBES: Mediastinal/left pleural chest tubes present and connected to low continuous wall suction, no air leaks present. Mediastinal tube with 20 mL of thin serosanguineous drainage overnight, 80 mL output in the last 24 hours. Left pleural chest tube with 110 mL of thin serosanguineous drainage overnight, 230 mL output in the last 24 hours. Atrial epicardial pacemaker wires present, connected to generator, AAI backup rate 50 bpm. Right internal jugular Cordis, right radial arterial line present. Most recent CVP 8 mmHg. - Labs CBC & Chem 7: 07/16/20 04:02 07/16/20 04:02 Labs: Abnormal Lab Results - Last 24 Hours (Table) 07/15/20 07/15/20 07/15/20 Range/Units 08:11 10:02 11:21 RBC (4.30-5.90) m/uL Hgb (13.0-17.5) gm/dL Hct (39.0-53.0) % RDW (11.5-15.5) % Plt Count (150-450) k/uL Lymphocytes # (1.0-4.8) k/uL Sodium (137-145) mmol/L Glucose (74-99) mg/dL POC Glucose (mg/dL) 152 H 251 H 191 H (75-99) mg/dL Calcium (8.4-10.2) mg/dL Total Protein (6.3-8.2) g/dL Albumin (3.5-5.0) g/dL 07/15/20 07/15/20 07/15/20 Range/Units 12:10 12:58 14:22 RBC (4.30-5.90) m/uL Hgb (13.0-17.5) gm/dL Hct (39.0-53.0) % RDW (11.5-15.5) % Plt Count (150-450) k/uL Lymphocytes # (1.0-4.8) k/uL Sodium (137-145) mmol/L Glucose (74-99) mg/dL POC Glucose (mg/dL) 173 H 148 H 186 H (75-99) mg/dL Calcium (8.4-10.2) mg/dL Total Protein (6.3-8.2) g/dL Albumin (3.5-5.0) g/dL 07/15/20 07/15/20 07/15/20 Range/Units 15:11 16:03 17:23 RBC (4.30-5.90) m/uL Hgb (13.0-17.5) gm/dL Hct (39.0-53.0) % RDW (11.5-15.5) % Plt Count (150-450) k/uL Lymphocytes # (1.0-4.8) k/uL Sodium (137-145) mmol/L Glucose (74-99) mg/dL POC Glucose (mg/dL) 164 H 127 H 101 H (75-99) mg/dL Calcium (8.4-10.2) mg/dL Total Protein (6.3-8.2) g/dL Albumin (3.5-5.0) g/dL 07/15/20 07/15/20 07/15/20 Range/Units 18:16 19:01 20:26 RBC (4.30-5.90) m/uL Hgb (13.0-17.5) gm/dL Hct (39.0-53.0) % RDW (11.5-15.5) % Plt Count (150-450) k/uL Lymphocytes # (1.0-4.8) k/uL Sodium (137-145) mmol/L Glucose (74-99) mg/dL POC Glucose (mg/dL) 146 H 223 H 191 H (75-99) mg/dL Calcium (8.4-10.2) mg/dL Total Protein (6.3-8.2) g/dL Albumin (3.5-5.0) g/dL 07/15/20 07/15/20 07/16/20 Range/Units 21:23 22:00 00:10 RBC (4.30-5.90) m/uL Hgb (13.0-17.5) gm/dL Hct (39.0-53.0) % RDW (11.5-15.5) % Plt Count (150-450) k/uL Lymphocytes # (1.0-4.8) k/uL Sodium (137-145) mmol/L Glucose (74-99) mg/dL POC Glucose (mg/dL) 196 H 122 H 102 H (75-99) mg/dL Calcium (8.4-10.2) mg/dL Total Protein (6.3-8.2) g/dL Albumin (3.5-5.0) g/dL 07/16/20 07/16/20 07/16/20 Range/Units 01:12 02:01 03:13 RBC (4.30-5.90) m/uL Hgb (13.0-17.5) gm/dL Hct (39.0-53.0) % RDW (11.5-15.5) % Plt Count (150-450) k/uL Lymphocytes # (1.0-4.8) k/uL Sodium (137-145) mmol/L Glucose (74-99) mg/dL POC Glucose (mg/dL) 153 H 129 H 159 H (75-99) mg/dL Calcium (8.4-10.2) mg/dL Total Protein (6.3-8.2) g/dL Albumin (3.5-5.0) g/dL 07/16/20 07/16/20 07/16/20 Range/Units 04:02 04:02 04:05 RBC 3.22 L (4.30-5.90) m/uL Hgb 9.2 L (13.0-17.5) gm/dL Hct 27.3 L (39.0-53.0) % RDW 16.1 H (11.5-15.5) % Plt Count 115 L (150-450) k/uL Lymphocytes # 0.7 L (1.0-4.8) k/uL Sodium 134 L (137-145) mmol/L Glucose 129 H (74-99) mg/dL POC Glucose (mg/dL) 139 H (75-99) mg/dL Calcium 8.2 L (8.4-10.2) mg/dL Total Protein 5.0 L (6.3-8.2) g/dL Albumin 2.7 L (3.5-5.0) g/dL 07/16/20 07/16/20 Range/Units 05:05 05:53 RBC (4.30-5.90) m/uL Hgb (13.0-17.5) gm/dL Hct (39.0-53.0) % RDW (11.5-15.5) % Plt Count (150-450) k/uL Lymphocytes # (1.0-4.8) k/uL Sodium (137-145) mmol/L Glucose (74-99) mg/dL POC Glucose (mg/dL) 134 H 107 H (75-99) mg/dL Calcium (8.4-10.2) mg/dL Total Protein (6.3-8.2) g/dL Albumin (3.5-5.0) g/dL Assessment and Plan Assessment: 1. Multivessel coronary artery disease with left main disease, status post three-vessel coronary artery bypass grafting surgery 2. Overall left ventricular systolic function mild to moderately impaired with an ejection fraction between 40 and 45% 3. Non-ST elevated myocardial infarction this admission, with elevated troponins as high as 0.356 4. COPD with a preoperative FEV1 59% of predicted value 5. History of hypertension 6. History of hyperlipidemia 7. Diabetes mellitus type 2, with preoperative hemoglobin A1c 7.3% 8. Obesity with a BMI of 30.1 kg/m 9. Chronic ongoing tobacco dependence 10. History of chronic back pain, degenerative joint disease 11. Remote history of pneumonia with pericarditis, with calcified pericardium on computed tomography scan of the chest 12. History of skin disorder 13. History of bilateral lower extremity neuropathy 14. Peripheral vascular disease, with aortoiliac occlusive disease 15. Gastroesophageal reflux disease 16. Varicose veins to his right lower extremity 17. Preoperative elevation of his lipase 371, cholelithiasis, lipase has normalized and is 112 today 18. Postoperative acute blood loss anemia, expected Plan: 1. Continue to optimize medical management with aspirin, statin, Plavix and be ta kale. We will increase metoprolol tartrate as tolerated. 2. Continue amlodipine 10 mg by mouth daily for radial artery spasm prophylaxis. Please do not to discontinue calcium channel kale without discussing with cardiac surgery prior. 3. Wean oxygen as tolerated. Encourage incentive spirometry use 10x every hour while, bronchodilators per pulmonology management. 4. Increase activity, ambulate as tolerated. PT/OT/cardiac rehab following. 5. Will monitor daily labs and daily CXR. Electrolyte replacement per protocol. 6. Insulin management per primary care. Patient needs tight blood sugar control to promote healing, union of the sternal bone. The patient is a diabetic with a preoperative hemoglobin A1c of 7.3%. 7. GI/DVT prophylaxis. 8. Remove right IJ Cordis today. Remove right radial arterial line. 9. Remove mediastinal and left pleural chest tubes. Remove pacemaker wires 10. Discontinue eugene catheter today. Continue to record strict accurate I/Os. Daily weights. 11. Pain control with current medication regimen. Once his chest tubes have been removed we will discontinue the Ultram. 12. Discontinue Cleviprex drip. 13. Lasix 20 mg IV 1 now. 14. Risk modification discussed with the patient including importance of smoking cessation. 15. We will start the patient on Cozaar 25 mg by mouth daily at noon for afterload reduction. 16. Remove atrial epicardial pacemaker wires. Bedrest for 1 hour post pacemaker wire removal. 17. More recommendations to follow based on patient's clinical course. Time with Patient: Greater than 30
--- NOTE | 2020-07-16 10:04 | P.PN ---
Subjective Progress Note Date: 07/16/20 Principal diagnosis: Coronary artery disease status post coronary artery bypass grafting 64-year-old male, who presents to the emergency department, for evaluation. He apparently came into the ED with complaints of 2 months or so of intermittent chest pain. Apparently initially started in the area of the right upper abdomen, and radiated into the right side of his chest. Sometimes when into his right shoulder as well. Apparently the pain is worse after eating. He does h ave a history of hiatal hernia and acid reflux disease. The patient underwent a thorough evaluation, including a catheterization, which apparently showed evidence of significant coronary artery disease, including left main disease. Unfortunately, the catheterization report is not yet available. The patient may end up having open heart surgery tomorrow. We are asked to see the patient in preoperative evaluation. He has not yet had his preoperative lung function test. A chest x-ray was normal. A CT angiogram was negative for pulmonary embolism, but did show atherosclerotic vascular disease, and also calcification of the pericardium. The patient likely does have some underlying chronic lung disease as he smoked since the age of 15, to the age of 64, at 1 pack a day. Sometimes he smoked more than that. 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 When asked about symptoms, such as shortness of breath, he only admits to chronic morning cough, with occasional clear to white phlegm production, and wheezing, according to her significant other. He denies any hemoptysis. He doesn't really even admit to shortness of breath. Lab data includes a white count 7.7, hemoglobin 12, hematocrit 36.9, and platelet count 187,000. Sodium 138, potassium 4.7, Seferino 110, CO2 22, anion gap 6, BUN 12, creatinine 0.71. The patient is seen today 07/15/2020 in follow-up in the intensive care unit. This is postoperative day #1. He did undergo coronary artery bypass grafting 3 yesterday with a GARCIA to the LAD, left radial artery to the obtuse marginal, saphenous vein graft to the RCA. He was extubated at 4.5 hours after surgery. He is currently sitting up in a chair at the bedside. Awake and alert in no acute distress. His pain is fairly well managed. He is currently on 6 L high flow nasal cannula to maintain O2 saturation in the 90s. He is 0.9 normal saline at KVO. Finley proximal at 5 mg per hour, insulin drip at 4 units per hour. Heparin for DVT prophylaxis. Receiving cefazolin per protocol. PA pressure 26/6, CVP is 4. Cardiac output 7.4. Cardiac index 3.5. Chest x-ray revealing mild perihilar and basilar opacities. Mediastinal chest tube in place 2, left pleural chest tube in place. White count 9.1. Hemoglobin 9.8. Platelets 112. Sodium 138. Potassium 4.2. Creatinine 0.71. AST 40. ALT 22. Albumin 2.9. Glucose 124. The patient is seen today 07/16/2020 in follow-up in the intensive care unit. This is postoperative day #2. He is currently sitting up in a chair at the bedside. Awake and alert in no acute distress. He is on 9 L high flow nasal cannula to maintain O2 saturation in the 90s. Asked x-ray continues to show component of volume overload, pulmonary venous hypertension and some interstitial edema. Left-sided chest tube remains in place. Mediastinal tubes in place. He is again encouraged regarding the increased use of the incentive spirometer. Currently pulling between 507 50 MLS only. White count 8.1. Hemoglobin 9.2. Platelet count 115. Sodium 134. Potassium 3.7. Creatinine 0.71. Glucose 129. Remains on bronchodilators. Clinical proximal is soft. I nsulin drip is off. No IV fluids currently. Heparin for DVT prophylaxis. Objective - Vital Signs Vital signs: Vital Signs Temp 97.1 F L 07/16/20 08:00 Pulse 92 07/16/20 09:00 Resp 19 07/16/20 09:00 BP 117/55 07/16/20 08:00 Pulse Ox 93 L 07/16/20 09:00 Intake & Output 07/15/20 07/16/20 07/16/20 18:59 06:59 18:59 Intake Total 779.780 417.942 100.5 Output Total 1040 838 375 Balance -260.220 -420.058 -274.5 Weight 96.1 kg Intake: IV 384 306 78 Cardiac Output 30 Pressure Bags 84 66 18 Sodium Chloride 0.9% 1, 270 240 60 000 ml @ 20 mls/hr IV . Q24H [facility] Rx#:[id number] Intake, IV Titration 145.780 111.942 22.5 Amount Clevidipine Butyrate 25 68.400 81.433 22.5 mg In Empty Bag 1 bag @ 1 MG/HR 2 mls/hr IV .Q24H [facility] Rx#:[id number] Insulin Regular 100 unit 57.580 30.509 0 In Sodium Chloride 0.9% 100 ml @ Per Protocol IV .Q0M [facility] Rx#:[id number] Nitroglycerin-D5w Pmx 50 19.8 mg In Dextrose/Water 1 250ml.bag @ 5 MCG/MIN 1.5 mls/hr IV .Q24H [facility] Rx#: [id number] Oral 250 Output: Chest Tube Drainage 130 260 35 Bilateral Lower 65 60 10 Mediastinal Chest Tube Left Lateral 65 200 25 Chest Urine 910 578 340 Other: Voiding Method Indwelling Catheter Indwelling Catheter ABP, PAP, CO, CI - Last Documented Arterial Blood Pressure 120/44 Pulmonary Artery Pressure 26/6 Cardiac Output 7.4 Cardiac Index 3.5 - Exam GENERAL EXAM: Alert, oriented, pleasant 64-year-old gentleman, on 9 L nasal cannula, up in a chair at the bedside. HEAD: Normocephalic. EYES: Normal reaction of pupils, equal size. NOSE: Clear with pink turbinates. THROAT: No erythema or exudates. NECK: No masses, no JVD. Weidman-Justin catheter in place CHEST: Sternal dressing dry and intact. Heart Hugger in place. Mediastinal chest tube 2, left pleural chest tube in place. LUNGS: Equal air entry with few scattered rhonchi. CVS: S1 and S2 normal with no audible murmur, regular rhythm. ABDOMEN: No hepatosplenomegaly, normal bowel sounds, no guarding or rigidity. SPINE: No scoliosis or deformity SKIN: No rashes CENTRAL NERVOUS SYSTEM: No focal deficits, tone is normal in all 4 extremities. EXTREMITIES: Left radial VANGIE, left lower extremity VANGIE in place. Dressings dry and intact. There is trace peripheral edema. No clubbing, no cyanosis. Peripheral pulses are intact. - Labs CBC & Chem 7: 07/16/20 04:02 07/16/20 04:02 Labs: Abnormal Lab Results - Last 24 Hours (Table) 07/15/20 07/15/20 07/15/20 Range/Units 10:02 11:21 12:10 RBC (4.30-5.90) m/uL Hgb (13.0-17.5) gm/dL Hct (39.0-53.0) % RDW (11.5-15.5) % Plt Count (150-450) k/uL Lymphocytes # (1.0-4.8) k/uL Sodium (137-145) mmol/L Glucose (74-99) mg/dL POC Glucose (mg/dL) 251 H 191 H 173 H (75-99) mg/dL Calcium (8.4-10.2) mg/dL Total Protein (6.3-8.2) g/dL Albumin (3.5-5.0) g/dL 07/15/20 07/15/20 07/15/20 Range/Units 12:58 14:22 15:11 RBC (4.30-5.90) m/uL Hgb (13.0-17.5) gm/dL Hct (39.0-53.0) % RDW (11.5-15.5) % Plt Count (150-450) k/uL Lymphocytes # (1.0-4.8) k/uL Sodium (137-145) mmol/L Glucose (74-99) mg/dL POC Glucose (mg/dL) 148 H 186 H 164 H (75-99) mg/dL Calcium (8.4-10.2) mg/dL Total Protein (6.3-8.2) g/dL Albumin (3.5-5.0) g/dL 07/15/20 07/15/20 07/15/20 Range/Units 16:03 17:23 18:16 RBC (4.30-5.90) m/uL Hgb (13.0-17.5) gm/dL Hct (39.0-53.0) % RDW (11.5-15.5) % Plt Count (150-450) k/uL Lymphocytes # (1.0-4.8) k/uL Sodium (137-145) mmol/L Glucose (74-99) mg/dL POC Glucose (mg/dL) 127 H 101 H 146 H (75-99) mg/dL Calcium (8.4-10.2) mg/dL Total Protein (6.3-8.2) g/dL Albumin (3.5-5.0) g/dL 07/15/20 07/15/20 07/15/20 Range/Units 19:01 20:26 21:23 RBC (4.30-5.90) m/uL Hgb (13.0-17.5) gm/dL Hct (39.0-53.0) % RDW (11.5-15.5) % Plt Count (150-450) k/uL Lymphocytes # (1.0-4.8) k/uL Sodium (137-145) mmol/L Glucose (74-99) mg/dL POC Glucose (mg/dL) 223 H 191 H 196 H (75-99) mg/dL Calcium (8.4-10.2) mg/dL Total Protein (6.3-8.2) g/dL Albumin (3.5-5.0) g/dL 07/15/20 07/16/20 07/16/20 Range/Units 22:00 00:10 01:12 RBC (4.30-5.90) m/uL Hgb (13.0-17.5) gm/dL Hct (39.0-53.0) % RDW (11.5-15.5) % Plt Count (150-450) k/uL Lymphocytes # (1.0-4.8) k/uL Sodium (137-145) mmol/L Glucose (74-99) mg/dL POC Glucose (mg/dL) 122 H 102 H 153 H (75-99) mg/dL Calcium (8.4-10.2) mg/dL Total Protein (6.3-8.2) g/dL Albumin (3.5-5.0) g/dL 07/16/20 07/16/20 07/16/20 Range/Units 02:01 03:13 04:02 RBC 3.22 L (4.30-5.90) m/uL Hgb 9.2 L (13.0-17.5) gm/dL Hct 27.3 L (39.0-53.0) % RDW 16.1 H (11.5-15.5) % Plt Count 115 L (150-450) k/uL Lymphocytes # 0.7 L (1.0-4.8) k/uL Sodium (137-145) mmol/L Glucose (74-99) mg/dL POC Glucose (mg/dL) 129 H 159 H (75-99) mg/dL Calcium (8.4-10.2) mg/dL Total Protein (6.3-8.2) g/dL Albumin (3.5-5.0) g/dL 07/16/20 07/16/20 07/16/20 Range/Units 04:02 04:05 05:05 RBC (4.30-5.90) m/uL Hgb (13.0-17.5) gm/dL Hct (39.0-53.0) % RDW (11.5-15.5) % Plt Count (150-450) k/uL Lymphocytes # (1.0-4.8) k/uL Sodium 134 L (137-145) mmol/L Glucose 129 H (74-99) mg/dL POC Glucose (mg/dL) 139 H 134 H (75-99) mg/dL Calcium 8.2 L (8.4-10.2) mg/dL Total Protein 5.0 L (6.3-8.2) g/dL Albumin 2.7 L (3.5-5.0) g/dL 07/16/20 07/16/20 07/16/20 Range/Units 05:53 08:11 09:32 RBC (4.30-5.90) m/uL Hgb (13.0-17.5) gm/dL Hct (39.0-53.0) % RDW (11.5-15.5) % Plt Count (150-450) k/uL Lymphocytes # (1.0-4.8) k/uL Sodium (137-145) mmol/L Glucose (74-99) mg/dL POC Glucose (mg/dL) 107 H 105 H 145 H (75-99) mg/dL Calcium (8.4-10.2) mg/dL Total Protein (6.3-8.2) g/dL Albumin (3.5-5.0) g/dL Assessment and Plan Assessment: 1 Significant coronary artery disease including left main disease, status post coronary artery bypass grafting utilizing a GARCIA to the LAD, left radial artery to the OM, SVG to the RCA. Postoperative day #2. 2 Probable COPD based on 50 years of tobacco use, and symptoms of cough, phlegm production, and wheezing. Patient was extubated and 4.5 hours postop. Currently on 6 L. 3 History of angina pectoris. 4 History of diabetes mellitus. 5 History of heart failure. 6 History of gastroesophageal reflux disease. 7 History of hyperlipidemia. 8 History of hypertension. 9 History of DJD. 10 History of varicose veins. 11 History of bilateral lower extremity neuropathy. 12 History of duodenal ulcer. Plan: The patient was seen and evaluated by Dr. Hernandez Chest x-ray and labs reviewed Again encouraged increased use of the incentive spirometer Titrate the FiO2 as tolerated Continue bronchodilators Increase his activity as tolerated He has had complaints of ongoing back pain Continue on tramadol. We will continue to follow I, the cosigning physician, performed a history & physical examination of the patient. Lungs sounds few scattered rhonchi. Maintaining good O2 saturations in the 90s on 9 L/m per nasal cannula. I discussed the assessment and plan of care with my nurse practitioner, Kelsey Tang. I attest to the above note as dictated by her.
[2020-07-16 10:07] LABS: Glucose,Whole Blood 150 mg/dL (75-99)
[2020-07-16] MEDS: SODIUM CHLORIDE 0.9% 1,000 ML IV SCH (10:55)
[2020-07-16 11:13] LABS: Glucose,Whole Blood 148 mg/dL (75-99)
[2020-07-16 12:01] LABS: Glucose,Whole Blood 127 mg/dL (75-99)
[2020-07-16] MEDS: INSULIN ASPART (NovoLOG) 100 UNIT/ML VIAL SQ SCH ×3 (12:03→22:36)
[2020-07-16] MEDS: LINAGLIPTIN 5 MG TABLET PO SCH (12:03)
--- NOTE | 2020-07-16 12:19 | P.PN ---
Subjective Progress Note Date: 07/16/20 HISTORY OF PRESENT ILLNESS: 07/14/2020 Patient examined this morning at the bedside with Dr. Archibald. Patient underwent cardiac cath yesterday revealing multivessel coronary artery disease with left main stenosis of 70%. Patient was seen and evaluated by cardiothoracic surgery and is scheduled for surgery today. He denies chest pain or pressure. Denies shortness of breath. Echocardiogram completed revealing ejection fraction 40- 45%, mild aortic valve sclerosis, mild mitral regurgitation, trace tricuspid regurgitation, and mild pulmonary hypertension. Blood pressure 149/86. Telemetry reveals sinus mechanism. 07/15/2020 Patient is s/p CABG x 3 with GARCIA to LAD, left radial artery to obtuse marginal, and reverse saphenous vein graft to the RCA with Dr. Jarvis. POD #1. Patient e xamined this morning in the ICU. Patient was extubated yesterday. Patient is on 4L NC with oxygen saturations greater than 92%. Patient is sitting up in the chair. Patient is on Cleviprex infusion. Patient complains of discomfort this morning and has not been using his incentive spirometer very often. 07/16/2020 Patient examined this morning in the ICU. He is POD #2. He is sitting up in the chair. He is complaining of some generalized discomfort secondary to the chair being uncomfortable. He has been weaned off Cleviprex. He is pulling 750cc on his IS. Vital signs are stable. PHYSICAL EXAM: VITAL SIGNS: Reviewed. GENERAL: Well-developed in no acute distress. NECK: Supple. No JVD or thyromegaly LUNGS: Respirations even and unlabored. Lungs diminished bilaterally. Chest tubes noted. HEART: Regular rate and rhythm. S1 and S2 heard. Heart hugger present. Sternal dressing clean dry and intact. EXTREMITIES: Normal range of motion. No clubbing or cyanosis. Peripheral pulses intact. Trace bilateral lower extremity edema ASSESSMENT: Non-STEMI Multivessel coronary artery disease with left main disease, s/p CABG x 3 with GARCIA to LAD, left radial artery to obtuse marginal, and reverse saphenous vein graft to the RCA Hypertension Hyperlipidemia Diabetes Mellitus Peripheral vascular disease GERD Chronic back pain Nicotine dependence PLAN: Postoperative management per CTS Continue aspirin, lipitor, amlodipine, and metoprolol Patient has been started on Losartan per CTS Increase activity as tolerated Encouraged use of incentive spirometer Will continue to follow patient postoperatively and make further recommendations Nurse practitioner note has been reviewed by physician. Signing provider agrees with the documented findings, assessment, and plan of care. Objective - Vital Signs Vital signs: Vital Signs Temp 97.6 F 07/16/20 12:00 Pulse 80 07/16/20 12:00 Resp 19 07/16/20 12:00 BP 117/55 07/16/20 08:00 Pulse Ox 95 07/16/20 12:00 Intake & Output 07/15/20 07/16/20 07/16/20 18:59 06:59 18:59 Intake Total 779.780 417.942 191.706 Output Total 1040 838 930 Balance -260.220 -420.058 -738.294 Weight 96.1 kg Intake: IV 384 306 156 Cardiac Output 30 Pressure Bags 84 66 36 Sodium Chloride 0.9% 1, 270 240 120 000 ml @ 20 mls/hr IV . Q24H [facility] Rx#:[id number] Intake, IV Titration 145.780 111.942 35.706 Amount Clevidipine Butyrate 25 68.400 81.433 22.5 mg In Empty Bag 1 bag @ 1 MG/HR 2 mls/hr IV .Q24H [facility] Rx#:[id number] Insulin Regular 100 unit 57.580 30.509 13.206 In Sodium Chloride 0.9% 100 ml @ Per Protocol IV .Q0M [facility] Rx#:[id number] Nitroglycerin-D5w Pmx 50 19.8 0 mg In Dextrose/Water 1 250ml.bag @ 5 MCG/MIN 1.5 mls/hr IV .Q24H [facility] Rx#: [id number] Oral 250 Output: Chest Tube Drainage 130 260 60 Bilateral Lower 65 60 15 Mediastinal Chest Tube Left Lateral 65 200 45 Chest Urine 910 578 870 Other: Voiding Method Indwelling Catheter Indwelling Catheter Indwelling Catheter ABP, PAP, CO, CI - Last Documented Arterial Blood Pressure 119/56 Pulmonary Artery Pressure 26/6 Cardiac Output 7.4 Cardiac Index 3.5 - Labs CBC & Chem 7: 07/16/20 04:02 07/16/20 04:02 Labs: Abnormal Lab Results - Last 24 Hours (Table) 07/15/20 07/15/20 07/15/20 Range/Units 12:10 12:58 14:22 RBC (4.30-5.90) m/uL Hgb (13.0-17.5) gm/dL Hct (39.0-53.0) % RDW (11.5-15.5) % Plt Count (150-450) k/uL Lymphocytes # (1.0-4.8) k/uL Sodium (137-145) mmol/L Glucose (74-99) mg/dL POC Glucose (mg/dL) 173 H 148 H 186 H (75-99) mg/dL Calcium (8.4-10.2) mg/dL Total Protein (6.3-8.2) g/dL Albumin (3.5-5.0) g/dL 07/15/20 07/15/20 07/15/20 Range/Units 15:11 16:03 17:23 RBC (4.30-5.90) m/uL Hgb (13.0-17.5) gm/dL Hct (39.0-53.0) % RDW (11.5-15.5) % Plt Count (150-450) k/uL Lymphocytes # (1.0-4.8) k/uL Sodium (137-145) mmol/L Glucose (74-99) mg/dL POC Glucose (mg/dL) 164 H 127 H 101 H (75-99) mg/dL Calcium (8.4-10.2) mg/dL Total Protein (6.3-8.2) g/dL Albumin (3.5-5.0) g/dL 07/15/20 07/15/20 07/15/20 Range/Units 18:16 19:01 20:26 RBC (4.30-5.90) m/uL Hgb (13.0-17.5) gm/dL Hct (39.0-53.0) % RDW (11.5-15.5) % Plt Count (150-450) k/uL Lymphocytes # (1.0-4.8) k/uL Sodium (137-145) mmol/L Glucose (74-99) mg/dL POC Glucose (mg/dL) 146 H 223 H 191 H (75-99) mg/dL Calcium (8.4-10.2) mg/dL Total Protein (6.3-8.2) g/dL Albumin (3.5-5.0) g/dL 07/15/20 07/15/20 07/16/20 Range/Units 21:23 22:00 00:10 RBC (4.30-5.90) m/uL Hgb (13.0-17.5) gm/dL Hct (39.0-53.0) % RDW (11.5-15.5) % Plt Count (150-450) k/uL Lymphocytes # (1.0-4.8) k/uL Sodium (137-145) mmol/L Glucose (74-99) mg/dL POC Glucose (mg/dL) 196 H 122 H 102 H (75-99) mg/dL Calcium (8.4-10.2) mg/dL Total Protein (6.3-8.2) g/dL Albumin (3.5-5.0) g/dL 07/16/20 07/16/20 07/16/20 Range/Units 01:12 02:01 03:13 RBC (4.30-5.90) m/uL Hgb (13.0-17.5) gm/dL Hct (39.0-53.0) % RDW (11.5-15.5) % Plt Count (150-450) k/uL Lymphocytes # (1.0-4.8) k/uL Sodium (137-145) mmol/L Glucose (74-99) mg/dL POC Glucose (mg/dL) 153 H 129 H 159 H (75-99) mg/dL Calcium (8.4-10.2) mg/dL Total Protein (6.3-8.2) g/dL Albumin (3.5-5.0) g/dL 07/16/20 07/16/20 07/16/20 Range/Units 04:02 04:02 04:05 RBC 3.22 L (4.30-5.90) m/uL Hgb 9.2 L (13.0-17.5) gm/dL Hct 27.3 L (39.0-53.0) % RDW 16.1 H (11.5-15.5) % Plt Count 115 L (150-450) k/uL Lymphocytes # 0.7 L (1.0-4.8) k/uL Sodium 134 L (137-145) mmol/L Glucose 129 H (74-99) mg/dL POC Glucose (mg/dL) 139 H (75-99) mg/dL Calcium 8.2 L (8.4-10.2) mg/dL Total Protein 5.0 L (6.3-8.2) g/dL Albumin 2.7 L (3.5-5.0) g/dL 07/16/20 07/16/20 07/16/20 Range/Units 05:05 05:53 08:11 RBC (4.30-5.90) m/uL Hgb (13.0-17.5) gm/dL Hct (39.0-53.0) % RDW (11.5-15.5) % Plt Count (150-450) k/uL Lymphocytes # (1.0-4.8) k/uL Sodium (137-145) mmol/L Glucose (74-99) mg/dL POC Glucose (mg/dL) 134 H 107 H 105 H (75-99) mg/dL Calcium (8.4-10.2) mg/dL Total Protein (6.3-8.2) g/dL Albumin (3.5-5.0) g/dL 07/16/20 07/16/20 07/16/20 Range/Units 09:32 10:06 11:12 RBC (4.30-5.90) m/uL Hgb (13.0-17.5) gm/dL Hct (39.0-53.0) % RDW (11.5-15.5) % Plt Count (150-450) k/uL Lymphocytes # (1.0-4.8) k/uL Sodium (137-145) mmol/L Glucose (74-99) mg/dL POC Glucose (mg/dL) 145 H 150 H 148 H (75-99) mg/dL Calcium (8.4-10.2) mg/dL Total Protein (6.3-8.2) g/dL Albumin (3.5-5.0) g/dL 07/16/20 Range/Units 12:00 RBC (4.30-5.90) m/uL Hgb (13.0-17.5) gm/dL Hct (39.0-53.0) % RDW (11.5-15.5) % Plt Count (150-450) k/uL Lymphocytes # (1.0-4.8) k/uL Sodium (137-145) mmol/L Glucose (74-99) mg/dL POC Glucose (mg/dL) 127 H (75-99) mg/dL Calcium (8.4-10.2) mg/dL Total Protein (6.3-8.2) g/dL Albumin (3.5-5.0) g/dL
[2020-07-16] MEDS: LOSARTAN 25 MG TAB PO SCH (13:27)
[2020-07-16 13:34] VITALS: BMI 31.2
--- NOTE | 2020-07-16 14:06 | P.PN ---
Subjective 64-year-old the female was admitted for non-ST elevation myocardial infarction underwent cardiac catheterization which showed critical lesion in left anterior descending patient will undergo coronary artery bypass grafting tomorrow. Cardio thoracic surgery was consulted. Patient is presently on IV heparin. 07/15/2020 and patient is postoperative day one underwent coronary artery bypass grafting which is a GARCIA to LAD and left radial artery to obtuse marginal and saphenous vein graft to RCA. Patient was extubated yesterday. Patient prese ntly has 2 chest tubes left and mediastinal. Patient is presently on insulin drip. Patient is also on clevedipine. Patient has a Mulberry-Justin in place. 07/16/2020 Patient remains on IV insulin drip which will be transitioned to long-acting insulin and oral hyperglycemic agents. Patient received Lasix. Patient the is on oral calcium Espinoza now patient remains to have 2 chest tubes. Constitutional: Denied any fatigue denied any fever. Cardio vascular: denied any chest pain, palpitations Gastrointestinal denied any nausea vomiting Pulmonary: Denied any shortness of breath cough Neurologic denied any new focal deficits All inpatient medications were reviewed and appropriate changes in these medications as dictated in the interval history and assessment and plan. Objective - Vital Signs Vital signs: Vital Signs Temp 97.6 F 07/16/20 12:00 Pulse 85 07/16/20 13:00 Resp 14 07/16/20 13:00 BP 128/59 07/16/20 13:00 Pulse Ox 97 07/16/20 13:00 Intake & Output 07/15/20 07/16/20 07/16/20 18:59 06:59 18:59 Intake Total 779.780 417.942 217.706 Output Total 1040 838 995 Balance -260.220 -420.058 -777.294 Weight 96.1 kg 96.1 kg Intake: IV 384 306 182 Cardiac Output 30 Pressure Bags 84 66 42 Sodium Chloride 0.9% 1, 270 240 140 000 ml @ 20 mls/hr IV . Q24H [facility] Rx#:[id number] Intake, IV Titration 145.780 111.942 35.706 Amount Clevidipine Butyrate 25 68.400 81.433 22.5 mg In Empty Bag 1 bag @ 1 MG/HR 2 mls/hr IV .Q24H [facility] Rx#:[id number] Insulin Regular 100 unit 57.580 30.509 13.206 In Sodium Chloride 0.9% 100 ml @ Per Protocol IV .Q0M [facility] Rx#:[id number] Nitroglycerin-D5w Pmx 50 19.8 0 mg In Dextrose/Water 1 250ml.bag @ 5 MCG/MIN 1.5 mls/hr IV .Q24H [facility] Rx#: [id number] Oral 250 Output: Chest Tube Drainage 130 260 60 Bilateral Lower 65 60 15 Mediastinal Chest Tube Left Lateral 65 200 45 Chest Urine 910 578 935 Other: Voiding Method Indwelling Catheter Indwelling Catheter Indwelling Catheter ABP, PAP, CO, CI - Last Documented Arterial Blood Pressure 118/56 Pulmonary Artery Pressure 26/6 Cardiac Output 7.4 Cardiac Index 3.5 - Exam PHYSICAL EXAMINATION: GENERAL: The patient is alert and oriented x3, not in any acute distress. Well developed, well nourished. HEENT: Pupils are round and equally reacting to light. EOMI. No scleral icterus. No conjunctival pallor. Normocephalic, atraumatic. No pharyngeal erythema. No thyromegaly. CARDIOVASCULAR: S1 and S2 present. No murmurs, rubs, or gallops. PULMONARY: Chest is clear to auscultation, no wheezing or crackles. Chest tubes and Mulberry-Justin as mentioned above ABDOMEN: Soft, nontender, nondistended, normoactive bowel sounds. No palpable organomegaly. MUSCULOSKELETAL: No joint swelling or deformity. EXTREMITIES: No cyanosis, clubbing, or pedal edema. NEUROLOGICAL: Gross neurological examination did not reveal any focal deficits. SKIN: No rashes. - Labs CBC & Chem 7: 07/16/20 04:02 07/16/20 04:02 Labs: Abnormal Lab Results - Last 24 Hours (Table) 07/15/20 07/15/20 07/15/20 Range/Units 14:22 15:11 16:03 RBC (4.30-5.90) m/uL Hgb (13.0-17.5) gm/dL Hct (39.0-53.0) % RDW (11.5-15.5) % Plt Count (150-450) k/uL Lymphocytes # (1.0-4.8) k/uL Sodium (137-145) mmol/L Glucose (74-99) mg/dL POC Glucose (mg/dL) 186 H 164 H 127 H (75-99) mg/dL Calcium (8.4-10.2) mg/dL Total Protein (6.3-8.2) g/dL Albumin (3.5-5.0) g/dL 07/15/20 07/15/20 07/15/20 Range/Units 17:23 18:16 19:01 RBC (4.30-5.90) m/uL Hgb (13.0-17.5) gm/dL Hct (39.0-53.0) % RDW (11.5-15.5) % Plt Count (150-450) k/uL Lymphocytes # (1.0-4.8) k/uL Sodium (137-145) mmol/L Glucose (74-99) mg/dL POC Glucose (mg/dL) 101 H 146 H 223 H (75-99) mg/dL Calcium (8.4-10.2) mg/dL Total Protein (6.3-8.2) g/dL Albumin (3.5-5.0) g/dL 07/15/20 07/15/20 07/15/20 Range/Units 20:26 21:23 22:00 RBC (4.30-5.90) m/uL Hgb (13.0-17.5) gm/dL Hct (39.0-53.0) % RDW (11.5-15.5) % Plt Count (150-450) k/uL Lymphocytes # (1.0-4.8) k/uL Sodium (137-145) mmol/L Glucose (74-99) mg/dL POC Glucose (mg/dL) 191 H 196 H 122 H (75-99) mg/dL Calcium (8.4-10.2) mg/dL Total Protein (6.3-8.2) g/dL Albumin (3.5-5.0) g/dL 07/16/20 07/16/20 07/16/20 Range/Units 00:10 01:12 02:01 RBC (4.30-5.90) m/uL Hgb (13.0-17.5) gm/dL Hct (39.0-53.0) % RDW (11.5-15.5) % Plt Count (150-450) k/uL Lymphocytes # (1.0-4.8) k/uL Sodium (137-145) mmol/L Glucose (74-99) mg/dL POC Glucose (mg/dL) 102 H 153 H 129 H (75-99) mg/dL Calcium (8.4-10.2) mg/dL Total Protein (6.3-8.2) g/dL Albumin (3.5-5.0) g/dL 07/16/20 07/16/20 07/16/20 Range/Units 03:13 04:02 04:02 RBC 3.22 L (4.30-5.90) m/uL Hgb 9.2 L (13.0-17.5) gm/dL Hct 27.3 L (39.0-53.0) % RDW 16.1 H (11.5-15.5) % Plt Count 115 L (150-450) k/uL Lymphocytes # 0.7 L (1.0-4.8) k/uL Sodium 134 L (137-145) mmol/L Glucose 129 H (74-99) mg/dL POC Glucose (mg/dL) 159 H (75-99) mg/dL Calcium 8.2 L (8.4-10.2) mg/dL Total Protein 5.0 L (6.3-8.2) g/dL Albumin 2.7 L (3.5-5.0) g/dL 07/16/20 07/16/20 07/16/20 Range/Units 04:05 05:05 05:53 RBC (4.30-5.90) m/uL Hgb (13.0-17.5) gm/dL Hct (39.0-53.0) % RDW (11.5-15.5) % Plt Count (150-450) k/uL Lymphocytes # (1.0-4.8) k/uL Sodium (137-145) mmol/L Glucose (74-99) mg/dL POC Glucose (mg/dL) 139 H 134 H 107 H (75-99) mg/dL Calcium (8.4-10.2) mg/dL Total Protein (6.3-8.2) g/dL Albumin (3.5-5.0) g/dL 07/16/20 07/16/20 07/16/20 Range/Units 08:11 09:32 10:06 RBC (4.30-5.90) m/uL Hgb (13.0-17.5) gm/dL Hct (39.0-53.0) % RDW (11.5-15.5) % Plt Count (150-450) k/uL Lymphocytes # (1.0-4.8) k/uL Sodium (137-145) mmol/L Glucose (74-99) mg/dL POC Glucose (mg/dL) 105 H 145 H 150 H (75-99) mg/dL Calcium (8.4-10.2) mg/dL Total Protein (6.3-8.2) g/dL Albumin (3.5-5.0) g/dL 07/16/20 07/16/20 Range/Units 11:12 12:00 RBC (4.30-5.90) m/uL Hgb (13.0-17.5) gm/dL Hct (39.0-53.0) % RDW (11.5-15.5) % Plt Count (150-450) k/uL Lymphocytes # (1.0-4.8) k/uL Sodium (137-145) mmol/L Glucose (74-99) mg/dL POC Glucose (mg/dL) 148 H 127 H (75-99) mg/dL Calcium (8.4-10.2) mg/dL Total Protein (6.3-8.2) g/dL Albumin (3.5-5.0) g/dL Assessment and Plan Plan: 1 acute non-ST elevation myocardial infarction: Patient the had a coronary artery bypass grafting. -Possibility of COPD without any acute exacerbation at this time -Hypertension -hyperlipidemia -Type 2 diabetes mellitus patient is transitioned to long-acting insulin sliding scale and oral hypoglycemic agents will monitor the blood sugars -Diabetic neuropathy -Nicotine use: Counseling was provided
[2020-07-16] MEDS: NITROGLYCERIN-D5W PMX 50 MG in DEXTROSE/WATER 1 250ML.BAG IV SCH (16:39)
[2020-07-16 16:43] LABS: Glucose,Whole Blood 220 mg/dL (75-99)
[2020-07-16] MEDS: SENNOSIDES-DOCUSATE SODIUM 1 EACH TAB PO SCH (21:35)
[2020-07-16 22:32] LABS: Glucose,Whole Blood 184 mg/dL (75-99)
[2020-07-17] MEDS: KETOROLAC 15 MG/ML 1 ML VIAL IVP SCH ×3 (02:22→14:35)
[2020-07-17] MEDS: HEPARIN SODIUM,PORCINE/PF 5,000 UNIT/0.5 ML SYRINGE SQ SCH ×3 (02:22→16:46)
[2020-07-17 04:46] LABS: Basophils % (A) 0 %; Eosinophils # (A) 0.2 k/uL (0-0.7); Eosinophils % (A) 2 %; HCT 27.1 % (39.0-53.0); Hypochromasia Slight; Lymphocytes % (A) 15 %; MCH 28.7 pg (25.0-35.0); MCHC 33.1 g/dL (31.0-37.0); MCV 86.8 fL (80.0-100.0); Mean Platelet Volume 8.5; Monocytes # (A) 0.5 k/uL (0-1.0); Monocytes % (A) 8 %; Neutrophils # (A) 4.8 k/uL (1.3-7.7); Neutrophils % (A) 73 %; Platelet Count 138 k/uL (150-450); RBC 3.13 m/uL (4.30-5.90); WBC 6.7 k/uL (3.8-10.6)
[2020-07-17 04:59] LABS: ALT 15 U/L (4-49); AST 28 U/L (17-59); African American GFR (CKD) >90 (>60 ml/min/1.73 sqM); Albumin 2.8 g/dL (3.5-5.0); Alkaline Phosphatase 53 U/L (38-126); Anion Gap 5 mmol/L; Blood Urea Nitrogen 18 mg/dL (9-20); Calcium 7.8 mg/dL (8.4-10.2); Carbon Dioxide 27 mmol/L (22-30); Chloride 105 mmol/L (98-107); Glucose 132 mg/dL (74-99); Non-African American GFR(CKD) >90 (>60 ml/min/1.73 sqM); Sodium 137 mmol/L (137-145); Total Bilirubin 0.7 mg/dL (0.2-1.3); Total Protein 5.2 g/dL (6.3-8.2)
[2020-07-17] MEDS: INSULIN ASPART (NovoLOG) 100 UNIT/ML VIAL SQ SCH ×4 (06:48→21:41)
[2020-07-17] MEDS: IPRATROPIUM-ALBUTEROL 3 ML NEB INHALATION SCH ×4 (06:56→20:29)
[2020-07-17] MEDS: SYMBICORT 160-4.5 MCG INHALER INHALATION SCH ×2 (06:56→20:29)
[2020-07-17 06:58] LABS: Glucose,Whole Blood 116 mg/dL (75-99)
[2020-07-17] MEDS ORDERED: POTASSIUM CHLORIDE ER 20 MEQ TAB.ER PO STA (08:00)
--- NOTE | 2020-07-17 08:33 | XR ---
EXAMINATION TYPE: XR chest 1V portable DATE OF EXAM: 07/17/2020 COMPARISON: Chest x-ray 07/16/2020 HISTORY: Postop coronary artery bypass graft TECHNIQUE: Single frontal view of the chest is obtained. FINDINGS: Bilateral airspace disease, prominent interstitium again noted. Patient is post median rufino rnotomy. Cardiac mediastinal silhouette is stable, heart is enlarged. There is been interval removal of the left chest tube, median sternal drain. No pneumothorax or sizable effusion. IMPRESSION: No evident complication status post chest tube removal. Correlate for pneumonia, edema.
[2020-07-17] MEDS: amLODIPine 10 MG TAB PO SCH (08:37)
[2020-07-17] MEDS: ATORVASTATIN 40 MG TAB PO SCH (08:37)
[2020-07-17] MEDS: FUROSEMIDE 10 MG/ML 2 ML VIAL IV SCH ×2 (08:37→16:46)
[2020-07-17] MEDS: METOPROLOL TARTRATE 25 MG TAB PO SCH ×2 (08:37→21:41)
[2020-07-17] MEDS: CLOPIDOGREL 75 MG TAB PO SCH (08:38)
[2020-07-17] MEDS: ASPIRIN 325 MG TAB PO SCH (08:38)
[2020-07-17] MEDS: INSULIN DETEMIR (LEVEMIR) 100 UNIT/ML SYR SQ SCH (08:40)
[2020-07-17] MEDS: LINAGLIPTIN 5 MG TABLET PO SCH (08:41)
[2020-07-17] MEDS ORDERED: PANTOPRAZOLE 40 MG TABLET PO SCH (08:45)
--- NOTE | 2020-07-17 08:46 | P.PN ---
Subjective Progress Note Date: 07/17/20 Principal diagnosis: Symptomatic multivessel coronary artery disease with left main disease, non-ST elevated myocardial infarction this admission. Past medical history significant for hypertension, hyperlipidemia, diabetes mellitus type 2 with a preoperative hemoglobin A1c of 7.3%, obesity, chronic ongoing tobacco dependence, history of chronic back pain with degenerative joint disease, remote history of pneumonia with pericarditis, peripheral vascular disease, history of skin disorder, neuropathy to his bilateral lower extremities, GERD, varicose veins to his right lower extremity and evidence of cholelithiasis on preoperative abdominal ultrasound. POD #3 lysis of pericardial adhesions, triple-vessel coronary artery bypass grafting using the left internal mammary artery to left anterior descending coronary artery, the left radial artery from the aorta to the obtuse marginal coronary artery, and a reverse greater saphenous vein graft from the aorta to the right coronary artery. Endoscopic harvesting of the left radial artery, endoscopic harvesting of the left greater saphenous vein, intraoperative graft flow measurement using the Medist[employer] system, intraoperative transesophageal echocardiogram and epi-aortic scanning. Postoperative acute blood loss anemia and thrombocytopenia, expected outcome given hemodilution and cardiopulmonary bypass. The patient was seen in follow-up today 07/17/2020 at his bedside in the intensive care unit. Currently sitting up to the bedside chair, is awake, alert and oriented 3 and is in no acute apparent distress. Denies any complaints of pain or shortness of breath at this time. Remained hemodynamically stable and i s currently on no inotropic or pressor support. Oxygen saturations are 96% on 4 L nasal cannula. Achieving 3380-7378 mL on his incentive spirometry with encouragement. Mediastinal, left pleural chest tubes were removed yesterday without incident. Atrial epicardial pacemaker wires were removed yesterday without incident. Lou catheter was removed yesterday and the patient has been voiding without difficulty. He reports he ambulated in the intensive care unit hallway with assistance from nursing, physical and occupational therapy staff yesterday with minimal assistance. T-max temperature the last 24 hours 100F. Bedside telemetry showing normal sinus rhythm heart rate 75 BPM. Objective - Vital Signs Vital signs: Vital Signs Temp 97.8 F 07/17/20 04:00 Pulse 80 07/17/20 07:09 Resp 16 07/17/20 07:09 BP 134/58 07/17/20 07:00 Pulse Ox 98 07/17/20 07:00 Intake & Output 07/16/20 07/17/20 07/17/20 18:59 06:59 18:59 Intake Total 417.706 400 Output Total 1045 500 0 Balance -627.294 -100 0 Weight 96.1 kg 96 kg Intake: IV 182 Pressure Bags 42 Sodium Chloride 0.9% 1, 140 000 ml @ 20 mls/hr IV . Q24H [facility] Rx#:[id number] Intake, IV Titration 35.706 Amount Clevidipine Butyrate 25 22.5 mg In Empty Bag 1 bag @ 1 MG/HR 2 mls/hr IV .Q24H [facility] Rx#:[id number] Insulin Regular 100 unit 13.206 In Sodium Chloride 0.9% 100 ml @ Per Protocol IV .Q0M [facility] Rx#:[id number] Nitroglycerin-D5w Pmx 50 0 mg In Dextrose/Water 1 250ml.bag @ 5 MCG/MIN 1.5 mls/hr IV .Q24H [facility] Rx#: [id number] Oral 200 400 Output: Chest Tube Drainage 60 Bilateral Lower 15 Mediastinal Chest Tube Left Lateral 45 Chest Urine 985 500 0 Other: Voiding Method Indwelling Catheter ABP, PAP, CO, CI - Last Documented Arterial Blood Pressure 118/58 Pulmonary Artery Pressure 26/6 Cardiac Output 7.4 Cardiac Index 3.5 - Exam CONSTITUTIONAL: Sitting up to the bedside chair in the intensive care unit, appears comfortable, cooperative, no apparent acute distress. HEENT: Neck is supple, no JVD, no lymphadenopathy. RESPIRATORY: Lungs sounds essentially clear throughout, and diminished to his bilateral bases. Respirations are symmetrical and nonlabored. Currently on 4 L nasal cannula with oxygen saturations 96%. Able to achieve 6227-9402 mL on his incentive spirometry. Strong cough. CARDIOVASCULAR: Regular rhythm and rate. S1 and S2 present, negative for S3, gallop or murmur. Sternum is stable. Palpable peripheral pulses bilaterally, positive Doppler pulses to his bilateral peels. +1 edema to his bilateral lower extremities. No calf pain or tenderness noted. Heart hugger in place with patient demonstrating appropriate use. Knee-high DIONE hose and sequential compression devices in place to his bilateral lower extremities. GASTROINTESTINAL: Abdomen soft, nontender, nondistended. Hypoactive bowel sounds present 4 quadrants. Tolerating diet. Passing flatus. No guarding or rigidity. GENITOURINARY: Lou present draining clear, yellow urine. Output 500 mL in the last 8 hours INTEGUMENTARY: Skin is warm and dry with evidence of good perfusion. Midline sternal incision clean dry and well approximated, covered with dry intact dressing. Left lower extremity EVH sites well approximated without redness or drainage. Left arm radial artery harvest sites clean, dry and approximated. No drainage or redness is present. NEUROLOGIC: Cranial nerves II through XII intact. No focal deficits. MUSKULOSKELETAL: Able to move all extremities, strength equal bilaterally, generalized weakness. PSYCHIATRIC: Alert and oriented to person place and time, appropriate affect, intact judgment and insight. - Labs CBC & Chem 7: 07/17/20 04:20 07/17/20 04:20 Labs: Abnormal Lab Results - Last 24 Hours (Table) 07/16/20 07/16/20 07/16/20 Range/Units 09:32 10:06 11:12 RBC (4.30-5.90) m/uL Hgb (13.0-17.5) gm/dL Hct (39.0-53.0) % RDW (11.5-15.5) % Plt Count (150-450) k/uL Glucose (74-99) mg/dL POC Glucose (mg/dL) 145 H 150 H 148 H (75-99) mg/dL Calcium (8.4-10.2) mg/dL Total Protein (6.3-8.2) g/dL Albumin (3.5-5.0) g/dL 07/16/20 07/16/20 07/16/20 Range/Units 12:00 16:41 22:30 RBC (4.30-5.90) m/uL Hgb (13.0-17.5) gm/dL Hct (39.0-53.0) % RDW (11.5-15.5) % Plt Count (150-450) k/uL Glucose (74-99) mg/dL POC Glucose (mg/dL) 127 H 220 H 184 H (75-99) mg/dL Calcium (8.4-10.2) mg/dL Total Protein (6.3-8.2) g/dL Albumin (3.5-5.0) g/dL 07/17/20 07/17/20 07/17/20 Range/Units 04:20 04:20 06:46 RBC 3.13 L (4.30-5.90) m/uL Hgb 9.0 L (13.0-17.5) gm/dL Hct 27.1 L (39.0-53.0) % RDW 16.0 H (11.5-15.5) % Plt Count 138 L (150-450) k/uL Glucose 132 H (74-99) mg/dL POC Glucose (mg/dL) 116 H (75-99) mg/dL Calcium 7.8 L (8.4-10.2) mg/dL Total Protein 5.2 L (6.3-8.2) g/dL Albumin 2.8 L (3.5-5.0) g/dL Assessment and Plan Assessment: 1. Multivessel coronary artery disease with left main disease, status post three-vessel coronary artery bypass grafting surgery 2. Overall left ventricular systolic function mild to moderately impaired with an ejection fraction between 40 and 45% 3. Non-ST elevated myocardial infarction this admission, with elevated trop onins as high as 0.356 4. COPD with a preoperative FEV1 59% of predicted value 5. History of hypertension 6. History of hyperlipidemia 7. Diabetes mellitus type 2, with preoperative hemoglobin A1c 7.3% 8. Obesity with a BMI of 30.1 kg/m 9. Chronic ongoing tobacco dependence 10. History of chronic back pain, degenerative joint disease 11. Remote history of pneumonia with pericarditis, with calcified pericardium on computed tomography scan of the chest 12. History of skin disorder 13. History of bilateral lower extremity neuropathy 14. Peripheral vascular disease, with aortoiliac occlusive disease 15. Gastroesophageal reflux disease 16. Varicose veins to his right lower extremity 17. Preoperative elevation of his lipase 371, cholelithiasis, lipase has normalized and is 112 today 18. Postoperative acute blood loss anemia, expected Plan: 1. Continue to optimize medical management with aspirin, statin, Plavix and beta kale. We will increase metoprolol tartrate as tolerated. 2. Continue amlodipine 10 mg by mouth daily for radial artery spasm prophylaxis. Please do not to discontinue calcium channel kale without discussing with cardiac surgery prior. 3. Wean oxygen as tolerated. Encourage incentive spirometry use 10x every hour while, bronchodilators per pulmonology management. 4. Increase activity, ambulate as tolerated. PT/OT/cardiac rehab following. 5. Will monitor daily labs and daily CXR. Electrolyte replacement per prot ocol. 6. Insulin management per primary care. Patient needs tight blood sugar control to promote healing, union of the sternal bone. The patient is a diabetic with a preoperative hemoglobin A1c of 7.3%. 7. GI/DVT prophylaxis. 8. Lasix 20 mg IV now and at 4 PM today then discontinue. Potassium chloride 20 mEq by mouth 1 now. 9. First postoperative shower today. 10. Continue to record strict accurate I/Os. Daily weights. 11. Pain control with current medication regimen. Ultram discontinued. 12. Risk modification discussed with the patient including importance of smoking cessation. 13. Continue Cozaar 25 mg by mouth daily at noon for afterload reduction. 14. We will place transfer orders to third floor cardiac stepdown unit today. 15. Anticipate discharge home within the next 24-48 hours with home health care. 16. More recommendations to follow based on patient's clinical course. Time with Patient: Greater than 30
[2020-07-17] MEDS: MUPIROCIN 2% OINT 22 GM TUBE NASAL SCH ×2 (09:15→21:46)
--- NOTE | 2020-07-17 09:57 | P.PN ---
Subjective Progress Note Date: 07/17/20 Principal diagnosis: Coronary artery disease status post coronary artery bypass grafting 64-year-old male, who presents to the emergency department, for evaluation. He apparently came into the ED with complaints of 2 months or so of intermittent chest pain. Apparently initially started in the area of the right upper abdomen, and radiated into the right side of his chest. Sometimes when into his right shoulder as well. Apparently the pain is worse after eating. He does h ave a history of hiatal hernia and acid reflux disease. The patient underwent a thorough evaluation, including a catheterization, which apparently showed evidence of significant coronary artery disease, including left main disease. Unfortunately, the catheterization report is not yet available. The patient may end up having open heart surgery tomorrow. We are asked to see the patient in preoperative evaluation. He has not yet had his preoperative lung function test. A chest x-ray was normal. A CT angiogram was negative for pulmonary embolism, but did show atherosclerotic vascular disease, and also calcification of the pericardium. The patient likely does have some underlying chronic lung disease as he smoked since the age of 15, to the age of 64, at 1 pack a day. Sometimes he smoked more than that. 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 When asked about symptoms, such as shortness of breath, he only admits to chronic morning cough, with occasional clear to white phlegm production, and wheezing, according to her significant other. He denies any hemoptysis. He doesn't really even admit to shortness of breath. Lab data includes a white count 7.7, hemoglobin 12, hematocrit 36.9, and platelet count 187,000. Sodium 138, potassium 4.7, Seferino 110, CO2 22, anion gap 6, BUN 12, creatinine 0.71. The patient is seen today 07/15/2020 in follow-up in the intensive care unit. This is postoperative day #1. He did undergo coronary artery bypass grafting 3 yesterday with a GARCIA to the LAD, left radial artery to the obtuse marginal, saphenous vein graft to the RCA. He was extubated at 4.5 hours after surgery. He is currently sitting up in a chair at the bedside. Awake and alert in no acute distress. His pain is fairly well managed. He is currently on 6 L high flow nasal cannula to maintain O2 saturation in the 90s. He is 0.9 normal saline at KVO. [place] proximal at 5 mg per hour, insulin drip at 4 units per hour. Heparin for DVT prophylaxis. Receiving cefazolin per protocol. PA pressure 26/6, CVP is 4. Cardiac output 7.4. Cardiac index 3.5. Chest x-ray revealing mild perihilar and basilar opacities. Mediastinal chest tube in place 2, left pleural chest tube in place. White count 9.1. Hemoglobin 9.8. Platelets 112. Sodium 138. Potassium 4.2. Creatinine 0.71. AST 40. ALT 22. Albumin 2.9. Glucose 124. The patient is seen today 07/16/2020 in follow-up in the intensive care unit. This is postoperative day #2. He is currently sitting up in a chair at the bedside. Awake and alert in no acute distress. He is on 9 L high flow nasal cannula to maintain O2 saturation in the 90s. Asked x-ray continues to show component of volume overload, pulmonary venous hypertension and some interstitial edema. Left-sided chest tube remains in place. Mediastinal tubes in place. He is again encouraged regarding the increased use of the incentive spirometer. Currently pulling between 507 50 MLS only. White count 8.1. Hemoglobin 9.2. Platelet count 115. Sodium 134. Potassium 3.7. Creatinine 0.71. Glucose 129. Remains on bronchodilators. Clinical proximal is soft. I nsulin drip is off. No IV fluids currently. Heparin for DVT prophylaxis. He is seen today 07/17/2020 in follow-up in intensive care unit. This is postoperative day #3. He is currently up ambulating in the hallway with assistance. Doing quite well. Denies any worsening shortness of breath, cough or congestion. He is maintaining O2 saturations in the mid 90s on 2 L/m per nasal cannula. No IV fluids. Chest tubes have been removed. Chest x-ray reveals no evident complications post chest tube removal. There is bilateral airspace disease with prominent interstitium noted. White count 6.7. Hemoglobin 9.0. Platelets 138. Sodium 137. Potassium 4.0. Creatinine 0.70. Glucose 132. Receiving Lasix 20 mg IV every 8 hours. He remains on DuoNeb inhalations. Working well with the incentive spirometer. Heparin for DVT prophylaxis. Objective - Vital Signs Vital signs: Vital Signs Temp 97.9 F 07/17/20 09:00 Pulse 89 07/17/20 09:00 Resp 25 H 07/17/20 09:00 BP 127/59 07/17/20 09:00 Pulse Ox 92 L 07/17/20 09:00 Intake & Output 07/16/20 07/17/20 07/17/20 18:59 06:59 18:59 Intake Total 417.706 400 240 Output Total 1045 500 700 Balance -627.294 -100 -460 Weight 96.1 kg 96 kg Intake: IV 182 Pressure Bags 42 Sodium Chloride 0.9% 1, 140 000 ml @ 20 mls/hr IV . Q24H [facility] Rx#:[id number] Intake, IV Titration 35.706 Amount Clevidipine Butyrate 25 22.5 mg In Empty Bag 1 bag @ 1 MG/HR 2 mls/hr IV .Q24H [facility] Rx#:[id number] Insulin Regular 100 unit 13.206 In Sodium Chloride 0.9% 100 ml @ Per Protocol IV .Q0M [facility] Rx#:[id number] Nitroglycerin-D5w Pmx 50 0 mg In Dextrose/Water 1 250ml.bag @ 5 MCG/MIN 1.5 mls/hr IV .Q24H [facility] Rx#: [id number] Oral 200 400 240 Output: Chest Tube Drainage 60 Bilateral Lower 15 Mediastinal Chest Tube Left Lateral 45 Chest Urine 985 500 700 Other: Voiding Method Indwelling Catheter # Voids 1 ABP, PAP, CO, CI - Last Documented Arterial Blood Pressure 118/58 Pulmonary Artery Pressure 26/6 Cardiac Output 7.4 Cardiac Index 3.5 - Exam GENERAL EXAM: Alert, pleasant 64-year-old gentleman, on 2 L nasal cannula, up ambulating in the hallway. HEAD: Normocephalic. EYES: Normal reaction of pupils, equal size. NOSE: Clear with pink turbinates. THROAT: No erythema or exudates. NECK: No masses, no JVD. [place]-Justin catheter in place CHEST: Sternal dressing dry and intact. Heart Hugger in place. LUNGS: Equal air entry with few scattered rhonchi. CVS: S1 and S2 normal with no audible murmur, regular rhythm. ABDOMEN: No hepatosplenomegaly, normal bowel sounds, no guarding or rigidity. SPINE: No scoliosis or deformity SKIN: No rashes CENTRAL NERVOUS SYSTEM: No focal deficits, tone is normal in all 4 extremities. EXTREMITIES: Dressings dry and intact. There is trace peripheral edema. No clubbing, no cyanosis. Peripheral pulses are intact. - Labs CBC & Chem 7: 07/17/20 04:20 07/17/20 04:20 Labs: Abnormal Lab Results - Last 24 Hours (Table) 07/16/20 07/16/20 07/16/20 Range/Units 10:06 11:12 12:00 RBC (4.30-5.90) m/uL Hgb (13.0-17.5) gm/dL Hct (39.0-53.0) % RDW (11.5-15.5) % Plt Count (150-450) k/uL Glucose (74-99) mg/dL POC Glucose (mg/dL) 150 H 148 H 127 H (75-99) mg/dL Calcium (8.4-10.2) mg/dL Total Protein (6.3-8.2) g/dL Albumin (3.5-5.0) g/dL 07/16/20 07/16/20 07/17/20 Range/Units 16:41 22:30 04:20 RBC 3.13 L (4.30-5.90) m/uL Hgb 9.0 L (13.0-17.5) gm/dL Hct 27.1 L (39.0-53.0) % RDW 16.0 H (11.5-15.5) % Plt Count 138 L (150-450) k/uL Glucose (74-99) mg/dL POC Glucose (mg/dL) 220 H 184 H (75-99) mg/dL Calcium (8.4-10.2) mg/dL Total Protein (6.3-8.2) g/dL Albumin (3.5-5.0) g/dL 07/17/20 07/17/20 Range/Units 04:20 06:46 RBC (4.30-5.90) m/uL Hgb (13.0-17.5) gm/dL Hct (39.0-53.0) % RDW (11.5-15.5) % Plt Count (150-450) k/uL Glucose 132 H (74-99) mg/dL POC Glucose (mg/dL) 116 H (75-99) mg/dL Calcium 7.8 L (8.4-10.2) mg/dL Total Protein 5.2 L (6.3-8.2) g/dL Albumin 2.8 L (3.5-5.0) g/dL Assessment and Plan Assessment: 1 Significant coronary artery disease including left main disease, status post coronary artery bypass grafting utilizing a GARCIA to the LAD, left radial artery to the OM, SVG to the RCA. Postoperative day #3. 2 Probable COPD based on 50 years of tobacco use, and symptoms of cough, phlegm production, and wheezing. Patient was extubated and 4.5 hours postop. Currently on 2 L. 3 History of angina pectoris. 4 History of diabetes mellitus. 5 History of heart failure. 6 History of gastroesophageal reflux disease. 7 History of hyperlipidemia. 8 History of hypertension. 9 History of DJD. 10 History of varicose veins. 11 History of bilateral lower extremity neuropathy. 12 History of duodenal ulcer. Plan: The patient was seen and evaluated by Dr. Hernandez Chest x-ray and labs reviewed Titrate the FiO2 as tolerated Continue bronchodilators Continue to work with the incentive spirometer Increase his activity as tolerated To transfer out of the ICU today We will continue to follow I, the cosigning physician, performed a history & physical examination of the patient. Lungs sounds few scattered rhonchi. Maintaining good O2 saturations in the 90s on 2 L/m per nasal cannula. I discussed the assessment and plan of care with my nurse practitioner, Kelsey Tang. I attest to the above note as dictated by her.
[2020-07-17] MEDS: PANTOPRAZOLE 40 MG TABLET PO SCH (10:47)
--- NOTE | 2020-07-17 11:08 | P.PN ---
Subjective Progress Note Date: 07/17/20 HISTORY OF PRESENT ILLNESS: 07/14/2020 Patient examined this morning at the bedside with Dr. Archibald. Patient underwent cardiac cath yesterday revealing multivessel coronary artery disease with left main stenosis of 70%. Patient was seen and evaluated by cardiothoracic surgery and is scheduled for surgery today. He denies chest pain or pressure. Denies shortness of breath. Echocardiogram completed revealing ejection fraction 40- 45%, mild aortic valve sclerosis, mild mitral regurgitation, trace tricuspid regurgitation, and mild pulmonary hypertension. Blood pressure 149/86. Telemetry reveals sinus mechanism. 07/15/2020 Patient is s/p CABG x 3 with GARCIA to LAD, left radial artery to obtuse marginal, and reverse saphenous vein graft to the RCA with Dr. Jarvis. POD #1. Patient e xamined this morning in the ICU. Patient was extubated yesterday. Patient is on 4L NC with oxygen saturations greater than 92%. Patient is sitting up in the chair. Patient is on Cleviprex infusion. Patient complains of discomfort this morning and has not been using his incentive spirometer very often. 07/16/2020 Patient examined this morning in the ICU. He is POD #2. He is sitting up in the chair. He is complaining of some generalized discomfort secondary to the chair being uncomfortable. He has been weaned off Cleviprex. He is pulling 750cc on his IS. Vital signs are stable. 07/17/2020 Patient examined this morning. Patient is POD #3. Chest tubes have been removed. Lou catheter also has been removed. He denies chest pain or pressure. Denies shortness of breath. He is to receive 2 doses of IV lasix per CTS. Patient pulling 750cc on his IS. He has been ambulating in the hallways. PHYSICAL EXAM: VITAL SIGNS: Reviewed. GENERAL: Well-developed in no acute distress. NECK: Supple. No JVD or thyromegaly LUNGS: Respirations even and unlabored. Lungs diminished bilaterally. HEART: Regular rate and rhythm. S1 and S2 heard. Heart hugger present. EXTREMITIES: Normal range of motion. No clubbing or cyanosis. Peripheral pulses intact. Trace bilateral lower extremity edema ASSESSMENT: Non-STEMI Multivessel coronary artery disease with left main disease, s/p CABG x 3 with GARCIA to LAD, left radial artery to obtuse marginal, and reverse saphenous vein graft to the RCA Hypertension Hyperlipidemia Diabetes Mellitus Peripheral vascular disease GERD Chronic back pain Nicotine dependence PLAN: Postoperative management per CTS Continue aspirin, lipitor, amlodipine, losartan, and metoprolol Increase activity as tolerated Encouraged use of incentive spirometer Will continue to follow patient postoperatively and make further recommendations Nurse practitioner note has been reviewed by physician. Signing provider agrees with the documented findings, assessment, and plan of care. Objective - Vital Signs Vital signs: Vital Signs Temp 97.9 F 07/17/20 09:00 Pulse 89 07/17/20 09:00 Resp 25 H 07/17/20 09:00 BP 127/59 07/17/20 09:00 Pulse Ox 92 L 07/17/20 09:00 Intake & Output 07/16/20 07/17/20 07/17/20 18:59 06:59 18:59 Intake Total 417.706 400 240 Output Total 1045 500 700 Balance -627.294 -100 -460 Weight 96.1 kg 96 kg Intake: IV 182 Pressure Bags 42 Sodium Chloride 0.9% 1, 140 000 ml @ 20 mls/hr IV . Q24H [facility] Rx#:[id number] Intake, IV Titration 35.706 Amount Clevidipine Butyrate 25 22.5 mg In Empty Bag 1 bag @ 1 MG/HR 2 mls/hr IV .Q24H [facility] Rx#:[id number] Insulin Regular 100 unit 13.206 In Sodium Chloride 0.9% 100 ml @ Per Protocol IV .Q0M [facility] Rx#:[id number] Nitroglycerin-D5w Pmx 50 0 mg In Dextrose/Water 1 250ml.bag @ 5 MCG/MIN 1.5 mls/hr IV .Q24H [facility] Rx#: [id number] Oral 200 400 240 Output: Chest Tube Drainage 60 Bilateral Lower 15 Mediastinal Chest Tube Left Lateral 45 Chest Urine 985 500 700 Other: Voiding Method Indwelling Catheter Urinal # Voids 1 ABP, PAP, CO, CI - Last Documented Arterial Blood Pressure 118/58 Pulmonary Artery Pressure 26/6 Cardiac Output 7.4 Cardiac Index 3.5 - Labs CBC & Chem 7: 07/17/20 04:20 07/17/20 04:20 Labs: Abnormal Lab Results - Last 24 Hours (Table) 07/16/20 07/16/20 07/16/20 Range/Units 11:12 12:00 16:41 RBC (4.30-5.90) m/uL Hgb (13.0-17.5) gm/dL Hct (39.0-53.0) % RDW (11.5-15.5) % Plt Count (150-450) k/uL Glucose (74-99) mg/dL POC Glucose (mg/dL) 148 H 127 H 220 H (75-99) mg/dL Calcium (8.4-10.2) mg/dL Total Protein (6.3-8.2) g/dL Albumin (3.5-5.0) g/dL 07/16/20 07/17/20 07/17/20 Range/Units 22:30 04:20 04:20 RBC 3.13 L (4.30-5.90) m/uL Hgb 9.0 L (13.0-17.5) gm/dL Hct 27.1 L (39.0-53.0) % RDW 16.0 H (11.5-15.5) % Plt Count 138 L (150-450) k/uL Glucose 132 H (74-99) mg/dL POC Glucose (mg/dL) 184 H (75-99) mg/dL Calcium 7.8 L (8.4-10.2) mg/dL Total Protein 5.2 L (6.3-8.2) g/dL Albumin 2.8 L (3.5-5.0) g/dL 07/17/20 Range/Units 06:46 RBC (4.30-5.90) m/uL Hgb (13.0-17.5) gm/dL Hct (39.0-53.0) % RDW (11.5-15.5) % Plt Count (150-450) k/uL Glucose (74-99) mg/dL POC Glucose (mg/dL) 116 H (75-99) mg/dL Calcium (8.4-10.2) mg/dL Total Protein (6.3-8.2) g/dL Albumin (3.5-5.0) g/dL
[2020-07-17 12:08] LABS: Glucose,Whole Blood 187 mg/dL (75-99)
[2020-07-17] MEDS: LOSARTAN 25 MG TAB PO SCH (12:51)
--- NOTE | 2020-07-17 15:25 | P.PN ---
Subjective 64-year-old the female was admitted for non-ST elevation myocardial infarction underwent cardiac catheterization which showed critical lesion in left anterior descending patient will undergo coronary artery bypass grafting tomorrow. Cardio thoracic surgery was consulted. Patient is presently on IV heparin. 07/15/2020 and patient is postoperative day one underwent coronary artery bypass grafting which is a GARCIA to LAD and left radial artery to obtuse marginal and saphenous vein graft to RCA. Patient was extubated yesterday. Patient prese ntly has 2 chest tubes left and mediastinal. Patient is presently on insulin drip. Patient is also on clevedipine. Patient has a [place]-Justin in place. 07/16/2020 Patient remains on IV insulin drip which will be transitioned to long-acting insulin and oral hyperglycemic agents. Patient received Lasix. Patient the is on oral calcium Espino[place] now patient remains to have 2 chest tubes. 07/17/2020 Patient chest tubes are out patient blood sugars are well controlled the patient has a mild pulmonary edema receiving Lasix. Constitutional: Denied any fatigue denied any fever. Cardio vascular: denied any chest pain, palpitations Gastrointestinal denied any nausea vomiting Pulmonary: Denied any shortness of breath cough Neurologic denied any new focal deficits All inpatient medications were reviewed and appropriate changes in these medications as dictated in the interval history and assessment and plan. Objective - Vital Signs Vital signs: Vital Signs Temp 98.2 F 07/17/20 12:05 Pulse 80 07/17/20 12:41 Resp 16 07/17/20 12:41 BP 106/53 07/17/20 12:05 Pulse Ox 95 07/17/20 12:05 Intake & Output 07/16/20 07/17/20 07/17/20 18:59 06:59 18:59 Intake Total 417.706 400 480 Output Total 1045 500 700 Balance -627.294 -100 -220 Weight 96.1 kg 96 kg Intake: IV 182 Pressure Bags 42 Sodium Chloride 0.9% 1, 140 000 ml @ 20 mls/hr IV . Q24H [facility] Rx#:[id number] Intake, IV Titration 35.706 Amount Clevidipine Butyrate 25 22.5 mg In Empty Bag 1 bag @ 1 MG/HR 2 mls/hr IV .Q24H [facility] Rx#:[id number] Insulin Regular 100 unit 13.206 In Sodium Chloride 0.9% 100 ml @ Per Protocol IV .Q0M [facility] Rx#:[id number] Nitroglycerin-D5w Pmx 50 0 mg In Dextrose/Water 1 250ml.bag @ 5 MCG/MIN 1.5 mls/hr IV .Q24H [facility] Rx#: [id number] Oral 200 400 480 Output: Chest Tube Drainage 60 Bilateral Lower 15 Mediastinal Chest Tube Left Lateral 45 Chest Urine 985 500 700 Other: Voiding Method Indwelling Catheter Urinal # Voids 1 ABP, PAP, CO, CI - Last Documented Arterial Blood Pressure 118/58 Pulmonary Artery Pressure 26/6 Cardiac Output 7.4 Cardiac Index 3.5 - Exam PHYSICAL EXAMINATION: GENERAL: The patient is alert and oriented x3, not in any acute distress. Well developed, well nourished. HEENT: Pupils are round and equally reacting to light. EOMI. No scleral icterus. No conjunctival pallor. Normocephalic, atraumatic. No pharyngeal erythema. No thyromegaly. CARDIOVASCULAR: S1 and S2 present. No murmurs, rubs, or gallops. PULMONARY: Chest is clear to auscultation, no wheezing or crackles. Chest tubes and [place]-Justin as mentioned above ABDOMEN: Soft, nontender, nondistended, normoactive bowel sounds. No palpable organomegaly. MUSCULOSKELETAL: No joint swelling or deformity. EXTREMITIES: No cyanosis, clubbing, or pedal edema. NEUROLOGICAL: Gross neurological examination did not reveal any focal deficits. SKIN: No rashes. - Labs CBC & Chem 7: 07/17/20 04:20 07/17/20 04:20 Labs: Abnormal Lab Results - Last 24 Hours (Table) 07/16/20 07/16/20 07/17/20 Range/Units 16:41 22:30 04:20 RBC 3.13 L (4.30-5.90) m/uL Hgb 9.0 L (13.0-17.5) gm/dL Hct 27.1 L (39.0-53.0) % RDW 16.0 H (11.5-15.5) % Plt Count 138 L (150-450) k/uL Glucose (74-99) mg/dL POC Glucose (mg/dL) 220 H 184 H (75-99) mg/dL Calcium (8.4-10.2) mg/dL Total Protein (6.3-8.2) g/dL Albumin (3.5-5.0) g/dL 07/17/20 07/17/20 07/17/20 Range/Units 04:20 06:46 12:06 RBC (4.30-5.90) m/uL Hgb (13.0-17.5) gm/dL Hct (39.0-53.0) % RDW (11.5-15.5) % Plt Count (150-450) k/uL Glucose 132 H (74-99) mg/dL POC Glucose (mg/dL) 116 H 187 H (75-99) mg/dL Calcium 7.8 L (8.4-10.2) mg/dL Total Protein 5.2 L (6.3-8.2) g/dL Albumin 2.8 L (3.5-5.0) g/dL Assessment and Plan Plan: 1 acute non-ST elevation myocardial infarction: Patient the had a coronary artery bypass grafting. -Possibility of COPD without any acute exacerbation at this time -Hypertension -hyperlipidemia -Type 2 diabetes mellitus patient is transitioned to long-acting insulin sliding scale and oral hypoglycemic agents will monitor the blood sugars, blood sugars are well controlled now -Diabetic neuropathy -Nicotine use: Counseling was provided
[2020-07-17 16:56] LABS: Glucose,Whole Blood 178 mg/dL (75-99)
[2020-07-17] MEDS: ACETAMINOPHEN TAB 500 MG TAB PO PRN (20:15)
[2020-07-17 21:15] LABS: Glucose,Whole Blood 215 mg/dL (75-99)
[2020-07-17] MEDS: SENNOSIDES-DOCUSATE SODIUM 1 EACH TAB PO SCH (21:40)
[2020-07-18 04:14] LABS: Basophils % (A) 0 %; Eosinophils # (A) 0.2 k/uL (0-0.7); Eosinophils % (A) 3 %; HCT 25.7 % (39.0-53.0); HGB 8.5 gm/dL (13.0-17.5); Hypochromasia Slight; Lymphocytes # (A) 0.9 k/uL (1.0-4.8); Lymphocytes % (A) 15 %; MCH 28.6 pg (25.0-35.0); MCHC 33.2 g/dL (31.0-37.0); MCV 86.1 fL (80.0-100.0); Mean Platelet Volume 8.7; Monocytes # (A) 0.5 k/uL (0-1.0); Monocytes % (A) 9 %; Neutrophils # (A) 4.5 k/uL (1.3-7.7); Neutrophils % (A) 70 %; Platelet Count 161 k/uL (150-450); RBC 2.98 m/uL (4.30-5.90); RDW 15.9 % (11.5-15.5); WBC 6.4 k/uL (3.8-10.6)
[2020-07-18 04:30] LABS: African American GFR (CKD) >90 (>60 ml/min/1.73 sqM); Anion Gap 4 mmol/L; Blood Urea Nitrogen 22 mg/dL (9-20); Carbon Dioxide 30 mmol/L (22-30); Chloride 105 mmol/L (98-107); Glucose 119 mg/dL (74-99); Magnesium 2.2 mg/dL (1.6-2.3); Non-African American GFR(CKD) >90 (>60 ml/min/1.73 sqM); Phosphorus 3.2 mg/dL (2.5-4.5); Potassium 3.8 mmol/L (3.5-5.1); Sodium 139 mmol/L (137-145)
[2020-07-18 06:47] LABS: Glucose,Whole Blood 119 mg/dL (75-99)
[2020-07-18] MEDS ORDERED: Potassium Replacement Protocol 1 EACH MISC MISCELLANE PRN (07:36)
[2020-07-18] MEDS: HEPARIN SODIUM,PORCINE/PF 5,000 UNIT/0.5 ML SYRINGE SQ SCH ×3 (07:47→16:12)
[2020-07-18] MEDS: INSULIN DETEMIR (LEVEMIR) 100 UNIT/ML SYR SQ SCH (07:47)
[2020-07-18] MEDS: ACETAMINOPHEN TAB 500 MG TAB PO PRN ×2 (07:48→14:22)
[2020-07-18] MEDS: INSULIN ASPART (NovoLOG) 100 UNIT/ML VIAL SQ SCH ×4 (07:59→20:52)
[2020-07-18] MEDS ORDERED: POTASSIUM CHLORIDE ER 20 MEQ TAB.ER PO SCH (08:00)
[2020-07-18] MEDS: LINAGLIPTIN 5 MG TABLET PO SCH (08:08)
[2020-07-18] MEDS: CLOPIDOGREL 75 MG TAB PO SCH (08:08)
[2020-07-18] MEDS: IPRATROPIUM-ALBUTEROL 3 ML NEB INHALATION SCH ×4 (08:08→20:37)
[2020-07-18] MEDS: ATORVASTATIN 40 MG TAB PO SCH (08:08)
[2020-07-18] MEDS: ASPIRIN 325 MG TAB PO SCH (08:08)
[2020-07-18] MEDS: METOPROLOL TARTRATE 25 MG TAB PO SCH ×2 (08:08→20:52)
[2020-07-18] MEDS: amLODIPine 10 MG TAB PO SCH (08:08)
[2020-07-18] MEDS: SYMBICORT 160-4.5 MCG INHALER INHALATION SCH ×2 (08:08→20:37)
[2020-07-18] MEDS: PANTOPRAZOLE 40 MG TABLET PO SCH (08:09)
[2020-07-18] MEDS: IBUPROFEN 400 MG TAB PO PRN (09:38)
--- NOTE | 2020-07-18 10:07 | P.PN ---
Subjective Progress Note Date: 07/18/20 Principal diagnosis: Coronary artery disease status post coronary artery bypass grafting 64-year-old male, who presents to the emergency department, for evaluation. He apparently came into the ED with complaints of 2 months or so of intermittent chest pain. Apparently initially started in the area of the right upper abdomen, and radiated into the right side of his chest. Sometimes when into his right shoulder as well. Apparently the pain is worse after eating. He does h ave a history of hiatal hernia and acid reflux disease. The patient underwent a thorough evaluation, including a catheterization, which apparently showed evidence of significant coronary artery disease, including left main disease. Unfortunately, the catheterization report is not yet available. The patient may end up having open heart surgery tomorrow. We are asked to see the patient in preoperative evaluation. He has not yet had his preoperative lung function test. A chest x-ray was normal. A CT angiogram was negative for pulmonary embolism, but did show atherosclerotic vascular disease, and also calcification of the pericardium. The patient likely does have some underlying chronic lung disease as he smoked since the age of 15, to the age of 64, at 1 pack a day. Sometimes he smoked more than that. 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 When asked about symptoms, such as shortness of breath, he only admits to chronic morning cough, with occasional clear to white phlegm production, and wheezing, according to her significant other. He denies any hemoptysis. He doesn't really even admit to shortness of breath. Lab data includes a white count 7.7, hemoglobin 12, hematocrit 36.9, and platelet count 187,000. Sodium 138, potassium 4.7, Seferino 110, CO2 22, anion gap 6, BUN 12, creatinine 0.71. The patient is seen today 07/15/2020 in follow-up in the intensive care unit. This is postoperative day #1. He did undergo coronary artery bypass grafting 3 yesterday with a GARCIA to the LAD, left radial artery to the obtuse marginal, saphenous vein graft to the RCA. He was extubated at 4.5 hours after surgery. He is currently sitting up in a chair at the bedside. Awake and alert in no acute distress. His pain is fairly well managed. He is currently on 6 L high flow nasal cannula to maintain O2 saturation in the 90s. He is 0.9 normal saline at KVO. Spencer proximal at 5 mg per hour, insulin drip at 4 units per hour. Heparin for DVT prophylaxis. Receiving cefazolin per protocol. PA pressure 26/6, CVP is 4. Cardiac output 7.4. Cardiac index 3.5. Chest x-ray revealing mild perihilar and basilar opacities. Mediastinal chest tube in place 2, left pleural chest tube in place. White count 9.1. Hemoglobin 9.8. Platelets 112. Sodium 138. Potassium 4.2. Creatinine 0.71. AST 40. ALT 22. Albumin 2.9. Glucose 124. The patient is seen today 07/16/2020 in follow-up in the intensive care unit. This is postoperative day #2. He is currently sitting up in a chair at the bedside. Awake and alert in no acute distress. He is on 9 L high flow nasal cannula to maintain O2 saturation in the 90s. Asked x-ray continues to show component of volume overload, pulmonary venous hypertension and some interstitial edema. Left-sided chest tube remains in place. Mediastinal tubes in place. He is again encouraged regarding the increased use of the incentive spirometer. Currently pulling between 507 50 MLS only. White count 8.1. Hemoglobin 9.2. Platelet count 115. Sodium 134. Potassium 3.7. Creatinine 0.71. Glucose 129. Remains on bronchodilators. Clinical proximal is soft. I nsulin drip is off. No IV fluids currently. Heparin for DVT prophylaxis. He is seen today 07/17/2020 in follow-up in intensive care unit. This is postoperative day #3. He is currently up ambulating in the hallway with assistance. Doing quite well. Denies any worsening shortness of breath, cough or congestion. He is maintaining O2 saturations in the mid 90s on 2 L/m per nasal cannula. No IV fluids. Chest tubes have been removed. Chest x-ray reveals no evident complications post chest tube removal. There is bilateral airspace disease with prominent interstitium noted. White count 6.7. Hemoglobin 9.0. Platelets 138. Sodium 137. Potassium 4.0. Creatinine 0.70. Glucose 132. Receiving Lasix 20 mg IV every 8 hours. He remains on DuoNeb inhalations. Working well with the incentive spirometer. Heparin for DVT prophylaxis. The patient is seen today 07/18/2020 in follow-up in the intensive care unit. Postoperative day #4. He is currently sitting up in a chair at the bedside. Awake and alert in no acute distress. Maintaining O2 saturations in the 90s on room air. No IV fluids. He's been up ambulating with assistance. He is working well with the incentive spirometer. Chest x-ray is pending. White count 6.4. Hemoglobin 8.5. Sodium 139. Potassium 3.8. Creatinine 0.80. Remains on bronchodilators. Heparin for DVT prophylaxis. Protonix for GI prophylaxis. Objective - Vital Signs Vital signs: Vital Signs Temp 97.6 F 07/18/20 08:00 Pulse 96 07/18/20 08:21 Resp 15 07/18/20 08:21 BP 132/63 07/18/20 08:00 Pulse Ox 94 L 07/18/20 08:10 Intake & Output 07/17/20 07/18/20 07/18/20 18:59 06:59 18:59 Intake Total 720 50 Output Total 1000 850 Balance -280 -800 Weight 95.3 kg Intake: Oral 720 50 Output: Urine 1000 850 Other: Voiding Method Urinal Urinal Urinal # Voids 1 1 ABP, PAP, CO, CI - Last Documented Arterial Blood Pressure 118/58 Pulmonary Artery Pressure 26/6 Cardiac Output 7.4 Cardiac Index 3.5 - Exam GENERAL EXAM: Alert, pleasant 64-year-old gentleman, on room air, up ambulating in the hallway. HEAD: Normocephalic. EYES: Normal reaction of pupils, equal size. NOSE: Clear with pink turbinates. THROAT: No erythema or exudates. NECK: No masses, no JVD. CHEST: Sternal dressing dry and intact. Heart Hugger in place. LUNGS: Equal air entry with few scattered rhonchi. CVS: S1 and S2 normal with no audible murmur, regular rhythm. ABDOMEN: No hepatosplenomegaly, normal bowel sounds, no guarding or rigidity. SPINE: No scoliosis or deformity SKIN: No rashes CENTRAL NERVOUS SYSTEM: No focal deficits, tone is normal in all 4 extremities. EXTREMITIES: Dressings dry and intact. There is trace peripheral edema. No clubbing, no cyanosis. Peripheral pulses are intact. - Labs CBC & Chem 7: 07/18/20 03:46 07/18/20 03:46 Labs: Abnormal Lab Results - Last 24 Hours (Table) 07/17/20 07/17/20 07/17/20 Range/Units 12:06 16:54 21:14 RBC (4.30-5.90) m/uL Hgb (13.0-17.5) gm/dL Hct (39.0-53.0) % RDW (11.5-15.5) % Lymphocytes # (1.0-4.8) k/uL BUN (9-20) mg/dL Glucose (74-99) mg/dL POC Glucose (mg/dL) 187 H 178 H 215 H (75-99) mg/dL Calcium (8.4-10.2) mg/dL 07/18/20 07/18/20 07/18/20 Range/Units 03:46 03:46 06:45 RBC 2.98 L (4.30-5.90) m/uL Hgb 8.5 L (13.0-17.5) gm/dL Hct 25.7 L (39.0-53.0) % RDW 15.9 H (11.5-15.5) % Lymphocytes # 0.9 L (1.0-4.8) k/uL BUN 22 H (9-20) mg/dL Glucose 119 H (74-99) mg/dL POC Glucose (mg/dL) 119 H (75-99) mg/dL Calcium 8.0 L (8.4-10.2) mg/dL Assessment and Plan Assessment: 1 Significant coronary artery disease including left main disease, status post coronary artery bypass grafting utilizing a GARCIA to the LAD, left radial artery to the OM, SVG to the RCA. Postoperative day #4. 2 Probable COPD based on 50 years of tobacco use, and symptoms of cough, phlegm production, and wheezing. Patient was extubated and 4.5 hours postop. Currently on room air 3 History of angina pectoris. 4 History of diabetes mellitus. 5 History of heart failure. 6 History of gastroesophageal reflux disease. 7 History of hyperlipidemia. 8 History of hypertension. 9 History of DJD. 10 History of varicose veins. 11 History of bilateral lower extremity neuropathy. 12 History of duodenal ulcer. Plan: The patient was seen and evaluated by Dr. David Soto from the pulmonary standpoint Follow-up chest x-ray pending Continue bronchodilators Continue to work with the incentive spirometer Increase his activity as tolerated Home once cleared by CT services I, the cosigning physician, performed a history & physical examination of the patient. Lungs sounds few scattered rhonchi. Maintaining good O2 saturations in the 90s on room air. I discussed the assessment and plan of care with my nurse practitioner, Kelsey Tang. I attest to the above note as dictated by her.
--- NOTE | 2020-07-18 10:51 | XR ---
EXAMINATION TYPE: XR chest 2V DATE OF EXAM: 07/18/2020 COMPARISON: Chest x-ray one day ago and older studies HISTORY: Postoperative CABG TECHNIQUE: Frontal and lateral views of the chest are obtained. FINDINGS: Post-CABG changes with mediastinal clips and sternal wires is redemonstrated. Persisting cardiomegaly with more prominent small to tiny left greater than right pleural effusions. Persistent but improved bilateral alveolar and interstitial opacities. The osseous structures remain intact. IMPRESSION: Cardiomegaly with new small to tiny left greater than the right bilateral pleural effusi ons. Persistent bilateral multifocal edema and/or infiltrates.
[2020-07-18] MEDS ORDERED: POTASSIUM CHLORIDE ER 10 MEQ TAB.ER.PRT PO STA (11:21)
[2020-07-18] MEDS ORDERED: FUROSEMIDE 10 MG/ML 2 ML VIAL IV STA (11:21)
--- NOTE | 2020-07-18 11:23 | P.PN ---
Subjective Progress Note Date: 07/18/20 Principal diagnosis: Symptomatic multivessel coronary artery disease with left main disease, non-ST elevated myocardial infarction this admission. Past medical history significant for hypertension, hyperlipidemia, diabetes mellitus type 2 with a preoperative hemoglobin A1c of 7.3%, obesity, chronic ongoing tobacco dependence, history of chronic back pain with degenerative joint disease, remote history of pneumonia with pericarditis, peripheral vascular disease, history of skin disorder, neuropathy to his bilateral lower extremities, GERD, varicose veins to his right lower extremity and evidence of cholelithiasis on preoperative abdominal ultrasound. POD #4 lysis of pericardial adhesions, triple-vessel coronary artery bypass grafting using the left internal mammary artery to left anterior descending coronary artery, the left radial artery from the aorta to the obtuse marginal coronary artery, and a reverse greater saphenous vein graft from the aorta to the right coronary artery. Endoscopic harvesting of the left radial artery, endoscopic harvesting of the left greater saphenous vein, intraoperative graft flow measurement using the Transfluentstim system, intraoperative transesophageal echocardiogram and epi-aortic scanning. Postoperative acute blood loss anemia and thrombocytopenia, expected outcome given hemodilution and cardiopulmonary bypass. The patient was seen in follow-up today 07/18/2020 at his bedside in the intensive care unit. Currently sitting up to the bedside chair, eating his breakfast, is awake, alert and oriented 3 and is in no acute apparent distress. Continues to deny any complaints of shortness of breath, although is complaining of some back pain which is chronic in nature rating his pain 10 out of 10 on the pain scale. He reports he had his first postoperative shower last evening. He remains hemodynamically stable and is currently on no inotropic or pressor support. The patient has been ambulating in the intensive care unit hallway with minimal assistance from nursing, physical/occupational therapy staff. Transfer orders were placed yesterday for third floor cardiac stepdown unit, awaiting a bed. Oxygen saturations are 94% on room air and he is achieving 1000 mL on his incentive spirometry at encouragement. Laboratory results this morning show a WBC 6.4, hemoglobin 8.5, hematocrit 25.7, platelets 161, sodium 139, potassium 3.8, BUN 22, creatinine 0.80. Chest x-ray this morning is pending. Objective - Vital Signs Vital signs: Vital Signs Temp 98.3 F 07/18/20 04:00 Pulse 80 07/18/20 05:00 Resp 17 07/18/20 05:00 BP 134/68 07/18/20 05:00 Pulse Ox 94 L 07/18/20 05:00 Intake & Output 07/17/20 07/18/20 07/18/20 18:59 06:59 18:59 Intake Total 720 50 Output Total 1000 850 Balance -280 -800 Intake: Oral 720 50 Output: Urine 1000 850 Other: Voiding Method Urinal Urinal # Voids 1 1 ABP, PAP, CO, CI - Last Documented Arterial Blood Pressure 118/58 Pulmonary Artery Pressure 26/6 Cardiac Output 7.4 Cardiac Index 3.5 - Exam CONSTITUTIONAL: Sitting up to the bedside chair in the intensive care unit, appears comfortable, cooperative, no apparent acute distress. HEENT: Neck is supple, no JVD, no lymphadenopathy. RESPIRATORY: Lungs sounds essentially clear throughout, and diminished to his bilateral bases. Respirations are symmetrical and nonlabored. Currently on room air with oxygen saturations 94%. Able to achieve 1000 mL on his incentive spirometry. Strong cough. CARDIOVASCULAR: Regular rhythm and rate. S1 and S2 present, negative for S3, gallop or murmur. Sternum is stable. Palpable peripheral pulses bilaterally, positive Doppler pulses to his bilateral peels. +1 edema to his bilateral lower extremities. No calf pain or tenderness noted. Heart hugger in place with patient demonstrating appropriate use. Knee-high DIONE hose and sequential compression devices in place to his bilateral lower extremities. GASTROINTESTINAL: Abdomen soft, nontender, nondistended. Hypoactive bowel sounds present 4 quadrants. Tolerating diet. Passing flatus. No guarding or rigidity. GENITOURINARY: Continues to void. Urine output 800 mL in the last 8 hours INTEGUMENTARY: Skin is warm and dry with evidence of good perfusion. Midline sternal incision clean dry and well approximated, covered with dry intact dressing. Left lower extremity EVH sites well approximated without redness or drainage. Left arm radial artery harvest sites clean, dry and approximated. No drainage or redness is present. NEUROLOGIC: Cranial nerves II through XII intact. No focal deficits. MUSKULOSKELETAL: Able to move all extremities, strength equal bilaterally, generalized weakness. PSYCHIATRIC: Alert and oriented to person place and time, appropriate affect, intact judgment and insight. - Labs CBC & Chem 7: 07/18/20 03:46 07/18/20 03:46 Labs: Abnormal Lab Results - Last 24 Hours (Table) 07/17/20 07/17/20 07/17/20 Range/Units 12:06 16:54 21:14 RBC (4.30-5.90) m/uL Hgb (13.0-17.5) gm/dL Hct (39.0-53.0) % RDW (11.5-15.5) % Lymphocytes # (1.0-4.8) k/uL BUN (9-20) mg/dL Glucose (74-99) mg/dL POC Glucose (mg/dL) 187 H 178 H 215 H (75-99) mg/dL Calcium (8.4-10.2) mg/dL 07/18/20 07/18/20 07/18/20 Range/Units 03:46 03:46 06:45 RBC 2.98 L (4.30-5.90) m/uL Hgb 8.5 L (13.0-17.5) gm/dL Hct 25.7 L (39.0-53.0) % RDW 15.9 H (11.5-15.5) % Lymphocytes # 0.9 L (1.0-4.8) k/uL BUN 22 H (9-20) mg/dL Glucose 119 H (74-99) mg/dL POC Glucose (mg/dL) 119 H (75-99) mg/dL Calcium 8.0 L (8.4-10.2) mg/dL Assessment and Plan Assessment: 1. Multivessel coronary artery disease with left main disease, status post three-vessel coronary artery bypass grafting surgery 2. Overall left ventricular systolic function mild to moderately impaired with an ejection fraction between 40 and 45% 3. Non-ST elevated myocardial infarction this admission, with elevated troponins as high as 0.356 4. COPD with a preoperative FEV1 59% of predicted value 5. History of hypertension 6. History of hyperlipidemia 7. Diabetes mellitus type 2, with preoperative hemoglobin A1c 7.3% 8. Obesity with a BMI of 30.1 kg/m 9. Chronic ongoing tobacco dependence 10. History of chronic back pain, degenerative joint disease 11. Remote history of pneumonia with pericarditis, with calcified pericardium on computed tomography scan of the chest 12. History of skin disorder 13. History of bilateral lower extremity neuropathy 14. Peripheral vascular disease, with aortoiliac occlusive disease 15. Gastroesophageal reflux disease 16. Varicose veins to his right lower extremity 17. Preoperative elevation of his lipase 371, cholelithiasis, lipase has normalized and is 112 today 18. Postoperative acute blood loss anemia, expected Plan: 1. Continue to optimize medical management with aspirin, statin, Plavix and beta kale. We will increase metoprolol tartrate as tolerated. 2. Continue amlodipine 10 mg by mouth daily for radial artery spasm prophylaxis. Please do not to discontinue calcium channel kale without discussing with cardiac surgery prior. 3. Wean oxygen as tolerated. Encourage incentive spirometry use 10x every hour while, bronchodilators per pulmonology management. 4. Increase activity, ambulate as tolerated. PT/OT/cardiac rehab following. 5. Will monitor daily labs and daily chest x-rays. Electrolyte replacement per protocol. 6. Insulin management per primary care. Patient needs tight blood sugar control to promote healing, union of the sternal bone. The patient is a diabetic with a preoperative hemoglobin A1c of 7.3%. 7. GI/DVT prophylaxis. 8. Lasix 20 mg IV x 1 now. Potassium chloride 10 mEq by mouth 1 now. 9. Continue daily showers.. 10. Continue to record strict accurate I/Os. Daily weights. 11. Pain control with current medication regimen. Ibuprofen 400 mg by mouth twice a day when necessary back pain added. 12. Risk modification discussed with the patient including importance of smoking cessation. 13. Continue Cozaar 25 mg by mouth daily at noon for afterload reduction. 14. [facility] 15. Anticipate discharge home within the next 24-48 hours with home health care. 16. More recommendations to follow based on patient's clinical course. Time with Patient: Greater than 30
[2020-07-18 11:47] LABS: Glucose,Whole Blood 160 mg/dL (75-99)
[2020-07-18] MEDS: LOSARTAN 25 MG TAB PO SCH (11:50)
--- NOTE | 2020-07-18 13:01 | PN ---
PROGRESS NOTE 64-year-old gentleman that is admitted to hospital with non ST-segment elevation RI and underwent cardiac catheterization that revealed severe left main coronary artery disease and underwent bypass surgery for the same. He has been doing well, ambulating without any issues. On exam, vital signs are stable. Chest exam reveals diminished air entry at the bases. Heart exam reveals first and second heart sounds. No gallop. Examination of extremities did not reveal any edema. Peripheral pulses are felt. The patient is currently on aspirin, Norvasc 10 mg daily, Lipitor, Plavix, Cozaar and Lopressor. His blood pressure is well controlled. ASSESSMENT: Coronary artery disease status post coronary artery bypass grafting, postop day #4. Patient is doing well. Continue current medications hopefully home in the next 48 hours. MMODL / IJN: [id number] /
[2020-07-18 16:53] LABS: Glucose,Whole Blood 223 mg/dL (75-99)
[2020-07-18 20:01] LABS: Glucose,Whole Blood 207 mg/dL (75-99)
[2020-07-18] MEDS: SENNOSIDES-DOCUSATE SODIUM 1 EACH TAB PO SCH (20:52)
[2020-07-19] MEDS: HEPARIN SODIUM,PORCINE/PF 5,000 UNIT/0.5 ML SYRINGE SQ SCH ×3 (00:27→17:13)
[2020-07-19 04:42] LABS: HCT 27.8 % (39.0-53.0); HGB 8.7 gm/dL (13.0-17.5); Hypochromasia Slight; MCH 27.1 pg (25.0-35.0); MCHC 31.5 g/dL (31.0-37.0); MCV 85.9 fL (80.0-100.0); Mean Platelet Volume 8.3; Platelet Count 228 k/uL (150-450); RBC 3.23 m/uL (4.30-5.90); WBC 6.8 k/uL (3.8-10.6)
[2020-07-19 04:54] LABS: African American GFR (CKD) >90 (>60 ml/min/1.73 sqM); Anion Gap 5 mmol/L; Blood Urea Nitrogen 19 mg/dL (9-20); Calcium 8.1 mg/dL (8.4-10.2); Carbon Dioxide 29 mmol/L (22-30); Chloride 107 mmol/L (98-107); Glucose 137 mg/dL (74-99); Non-African American GFR(CKD) >90 (>60 ml/min/1.73 sqM); Potassium 4.1 mmol/L (3.5-5.1); Sodium 141 mmol/L (137-145)
--- NOTE | 2020-07-19 06:25 | XR ---
EXAMINATION TYPE: XR chest 1V portable DATE OF EXAM: 07/19/2020 CLINICAL HISTORY: Difficulty breathing progress study. Postoperative CABG. TECHNIQUE: Single AP portable semiupright view of the chest is obtained. COMPARISON: Chest x-ray from one day earlier and older studies FINDINGS: Post-CABG changes with mediastinal clips and sternal wires is redemonstrated. Persistent cardiomegaly with stable tiny left bilateral pleural effusions. Persistent left greater than right b ilateral alveolar and interstitial opacities. The osseous structures remain intact. IMPRESSION: Cardiomegaly with tiny bilateral pleural effusions. Persistent left greater than right b ilateral multifocal edema and/or infiltrates. No significant change from one day earlier.
[2020-07-19] MEDS ORDERED: FUROSEMIDE 10 MG/ML 2 ML VIAL IV STA (06:45)
[2020-07-19] MEDS ORDERED: POTASSIUM CHLORIDE ER 10 MEQ TAB.ER.PRT PO STA (06:45)
[2020-07-19 07:24] LABS: Glucose,Whole Blood 221 mg/dL (75-99)
[2020-07-19] MEDS: SYMBICORT 160-4.5 MCG INHALER INHALATION SCH ×2 (08:04→19:34)
[2020-07-19] MEDS: IPRATROPIUM-ALBUTEROL 3 ML NEB INHALATION SCH ×4 (08:04→19:34)
[2020-07-19] MEDS: ASPIRIN 325 MG TAB PO SCH (08:23)
[2020-07-19] MEDS: CLOPIDOGREL 75 MG TAB PO SCH (08:23)
[2020-07-19] MEDS: INSULIN ASPART (NovoLOG) 100 UNIT/ML VIAL SQ SCH ×4 (08:23→22:29)
[2020-07-19] MEDS: IBUPROFEN 400 MG TAB PO PRN ×2 (08:23→19:56)
[2020-07-19] MEDS: LINAGLIPTIN 5 MG TABLET PO SCH (08:24)
[2020-07-19] MEDS: PANTOPRAZOLE 40 MG TABLET PO SCH (08:24)
[2020-07-19] MEDS: INSULIN DETEMIR (LEVEMIR) 100 UNIT/ML SYR SQ SCH (08:24)
[2020-07-19] MEDS: METOPROLOL TARTRATE 50 MG TAB PO SCH ×2 (08:25→22:00)
[2020-07-19] MEDS: amLODIPine 10 MG TAB PO SCH (08:25)
[2020-07-19] MEDS: ATORVASTATIN 40 MG TAB PO SCH (08:25)
--- NOTE | 2020-07-19 10:14 | P.PN ---
Subjective Progress Note Date: 07/19/20 Principal diagnosis: Symptomatic multivessel coronary artery disease with left main disease, non-ST elevated myocardial infarction this admission. Past medical history significant for hypertension, hyperlipidemia, diabetes mellitus type 2 with a preoperative hemoglobin A1c of 7.3%, obesity, chronic ongoing tobacco dependence, history of chronic back pain with degenerative joint disease, remote history of pneumonia with pericarditis, peripheral vascular disease, history of skin disorder, neuropathy to his bilateral lower extremities, GERD, varicose veins to his right lower extremity and evidence of cholelithiasis on preoperative abdominal ultrasound. POD #5 lysis of pericardial adhesions, triple-vessel coronary artery bypass grafting using the left internal mammary artery to left anterior descending coronary artery, the left radial artery from the aorta to the obtuse marginal coronary artery, and a reverse greater saphenous vein graft from the aorta to the right coronary artery. Endoscopic harvesting of the left radial artery, endoscopic harvesting of the left greater saphenous vein, intraoperative graft flow measurement using the Medistim system, intraoperative transesophageal echocardiogram and epi-aortic scanning. Postoperative acute blood loss anemia and thrombocytopenia, expected outcome given hemodilution and cardiopulmonary bypass. The patient was seen in follow-up today 07/19/2020 at his bedside in the intensive care unit. Currently laying in bed with his head elevated, is awake, alert and oriented 3 and is in no acute apparent distress. Denies any complaints of shortness of breath, or pain at this time. Remained hemodynamically stable and is on no inotropic pressure support. Remote telemetry showing normal sinus rhythm heart rate 83 BPM. Oxygen saturations are 98% on room air and he is achieving 1750 mL on his incentive spirometry with encouragement. The patient reports he continues to ambulate with minimal assistance from nursing staff in the intensive care unit hallway. Continues to shower daily. Laboratory results this morning showed WBC count 6.8, hemoglobin 8.7, hematocrit 27.8, platelets 228, BUN 19, and creatinine 0.64. He has been afebrile the last 24 hours. Discharge planning is in place with discharge [facility] reinforced with the patient. Objective - Vital Signs Vital signs: Vital Signs Temp 98.1 F 07/18/20 20:00 Pulse 88 07/18/20 20:00 Resp 16 07/18/20 20:00 BP 124/50 07/18/20 20:00 Pulse Ox 98 07/18/20 20:00 Intake & Output 07/18/20 07/19/20 07/19/20 18:59 06:59 18:59 Intake Total 480 20 Balance 480 20 Weight 95.3 kg 95 kg Intake: Oral 480 20 Other: Voiding Method Urinal Urinal # Voids 1 # Bowel Movements 1 ABP, PAP, CO, CI - Last Documented Arterial Blood Pressure 118/58 Pulmonary Artery Pressure 26/6 Cardiac Output 7.4 Cardiac Index 3.5 - Exam CONSTITUTIONAL: Laying in bed with his head elevated in the intensive care unit, appears comfortable, cooperative, no apparent acute distress. HEENT: Neck is supple, no JVD, no lymphadenopathy. Mucous membranes are pink and moist. No scleral icterus RESPIRATORY: Lungs sounds essentially clear throughout, and diminished to his bilateral bases. Respirations are symmetrical and nonlabored. Currently on room air with oxygen saturations 98%. Able to achieve 1750 mL on his incentive spirometry. Strong cough. CARDIOVASCULAR: Regular rhythm and rate. S1 and S2 present, negative for S3, gallop or murmur. Sternum is stable. Palpable peripheral pulses bilaterally, positive Doppler pulses to his bilateral peels. +1 edema to his bilateral lower extremities. No calf pain or tenderness noted. Heart hugger in place with jules ent demonstrating appropriate use. Knee-high DIONE hose and sequential compression devices in place to his bilateral lower extremities. GASTROINTESTINAL: Abdomen soft, nontender, nondistended. Hypoactive bowel sounds present 4 quadrants. Tolerating diet. Bowel movement yesterday 07/18/2020. No guarding or rigidity. GENITOURINARY: Continues to void. INTEGUMENTARY: Skin is warm and dry with evidence of good perfusion. Midline sternal incision clean dry and well approximated, covered with dry intact dressing. Left lower extremity EVH sites well approximated without redness or drainage. Left arm radial artery harvest sites clean, dry and approximated. No drainage or redness is present. NEUROLOGIC: Cranial nerves II through XII intact. No focal deficits. MUSKULOSKELETAL: Able to move all extremities, strength equal bilaterally, generalized weakness. PSYCHIATRIC: Alert and oriented to person place and time, appropriate affect, intact judgment and insight. - Labs CBC & Chem 7: 07/19/20 04:24 07/19/20 04:24 Labs: Abnormal Lab Results - Last 24 Hours (Table) 07/18/20 07/18/20 07/18/20 Range/Units 11:45 16:52 19:59 RBC (4.30-5.90) m/uL Hgb (13.0-17.5) gm/dL Hct (39.0-53.0) % RDW (11.5-15.5) % Creatinine (0.66-1.25) mg/dL Glucose (74-99) mg/dL POC Glucose (mg/dL) 160 H 223 H 207 H (75-99) mg/dL Calcium (8.4-10.2) mg/dL 07/19/20 07/19/20 Range/Units 04:24 04:24 RBC 3.23 L (4.30-5.90) m/uL Hgb 8.7 L (13.0-17.5) gm/dL Hct 27.8 L (39.0-53.0) % RDW 16.0 H (11.5-15.5) % Creatinine 0.64 L (0.66-1.25) mg/dL Glucose 137 H (74-99) mg/dL POC Glucose (mg/dL) (75-99) mg/dL Calcium 8.1 L (8.4-10.2) mg/dL Assessment and Plan Assessment: 1. Multivessel coronary artery disease with left main disease, status post three-vessel coronary artery bypass grafting surgery 2. Overall left ventricular systolic function mild to moderately impaired with an ejection fraction between 40 and 45% 3. Non-ST elevated myocardial infarction this admission, with elevated troponins as high as 0.356 4. COPD with a preoperative FEV1 59% of predicted value 5. History of hypertension 6. History of hyperlipidemia 7. Diabetes mellitus type 2, with preoperative hemoglobin A1c 7.3% 8. Obesity with a BMI of 30.1 kg/m 9. Chronic ongoing tobacco dependence 10. History of chronic back pain, degenerative joint disease 11. Remote history of pneumonia with pericarditis, with calcified pericardium on computed tomography scan of the chest 12. History of skin disorder 13. History of bilateral lower extremity neuropathy 14. Peripheral vascular disease, with aortoiliac occlusive disease 15. Gastroesophageal reflux disease 16. Varicose veins to his right lower extremity 17. Preoperative elevation of his lipase 371, cholelithiasis, lipase has normalized and is 112 today 18. Postoperative acute blood loss anemia, expected Plan: 1. Continue to optimize medical management with aspirin, statin, Plavix and bet a kale. Metoprolol tartrate was increased to 50 mg by mouth twice a day. 2. Continue amlodipine 10 mg by mouth daily for radial artery spasm prophylaxis. Please do not to discontinue calcium channel kale without discussing with cardiac surgery prior. 3. Encourage incentive spirometry use 10x every hour while, bronchodilators per pulmonology management. 4. Increase activity, ambulate as tolerated. PT/OT/cardiac rehab following. 5. Will monitor daily labs and daily chest x-rays. Electrolyte replacement per protocol. 6. Insulin management per primary care. Patient needs tight blood sugar control to promote healing, union of the sternal bone. The patient is a diabetic with a preoperative hemoglobin A1c of 7.3%. 7. GI/DVT prophylaxis. 8. Lasix 20 mg IV x 1 now. Potassium chloride 10 mEq by mouth 1 now. 9. Continue daily showers.. 10. Continue to record strict accurate I/Os. Daily weights. 11. Pain control with current medication regimen. 12. Risk modification discussed with the patient including importance of smoking cessation. 13. Continue Cozaar 25 mg by mouth daily at noon for afterload reduction. 14. [facility] 15. Anticipate discharge home within the next 24 hours with home health care. 16. More recommendations to follow based on patient's clinical course. Time with Patient: Greater than 30
[2020-07-19 11:58] LABS: Glucose,Whole Blood 181 mg/dL (75-99)
[2020-07-19] MEDS: LOSARTAN 25 MG TAB PO SCH (12:15)
--- NOTE | 2020-07-19 12:49 | P.PN ---
Subjective Progress Note Date: 07/19/20 Principal diagnosis: Coronary artery disease status post coronary artery bypass grafting 64-year-old male, who presents to the emergency department, for evaluation. He apparently came into the ED with complaints of 2 months or so of intermittent chest pain. Apparently initially started in the area of the right upper abdomen, and radiated into the right side of his chest. Sometimes when into his right shoulder as well. Apparently the pain is worse after eating. He does h ave a history of hiatal hernia and acid reflux disease. The patient underwent a thorough evaluation, including a catheterization, which apparently showed evidence of significant coronary artery disease, including left main disease. Unfortunately, the catheterization report is not yet available. The patient may end up having open heart surgery tomorrow. We are asked to see the patient in preoperative evaluation. He has not yet had his preoperative lung function test. A chest x-ray was normal. A CT angiogram was negative for pulmonary embolism, but did show atherosclerotic vascular disease, and also calcification of the pericardium. The patient likely does have some underlying chronic lung disease as he smoked since the age of 15, to the age of 64, at 1 pack a day. Sometimes he smoked more than that. 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 When asked about symptoms, such as shortness of breath, he only admits to chronic morning cough, with occasional clear to white phlegm production, and wheezing, according to her significant other. He denies any hemoptysis. He doesn't really even admit to shortness of breath. Lab data includes a white count 7.7, hemoglobin 12, hematocrit 36.9, and platelet count 187,000. Sodium 138, potassium 4.7, Seferino 110, CO2 22, anion gap 6, BUN 12, creatinine 0.71. The patient is seen today 07/15/2020 in follow-up in the intensive care unit. This is postoperative day #1. He did undergo coronary artery bypass grafting 3 yesterday with a GARCIA to the LAD, left radial artery to the obtuse marginal, saphenous vein graft to the RCA. He was extubated at 4.5 hours after surgery. He is currently sitting up in a chair at the bedside. Awake and alert in no acute distress. His pain is fairly well managed. He is currently on 6 L high flow nasal cannula to maintain O2 saturation in the 90s. He is 0.9 normal saline at KVO. [place] proximal at 5 mg per hour, insulin drip at 4 units per hour. Heparin for DVT prophylaxis. Receiving cefazolin per protocol. PA pressure 26/6, CVP is 4. Cardiac output 7.4. Cardiac index 3.5. Chest x-ray revealing mild perihilar and basilar opacities. Mediastinal chest tube in place 2, left pleural chest tube in place. White count 9.1. Hemoglobin 9.8. Platelets 112. Sodium 138. Potassium 4.2. Creatinine 0.71. AST 40. ALT 22. Albumin 2.9. Glucose 124. The patient is seen today 07/16/2020 in follow-up in the intensive care unit. This is postoperative day #2. He is currently sitting up in a chair at the bedside. Awake and alert in no acute distress. He is on 9 L high flow nasal cannula to maintain O2 saturation in the 90s. Asked x-ray continues to show component of volume overload, pulmonary venous hypertension and some interstitial edema. Left-sided chest tube remains in place. Mediastinal tubes in place. He is again encouraged regarding the increased use of the incentive spirometer. Currently pulling between 507 50 MLS only. White count 8.1. Hemoglobin 9.2. Platelet count 115. Sodium 134. Potassium 3.7. Creatinine 0.71. Glucose 129. Remains on bronchodilators. Clinical proximal is soft. I nsulin drip is off. No IV fluids currently. Heparin for DVT prophylaxis. He is seen today 07/17/2020 in follow-up in intensive care unit. This is postoperative day #3. He is currently up ambulating in the hallway with assistance. Doing quite well. Denies any worsening shortness of breath, cough or congestion. He is maintaining O2 saturations in the mid 90s on 2 L/m per nasal cannula. No IV fluids. Chest tubes have been removed. Chest x-ray reveals no evident complications post chest tube removal. There is bilateral airspace disease with prominent interstitium noted. White count 6.7. Hemoglobin 9.0. Platelets 138. Sodium 137. Potassium 4.0. Creatinine 0.70. Glucose 132. Receiving Lasix 20 mg IV every 8 hours. He remains on DuoNeb inhalations. Working well with the incentive spirometer. Heparin for DVT prophylaxis. The patient is seen today 07/18/2020 in follow-up in the intensive care unit. Postoperative day #4. He is currently sitting up in a chair at the bedside. Awake and alert in no acute distress. Maintaining O2 saturations in the 90s on room air. No IV fluids. He's been up ambulating with assistance. He is working well with the incentive spirometer. Chest x-ray is pending. White count 6.4. Hemoglobin 8.5. Sodium 139. Potassium 3.8. Creatinine 0.80. Remains on bronchodilators. Heparin for DVT prophylaxis. Protonix for GI prophylaxis. The patient is seen today 07/19/2020 in follow-up in the intensive care unit. Postoperative day #5. He is currently up ambulating in the hallway. Doing quite well. His pain is better controlled today. Chest x-ray shows evidence of cardiomegaly with tiny bilateral effusions. Persistent left greater than right bilateral multifocal edema/infiltrates. No significant change. Continues to work with the incentive spirometer pulling approximately 1750 ML's. Maintaining good O2 saturations in the 90s on room air. No worsening shortness of breath, cough or congestion. White count 6.8. Hemoglobin 8.7. Platelets 228. Sodium 141. Potassium 4.1. Creatinine 0.64. He did receive Lasix 20 mg IVP 1 today. Remains on bronchodilators. Objective - Vital Signs Vital signs: Vital Signs Temp 98.1 F 07/19/20 08:00 Pulse 82 07/19/20 08:23 Resp 18 07/19/20 08:00 BP 130/62 07/19/20 08:00 Pulse Ox 94 L 07/19/20 08:00 Intake & Output 07/18/20 07/19/20 07/19/20 18:59 06:59 18:59 Intake Total 480 60 240 Balance 480 60 240 Weight 95.3 kg 95 kg Intake: Oral 480 60 240 Other: Voiding Method Urinal Urinal Urinal # Voids 1 1 1 # Bowel Movements 1 ABP, PAP, CO, CI - Last Documented Arterial Blood Pressure 118/58 Pulmonary Artery Pressure 26/6 Cardiac Output 7.4 Cardiac Index 3.5 - Exam GENERAL EXAM: Alert, pleasant 64-year-old gentleman, on room air, up ambulating in the hallway. HEAD: Normocephalic. EYES: Normal reaction of pupils, equal size. NOSE: Clear with pink turbinates. THROAT: No erythema or exudates. NECK: No masses, no JVD. CHEST: Sternal dressing dry and intact. Heart Hugger in place. LUNGS: Equal air entry with few scattered rhonchi. CVS: S1 and S2 normal with no audible murmur, regular rhythm. ABDOMEN: No hepatosplenomegaly, normal bowel sounds, no guarding or rigidity. SPINE: No scoliosis or deformity SKIN: Incisions clean dry well approximated CENTRAL NERVOUS SYSTEM: No focal deficits, tone is normal in all 4 extremities. EXTREMITIES: Incision clean dry well approximated. There is trace peripheral edema. No clubbing, no cyanosis. Peripheral pulses are intact. - Labs CBC & Chem 7: 07/19/20 04:24 07/19/20 04:24 Labs: Abnormal Lab Results - Last 24 Hours (Table) 07/18/20 07/18/20 07/19/20 Range/Units 16:52 19:59 04:24 RBC 3.23 L (4.30-5.90) m/uL Hgb 8.7 L (13.0-17.5) gm/dL Hct 27.8 L (39.0-53.0) % RDW 16.0 H (11.5-15.5) % Creatinine (0.66-1.25) mg/dL Glucose (74-99) mg/dL POC Glucose (mg/dL) 223 H 207 H (75-99) mg/dL Calcium (8.4-10.2) mg/dL 07/19/20 07/19/20 07/19/20 Range/Units 04:24 07:22 11:46 RBC (4.30-5.90) m/uL Hgb (13.0-17.5) gm/dL Hct (39.0-53.0) % RDW (11.5-15.5) % Creatinine 0.64 L (0.66-1.25) mg/dL Glucose 137 H (74-99) mg/dL POC Glucose (mg/dL) 221 H 181 H (75-99) mg/dL Calcium 8.1 L (8.4-10.2) mg/dL Assessment and Plan Assessment: 1 Significant coronary artery disease including left main disease, status post coronary artery bypass grafting utilizing a GARCIA to the LAD, left radial artery to the OM, SVG to the RCA. Postoperative day #5. 2 Probable COPD based on 50 years of tobacco use, and symptoms of cough, phlegm production, and wheezing. Patient was extubated and 4.5 hours postop. Currently on room air 3 History of angina pectoris. 4 History of diabetes mellitus. 5 History of heart failure. 6 History of gastroesophageal reflux disease. 7 History of hyperlipidemia. 8 History of hypertension. 9 History of DJD. 10 History of varicose veins. 11 History of bilateral lower extremity neuropathy. 12 History of duodenal ulcer. Plan: The patient was seen and evaluated by Dr. David Soto from the pulmonary standpoint Chest x-ray and labs reviewed Continue bronchodilators Continue to work with the incentive spirometer Increase his activity as tolerated Home once cleared by CT services I, the cosigning physician, performed a history & physical examination of the patient. Lungs sounds few scattered rhonchi. Maintaining good O2 saturations in the 90s on room air. I discussed the assessment and plan of care with my nurse practitioner, Kelsey Tang. I attest to the above note as dictated by her.
--- NOTE | 2020-07-19 12:53 | PN ---
PROGRESS NOTE Dennys is a 64-year-old gentleman who is admitted to hospital with acute non ST- segment elevation MO and underwent cardiac catheterization, was found to have significant left main coronary artery disease for which he had bypass surgery. He is doing well and hopefully can be discharged home tomorrow. He is free of symptoms. Remains in sinus rhythm, hemodynamically stable. He is on Norvasc 10 mg daily, aspirin, Lipitor, Plavix 75 mg daily, Cozaar 25 mg daily. EXAM: Comfortable at rest. Vital signs are stable. Chest exam reveals good air entry bilaterally. I do not hear any crackles or rhonchi. Heart exam reveals first and second heart sounds. No gallop. Abdomen is soft. Exam of extremities did not reveal any edema. Peripheral pulses are felt. Labs show a hemoglobin of 8.7, platelet count is 228, potassium is 4.1. Creatinine is 0.6. ASSESSMENT: Severe left main coronary artery disease status post bypass surgery. The patient is making steady progress. Hopefully home tomorrow. MMODL / IJN: [id number] /
--- NOTE | 2020-07-19 14:51 | P.PN ---
Subjective Progress Note Date: 07/18/20 64-year-old the female was admitted for non-ST elevation myocardial infarction underwent cardiac catheterization which showed critical lesion in left anterior descending patient will undergo coronary artery bypass grafting tomorrow. Cardio thoracic surgery was consulted. Patient is presently on IV heparin. 07/15/2020 and patient is postoperative day one underwent coronary artery bypass grafting which is a GARCIA to LAD and left radial artery to obtuse marginal and saphenous vein graft to RCA. Patient was extubated yesterday. Patient presently has 2 chest tubes left and mediastinal. Patient is presently on insulin drip. Patient is also on clevedipine. Patient has a [place] in place. 07/16/2020 Patient remains on IV insulin drip which will be transitioned to long-acting insulin and oral hyperglycemic agents. Patient received Lasix. Patient the is on oral calcium Espinoza now patient remains to have 2 chest tubes. 07/17/2020 Patient chest tubes are out patient blood sugars are well controlled the patient has a mild pulmonary edema receiving Lasix. 07/18/2020 The patient wants status improved blood sugars remain stable. Occasional elevation of blood sugars are being treated with sliding scale insulin. Constitutional: Denied any fatigue denied any fever. Cardio vascular: denied any chest pain, palpitations Gastrointestinal denied any nausea vomiting Pulmonary: Denied any shortness of breath cough Neurologic denied any new focal deficits All inpatient medications were reviewed and appropriate changes in these medications as dictated in the interval history and assessment and plan. Objective - Vital Signs Vital signs: Vital Signs Temp 97.9 F 07/19/20 12:00 Pulse 85 07/19/20 12:00 Resp 20 07/19/20 12:00 BP 112/57 07/19/20 12:00 Pulse Ox 96 07/19/20 12:00 Intake & Output 07/18/20 07/19/20 07/19/20 18:59 06:59 18:59 Intake Total 480 60 240 Output Total 500 Balance 480 60 -260 Weight 95.3 kg 95 kg Intake: Oral 480 60 240 Output: Urine 500 Other: Voiding Method Urinal Urinal Urinal # Voids 1 1 1 # Bowel Movements 1 ABP, PAP, CO, CI - Last Documented Arterial Blood Pressure 118/58 Pulmonary Artery Pressure 26/6 Cardiac Output 7.4 Cardiac Index 3.5 - Exam PHYSICAL EXAMINATION: GENERAL: The patient is alert and oriented x3, not in any acute distress. Well developed, well nourished. HEENT: Pupils are round and equally reacting to light. EOMI. No scleral icterus. No conjunctival pallor. Normocephalic, atraumatic. No pharyngeal erythema. No thyromegaly. CARDIOVASCULAR: S1 and S2 present. No murmurs, rubs, or gallops. PULMONARY: Chest is clear to auscultation, no wheezing or crackles. Chest tubes and [place]in as mentioned above ABDOMEN: Soft, nontender, nondistended, normoactive bowel sounds. No palpable organomegaly. MUSCULOSKELETAL: No joint swelling or deformity. EXTREMITIES: No cyanosis, clubbing, or pedal edema. NEUROLOGICAL: Gross neurological examination did not reveal any focal deficits. SKIN: No rashes. - Labs CBC & Chem 7: 07/19/20 04:24 07/19/20 04:24 Labs: Abnormal Lab Results - Last 24 Hours (Table) 07/18/20 07/18/20 07/19/20 Range/Units 16:52 19:59 04:24 RBC 3.23 L (4.30-5.90) m/uL Hgb 8.7 L (13.0-17.5) gm/dL Hct 27.8 L (39.0-53.0) % RDW 16.0 H (11.5-15.5) % Creatinine (0.66-1.25) mg/dL Glucose (74-99) mg/dL POC Glucose (mg/dL) 223 H 207 H (75-99) mg/dL Calcium (8.4-10.2) mg/dL 07/19/20 07/19/20 07/19/20 Range/Units 04:24 07:22 11:46 RBC (4.30-5.90) m/uL Hgb (13.0-17.5) gm/dL Hct (39.0-53.0) % RDW (11.5-15.5) % Creatinine 0.64 L (0.66-1.25) mg/dL Glucose 137 H (74-99) mg/dL POC Glucose (mg/dL) 221 H 181 H (75-99) mg/dL Calcium 8.1 L (8.4-10.2) mg/dL Assessment and Plan Plan: 1 acute non-ST elevation myocardial infarction: Patient the had a coronary artery bypass grafting. -Possibility of COPD without any acute exacerbation at this time -Hypertension -hyperlipidemia -Type 2 diabetes mellitus patient is transitioned to long-acting insulin sliding scale and oral hypoglycemic agents will monitor the blood sugars, blood sugars are well controlled now -Diabetic neuropathy -Nicotine use: Counseling was provided
[2020-07-19 17:05] LABS: Glucose,Whole Blood 117 mg/dL (75-99)
--- NOTE | 2020-07-19 18:13 | P.PN ---
Subjective 64-year-old the female was admitted for non-ST elevation myocardial infarction underwent cardiac catheterization which showed critical lesion in left anterior descending patient will undergo coronary artery bypass grafting tomorrow. Cardio thoracic surgery was consulted. Patient is presently on IV heparin. 07/15/2020 and patient is postoperative day one underwent coronary artery bypass grafting which is a GARCIA to LAD and left radial artery to obtuse marginal and saphenous vein graft to RCA. Patient was extubated yesterday. Patient prese ntly has 2 chest tubes left and mediastinal. Patient is presently on insulin drip. Patient is also on clevedipine. Patient has a [place] in place. 07/16/2020 Patient remains on IV insulin drip which will be transitioned to long-acting insulin and oral hyperglycemic agents. Patient received Lasix. Patient the is on oral calcium Espinoza now patient remains to have 2 chest tubes. 07/17/2020 Patient chest tubes are out patient blood sugars are well controlled the patient has a mild pulmonary edema receiving Lasix. 07/18/2020 The patient wants status improved blood sugars remain stable. Occasional elevation of blood sugars are being treated with sliding scale insulin. 07/19/2020 Patient the blood sugars remain high because of change in his diet will increase her Lantus to 25 units. Pain is well-controlled chest x-ray showing persistent multifocal infiltrates or edema patient did receive her Lasix today. Constitutional: Denied any fatigue denied any fever. Cardio vascular: denied any chest pain, palpitations Gastrointestinal denied any nausea vomiting Pulmonary: Denied any shortness of breath cough Neurologic denied any new focal deficits All inpatient medications were reviewed and appropriate changes in these medications as dictated in the interval history and assessment and plan. Objective - Vital Signs Vital signs: Vital Signs Temp 98.2 F 07/19/20 16:00 Pulse 82 07/19/20 16:00 Resp 18 07/19/20 16:00 BP 122/64 07/19/20 16:00 Pulse Ox 92 L 07/19/20 16:00 Intake & Output 07/18/20 07/19/20 07/19/20 18:59 06:59 18:59 Intake Total 480 60 240 Output Total 500 Balance 480 60 -260 Weight 95.3 kg 95 kg Intake: Oral 480 60 240 Output: Urine 500 Other: Voiding Method Urinal Urinal Urinal # Voids 1 1 1 # Bowel Movements 1 ABP, PAP, CO, CI - Last Documented Arterial Blood Pressure 118/58 Pulmonary Artery Pressure 26/6 Cardiac Output 7.4 Cardiac Index 3.5 - Exam PHYSICAL EXAMINATION: GENERAL: The patient is alert and oriented x3, not in any acute distress. Well developed, well nourished. HEENT: Pupils are round and equally reacting to light. EOMI. No scleral icterus. No conjunctival pallor. Normocephalic, atraumatic. No pharyngeal erythema. No thyromegaly. CARDIOVASCULAR: S1 and S2 present. No murmurs, rubs, or gallops. PULMONARY: Chest is clear to auscultation, no wheezing or crackles. Chest tubes and [place] as mentioned above ABDOMEN: Soft, nontender, nondistended, normoactive bowel sounds. No palpable organomegaly. MUSCULOSKELETAL: No joint swelling or deformity. EXTREMITIES: No cyanosis, clubbing, or pedal edema. NEUROLOGICAL: Gross neurological examination did not reveal any focal deficits. SKIN: No rashes. - Labs CBC & Chem 7: 07/19/20 04:24 07/19/20 04:24 Labs: Abnormal Lab Results - Last 24 Hours (Table) 07/18/20 07/19/20 07/19/20 Range/Units 19:59 04:24 04:24 RBC 3.23 L (4.30-5.90) m/uL Hgb 8.7 L (13.0-17.5) gm/dL Hct 27.8 L (39.0-53.0) % RDW 16.0 H (11.5-15.5) % Creatinine 0.64 L (0.66-1.25) mg/dL Glucose 137 H (74-99) mg/dL POC Glucose (mg/dL) 207 H (75-99) mg/dL Calcium 8.1 L (8.4-10.2) mg/dL 07/19/20 07/19/20 07/19/20 Range/Units 07:22 11:46 17:03 RBC (4.30-5.90) m/uL Hgb (13.0-17.5) gm/dL Hct (39.0-53.0) % RDW (11.5-15.5) % Creatinine (0.66-1.25) mg/dL Glucose (74-99) mg/dL POC Glucose (mg/dL) 221 H 181 H 117 H (75-99) mg/dL Calcium (8.4-10.2) mg/dL Assessment and Plan Plan: 1 acute non-ST elevation myocardial infarction: Patient the had a coronary artery bypass grafting. -Possibility of COPD without any acute exacerbation at this time -Congestive heart failure with acute systolic dysfunction with acute exacerbation patient is receiving Lasix today -Hypertension -hyperlipidemia -Type 2 diabetes mellitus we'll increase the dose of long-acting insulin continue with sliding scale and linezolid Soila -Diabetic neuropathy -Nicotine use: Counseling was provided
[2020-07-19] MEDS: SENNOSIDES-DOCUSATE SODIUM 1 EACH TAB PO SCH (22:00)
[2020-07-19 22:35] LABS: Glucose,Whole Blood 180 mg/dL (75-99)
[2020-07-20] MEDS: HEPARIN SODIUM,PORCINE/PF 5,000 UNIT/0.5 ML SYRINGE SQ SCH ×2 (01:19→09:19)
[2020-07-20 04:33] LABS: African American GFR (CKD) >90 (>60 ml/min/1.73 sqM); Anion Gap 6 mmol/L; Blood Urea Nitrogen 17 mg/dL (9-20); Calcium 8.3 mg/dL (8.4-10.2); Carbon Dioxide 23 mmol/L (22-30); Chloride 110 mmol/L (98-107); Glucose 112 mg/dL (74-99); Non-African American GFR(CKD) >90 (>60 ml/min/1.73 sqM); Potassium 4.7 mmol/L (3.5-5.1); Sodium 139 mmol/L (137-145)
[2020-07-20 04:45] LABS: Basophils % (A) 1 %; Eosinophils # (A) 0.2 k/uL (0-0.7); Eosinophils % (A) 3 %; HGB 9.2 gm/dL (13.0-17.5); Hypochromasia Slight; Lymphocytes # (A) 1.2 k/uL (1.0-4.8); Lymphocytes % (A) 16 %; MCH 27.8 pg (25.0-35.0); MCHC 32.8 g/dL (31.0-37.0); MCV 84.8 fL (80.0-100.0); Mean Platelet Volume 8.9; Monocytes # (A) 0.7 k/uL (0-1.0); Monocytes % (A) 9 %; Neutrophils # (A) 5.3 k/uL (1.3-7.7); Neutrophils % (A) 69 %; Platelet Count 241 k/uL (150-450); RDW 15.8 % (11.5-15.5); WBC 7.7 k/uL (3.8-10.6)
[2020-07-20] MEDS ORDERED: INSULIN DETEMIR (LEVEMIR) 100 UNIT/ML SYR SQ SCH (07:00)
[2020-07-20 07:42] LABS: Glucose,Whole Blood 131 mg/dL (75-99)
[2020-07-20] MEDS: SYMBICORT 160-4.5 MCG INHALER INHALATION SCH (08:20)
[2020-07-20] MEDS: IPRATROPIUM-ALBUTEROL 3 ML NEB INHALATION SCH ×2 (08:20→11:43)
--- NOTE | 2020-07-20 08:43 | P.PN ---
Subjective Progress Note Date: 07/20/20 Principal diagnosis: Symptomatic multivessel coronary artery disease with left main disease, non-ST elevated myocardial infarction this admission. Previous medical history of hype rtension, hyperlipidemia, diabetes mellitus type 2, obesity, chronic ongoing tobacco dependence, chronic back pain with degenerative joint disease, remote history of pneumonia with pericarditis, peripheral vascular disease, skin disorder, neuropathy to his bilateral lower extremities, GERD, varicose veins to his right lower extremity and evidence of cholelithiasis on preoperative abdominal ultrasound. POD #6 lysis of pericardial adhesions, triple-vessel coronary artery bypass grafting using the left internal mammary artery to left anterior descending coronary artery, left radial artery from the aorta to the obtuse marginal coronary artery, reverse greater saphenous vein graft from the aorta to the right coronary artery. Endoscopic harvesting of the left radial artery, endoscopic harvesting of the left greater saphenous vein, intraoperative graft flow measurement using the [employer] system, intraoperative transesophageal echocardiogram and epi-aortic scanning. Postoperative acute blood loss anemia and thrombocytopenia, expected outcome given hemodilution and cardiopulmonary bypass. The patient is currently sitting up in a recliner in the intensive care unit in no acute distress. States pain is controlled on oral ibuprofen. Denies shortness of breath. Has been ambulatory with minimal assistance. Remains in sinus rhythm and hemodynamically stable. Anticipating discharge to home today with home care. No other new concerns. Objective - Vital Signs Vital signs: Vital Signs Temp 98.3 F 07/20/20 00:00 Pulse 74 07/20/20 00:00 Resp 15 07/20/20 04:00 BP 122/64 07/20/20 00:00 Pulse Ox 94 L 07/20/20 00:00 Intake & Output 07/19/20 07/20/20 07/20/20 18:59 06:59 18:59 Intake Total 480 40 Output Total 500 550 Balance -20 -510 Weight 93.8 kg Intake: Oral 480 40 Output: Urine 500 550 Other: Voiding Method Urinal Urinal # Voids 1 ABP, PAP, CO, CI - Last Documented Arterial Blood Pressure 118/58 Pulmonary Artery Pressure 26/6 Cardiac Output 7.4 Cardiac Index 3.5 - Exam CONSTITUTIONAL: Appears comfortable, cooperative, no acute distress RESPIRATORY: Lungs sounds diminished bilaterally. Respirations even, nonlabored. Currently on room air with oxygen saturation 94%. Able to achieve 1000 mL on incentive spirometry. Strong cough. CARDIOVASCULAR: S1, S2 present. Regular rate and rhythm, sinus rhythm on telemetry. Sternum stable. Palpable peripheral pulses bilaterally. Bilateral lower extremity edema present. No calf pain or tenderness noted. Heart hugger in place with patient demonstrating appropriate use. Antiembolism stockings, SCDs present. GASTROINTESTINAL: Abdomen soft, nontender, nondistended. Active bowel sounds present 4 quadrants. Tolerating diet. Positive bowel movement. GENITOURINARY: Continues to void clear, yellow urine INTEGUMENTARY: Skin is warm and dry with evidence of good perfusion. Anterior chest incision well approximated and covered with dry intact dressing. EVH site well approximated without redness or drainage. Left radial artery harvest site well approximated without redness or drainage. NEUROLOGIC: Cranial nerves II through XII intact MUSKULOSKELETAL: Able to move all extremities, strength equal bilaterally, gait normal PSYCHIATRIC: Alert and oriented to person place and time, appropriate affect, intact judgment and insight - Allied health notes Allied health notes reviewed: nursing - Labs CBC & Chem 7: 07/20/20 04:08 07/20/20 04:08 Labs: Abnormal Lab Results - Last 24 Hours (Table) 07/19/20 07/19/20 07/19/20 Range/Units 11:46 17:03 22:20 RBC (4.30-5.90) m/uL Hgb (13.0-17.5) gm/dL Hct (39.0-53.0) % RDW (11.5-15.5) % Chloride (98-107) mmol/L Creatinine (0.66-1.25) mg/dL Glucose (74-99) mg/dL POC Glucose (mg/dL) 181 H 117 H 180 H (75-99) mg/dL Calcium (8.4-10.2) mg/dL 07/20/20 07/20/20 07/20/20 Range/Units 04:08 04:08 07:39 RBC 3.30 L (4.30-5.90) m/uL Hgb 9.2 L (13.0-17.5) gm/dL Hct 28.0 L (39.0-53.0) % RDW 15.8 H (11.5-15.5) % Chloride 110 H (98-107) mmol/L Creatinine 0.58 L (0.66-1.25) mg/dL Glucose 112 H (74-99) mg/dL POC Glucose (mg/dL) 131 H (75-99) mg/dL Calcium 8.3 L (8.4-10.2) mg/dL - Imaging and Cardiology Chest x-ray: image reviewed Assessment and Plan Assessment: 1. Multivessel coronary artery disease with left main disease, non-STEMI this admission, status post 3V CABG 2. Overall left ventricular systolic function mild to moderately impaired with EF 40-45% 3. Hypertension 4. Hyperlipidemia, treated, cholesterol 126, LDL 69 5. Diabetes mellitus type 2, with preoperative hemoglobin A1c 7.3% 6. Moderate COPD with a preoperative FEV1 59% of predicted value 7. Chronic ongoing tobacco dependence 8. Obesity with a BMI of 30.1 kg/m 9. History of chronic back pain, degenerative joint disease 10. Remote history of pneumonia with pericarditis, with calcified pericardium on chest CT 11. History of skin disorder 12. History of bilateral lower extremity neuropathy 13. Peripheral vascular disease, with aortoiliac occlusive disease 14. Gastroesophageal reflux disease 15. Varicose veins to his right lower extremity 16. Postoperative acute blood loss anemia, expected Plan: 1. Continue to optimize medical management with aspirin, statin, Plavix, ARB and beta kale. 2. Continue amlodipine 10 mg by mouth daily for radial artery spasm prophylaxis. Please do not to discontinue CCB without discussing with cardiac surgery. 3. Encourage incentive spirometry use 10x every hour while, bronchodilators per pulmonology management. 4. Increase activity, ambulate as tolerated. PT/OT/cardiac rehab following. 5. Insulin management per primary care. Patient needs tight blood sugar control to promote healing, union of the sternal bone. 6. GI/DVT prophylaxis. 7. Lasix 20 mg IV x 1 8. Strict accurate I/Os. Daily weights. 9. Pain control with current medication regimen. 10. Risk modification discussed with the patient including importance of smoking cessation, mediterranean diet. 11. Anticipate discharge home with home health care this afternoon. 12. More recommendations to follow Time with Patient: Greater than 30
[2020-07-20] MEDS ORDERED: FUROSEMIDE 10 MG/ML 2 ML VIAL IV STA (08:50)
[2020-07-20 09:12] VITALS: TEMP 98
[2020-07-20] MEDS: ASPIRIN 325 MG TAB PO SCH (09:19)
[2020-07-20] MEDS: METOPROLOL TARTRATE 50 MG TAB PO SCH (09:19)
[2020-07-20] MEDS: ATORVASTATIN 40 MG TAB PO SCH (09:19)
[2020-07-20] MEDS: PANTOPRAZOLE 40 MG TABLET PO SCH (09:20)
[2020-07-20] MEDS: CLOPIDOGREL 75 MG TAB PO SCH (09:20)
[2020-07-20] MEDS: amLODIPine 10 MG TAB PO SCH (09:20)
--- NOTE | 2020-07-20 09:35 | XR ---
EXAMINATION TYPE: XR chest 1V portable DATE OF EXAM: 07/20/2020 COMPARISON: Chest x-ray 07/19/2020 HISTORY: Status post open-heart surgery TECHNIQUE: Single frontal view of the chest is obtained. FINDINGS: Patient is post median sternotomy. Heart is stable. No evident airspace disease, pneumotho rax, or pleural effusion. There are overlying artifacts. Patient is rotated. IMPRESSION: Postop changes. Suspect some improvement in aeration as compared to prior exam.
--- NOTE | 2020-07-20 10:06 | P.PN ---
Subjective Progress Note Date: 07/20/20 This is a 64-year-old gentleman who underwent coronary artery bypass grafting for severe left main disease. He was seen this morning. He is asymptomatic. He is here with dynamic is stable. The patient is going to be discharged home. He is on maximize medical treatment including antiplatelet and high intensity statin. Objective - Vital Signs Vital signs: Vital Signs Temp 98 F 07/20/20 08:00 Pulse 72 07/20/20 08:32 Resp 16 07/20/20 08:00 BP 131/67 07/20/20 08:00 Pulse Ox 94 L 07/20/20 08:00 Intake & Output 07/19/20 07/20/20 07/20/20 18:59 06:59 18:59 Intake Total 480 40 Output Total 500 550 Balance -20 -510 Weight 93.8 kg Intake: Oral 480 40 Output: Urine 500 550 Other: Voiding Method Urinal Urinal Urinal # Voids 1 1 ABP, PAP, CO, CI - Last Documented Arterial Blood Pressure 118/58 Pulmonary Artery Pressure 26/6 Cardiac Output 7.4 Cardiac Index 3.5 - Constitutional General appearance: Present: no acute distress - Respiratory Respiratory: bilateral: diminished - Cardiovascular Rhythm: regular Heart sounds: normal: S1, S2 - Labs CBC & Chem 7: 07/20/20 04:08 07/20/20 04:08 Labs: Abnormal Lab Results - Last 24 Hours (Table) 07/19/20 07/19/20 07/19/20 Range/Units 11:46 17:03 22:20 RBC (4.30-5.90) m/uL Hgb (13.0-17.5) gm/dL Hct (39.0-53.0) % RDW (11.5-15.5) % Chloride (98-107) mmol/L Creatinine (0.66-1.25) mg/dL Glucose (74-99) mg/dL POC Glucose (mg/dL) 181 H 117 H 180 H (75-99) mg/dL Calcium (8.4-10.2) mg/dL 07/20/20 07/20/20 07/20/20 Range/Units 04:08 04:08 07:39 RBC 3.30 L (4.30-5.90) m/uL Hgb 9.2 L (13.0-17.5) gm/dL Hct 28.0 L (39.0-53.0) % RDW 15.8 H (11.5-15.5) % Chloride 110 H (98-107) mmol/L Creatinine 0.58 L (0.66-1.25) mg/dL Glucose 112 H (74-99) mg/dL POC Glucose (mg/dL) 131 H (75-99) mg/dL Calcium 8.3 L (8.4-10.2) mg/dL Assessment and Plan Assessment: Assessment #1 coronary artery disease and status post CABG #2 multiple comorbid conditions Plan #1 continue the current medical regimen #2 the patient is going to be discharged home
[2020-07-20] MEDS: INSULIN ASPART (NovoLOG) 100 UNIT/ML VIAL SQ SCH ×2 (10:09→12:25)
[2020-07-20] MEDS: LINAGLIPTIN 5 MG TABLET PO SCH (10:11)
[2020-07-20 11:07] LABS: Glucose,Whole Blood 202 mg/dL (75-99)
--- NOTE | 2020-07-20 11:23 | P.PN ---
Subjective Progress Note Date: 07/20/20 Principal diagnosis: Coronary artery disease, status post three-vessel bypass grafting 64-year-old male, who presents to the emergency department, for evaluation. He apparently came into the ED with complaints of 2 months or so of intermittent chest pain. Apparently initially started in the area of the right upper abdomen, and radiated into the right side of his chest. Sometimes when into his right shoulder as well. Apparently the pain is worse after eating. He does hav e a history of hiatal hernia and acid reflux disease. The patient underwent a thorough evaluation, including a catheterization, which apparently showed evidence of significant coronary artery disease, including left main disease. Unfortunately, the catheterization report is not yet available. The patient may end up having open heart surgery tomorrow. We are asked to see the patient in preoperative evaluation. He has not yet had his preoperative lung function test. A chest x-ray was normal. A CT angiogram was negative for pulmonary embolism, but did show atherosclerotic vascular disease, and also calcification of the pericardium. The patient likely does have some underlying chronic lung disease as he smoked since the age of 15, to the age of 64, at 1 pack a day. Sometimes he smoked more than that. 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 When asked about symptoms, such as shortness of breath, he only admits to chronic morning cough, with occasional clear to white phlegm production, and wheezing, according to her significant other. He denies any hemoptysis. He doesn't really even admit to shortness of breath. Lab data includes a white count 7.7, hemoglobin 12, hematocrit 36.9, and platelet count 187,000. Sodium 138, potassium 4.7, Seferino 110, CO2 22, anion gap 6, BUN 12, creatinine 0.71. The patient is seen today 07/15/2020 in follow-up in the intensive care unit. This is postoperative day #1. He did undergo coronary artery bypass grafting 3 yesterday with a GARCIA to the LAD, left radial artery to the obtuse marginal, saphenous vein graft to the RCA. He was extubated at 4.5 hours after surgery. He is currently sitting up in a chair at the bedside. Awake and alert in no acute distress. His pain is fairly well managed. He is currently on 6 L high flow nasal cannula to maintain O2 saturation in the 90s. He is 0.9 normal saline at KVO. Dingess proximal at 5 mg per hour, insulin drip at 4 units per hour. Heparin for DVT prophylaxis. Receiving cefazolin per protocol. PA pressure 26/6, CVP is 4. Cardiac output 7.4. Cardiac index 3.5. Chest x-ray revealing mild perihilar and basilar opacities. Mediastinal chest tube in place 2, left pleural chest tube in place. White count 9.1. Hemoglobin 9.8. Platelets 112. Sodium 138. Potassium 4.2. Creatinine 0.71. AST 40. ALT 22. Albumin 2.9. Glucose 124. The patient is seen today 07/16/2020 in follow-up in the intensive care unit. This is postoperative day #2. He is currently sitting up in a chair at the bedside. Awake and alert in no acute distress. He is on 9 L high flow nasal cannula to maintain O2 saturation in the 90s. Asked x-ray continues to show component of volume overload, pulmonary venous hypertension and some interstitial edema. Left-sided chest tube remains in place. Mediastinal tubes in place. He is again encouraged regarding the increased use of the incentive spirometer. Currently pulling between 507 50 MLS only. White count 8.1. Hemoglobin 9.2. Platelet count 115. Sodium 134. Potassium 3.7. Creatinine 0.71. Glucose 129. Remains on bronchodilators. Clinical proximal is soft. Insulin drip is off. No IV fluids currently. Heparin for DVT prophylaxis. He is seen today 07/17/2020 in follow-up in intensive care unit. This is postoperative day #3. He is currently up ambulating in the hallway with assistance. Doing quite well. Denies any worsening shortness of breath, cough or congestion. He is maintaining O2 saturations in the mid 90s on 2 L/m per nasal cannula. No IV fluids. Chest tubes have been removed. Chest x-ray reveals no evident complications post chest tube removal. There is bilateral airspace disease with prominent interstitium noted. White count 6.7. Hemoglobin 9.0. Platelets 138. Sodium 137. Potassium 4.0. Creatinine 0.70. Glucose 132. Receiving Lasix 20 mg IV every 8 hours. He remains on DuoNeb inhalations. Working well with the incentive spirometer. Heparin for DVT prophylaxis. The patient is seen today 07/18/2020 in follow-up in the intensive care unit. Postoperative day #4. He is currently sitting up in a chair at the bedside. Awake and alert in no acute distress. Maintaining O2 saturations in the 90s on room air. No IV fluids. He's been up ambulating with assistance. He is working well with the incentive spirometer. Chest x-ray is pending. White count 6.4. Hemoglobin 8.5. Sodium 139. Potassium 3.8. Creatinine 0.80. Remains on bronchodilators. Heparin for DVT prophylaxis. Protonix for GI prophylaxis. The patient is seen today 07/19/2020 in follow-up in the intensive care unit. Postoperative day #5. He is currently up ambulating in the hallway. Doing quite well. His pain is better controlled today. Chest x-ray shows evidence of cardiomegaly with tiny bilateral effusions. Persistent left greater than right bilateral multifocal edema/infiltrates. No significant change. Continues to work with the incentive spirometer pulling approximately 1750 ML's. Maintaining good O2 saturations in the 90s on room air. No worsening shortness of breath, cough or congestion. White count 6.8. Hemoglobin 8.7. Platelets 228. Sodium 141. Potassium 4.1. Creatinine 0.64. He did receive Lasix 20 mg IVP 1 today. Remains on bronchodilators. On 07/20/2020 patient seen in follow-up in the intensive care unit, today is postoperative day day #6, status post three-vessel coronary artery bypass graf hernandez, patient has been an overflow for selective care. He is awake and alert, sitting up in the recliner, in no acute distress, he is currently on room air, pulse ox is 92%, breathing comfortably, he is achieving [id number] on his incentive spirometer today, today's chest x-ray was reviewed showing some improvement in aeration, no evident airspace disease, no pneumothorax or pleural effusion. No fever or chills, blood pressure has been stable, no acute events overnight. Tolerating oral diet. Today's labs have been reviewed, with a total of 7.7, hemoglobin is 9.2, platelet count is 241, sodium is 139, potassium is 4.7, chloride is 110, CO2 is 23, BUN 17 creatinine 0.58. he has been tolerating ambulation. Midsternal incision, chest tube sites are clean dry and intact, patient has SCDs on bilateral lower extremities, bilateral mitchell hose. No specific complaints. Per CT surgery discharge home is pending for today Objective - Vital Signs Vital signs: Vital Signs Temp 98 F 07/20/20 08:00 Pulse 72 07/20/20 08:32 Resp 16 07/20/20 08:00 BP 131/67 07/20/20 08:00 Pulse Ox 94 L 07/20/20 08:00 Intake & Output 07/19/20 07/20/20 07/20/20 18:59 06:59 18:59 Intake Total 480 40 Output Total 500 550 Balance -20 -510 Weight 93.8 kg Intake: Oral 480 40 Output: Urine 500 550 Other: Voiding Method Urinal Urinal Urinal # Voids 1 1 ABP, PAP, CO, CI - Last Documented Arterial Blood Pressure 118/58 Pulmonary Artery Pressure 26/6 Cardiac Output 7.4 Cardiac Index 3.5 - Exam GENERAL EXAM: Alert, very pleasant, 64-year-old white male on room air, with a pulse ox of 94%, comfortable in no apparent distress. HEAD: Normocephalic/atraumatic. EYES: Normal reaction of pupils, equal size. Conjunctiva pink, sclera white. NOSE: Clear with pink turbinates. THROAT: No erythema or exudates. NECK: No masses, no JVD, no thyroid enlargement, no adenopathy. CHEST: No chest wall deformity. Symmetrical expansion. Midsternal incision is clean dry and intact, chest tube sites are clean dry and intact LUNGS: Equal air entry with no crackles, wheeze, rhonchi or dullness. CVS: Regular rate and rhythm, normal S1 and S2, no gallops, no murmurs, no rubs ABDOMEN: Soft, nontender. No hepatosplenomegaly, normal bowel sounds, no guarding or rigidity. EXTREMITIES: No clubbing, no edema, no cyanosis, 2+ pulses and upper and lower extremities. MUSCULOSKELETAL: Muscle strength and tone normal. SPINE: No scoliosis or deformity SKIN: No rashes CENTRAL NERVOUS SYSTEM: Alert and oriented -3. No focal deficits, tone is normal in all 4 extremities. PSYCHIATRIC: Alert and oriented -3. Appropriate affect. Intact judgment and insight. - Labs CBC & Chem 7: 07/20/20 04:08 07/20/20 04:08 Labs: Abnormal Lab Results - Last 24 Hours (Table) 07/19/20 07/19/20 07/19/20 Range/Units 11:46 17:03 22:20 RBC (4.30-5.90) m/uL Hgb (13.0-17.5) gm/dL Hct (39.0-53.0) % RDW (11.5-15.5) % Chloride (98-107) mmol/L Creatinine (0.66-1.25) mg/dL Glucose (74-99) mg/dL POC Glucose (mg/dL) 181 H 117 H 180 H (75-99) mg/dL Calcium (8.4-10.2) mg/dL 07/20/20 07/20/20 07/20/20 Range/Units 04:08 04:08 07:39 RBC 3.30 L (4.30-5.90) m/uL Hgb 9.2 L (13.0-17.5) gm/dL Hct 28.0 L (39.0-53.0) % RDW 15.8 H (11.5-15.5) % Chloride 110 H (98-107) mmol/L Creatinine 0.58 L (0.66-1.25) mg/dL Glucose 112 H (74-99) mg/dL POC Glucose (mg/dL) 131 H (75-99) mg/dL Calcium 8.3 L (8.4-10.2) mg/dL 07/20/20 Range/Units 11:05 RBC (4.30-5.90) m/uL Hgb (13.0-17.5) gm/dL Hct (39.0-53.0) % RDW (11.5-15.5) % Chloride (98-107) mmol/L Creatinine (0.66-1.25) mg/dL Glucose (74-99) mg/dL POC Glucose (mg/dL) 202 H (75-99) mg/dL Calcium (8.4-10.2) mg/dL Assessment and Plan Plan: Assessment: 1 Significant coronary artery disease including left main disease, status post coronary artery bypass grafting utilizing a GARCIA to the LAD, left radial artery to the OM, SVG to the RCA. Postoperative day #6. 2 Probable COPD based on 50 years of tobacco use, and symptoms of cough, phlegm production, and wheezing. Patient was extubated and 4.5 hours postop. Currently on room air 3 History of angina pectoris. 4 History of diabetes mellitus. 5 History of heart failure. 6 History of gastroesophageal reflux disease. 7 History of hyperlipidemia. 8 History of hypertension. 9 History of DJD. 10 History of varicose veins. 11 History of bilateral lower extremity neuropathy. 12 History of duodenal ulcer. Plan: Patient is doing well Stable from pulmonary perspective Chest x-ray has been reviewed Hemodynamically stable No specific complaints Encourage deep breathing and coughing From pulmonary perspective patient is cleared for discharge today Follow up with Dr. Hernandez in the office in one week I performed a history & physical examination of the patient and discussed their management with my nurse practitioner, Preethi Walker. I reviewed the nurse practitioner's note and agree with the documented findings and plan of care. Lung sounds are positive for diminished breath sounds. The findings and the impression was discussed with the patient. I attest to the documentation by the nurse practitioner. Time with Patient: Less than 30
[2020-07-20 12:24] VITALS: BP 111/54; PULSE 78; RESP 18
[2020-07-20] MEDS: LOSARTAN 25 MG TAB PO SCH (12:25)
--- NOTE | 2020-07-20 12:59 | P.DS ---
Providers Date of admission: 07/11/20 19:37 Expected date of discharge: 07/20/20 Attending physician: Rosanna Jarvis Consults: 07/11/20 19:38 Consult Physician Urgent Consulting Provider: Shyam Pollock Consult Reason/Comments: chest pain, elevated troponin Do you want consulting provider notified?: Yes 07/13/20 10:45 Consult Physician Routine Consulting Provider: John Hernandez Consult Reason/Comments: Preoperative cardiac surgery Do you want consulting provider notified?: Yes 07/13/20 14:10 Consult to Anesthesia Routine Consulting Provider: Anesthesia,Services Consult Reason/Comments: Cardiac Surgery Pre-Op 07/14/20 17:37 Consult Physician Routine Consulting Provider: Crispin Ames Consult Reason/Comments: medical management Do you want consulting provider notified?: Already Contacted Primary care physician: Kristopher Berman [facility] Course: FINAL DIAGNOSIS: 1. Symptomatic multivessel coronary artery disease with left main disease, non- STEMI this admission 2. Left ventricular systolic function mild to moderately impaired with EF 40- 45% 3. Hypertension 4. Hyperlipidemia, treated, cholesterol 126, LDL 69 5. Diabetes mellitus type 2 with preoperative hemoglobin A1c 7.3% 6. Moderate COPD with preoperative FEV1 59% of predicted 7. Chronic ongoing tobacco dependence 8. Obesity 9. History of chronic back pain, degenerative joint disease 10. Remote history of pneumonia with pericarditis 11. History of skin disorder 12. History of bilateral lower extremity neuropathy 13. Peripheral vascular disease with aortoiliac occlusive disease 14. GERD 15. Varicose veins to right lower extremity 16. Postoperative acute blood loss anemia, expected PRINCIPAL PROCEDURE: 1. Lysis of pericardial adhesions 2. Triple-vessel coronary artery bypass grafting using the left internal mammary artery to the left anterior descending coronary artery, left radial artery from the aorta to the obtuse marginal coronary artery, reverse greater saphenous vein graft from the aorta to the right coronary artery 3. Endoscopic harvesting of the left radial artery 4. Endoscopic harvesting of the left greater saphenous vein from the groin to above the ankle level 5. Intraoperative graft flow measurements using the Dryncstim system 6. Intraoperative transesophageal echocardiogram and epi-aortic scanning HISTORY OF PRESENT ILLNESS: Us is a 64-year-old gentleman who follows on an outpatient basis with Dr. Godinez for primary care. He presented to the emergency room [facility] with complaints of right upper quadrant pain, right- sided chest pain, right shoulder pain, with radiation down his right arm. He reports that he has had similar pain episodes over the last couple months, and they have gotten progressively worse. Associated symptoms include nausea and vomiting, he denies any shortness of breath, fever, chills, dizziness, or syncope. A 12-lead EKG was completed in the emergency room demonstrating normal sinus rhythm with left anterior fascicular block and ST and T-wave abnormalities. Troponins were elevated and patient was ruled in for non-STEMI. CTA of the chest was negative for pulmonary embolism. He was recommended to undergo heart catheterization which demonstrated distal left main stenosis 80- 90% with extension into the ostial portion of the circumflex coronary artery, and mild to moderate plaque in the midportion of the LAD. 2-D echocardiogram demonstrated mild to moderately impaired left ventricular function with EF 40- 45%, mild mitral regurgitation, trace tricuspid regurgitation, and mild pulmonary hypertension. Consultation was placed to Dr. Jarvis from cardiothoracic surgery. He was recommended to undergo urgent CABG. The usual perioperative course was discussed in detail with the patient and his family, all risks and benefits were explained, all questions were answered, and consent was obtained to proceed with surgery. The patient was kept inpatient due to the nature of his disease process. HOSPITAL COURSE: The patient was brought to the preoperative area 07/14/2020, prepared in the usual fashion, and subsequently taken to the operating room where Dr. Jarvis performed three-vessel CABG. Upon completion of surgery the patient was transferred to the cardiovascular intensive care unit where he was recovered and monitored hemodynamically. He was extubated, all lines, tubes, and drips were discontinued when appropriate, and transfer orders were placed for 3 S. cardiac stepdown unit, however there was no bed availability and the patient remained on ICU as a stepdown patient until discharge. His oxygen was titrated down, he continued to work with physical and occupational therapy, he was tolerating oral diet, his pain was controlled, and he was ready to be discharged to home with [facility] on postoperative day #6. He received written and verbal instruction regarding his medications, activity restrictions, signs and symptoms requiring physician notification, and follow-up appointments. He was instructed to keep a log of his blood sugars to take to his primary care physicians. COMPLICATIONS: The patient experienced no postoperative complications. Patient Condition at Discharge: Stable Plan - Discharge Summary Discharge Rx Participant: No New Discharge Prescriptions: New Losartan [Cozaar] 25 mg PO DAILY@1200 #30 tab Ibuprofen [Motrin] 400 mg PO BID PRN tab PRN Reason: pain Clopidogrel [Plavix] 75 mg PO DAILY #30 tab Sennosides-Docusate Sodium [Senokot-S] 2 each PO HS PRN tab PRN Reason: Constipation Acetaminophen Tab [Tylenol] 1,000 mg PO Q6HR PRN tab PRN Reason: Fever And/ Or Pain Aspirin 325 mg PO DAILY #30 tab Atorvastatin [Lipitor] 40 mg PO DAILY #30 tab Metoprolol Tartrate [Lopressor] 50 mg PO BID #60 tab amLODIPine [Norvasc] 10 mg PO DAILY #30 tab Pantoprazole [Protonix] 40 mg PO AC-BRKFST #30 tablet. Budesonide-Formot 160-4.5 Mcg [Symbicort 160-4.5 Mcg Inhaler] 2 puff INHALATION RT-BID #120 puff Insulin Glargine,Hum.rec.anlog [Lantus Solostar] 20 unit SQ DAILY #5 pen Continue Furosemide [Lasix] 40 mg PO DAILY #30 tab metFORMIN HCL [Glucophage] 500 mg PO TID #90 tab Potassium Chloride ER [K-Dur 10] 10 meq PO DAILY #30 tab sitaGLIPtin [Januvia] 100 mg PO DAILY #30 tab Discontinued Metoprolol Tartrate [Lopressor] 25 mg PO DAILY Simvastatin [Zocor] 40 mg PO HS lisinopriL [Zestril] 2.5 mg PO DAILY Discharge Medication List Acetaminophen Tab [Tylenol] 1,000 mg PO Q6HR PRN tab 07/20/20 [Rx] Aspirin 325 mg PO DAILY #30 tab 07/20/20 [Rx] Atorvastatin [Lipitor] 40 mg PO DAILY #30 tab 07/20/20 [Rx] Budesonide-Formot 160-4.5 Mcg [Symbicort 160-4.5 Mcg Inhaler] 2 puff INHALATION RT-BID #120 puff 07/20/20 [Rx] Clopidogrel [Plavix] 75 mg PO DAILY #30 tab 07/20/20 [Rx] Furosemide [Lasix] 40 mg PO DAILY #30 tab 07/20/20 [Rx] Ibuprofen [Motrin] 400 mg PO BID PRN tab 07/20/20 [Rx] Insulin Glargine,Hum.rec.anlog [Lantus Solostar] 20 unit SQ DAILY #5 pen 07/20 [Rx] Losartan [Cozaar] 25 mg PO DAILY@1200 #30 tab 07/20/20 [Rx] Metoprolol Tartrate [Lopressor] 50 mg PO BID #60 tab 07/20/20 [Rx] Pantoprazole [Protonix] 40 mg PO JANELLE-BRKFST #30 tablet. 07/20/20 [Rx] Potassium Chloride ER [K-Dur 10] 10 meq PO DAILY #30 tab 07/20/20 [Rx] Sennosides-Docusate Sodium [Senokot-S] 2 each PO HS PRN tab 07/20/20 [Rx] amLODIPine [Norvasc] 10 mg PO DAILY #30 tab 07/20/20 [Rx] metFORMIN HCL [Glucophage] 500 mg PO TID #90 tab 07/20/20 [Rx] sitaGLIPtin [Januvia] 100 mg PO DAILY #30 tab 07/20/20 [Rx] Follow up Appointment(s)/Referral(s): Radha Vaqzuez NPC [Nurse Practitioner] - 07/24/20 11:00 am Antonella Summers MD [Primary Care Provider] - 08/06/20 10:00 am Rosanna Jarvis MD [STAFF PHYSICIAN] - 08/14/20 10:00 am John Hernandez DO [Doctor of Osteopathic Medicine] - 08/14/20 2:15 pm [facility], [NON-STAFF] - 1-2 Days Bruce Archibald MD [STAFF PHYSICIAN] - 08/04/20 4:30 pm Ambulatory/Diagnostic Orders: Complete Blood Count w/diff [LAB.AMB] Time Frame: 3 Days, Location: None Selected Comprehensive Metabolic Panel [LAB.AMB] Time Frame: 3 Days, Location: None Selected Activity/Diet/Wound Care/Special Instructions: Low cost blood sugar testing supplies available at [facility] in [facility] and they can be contacted at [phone]. DISCHARGE INSTRUCTIONS: 1. No driving for 4 weeks, or until physician gives their ok. 2. The patient should sleep in their own bed, no medical bed needed. 3. Stairs are not an issue. If the bedroom is upstairs, it is advised that the patient go up at night and down in the morning for the first week. Go slowly, using handrail and take 1 step at a time. 4. DIONE hose are to be worn for 30 days or until physician discontinues. 5. Heart hugger is to be worn 100% of the time until physician discontinues.(except when showering) 6. No lifting, pushing, or pulling more than 10 pounds for 12 weeks. The physician will advise of any restriction changes. 7. The patient is expected to continue the prescribed walking program. 8. Continue pain control per as needed orders. 9. Continue with incentive spirometry and splinting/heart hugger until otherwise directed by the physician. 10. Must shower daily using liquid antibacterial soap and a separate white washcloth for each individual incision. 11. Routine sternal incision care. No powders, lotions, ointments on incisions. No dressings are necessary on incisions unless they are draining. Dermabond tape is to remain on sternal incision until surgeon follow-up. 12. Please call surgeon/LEAD GAME DESIGNER for temp greater than 101 F or purulent drainage from incisions. 13. All prescriptions given by surgeon for 30 days. Refills need to be filled through social worker psychiatric/primary care physician. 14. A Red armband has been placed on the patient. It should be worn for 30 days post surgery and will be removed by the cardiac surgeons. If an ER visit is necessary, please make sure the number on the Red armband is called. 15. You have been referred to and are expected to begin Cardiac Rehab in approximately 4-6 weeks. 16. Please keep a log of your blood sugars and bring with you to your follow up appointment with Dr. Summers HOME HEALTH SERVICES TO PROVIDE: RN SKILLED HOME CARE SERVICES FOR POST-OP SURGICAL PATIENTS WITH THE FOLLOWING: Coronary Artery Bypass Surgery (CABG), Mitral Valve Replacement/Repair ( MVR), Aortic Valve Replacement/Repair (AVR) RN TO CONTINUE EDUCATION FROM ``ROAD TO A HEALTH HEART PATIENT EDUCATION MANUAL (GIVEN TO PATIENT IN THE HOSPITAL) MEDICATION RECONCILIATION WITH EDUCATION NEEDED ON FIRST HOME VISIT EMPHASIZE IMPORTANCE OF WEARING BREAST SUPPORT/HEART HUGGER ENCOURAGE USE OF INCENTIVE SPIROMETER 10 X EVERY HOUR WHILE AWAKE ENCOURAGE UTILIZATION OF LOWER EXTREMITY COMPRESSION STOCKINGS/DIONE HOSE and ELEVATE LEGS ABOVE LEVEL OF HEART WHILE AT REST. ENCOURAGE AMBULATION 3-5x/day INCREASING TOLERATES, WHILE AVOIDING EXTREMES IN TEMPERATURE FREQUENCY: RN TO OPEN THE PATIENT WITHIN 24 HOURS OF DISCHARGE FROM THE HOSPITAL WITH TELEHEALTH INSTALLED AT [facility], RN TO VISIT 2-3 X A WEEK FOR 4 WEEKS ESTABLISHED BY PATIENT NEEDS. LABORATORY: CBC, CMP TO BE DRAWN ON THE THIRD DAY HOME, (RAN STAT) FAX RESULTS TO [phone]. TELEHEALTH PARAMETERS: WEIGHT: NOTIFY MD OF WEIGHT GAIN OF 2 LBS IN 24 HOURS OR 5 LBS IN ONE WEEK HR: NOTIFY MD OF HR <55 BPM OR HR>100 BPM BP: NOTIFY MD IF BP <90/55 OR BP>140/100 O2 SAT: NOTIFY MD IF PO2<93% ON ROOM AIR SEND TELEHEALTH REPORT TO CLINICAL DOCUMENT IMPROVEMENT EDUCATOR AND CARDIOVASCULAR SURGEON THE FIRST WEEK OF CARE AND THEN BI-WEEKLY. PLEASE ADDITIONALLY COMMUNICATE ANY ABNORMALS AND NEW FINDINGS TO THE SURGEONS OFFICE. For any questions or concerns please call user interface developer Radha @ or Faisal @ Discharge Disposition: HOME WITH HOME HEALTH SERVICES
--- NOTE | 2020-07-20 15:02 | P.PN ---
Subjective 64-year-old the female was admitted for non-ST elevation myocardial infarction underwent cardiac catheterization which showed critical lesion in left anterior descending patient will undergo coronary artery bypass grafting tomorrow. Cardio thoracic surgery was consulted. Patient is presently on IV heparin. 07/15/2020 and patient is postoperative day one underwent coronary artery bypass grafting which is a GARCIA to LAD and left radial artery to obtuse marginal and saphenous vein graft to RCA. Patient was extubated yesterday. Patient prese ntly has 2 chest tubes left and mediastinal. Patient is presently on insulin drip. Patient is also on clevedipine. Patient has a Poulan-Justin in place. 07/16/2020 Patient remains on IV insulin drip which will be transitioned to long-acting insulin and oral hyperglycemic agents. Patient received Lasix. Patient the is on oral calcium Espinoza now patient remains to have 2 chest tubes. 07/17/2020 Patient chest tubes are out patient blood sugars are well controlled the patient has a mild pulmonary edema receiving Lasix. 07/18/2020 The patient wants status improved blood sugars remain stable. Occasional elevation of blood sugars are being treated with sliding scale insulin. 07/19/2020 Patient the blood sugars remain high because of change in his diet will increase her Lantus to 25 units. Pain is well-controlled chest x-ray showing persistent multifocal infiltrates or edema patient did receive her Lasix today. 07/20/2020 Patient is being discharged today patient will continue with metformin but that need to monitor for lactic acidosis continue with Januvia. Patient will add 20 units of long-acting insulin that his Lantus and that check the blood sugars twice a day. Patient will benefit from medications like Jardiance. Constitutional: Denied any fatigue denied any fever. Cardio vascular: denied any chest pain, palpitations Gastrointestinal denied any nausea vomiting Pulmonary: Denied any shortness of breath cough Neurologic denied any new focal deficits All inpatient medications were reviewed and appropriate changes in these medications as dictated in the interval history and assessment and plan. Objective - Vital Signs Vital signs: Vital Signs Temp 98 F 07/20/20 12:00 Pulse 78 07/20/20 12:00 Resp 18 07/20/20 12:00 BP 111/54 07/20/20 12:00 Pulse Ox 94 L 07/20/20 12:00 Intake & Output 07/19/20 07/20/20 07/20/20 18:59 06:59 18:59 Intake Total 480 40 Output Total 500 550 Balance -20 -510 Weight 93.8 kg Intake: Oral 480 40 Output: Urine 500 550 Other: Voiding Method Urinal Urinal Urinal # Voids 1 1 ABP, PAP, CO, CI - Last Documented Arterial Blood Pressure 118/58 Pulmonary Artery Pressure 26/6 Cardiac Output 7.4 Cardiac Index 3.5 - Exam PHYSICAL EXAMINATION: GENERAL: The patient is alert and oriented x3, not in any acute distress. Well developed, well nourished. HEENT: Pupils are round and equally reacting to light. EOMI. No scleral icterus. No conjunctival pallor. Normocephalic, atraumatic. No pharyngeal erythema. No thyromegaly. CARDIOVASCULAR: S1 and S2 present. No murmurs, rubs, or gallops. PULMONARY: Chest is clear to auscultation, no wheezing or crackles. Chest tubes and Poulan-Justin as mentioned above ABDOMEN: Soft, nontender, nondistended, normoactive bowel sounds. No palpable organomegaly. MUSCULOSKELETAL: No joint swelling or deformity. EXTREMITIES: No cyanosis, clubbing, or pedal edema. NEUROLOGICAL: Gross neurological examination did not reveal any focal deficits. SKIN: No rashes. - Labs CBC & Chem 7: 07/20/20 04:08 07/20/20 04:08 Labs: Abnormal Lab Results - Last 24 Hours (Table) 07/19/20 07/19/20 07/20/20 Range/Units 17:03 22:20 04:08 RBC 3.30 L (4.30-5.90) m/uL Hgb 9.2 L (13.0-17.5) gm/dL Hct 28.0 L (39.0-53.0) % RDW 15.8 H (11.5-15.5) % Chloride (98-107) mmol/L Creatinine (0.66-1.25) mg/dL Glucose (74-99) mg/dL POC Glucose (mg/dL) 117 H 180 H (75-99) mg/dL Calcium (8.4-10.2) mg/dL 07/20/20 07/20/20 07/20/20 Range/Units 04:08 07:39 11:05 RBC (4.30-5.90) m/uL Hgb (13.0-17.5) gm/dL Hct (39.0-53.0) % RDW (11.5-15.5) % Chloride 110 H (98-107) mmol/L Creatinine 0.58 L (0.66-1.25) mg/dL Glucose 112 H (74-99) mg/dL POC Glucose (mg/dL) 131 H 202 H (75-99) mg/dL Calcium 8.3 L (8.4-10.2) mg/dL Assessment and Plan Plan: 1 acute non-ST elevation myocardial infarction: Patient the had a coronary artery bypass grafting. -Possibility of COPD without any acute exacerbation at this time -Congestive heart failure with acute systolic dysfunction with acute exacerbation patient is receiving Lasix today -Hypertension -hyperlipidemia -Type 2 diabetes mellitus discharge a diabetic medications as mentioned in the interval history -Diabetic neuropathy -Nicotine use: Counseling was provided
== END 2020-07-20 15:00 | disposition home health service (06) | DRG 234 ==
LOC: EC 16:22 → 3SCARD 19:37 → 2SICU 07-13 10:22
PROVIDERS: ADMIT Hospitalist; ATTEND Surgery
PROC: B2111ZZ Fluoroscopy of Multiple Coronary Arteries using Low Osmolar Contrast (ICD-10-PCS; 2020-07-13)
PROC: 4A023N7 Measurement of Cardiac Sampling and Pressure, Left Heart, Percutaneous Approach (ICD-10-PCS; 2020-07-13)
PROC: 03BC4ZZ Excision of Left Radial Artery, Percutaneous Endoscopic Approach (ICD-10-PCS; principal; 2020-07-14 08:15)
PROC: 5A1221Z Performance of Cardiac Output, Continuous (ICD-10-PCS; principal; 2020-07-14 08:15)
PROC: B246ZZ4 Ultrasonography of Right and Left Heart, Transesophageal (ICD-10-PCS; principal; 2020-07-14 08:15)
PROC: 021109W Bypass Coronary Artery, Two Arteries from Aorta with Autologous Venous Tissue, Open Approach (ICD-10-PCS; principal; 2020-07-14 08:15)
PROC: 02100Z9 Bypass Coronary Artery, One Artery from Left Internal Mammary, Open Approach (ICD-10-PCS; principal; 2020-07-14 08:15)
PROC: 02N Heart and Great Vessels, Release (ICD-10-PCS; principal; 2020-07-14 08:15)
PROC: 06BQ4ZZ Excision of Left Saphenous Vein, Percutaneous Endoscopic Approach (ICD-10-PCS; principal; 2020-07-14 08:15)
DX: I21.4 Non-ST elevation (NSTEMI) myocardial infarction (principal); I31.0 Chronic adhesive pericarditis; I50.32 Chronic diastolic (congestive) heart failure; D62 Acute posthemorrhagic anemia; I25.10 Atherosclerotic heart disease of native coronary artery without angina pectoris; Z20.822 Contact with and (suspected) exposure to COVID-19; J44.9 Chronic obstructive pulmonary disease, unspecified; F17.210 Nicotine dependence, cigarettes, uncomplicated; G89.29 Other chronic pain; I11.0 Hypertensive heart disease with heart failure; I44.4 Left anterior fascicular block; D69.6 Thrombocytopenia, unspecified; E11.51 Type 2 diabetes mellitus with diabetic peripheral angiopathy without gangrene; E11.40 Type 2 diabetes mellitus with diabetic neuropathy, unspecified; E11.65 Type 2 diabetes mellitus with hyperglycemia; Z79.84 Long term (current) use of oral hypoglycemic drugs; E66.9 Obesity, unspecified; E78.5 Hyperlipidemia, unspecified; I08.1 Rheumatic disorders of both mitral and tricuspid valves; I83.91 Asymptomatic varicose veins of right lower extremity; K21.9 Gastro-esophageal reflux disease without esophagitis; K76.0 Fatty (change of) liver, not elsewhere classified; K80.20 Calculus of gallbladder without cholecystitis without obstruction; M19.031 Primary osteoarthritis, right wrist; Z68.30 Body mass index [BMI] 30.0-30.9, adult; Z79.02 Long term (current) use of antithrombotics/antiplatelets; Z79.82 Long term (current) use of aspirin; Z79.899 Other long term (current) drug therapy; Z82.49 Family history of ischemic heart disease and other diseases of the circulatory system; Z87.01 Personal history of pneumonia (recurrent); Z87.11 Personal history of peptic ulcer disease; Z90.89 Acquired absence of other organs; Z98.42 Cataract extraction status, left eye; Z98.41 Cataract extraction status, right eye; Z83.2 Family history of diseases of the blood and blood-forming organs and certain disorders involving the immune mechanism; Z80.9 Family history of malignant neoplasm, unspecified; M54.9 Dorsalgia, unspecified
CPT/HCPCS: 36415; 71045; 71046; 71275; 76705; 80048; 80053; 80061; 80074; 81003; 82150; 82330; 82805; 83036; 83690; 83735; 83880; 84100; 84443; 84484; 85025; 85027; 85379; 85520; 85610; 85730; 86850; 86891; 86900; 86901; 86920; 87070; 87635; 93005; 93306; 93458; 93880; 93923; 93930; 93970; 94150; 94640; 99291

== ENCOUNTER 2021-04-14 21:56 | Inpatient (IN) | payer BC, MEDICARE ==
--- NOTE | 2021-04-14 22:24 | ED ---
General Adult HPI - General Chief complaint: Chest Pain Stated complaint: Chest pain Time Seen by Provider: 04/14/21 22:04 Source: patient, EMS Mode of arrival: EMS - History of Present Illness Initial comments: Dictation was produced using SHER[employer] assistant dictation software. please excuse any grammatical, word or spelling errors. Chief Complaint: 65-year-old male presents emergency department for chest pain History of Present Illness: 65-year-old male has multiple comorbidities presents emergency department for chest pain. Patient states pain was in his right a nterior chest. Nonradiating but associated with diaphoresis. No nausea. Patient states that it was ongoing for several minutes prompting him to call EMS. EMS arrived on scene and noticed that he had some ischemic changes on his EKG. They provided patient with nitroglycerin which significantly improved his symptoms. Patient is history of coronary artery disease. He is status post coronary artery bypass grafting performed last year. Since being in emergency department state patient states his symptoms are significantly improved. The ROS documented in this emergency department record has been reviewed and confirmed by me. Those systems with pertinent positive or negative responses simpson ve been documented in the HPI. All other systems are other negative and/or noncontributory. PHYSICAL EXAM: General Impression: Alert and oriented x3, not in acute distress HEENT: Normocephalic atraumatic, extra-ocular movements intact, pupils equal and reactive to light bilaterally, mucous membranes moist. Cardiovascular: Heart regular rate and rhythm Chest: Able to complete full sentences, no retractions, no tachypnea Abdomen: abdomen soft, non-tender, non-distended, no organomegaly Musculoskeletal: Pulses present and equal in all extremities, no peripheral edema Motor: no focal deficits noted Neurological: CN II-XII grossly intact, no focal motor or sensory deficits noted Skin: Intact with no visualized rashes Psych: Normal affect and mood ED course: 65-year-old male presents to the emergency department for chest pain concerning for ACS. Prehospital EKGs were reviewed showing findings concerning for ischemic changes. vital signs upon arrival are unremarkable. Initial EKG shows no findings of ischemia or infarction. Patient received aspirin and nitro glycerin for prehospital providers with significant improvement of symptoms. Limited evaluation obtained. Patient has anemia of hemoglobin of 5.8. Patient has no history of anemia. He does have macrocytosis. His concern for iron deficiency. Metabolic panel is unremarkable. Electrolytes shows magnesium 1.5. Troponin 0.031. Stool occult blood is negative. Patient denies any black or bloody stools chest x-ray is unremarkable. Vision reevaluated 11:10 PM found to be stable medical condition. Patient not have any chest pain at this time. Patient transfuse 2 units of blood. He'll be admitted to [facility] with consultation to cardiology. Case discussed with and is willing to accept patients care. Serial troponins ordered. EKG interpretation: Ventricular rate 92, sinus rhythm,. Interval 175, QRS 91, QTC 4:15. No WI prolongation, no QTC prolongation, no ST or T-wave changes note d. EKG compared to 07/11/2020 showing no changes. Overall, this EKG is unremarkable - Related Data Previous Rx's Medication Instructions Recorded Acetaminophen Tab [Tylenol] 1,000 mg PO Q6HR PRN tab 07/20/20 Aspirin 325 mg PO DAILY #30 tab 07/20/20 Atorvastatin [Lipitor] 40 mg PO DAILY #30 tab 07/20/20 Budesonide-Formot 160-4.5 Mcg 2 puff INHALATION RT-BID #120 puff 07/20/20 [Symbicort 160-4.5 Mcg Inhaler] Clopidogrel [Plavix] 75 mg PO DAILY #30 tab 07/20/20 Furosemide [Lasix] 40 mg PO DAILY #30 tab 07/20/20 Ibuprofen [Motrin] 400 mg PO BID PRN tab 07/20/20 Insulin Glargine,Hum.rec.anlog 20 unit SQ DAILY #5 pen 07/20/20 [Lantus Solostar] Losartan [Cozaar] 25 mg PO DAILY@1200 #30 tab 07/20/20 Metoprolol Tartrate [Lopressor] 50 mg PO BID #60 tab 07/20/20 Pantoprazole [Protonix] 40 mg PO JANELLE-ELPIDIO #30 tablet. 07/20/20 Potassium Chloride ER [K-Dur 10] 10 meq PO DAILY #30 tab 07/20/20 Sennosides-Docusate Sodium 2 each PO HS PRN tab 07/20/20 [Senokot-S] amLODIPine [Norvasc] 10 mg PO DAILY #30 tab 07/20/20 metFORMIN HCL [Glucophage] 500 mg PO TID #90 tab 07/20/20 sitaGLIPtin [Januvia] 100 mg PO DAILY #30 tab 07/20/20 Allergies Allergy/AdvReac Type Severity Reaction Status Date / Time codeine Allergy Swelling Verified 04/14/21 22:10 Review of Systems ROS Statement: Those systems with pertinent positive or pertinent negative responses have been documented in the HPI. ROS Other: All systems not noted in ROS Statement are negative. Past Medical History Past Medical History: Chest Pain / Angina, Heart Failure, Diabetes Mellitus, GERD/Reflux, Hyperlipidemia, Hypertension, Osteoarthritis (OA), Skin Disorder, Vascular Disorder Additional Past Medical History / Comment(s): Chronic L leg edema and occasionally R leg edema, varicose veins right leg, NIDDM type II, neuropathy bilateral feet, duodenal ulcer that are healed, arthritis R wrist, post op umbilical hernia ileus/infection,remote history of pneumonia with pericarditis. History of Any Multi-Drug Resistant Organisms: None Reported Past Surgical History: Back Surgery, Heart Catheterization, Hernia Repair, Orthopedic Surgery, Tonsillectomy Additional Past Surgical History / Comment(s): 02/2018 umbilical hernia repair with "bowel complication", 2011 cardiac cath with some blockages, lower back surgery d/t ruptured discs, L foot surgery d/t injury, bilateral laser eye surg vin for cataracts Past Anesthesia/Blood Transfusion Reactions: No Reported Reaction Past Psychological History: No Psychological Hx Reported Smoking Status: Current every day smoker Past Alcohol Use History: None Reported Past Drug Use History: None Reported - Past Family History Sister(s) Family Medical History: Pulmonary Embolus Father Family Medical History: Coronary Artery Disease (CAD), Myocardial Infarction ([place]) Additional Family Medical History / Comment(s): Father of [place] at age 68yrs. Mother Family Medical History: Cancer, Coronary Artery Disease (CAD), Deep Vein Thrombosis (DVT), Hypertension Additional Family Medical History / Comment(s): Mother has alot of allergies. RARE BLOOD CANCER Course Vital Signs 04/14/21 22:08 Temperature 98 F Pulse Rate 86 Respiratory 18 Rate Blood Pressure 142/62 O2 Sat by Pulse 98 Oximetry Medical Decision Making - Lab Data Result diagrams: 04/14/21 22:11 04/14/21 22:11 Lab Results 04/14/21 04/14/21 04/14/21 Range/Units 22:11 22:11 22:11 WBC 10.1 (3.8-10.6) k/uL RBC 3.28 L (4.30-5.90) m/uL Hgb 5.8 L* (13.0-17.5) gm/dL Hct 21.5 L (39.0-53.0) % MCV 65.5 L (80.0-100.0) fL MCH 17.7 L (25.0-35.0) pg MCHC 27.1 L (31.0-37.0) g/dL RDW 19.1 H (11.5-15.5) % Plt Count 414 (150-450) k/uL MPV 8.7 Neutrophils % 68 % Lymphocytes % 18 % Monocytes % 7 % Eosinophils % 3 % Basophils % 0 % Neutrophils # 6.8 (1.3-7.7) k/uL Lymphocytes # 1.8 (1.0-4.8) k/uL Monocytes # 0.7 (0-1.0) k/uL Eosinophils # 0.3 (0-0.7) k/uL Basophils # 0.0 (0-0.2) k/uL Hypochromasia Marked Poikilocytosis Moderate Anisocytosis Slight Microcytosis Marked Sodium 137 (137-145) mmol/L Potassium 4.1 (3.5-5.1) mmol/L Chloride 101 (98-107) mmol/L Carbon Dioxide 21 L (22-30) mmol/L Anion Gap 15 mmol/L BUN 19 (9-20) mg/dL Creatinine 0.92 (0.66-1.25) mg/dL Est GFR (CKD-EPI)AfAm >90 (>60 ml/min/1.73 sqM) Est GFR (CKD-EPI)NonAf 87 (>60 ml/min/1.73 sqM) Glucose 252 H (74-99) mg/dL Calcium 9.5 (8.4-10.2) mg/dL Magnesium 1.5 L (1.6-2.3) mg/dL Total Bilirubin 0.5 (0.2-1.3) mg/dL AST 16 L (17-59) U/L ALT 14 (4-49) U/L Alkaline Phosphatase 100 (38-126) U/L Troponin I 0.031 (0.000-0.034) ng/mL Total Protein 7.3 (6.3-8.2) g/dL Albumin 3.9 (3.5-5.0) g/dL Lipase 177 (23-300) U/L Stool Occult Blood (Negative) 04/14/21 Range/Units 23:00 WBC (3.8-10.6) k/uL RBC (4.30-5.90) m/uL Hgb (13.0-17.5) gm/dL Hct (39.0-53.0) % MCV (80.0-100.0) fL MCH (25.0-35.0) pg MCHC (31.0-37.0) g/dL RDW (11.5-15.5) % Plt Count (150-450) k/uL MPV Neutrophils % % Lymphocytes % % Monocytes % % Eosinophils % % Basophils % % Neutrophils # (1.3-7.7) k/uL Lymphocytes # (1.0-4.8) k/uL Monocytes # (0-1.0) k/uL Eosinophils # (0-0.7) k/uL Basophils # (0-0.2) k/uL Hypochromasia Poikilocytosis Anisocytosis Microcytosis Sodium (137-145) mmol/L Potassium (3.5-5.1) mmol/L Chloride (98-107) mmol/L Carbon Dioxide (22-30) mmol/L Anion Gap mmol/L BUN (9-20) mg/dL Creatinine (0.66-1.25) mg/dL Est GFR (CKD-EPI)AfAm (>60 ml/min/1.73 sqM) Est GFR (CKD-EPI)NonAf (>60 ml/min/1.73 sqM) Glucose (74-99) mg/dL Calcium (8.4-10.2) mg/dL Magnesium (1.6-2.3) mg/dL Total Bilirubin (0.2-1.3) mg/dL AST (17-59) U/L ALT (4-49) U/L Alkaline Phosphatase (38-126) U/L Troponin I (0.000-0.034) ng/mL Total Protein (6.3-8.2) g/dL Albumin (3.5-5.0) g/dL Lipase (23-300) U/L Stool Occult Blood Negative (Negative) Critical Care Time Critical Care Time: Yes Total Critical Care Time: 33 Disposition Clinical Impression: Chest pain, Anemia Disposition: ADMITTED IP TO THIS HOSP Condition: Critical Referrals: Antonella Summers MD [Primary Care Provider] - 1-2 days
[2021-04-14 22:40] LABS: Anisocytosis Slight; Basophils % (A) 0 %; Eosinophils # (A) 0.3 k/uL (0-0.7); Eosinophils % (A) 3 %; HCT 21.5 % (39.0-53.0); Hypochromasia Marked; Lymphocytes # (A) 1.8 k/uL (1.0-4.8); Lymphocytes % (A) 18 %; MCH 17.7 pg (25.0-35.0); MCHC 27.1 g/dL (31.0-37.0); MCV 65.5 fL (80.0-100.0); Mean Platelet Volume 8.7; Microcytosis Marked; Monocytes # (A) 0.7 k/uL (0-1.0); Monocytes % (A) 7 %; Neutrophils # (A) 6.8 k/uL (1.3-7.7); Neutrophils % (A) 68 %; Platelet Count 414 k/uL (150-450); Poikilocytosis Moderate; RBC 3.28 m/uL (4.30-5.90); RDW 19.1 % (11.5-15.5); WBC 10.1 k/uL (3.8-10.6)
--- NOTE | 2021-04-14 22:45 | XR ---
EXAMINATION TYPE: XR chest 2V DATE OF EXAM: 04/14/2021 COMPARISON: 07/20/2020 HISTORY: Chest pain TECHNIQUE: 2 views FINDINGS: There is no heart failure nor confluent pneumonic infiltrate. Costophrenic angles are clear . There are no hilar masses there are sternal wires. IMPRESSION: No active cardiopulmonary disease. No adverse change. There is improved aeration of the l eft lower lobe compared to last exam.
[2021-04-14 22:46] LABS: ALT 14 U/L (4-49); AST 16 U/L (17-59); African American GFR (CKD) >90 (>60 ml/min/1.73 sqM); Albumin 3.9 g/dL (3.5-5.0); Alkaline Phosphatase 100 U/L (38-126); Anion Gap 15 mmol/L; Blood Urea Nitrogen 19 mg/dL (9-20); Calcium 9.5 mg/dL (8.4-10.2); Carbon Dioxide 21 mmol/L (22-30); Chloride 101 mmol/L (98-107); Glucose 252 mg/dL (74-99); HGB 5.8 gm/dL (13.0-17.5); Lipase 177 U/L (23-300); Magnesium 1.5 mg/dL (1.6-2.3); Non-African American GFR(CKD) 87 (>60 ml/min/1.73 sqM); Potassium 4.1 mmol/L (3.5-5.1); Sodium 137 mmol/L (137-145); Total Bilirubin 0.5 mg/dL (0.2-1.3); Total Protein 7.3 g/dL (6.3-8.2)
[2021-04-14] MEDS ORDERED: PANTOPRAZOLE 40 MG/10 ML VIAL IVP STA (22:47)
[2021-04-14 22:56] LABS: Prothrombin Time 10.6 sec (9.0-12.0)
[2021-04-14] MEDS ORDERED: NALOXONE 0.4 MG/ML 1 ML VIAL IV PRN (23:08)
[2021-04-14] MEDS ORDERED: ONDANSETRON 4 MG/2 ML VIAL IVP PRN (23:08)
[2021-04-14 23:21] LABS: Partial Thromboplastin Time 19.8 sec (22.0-30.0)
[2021-04-14] MEDS: MAGNESIUM SULFATE-D5W PMX 1 GM in DEXTROSE/WATER 1 100ML.BAG IVPB SCH (23:30)
[2021-04-14] MEDS: SODIUM CHLORIDE 0.9% 1,000 ML IV SCH (23:33)
[2021-04-15] MEDS: MAGNESIUM SULFATE-D5W PMX 1 GM in DEXTROSE/WATER 1 100ML.BAG IVPB SCH (00:46)
[2021-04-15 06:15] LABS: Glucose,Whole Blood 163 mg/dL (75-99)
[2021-04-15] MEDS: INSULIN ASPART (NovoLOG) 100 UNIT/ML VIAL SQ SCH ×4 (08:44→20:42)
[2021-04-15 08:57] LABS: Anisocytosis Slight; HCT 23.3 % (39.0-53.0); Hypochromasia Marked; MCH 19.3 pg (25.0-35.0); MCHC 28.8 g/dL (31.0-37.0); MCV 66.9 fL (80.0-100.0); Mean Platelet Volume 8.9; Microcytosis Marked; Platelet Count 345 k/uL (150-450); Poikilocytosis Marked; RBC 3.49 m/uL (4.30-5.90); RDW 19.3 % (11.5-15.5); WBC 9.7 k/uL (3.8-10.6)
[2021-04-15 08:59] LABS: HGB 6.7 gm/dL (13.0-17.5)
[2021-04-15] MEDS: PANTOPRAZOLE 40 MG/10 ML VIAL IVP SCH ×2 (09:00→20:42)
[2021-04-15] MEDS: FUROSEMIDE 40 MG TAB PO SCH (09:00)
[2021-04-15] MEDS: METOPROLOL TARTRATE 50 MG TAB PO SCH ×2 (09:00→20:42)
--- NOTE | 2021-04-15 09:03 | ECHOF ---
Referral Reason:CP, LV function evaluate pericardial effusion MEASUREMENTS -------- HEIGHT: 180.3 cm WEIGHT: 90.7 kg BP: RVIDd: 2.6 cm (< 3.3) IVSd: 1.1 cm (0.6 - 1.1) LVIDd: 4.2 cm (3.9 - 5.3) LVPWd: 1.2 cm (0.6 - 1.1) IVSs: 2.0 cm LVIDs: 2.5 cm LVPWs: 1.9 cm Ao Diam: 3.3 cm (2.0 - 3.7) AV Cusp: 1.7 cm (1.5 - 2.6) LA Diam: 2.7 cm (2.7 - 3.8) MV EXCURSION: 15.271 mm (> 18.000) MV EF SLOPE: 130 mm/s (70 - 150) EPSS: 0.6 cm MV E Drew: 1.10 m/s MV DecT: 204 ms MV A Drew: 0.80 m/s MV E/A Ratio: 1.37 AV maxP.88 mmHg AV meanP.33 mmHg AR PHT: 262 ms RAP: 5.00 mmHg RVSP: 30.28 mmHg FINDINGS -------- Sinus rhythm. This was a technically difficult study with suboptimal views. The left ventricular size is normal. There is mild concentric left ventricular hypertrophy. Overa ll left ventricular systolic function is mild-moderately impaired with, an EF between 40 - 45 %. Mi d anterior LV wall motion is hypokinetic. Mid lateral LV wall motion is normal. Apical anterior LV wall motion is hypokinetic. Apical septum LV wall motion is hypokinetic. The right ventricle is normal in size. The left atrial size is normal. The right atrial size is normal. Lumason used There is mild aortic valve sclerosis. There is mild aortic stenosis present. Peak/mean gradient a cross the Aortic Valve is 19.88mmHg / 9.33mmHg. The mitral valve leaflets are mildly thickened. Mild mitral regurgitation is present. The tricuspid valve appears structurally normal. Mild tricuspid regurgitation present. Right vent ricular systolic pressure is normal at < 35 mmHg. The right ventricular systolic pressure, as measu red by Doppler, is 30.28mmHg. Trace/mild (physiologic) pulmonic regurgitation. The aortic root size is normal. IVC Not well visulized. Echo free space may represent effusion or a pericardial fat pad. CONCLUSIONS -------- 1. This was a technically difficult study with suboptimal views. 2. There is mild concentric left ventricular hypertrophy. 3. Overall left ventricular systolic function is mild-moderately impaired with, an EF between 40 - 45 %. 4. Mid lateral LV wall motion is normal. 5. Apical anterior LV wall motion is hypokinetic. 6. Apical septum LV wall motion is hypokinetic. 7. There is mild aortic stenosis present. 8. Peak/mean gradient across the Aortic Valve is 19.88mmHg / 9.33mmHg. 9. Mild mitral regurgitation is present. 10. Mild tricuspid regurgitation present. 11. Trace/mild (physiologic) pulmonic regurgitation. FISH NET STRINGER: Radha Serrato RDCS
--- NOTE | 2021-04-15 09:29 | P.HPIM ---
History of Present Illness This is a pleasant 65 years old male with past medical history of Heart Failure, Diabetes Mellitus, GERD/Reflux, Hyperlipidemia, Hypertension, Osteoarthritis, diabetic neuropathy bilateral feet, duodenal ulcer that are healed, arthritis R wrist, post op umbilical hernia ileus/infection,remote history of pneumonia with pericarditis. Coronary artery disease status post CABG in 2104. Patient states that he presents because of right chest pain that has been going on for 3 weeks on and off but yesterday it was more severe that during the night he was talking to his to come to the morning to the emergency room but it did cause severe and he was on the floor and his called 911. The pain is nonradiating and feels like a sore spot on his right chest associated with some nausea and sweating. But no dyspnea or coughing. Patient states that he is been taking pain lately more frequently especially during the last few days because of his worsening chest pain, he could not remember the name of the patella but when I asked him if it is Motrin and he said yes it is similar to it. And also reports black stool which is unusual for him but he denies abdominal pain except for vomiting. No urinary complaints or dysuria. No headache or dizziness or weakness or numbness. He denies smoking, alcohol or illicit drugs. He has history of spinal fusion surgery. Also he has history of bypass surgery were all 3 vessels about 8-9 months ago. Vitas looks stable. Labs showing hemoglobin of 5.8, which is microcytic, rest of CBC is unremarkable as well as INR, BMP and liver enzymes. Glucose elevated 252 Occult blood in the stool is negative, coronavirus not detected EKG showing normal sinus rhythm at [address]-T changes. Chest x-ray: No acute process. There is improved aeration of the left lower lobe Patient received 1 unit of blood transfusion and his hemoglobin went up to 6.7. Review of Systems Review of systems CONSTITUTIONAL: No fever, no malaise, no fatigue. HEENT: No recent visual problems or hearing problems. Denied any sore throat. CARDIOVASCULAR: No orthopnea, PND, no palpitations, no syncope. PULMONARY: No shortness of breath, no cough, no hemoptysis. GASTROINTESTINAL: No diarrhea, no nausea, no vomiting, no abdominal pain. Normoactive bowel sounds. NEUROLOGICAL: No headaches, no weakness, no numbness. HEMATOLOGICAL: Denies any bleeding or petechiae. GENITOURINARY: Denies any burning micturition, frequency, or urgency. MUSCULOSKELETAL/RHEUMATOLOGICAL: Denies any joint pain, swelling, or any muscle pain. ENDOCRINE: Denies any polyuria or polydipsia. Past Medical History Past Medical History: Chest Pain / Angina, Heart Failure, Diabetes Mellitus, GERD/Reflux, Hyperlipidemia, Hypertension, Osteoarthritis (OA), Skin Disorder, Vascular Disorder Additional Past Medical History / Comment(s): Chronic L leg edema and occasionally R leg edema, varicose veins right leg, NIDDM type II, neuropathy bilateral feet, duodenal ulcer that are healed, arthritis R wrist, post op umbi lical hernia ileus/infection,remote history of pneumonia with pericarditis. History of Any Multi-Drug Resistant Organisms: None Reported Past Surgical History: Back Surgery, Coronary Bypass/CABG, Heart Catheterization, Hernia Repair, Orthopedic Surgery, Tonsillectomy Additional Past Surgical History / Comment(s): 02/2018 umbilical hernia repair with "bowel complication", 2011 cardiac cath with some blockages, lower back cavazos rgery d/t ruptured discs, L foot surgery d/t injury, bilateral laser eye surgery for cataracts Past Anesthesia/Blood Transfusion Reactions: No Reported Reaction Past Psychological History: No Psychological Hx Reported Additional Psychological History / Comment(s): Pt lives at home with his . 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 Smoking Status: Former smoker Past Alcohol Use History: None Reported Additional Past Alcohol Use History / Comment(s): SMOKES 1 PPD SINCE AGE 15 Past Drug Use History: None Reported - Past Family History Sister(s) Family Medical History: Pulmonary Embolus Father Family Medical History: Coronary Artery Disease (CAD), Myocardial Infarction ([place]) Additional Family Medical History / Comment(s): Father of [place] at age 68yrs. Mother Family Medical History: Cancer, Coronary Artery Disease (CAD), Deep Vein Thrombosis (DVT), Hypertension Additional Family Medical History / Comment(s): Mother has alot of allergies. RARE BLOOD CANCER Medications and Allergies Home Medications Medication Instructions Recorded Confirmed Type Clopidogrel [Plavix] 75 mg PO DAILY #30 tab 07/20/20 04/14/21 Rx Losartan [Cozaar] 25 mg PO DAILY@1200 #30 tab 07/20/20 04/14/21 Rx Metoprolol Tartrate [Lopressor] 50 mg PO BID #60 tab 07/20/20 04/14/21 Rx Pantoprazole [Protonix] 40 mg PO AC-BRKFST #30 tablet.dr 07/20/20 04/14/21 Rx amLODIPine [Norvasc] 10 mg PO DAILY #30 tab 07/20/20 04/14/21 Rx sitaGLIPtin [Januvia] 100 mg PO DAILY #30 tab 07/20/20 04/14/21 Rx Atorvastatin [Lipitor] 40 mg PO HS 04/14/21 04/14/21 History Baclofen [Lioresal] 10 mg PO HS PRN 04/14/21 04/14/21 History Furosemide [Lasix] 40 mg PO AC-BRKFST 04/14/21 04/14/21 History Insulin Glargine,Hum.rec.anlog 20 unit SQ HS PRN 04/14/21 04/14/21 History [Lantus Solostar] Potassium Chloride [Potassium 10 meq PO HS 04/14/21 04/14/21 History Chloride ER] metFORMIN HCL [Glucophage] 500 mg PO TID-W/MEALS 04/14/21 04/14/21 History Allergies Allergy/AdvReac Type Severity Reaction Status Date / Time codeine Allergy Swelling Verified 04/14/21 23:24 tongue Physical Exam Vitals: Vital Signs Temp Pulse Pulse Resp BP BP Pulse Ox 04/15/21 08:00 97.5 F L 74 18 128/55 96 04/15/21 04:33 98.0 F 73 17 130/62 97 04/15/21 04:00 98.1 F 73 18 131/63 97 04/15/21 02:29 98.6 F 68 18 115/72 95 04/15/21 02:27 16 04/15/21 02:00 16 04/15/21 01:59 98.4 F 76 17 125/57 94 L 04/15/21 01:49 98.4 F 74 16 121/59 94 L 04/15/21 00:00 98.0 F 123/71 04/14/21 23:10 80 18 144/61 97 04/14/21 22:08 98 F 86 18 142/62 98 Intake and Output 04/14/21 04/15/21 04/15/21 22:59 06:59 14:59 Intake Total 310 Balance 310 Intake: Blood Product 310 Rc As-1 Unit 310 [id number] Other: Voiding Method Urinal # Voids 1 Weight 90.718 kg 90.718 kg GENERAL: The patient is alert and oriented x3, not in any acute distress. Well developed, well nourished. HEENT: Pupils are round and equally reacting to light. EOMI. No scleral icterus. No conjunctival pallor. Normocephalic, atraumatic. No pharyngeal erythema. No thyromegaly. CARDIOVASCULAR: S1 and S2 present. No murmurs, rubs, or gallops. PULMONARY: Chest is clear to auscultation, no wheezing or crackles. ABDOMEN: Soft, nontender, nondistended, normoactive bowel sounds. No palpable organomegaly. MUSCULOSKELETAL: No joint swelling or deformity. EXTREMITIES: No cyanosis, clubbing, or pedal edema. NEUROLOGICAL: Gross neurological examination did not reveal any focal deficits. SKIN: No rashes. no petechiae. Results CBC & Chem 7: 04/15/21 08:17 04/14/21 22:11 Labs: Abnormal Lab Results - Last 24 Hours (Table) 04/14/21 04/14/21 04/14/21 Range/Units 22:11 22:11 22:11 RBC 3.28 L (4.30-5.90) m/uL Hgb 5.8 L* (13.0-17.5) gm/dL Hct 21.5 L (39.0-53.0) % MCV 65.5 L (80.0-100.0) fL MCH 17.7 L (25.0-35.0) pg MCHC 27.1 L (31.0-37.0) g/dL RDW 19.1 H (11.5-15.5) % APTT 19.8 L (22.0-30.0) sec Carbon Dioxide 21 L (22-30) mmol/L Glucose 252 H (74-99) mg/dL POC Glucose (mg/dL) (75-99) mg/dL Magnesium 1.5 L (1.6-2.3) mg/dL AST 16 L (17-59) U/L Crossmatch 04/14/21 04/15/21 04/15/21 Range/Units 22:55 06:14 08:17 RBC 3.49 L (4.30-5.90) m/uL Hgb 6.7 L* (13.0-17.5) gm/dL Hct 23.3 L (39.0-53.0) % MCV 66.9 L (80.0-100.0) fL MCH 19.3 L (25.0-35.0) pg MCHC 28.8 L (31.0-37.0) g/dL RDW 19.3 H (11.5-15.5) % APTT (22.0-30.0) sec Carbon Dioxide (22-30) mmol/L Glucose (74-99) mg/dL POC Glucose (mg/dL) 163 H (75-99) mg/dL Magnesium (1.6-2.3) mg/dL AST (17-59) U/L Crossmatch See Detail Thrombosis Risk Factor Assmnt - Choose All That Apply Any of the Below Risk Factors Present?: Yes Each Factor Represents 1 point: Obesity (BMI >25), Swollen legs (current) Other Risk Factors: Yes Each Risk Factor Represents 2 Points: Age 61-74 years Thrombosis Risk Factor Assessment Total Risk Factor Score: 4 Thrombosis Risk Factor Assessment Level: Moderate Risk Assessment and Plan Assessment: acute anemia, rule out GI bleed. Suspected secondary to pain medication in FOR example NSAIDs Chest pain, rule out cardiac causes History of coronary artery disease status post CABG Hypertension Diabetes mellitus with hyperglycemia Hyperlipidemia Diabetic neuropathy History of arthritis Plan: this is a pleasant 65 years old male who presents because of chest pain We'll do serial troponins, cardiology consult. Continue with metoprolol. Nitroglycerin as needed We will do anemia workup consult surgery service for possible acute GI bleed Labs and medication were reviewed.. Continue same treatment. Continue with symptomatic treatment. Resume home medication. Monitor lytes and vitals. DVT and GI prophylaxis. Further recommendations as per clinical course of the patient DVT prophylaxis:no Subcutaneous heparin GI Prophylaxis: Ppi PT/OT: Pending Prognosis is guarded
--- NOTE | 2021-04-15 11:20 | P.CRDCN ---
History of Present Illness History of present illness: This is a pleasant 64-year-old with past medical history significant for hypertension, hyperlipidemia, tobacco abuse, chronic back pain, type 2 diabetes coronary arterty disease s/p 3 vessel CABG on 07/14/2020. He follows with Dr. Archibald. We have been consulted for chest pain. Patient presents with right sided chest discomfort for about a week. He describes it as sore pain. States it is co nstant but the intensity will increase on and off. Located in the right side of his chest. Non-radiating. Non-exertional. Yesterday he did have associated nausea and episode of emesis. In addition, he states that it has been aggravated by certain foods he eats, yesterday he feels the peanut butter and jelly aggravated the pain. It is also tender to palpation on exam. Denies injury. He denies any shortness of breath, lightheadedness, dizziness, syncope or near syncope. Denies symptoms of orthopnea, PND or worsening lower extremity edema. He does endorse dark stools which have been occurring for 3+ months. Denies any bleeding. He received sublingual nitro in EMS, IV protonix and the ED and he states his pain has resolved. Patient also received 1 unit of PRBCs with Hgb returned to 6.7. DIAGNOSTICS EKG sinus rhythm, heart rate 92, PAC, incomplete right bundle branch block, T wave inversion in V2, slow R wave progression, no significant ST-T wave abnormalities. Labs troponin negative x 2, WBC 9.7, hemoglobin 6.7, platelets 345, sodium 137, potassium 4.1, BUN 19, serum crit 0.9, magnesium 1.5, stool occult negative Echo 06/2020 revealing ejection fraction 40-45%, mild aortic valve sclerosis, mild mitral regurgitation, trace tricuspid regurgitation, and mild pulmonary hypertension. Chest xray no acute cardiopulmonary process Echocardiogram today revealed an EF of 40-45%, mid lateral, apical LV wall hypokinesis, mild aortic stenosis with expression gradient of 19 mmHg/9 mmHg, mi ld mitral regurgitation, mild tricuspid regurgitation REVIEW OF SYSTEMS At the time of my exam: CONSTITUTIONAL: Denies fever or chills. CARDIOVASCULAR: + chest tenderness to palpation to right side of chest Denies shortness of breath, no orthopnea, PND or palpitations. RESPIRATORY: Denies cough. GASTROINTESTINAL: Denies abdominal pain, diarrhea, constipation, +nausea, no vomiting. MUSCULOSKELETAL: Denies myalgias. NEUROLOGIC: Denies numbness, tingling or weakness. ENDOCRINE: Denies fatigue, weight change, polydipsia or polyurina. GENITOURINARY: Denies burning, hematuria or urgency with micturation. HEMATOLOGIC: Denies history of anemia or bleeding. PHYSICAL EXAMINATION Vital signs reviewed. CONSTITUTIONAL: No apparent distress HEENT: Head is normocephalic. Pupils are equal, round. Sclerae anicteric. Mucous membranes of the mouth are moist. No JVD. No carotid bruit. CHEST EXAMINATION: Lungs are clear to auscultation. There is chest wall wall tenderness is noted on palpation HEART EXAMINATION: Regular rate and rhythm. S1, S2 heard. Systolic ejection murmur at apex No gallops or rub. ABDOMEN: Soft, nontender. Positive bowel sounds. EXTREMITIES: 2+ peripheral pulses, moderate non-pitting lower extremity edema and no calf tenderness. NEUROLOGIC EXAMINATION: Patient is awake, alert and oriented x3. ASSESSMENT Right sided Chest pain, reproducible on exam, atypical, acute coronary syndrome has been ruled out, appears musculoskeletal GERD Anemia s/p 1 unit of PRBC Coronary artery disease s/p 3 vessel CABG on 07/14/2020 Ischemic cardiomyopathy Peripheral vascular disease Hypertension Hyperlipidemia Diabetes mellitus type 2 Obesity Tobacco abuse Mild aortic stenosis PLAN Chest pain is atypical, reproducible on exam, acute coronary syndrome has been ruled out. Repeat echocardiogram today revealed no acute changes. Anemia workup per primary. Recommend restarting Plavix and aspirin as soon as able. We will follow the patient as needed. Please reconsult if needed. Patient to follow up outpatient with Dr. Archibald. Past Medical History Past Medical History: Chest Pain / Angina, Heart Failure, Diabetes Mellitus, GERD/Reflux, Hyperlipidemia, Hypertension, Osteoarthritis (OA), Skin Disorder, Vascular Disorder Additional Past Medical History / Comment(s): Chronic L leg edema and occasionally R leg edema, varicose veins right leg, NIDDM type II, neuropathy bilateral feet, duodenal ulcer that are healed, arthritis R wrist, post op umbilical hernia ileus/infection,remote history of pneumonia with pericarditis. History of Any Multi-Drug Resistant Organisms: None Reported Past Surgical History: Back Surgery, Coronary Bypass/CABG, Heart Catheterizat ion, Hernia Repair, Orthopedic Surgery, Tonsillectomy Additional Past Surgical History / Comment(s): 02/2018 umbilical hernia repair with "bowel complication", 2011 cardiac cath with some blockages, lower back surgery d/t ruptured discs, L foot surgery d/t injury, bilateral laser eye surgery for cataracts Past Anesthesia/Blood Transfusion Reactions: No Reported Reaction Past Psychological History: No Psychological Hx Reported Additional Psychological History / Comment(s): Pt lives at home with his . 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 Smoking Status: Former smoker Past Alcohol Use History: None Reported Additional Past Alcohol Use History / Comment(s): SMOKES 1 PPD SINCE AGE 15 Past Drug Use History: None Reported - Past Family History Sister(s) Family Medical History: Pulmonary Embolus Father Family Medical History: Coronary Artery Disease (CAD), Myocardial Infarction ([place]) Additional Family Medical History / Comment(s): Father of [place] at age 68yrs. Mother Family Medical History: Cancer, Coronary Artery Disease (CAD), Deep Vein Thrombosis (DVT), Hypertension Additional Family Medical History / Comment(s): Mother has alot of allergies. RARE BLOOD CANCER Medications and Allergies Home Medications Medication Instructions Recorded Confirmed Type Clopidogrel [Plavix] 75 mg PO DAILY #30 tab 07/20/20 04/14/21 Rx Losartan [Cozaar] 25 mg PO DAILY@1200 #30 tab 07/20/20 04/14/21 Rx Metoprolol Tartrate [Lopressor] 50 mg PO BID #60 tab 07/20/20 04/14/21 Rx Pantoprazole [Protonix] 40 mg PO AC-BRKFST #30 tablet. 07/20/20 04/14/21 Rx amLODIPine [Norvasc] 10 mg PO DAILY #30 tab 07/20/20 04/14/21 Rx sitaGLIPtin [Januvia] 100 mg PO DAILY #30 tab 07/20/20 04/14/21 Rx Atorvastatin [Lipitor] 40 mg PO HS 04/14/21 04/14/21 History Baclofen [Lioresal] 10 mg PO HS PRN 04/14/21 04/14/21 History Furosemide [Lasix] 40 mg PO AC-BRKFST 04/14/21 04/14/21 History Insulin Glargine,Hum.rec.anlog 20 unit SQ HS PRN 04/14/21 04/14/21 History [Lantus Solostar] Potassium Chloride [Potassium 10 meq PO HS 04/14/21 04/14/21 History Chloride ER] metFORMIN HCL [Glucophage] 500 mg PO TID-W/MEALS 04/14/21 04/14/21 History Allergies Allergy/AdvReac Type Severity Reaction Status Date / Time codeine Allergy Swelling Verified 04/14/21 23:24 tongue Physical Exam Vitals: Vital Signs Temp Pulse Pulse Resp BP BP Pulse Ox 04/15/21 04:33 98.0 F 73 17 130/62 97 04/15/21 04:00 98.1 F 73 18 131/63 97 04/15/21 02:29 98.6 F 68 18 115/72 95 04/15/21 02:27 16 04/15/21 02:00 16 04/15/21 01:59 98.4 F 76 17 125/57 94 L 04/15/21 01:49 98.4 F 74 16 121/59 94 L 04/15/21 00:00 98.0 F 123/71 04/14/21 23:10 80 18 144/61 97 04/14/21 22:08 98 F 86 18 142/62 98 Intake and Output 04/14/21 04/15/21 04/15/21 22:59 06:59 14:59 Intake Total 310 Balance 310 Intake: Blood Product 310 Rc As-1 Unit 310 [id number] Other: Voiding Method Urinal # Voids 1 Weight 90.718 kg 90.718 kg Results 04/15/21 08:17 04/14/21 22:11 Cardiac Enzymes 04/14/21 04/14/21 04/15/21 Range/Units 22:11 22:11 01:27 AST 16 L (17-59) U/L Troponin I 0.031 0.029 (0.000-0.034) ng/mL Coagulation 04/14/21 Range/Units 22:11 PT 10.6 (9.0-12.0) sec APTT 19.8 L (22.0-30.0) sec CBC 04/14/21 Range/Units 22:11 WBC 10.1 (3.8-10.6) k/uL RBC 3.28 L (4.30-5.90) m/uL Hgb 5.8 L* (13.0-17.5) gm/dL Hct 21.5 L (39.0-53.0) % Plt Count 414 (150-450) k/uL Comprehensive Metabolic Panel 04/14/21 Range/Units 22:11 Sodium 137 (137-145) mmol/L Potassium 4.1 (3.5-5.1) mmol/L Chloride 101 (98-107) mmol/L Carbon Dioxide 21 L (22-30) mmol/L BUN 19 (9-20) mg/dL Creatinine 0.92 (0.66-1.25) mg/dL Glucose 252 H (74-99) mg/dL Calcium 9.5 (8.4-10.2) mg/dL AST 16 L (17-59) U/L ALT 14 (4-49) U/L Alkaline Phosphatase 100 (38-126) U/L Total Protein 7.3 (6.3-8.2) g/dL Albumin 3.9 (3.5-5.0) g/dL Current Medications Generic Name Dose Route Start Last Admin Trade Name Freq PRN Reason Stop Dose Admin Atorvastatin Calcium 40 mg 04/15/21 21:00 Atorvastatin 40 Mg Tab PO HS OSEI Baclofen 10 mg 04/15/21 06:30 Baclofen 10 Mg Tab PO HS PRN Muscle Spasm Furosemide 40 mg 04/15/21 07:30 Furosemide 40 Mg Tab PO AC-BRKFST OSEI Sodium Chloride 1,000 mls @ 20 mls/hr 04/14/21 23:15 04/14/21 23:33 Saline 0.9% IV Not Given .Q24H OSEI Insulin Aspart 0 unit 04/15/21 07:30 Insulin Aspart (Novolog) 100 Unit/Ml Vial SQ ACHS OSEI Protocol Losartan Potassium 25 mg 04/15/21 12:00 Losartan 25 Mg Tab PO DAILY@1200 OSEI Metoprolol Tartrate 50 mg 04/15/21 09:00 Metoprolol Tartrate 50 Mg Tab PO BID OSEI Naloxone HCl 0.2 mg 04/14/21 23:08 Naloxone 0.4 Mg/Ml 1 Ml Vial IV Q2M PRN Opioid Reversal Ondansetron HCl 4 mg 04/14/21 23:08 Ondansetron 4 Mg/2 Ml Vial IVP Q8HR PRN Nausea And Vomiting Pantoprazole Sodium 40 mg 04/15/21 09:00 Pantoprazole 40 Mg/10 Ml Vial IVP BID OSEI Intake and Output 02/16/22 02/17/22 02/17/22 22:59 06:59 14:59 Intake Total 310 Balance 310 Intake: Blood Product 310 Rc As-1 Unit 310 [id number] Other: Voiding Method Urinal # Voids 1 Weight 90.718 kg 90.718 kg 04/14/21 22:11 04/14/21 22:11
[2021-04-15 11:21] LABS: Glucose,Whole Blood 161 mg/dL (75-99)
[2021-04-15 12:12] LABS: % Iron Saturation 3.51 (15.00-50.00); Ferritin 7.7 ng/mL (22.0-322.0)
[2021-04-15] MEDS: LOSARTAN 25 MG TAB PO SCH (12:14)
--- NOTE | 2021-04-15 15:02 | P.GSCN ---
History of Present Illness Consult date: 04/15/21 History of present illness: CHIEF COMPLAINT: Chest pain Reason for consult anemia HISTORY OF PRESENT ILLNESS: This is a 65-year-old male who presented to the hospital with complaints of chest pain. He does have a history of coronary artery bypass graft performed last year. Patient was seen evaluated by cardiology and felt that the chest pain was mostly musculoskeletal. Acute coronary syndrome has been ruled out. Patient also was found to be anemic. Hemoglobin on admission was 5.8. Patient denies any active signs of bleeding. Denies any blood in his stools or black stools. Denies any abdominal pain. Denies any history of GI bleed. Does have a prior history of duodenal ulcer. Patient is on aspirin and Plavix at home. His medications are currently on hold. Patient did have evidence of anemia in June 2020. His iron levels are low at 17. Stool for occult blood is negative. Patient is receiving a unit of blood today for hemoglobin was 6.7. Patient seen and examined with Dr. rivera PAST MEDICAL HISTORY: Chest Pain / Angina, Heart Failure, Diabetes Mellitus, GERD/Reflux, Hyperlipidemia, Hypertension, Osteoarthritis (OA), Skin Disorder, Vascular Disorder, duodenal ulcer, postoperative ileus, coronary artery disease, nicotine dependence PAST SURGICAL HISTORY: CABG,Back Surgery, Heart Catheterization, Hernia Repair, Orthopedic Surgery, Tonsillectomy, umbilical hernia repair MEDICATIONS: See list. ALLERGIES: See list. SOCIAL HISTORY: No illicit drug use. REVIEW OF SYSTEMS: CONSTITUTIONAL: Denies fever or chills. HEENT: Denies blurred vision, vision changes, or eye pain. Denies hemoptysis CARDIOVASCULAR: Denies chest pain or pressure. RESPIRATORY: No shortness of breath. GASTROINTESTINAL: See HPI for pertinent findings HEMATOLOGIC: Denies bleeding disorders. GENITOURINARY: Denies any blood in urine or increased urinary frequency. SKIN: Denies pruitis. Denies rash. PHYSICAL EXAM: VITAL SIGNS: Reviewed GENERAL: Well-developed in no acute distress. HEENT: No sclera icterus. Extraocular movements grossly intact. Moist buccal mucosa. Head is atraumatic, normocephalic. No nasal drainage. ABDOMEN: Soft. Nondistended. Nontender NEUROLOGIC: Alert and oriented. Cranial nerves II through XII grossly intact. LABORATORY DATA: WBC 9.7 hemoglobin 5.8-6.7 and MCV 66.9 platelets 345 INR 1.0 Sodium 137 potassium 4.1 BUN 19 creatinine 0.92 Iron level 17 TIBC 496 iron saturation low at 3.51 IMAGING: Echo shows EF of 40-45% and apical wall motion hypokinetic ASSESSMENT: 1. Anemia with evidence of iron deficiency anemia. No active bleeding. But does has history of being on Plavix and aspirin and prior history of duodenal ulcer. PLAN: -Plan for EGD on 04/19/21 since patient has been on Plavix. Recommend at least 5 days without Plavix prior to procedure -Continue to monitor for any signs or symptoms of bleeding -Continue to monitor hemoglobin -Agree with blood transfusion -Continue IV Protonix -Continue to hold Plavix and aspirin Thank you for this consultation Physician Living Supervisor note has been reviewed by physician. Signing provider agrees with the documented findings, assessment, and plan of care. Past Medical History Past Medical History: Chest Pain / Angina, Heart Failure, Diabetes Mellitus, GERD/Reflux, Hyperlipidemia, Hypertension, Osteoarthritis (OA), Skin Disorder, Vascular Disorder Additional Past Medical History / Comment(s): Chronic L leg edema and occasionally R leg edema, varicose veins right leg, NIDDM type II, neuropathy bilateral feet, duodenal ulcer that are healed, arthritis R wrist, post op u mbilical hernia ileus/infection,remote history of pneumonia with pericarditis. History of Any Multi-Drug Resistant Organisms: None Reported Past Surgical History: Back Surgery, Coronary Bypass/CABG, Heart Catheterization, Hernia Repair, Orthopedic Surgery, Tonsillectomy Additional Past Surgical History / Comment(s): 02/2018 umbilical hernia repair with "bowel complication", 2011 cardiac cath with some blockages, lower back surgery d/t ruptured discs, L foot surgery d/t injury, bilateral laser eye surgery for cataracts Past Anesthesia/Blood Transfusion Reactions: No Reported Reaction Past Psychological History: No Psychological Hx Reported Additional Psychological History / Comment(s): Pt lives at home with his . 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 Smoking Status: Former smoker Past Alcohol Use History: None Reported Additional Past Alcohol Use History / Comment(s): SMOKES 1 PPD SINCE AGE 15 Past Drug Use History: None Reported - Past Family History Sister(s) Family Medical History: Pulmonary Embolus Father Family Medical History: Coronary Artery Disease (CAD), Myocardial Infarction (SC) Additional Family Medical History / Comment(s): Father of SC at age 68yrs. Mother Family Medical History: Cancer, Coronary Artery Disease (CAD), Deep Vein Thrombosis (DVT), Hypertension Additional Family Medical History / Comment(s): Mother has alot of allergies. RARE BLOOD CANCER Medications and Allergies Home Medications Medication Instructions Recorded Confirmed Type Clopidogrel [Plavix] 75 mg PO DAILY #30 tab 07/20/20 04/14/21 Rx Losartan [Cozaar] 25 mg PO DAILY@1200 #30 tab 07/20/20 04/14/21 Rx Metoprolol Tartrate [Lopressor] 50 mg PO BID #60 tab 07/20/20 04/14/21 Rx Pantoprazole [Protonix] 40 mg PO AC-BRKFST #30 tablet.dr 07/20/20 04/14/21 Rx amLODIPine [Norvasc] 10 mg PO DAILY #30 tab 07/20/20 04/14/21 Rx sitaGLIPtin [Januvia] 100 mg PO DAILY #30 tab 07/20/20 04/14/21 Rx Atorvastatin [Lipitor] 40 mg PO HS 04/14/21 04/14/21 History Baclofen [Lioresal] 10 mg PO HS PRN 04/14/21 04/14/21 History Furosemide [Lasix] 40 mg PO AC-BRKFST 04/14/21 04/14/21 History Insulin Glargine,Hum.rec.anlog 20 unit SQ HS PRN 04/14/21 04/14/21 History [Lantus Solostar] Potassium Chloride [Potassium 10 meq PO HS 04/14/21 04/14/21 History Chloride ER] metFORMIN HCL [Glucophage] 500 mg PO TID-W/MEALS 04/14/21 04/14/21 History Allergies Allergy/AdvReac Type Severity Reaction Status Date / Time codeine Allergy Swelling Verified 04/14/21 23:24 tongue Surgical - Exam Vital Signs Temp Pulse Resp BP Pulse Ox 98 F 86 18 142/62 98 04/14/21 22:08 04/14/21 22:08 04/14/21 22:08 04/14/21 22:08 04/14/21 22:08 Results - Labs 04/15/21 08:17 04/14/21 22:11 Abnormal Lab Results - Last 24 Hours (Table) 04/14/21 04/14/2122 Range/Units 22:11 22:11 22:11 RBC 3.28 L (4.30-5.90) m/uL Hgb 5.8 L* (13.0-17.5) gm/dL Hct 21.5 L (39.0-53.0) % MCV 65.5 L (80.0-100.0) fL MCH 17.7 L (25.0-35.0) pg MCHC 27.1 L (31.0-37.0) g/dL RDW 19.1 H (11.5-15.5) % APTT 19.8 L (22.0-30.0) sec Carbon Dioxide 21 L (22-30) mmol/L Glucose 252 H (74-99) mg/dL POC Glucose (mg/dL) (75-99) mg/dL Magnesium 1.5 L (1.6-2.3) mg/dL Iron (65-175) ug/dL TIBC (228-460) ug/dL % Saturation (15.00-50.00) Ferritin (22.0-322.0) ng/mL AST 16 L (17-59) U/L Crossmatch 04/14/21 04/14/21 04/15/21 Range/Units 22:11 22:55 06:14 RBC (4.30-5.90) m/uL Hgb (13.0-17.5) gm/dL Hct (39.0-53.0) % MCV (80.0-100.0) fL MCH (25.0-35.0) pg MCHC (31.0-37.0) g/dL RDW (11.5-15.5) % APTT (22.0-30.0) sec Carbon Dioxide (22-30) mmol/L Glucose (74-99) mg/dL POC Glucose (mg/dL) 163 H (75-99) mg/dL Magnesium (1.6-2.3) mg/dL Iron 17 L (65-175) ug/dL TIBC 496 H (228-460) ug/dL % Saturation 3.51 L (15.00-50.00) Ferritin 7.7 L (22.0-322.0) ng/mL AST (17-59) U/L Crossmatch See Detail 04/15/21 04/15/21 Range/Units 08:17 11:19 RBC 3.49 L (4.30-5.90) m/uL Hgb 6.7 L* (13.0-17.5) gm/dL Hct 23.3 L (39.0-53.0) % MCV 66.9 L (80.0-100.0) fL MCH 19.3 L (25.0-35.0) pg MCHC 28.8 L (31.0-37.0) g/dL RDW 19.3 H (11.5-15.5) % APTT (22.0-30.0) sec Carbon Dioxide (22-30) mmol/L Glucose (74-99) mg/dL POC Glucose (mg/dL) 161 H (75-99) mg/dL Magnesium (1.6-2.3) mg/dL Iron (65-175) ug/dL TIBC (228-460) ug/dL % Saturation (15.00-50.00) Ferritin (22.0-322.0) ng/mL AST (17-59) U/L Crossmatch Diabetes panel 04/14/21 Range/Units 22:11 Sodium 137 (137-145) mmol/L Potassium 4.1 (3.5-5.1) mmol/L Chloride 101 (98-107) mmol/L Carbon Dioxide 21 L (22-30) mmol/L BUN 19 (9-20) mg/dL Creatinine 0.92 (0.66-1.25) mg/dL Glucose 252 H (74-99) mg/dL Calcium 9.5 (8.4-10.2) mg/dL AST 16 L (17-59) U/L ALT 14 (4-49) U/L Alkaline Phosphatase 100 (38-126) U/L Total Protein 7.3 (6.3-8.2) g/dL Albumin 3.9 (3.5-5.0) g/dL Calcium panel 04/14/21 Range/Units 22:11 Calcium 9.5 (8.4-10.2) mg/dL Albumin 3.9 (3.5-5.0) g/dL Pituitary panel 04/14/21 Range/Units 22:11 Sodium 137 (137-145) mmol/L Potassium 4.1 (3.5-5.1) mmol/L Chloride 101 (98-107) mmol/L Carbon Dioxide 21 L (22-30) mmol/L BUN 19 (9-20) mg/dL Creatinine 0.92 (0.66-1.25) mg/dL Glucose 252 H (74-99) mg/dL Calcium 9.5 (8.4-10.2) mg/dL Adrenal panel 04/14/21 Range/Units 22:11 Sodium 137 (137-145) mmol/L Potassium 4.1 (3.5-5.1) mmol/L Chloride 101 (98-107) mmol/L Carbon Dioxide 21 L (22-30) mmol/L BUN 19 (9-20) mg/dL Creatinine 0.92 (0.66-1.25) mg/dL Glucose 252 H (74-99) mg/dL Calcium 9.5 (8.4-10.2) mg/dL Total Bilirubin 0.5 (0.2-1.3) mg/dL AST 16 L (17-59) U/L ALT 14 (4-49) U/L Alkaline Phosphatase 100 (38-126) U/L Total Protein 7.3 (6.3-8.2) g/dL Albumin 3.9 (3.5-5.0) g/dL
[2021-04-15 15:35] LABS: Folate, Serum 12.9 ng/mL (4.40-31.00)
[2021-04-15 15:55] LABS: Glucose,Whole Blood 261 mg/dL (75-99)
[2021-04-15 20:31] LABS: Glucose,Whole Blood 326 mg/dL (75-99)
[2021-04-15] MEDS: ATORVASTATIN 40 MG TAB PO SCH (20:42)
[2021-04-15] MEDS: SODIUM CHLORIDE 0.9% 1,000 ML IV SCH (20:44)
[2021-04-15] MEDS: NITROGLYCERIN SL TABS 0.4 MG TAB SUBLINGUAL PRN (22:32)
[2021-04-16 06:30] LABS: Glucose,Whole Blood 213 mg/dL (75-99)
[2021-04-16] MEDS: FUROSEMIDE 40 MG TAB PO SCH (06:36)
[2021-04-16] MEDS: INSULIN ASPART (NovoLOG) 100 UNIT/ML VIAL SQ SCH ×4 (06:36→21:27)
[2021-04-16] MEDS ORDERED: Magnesium Replacement Protocol 1 EACH MISC MISCELLANE PRN (06:46)
[2021-04-16] MEDS ORDERED: CYANOCOBALAMIN 1,000 MCG/ML 1 ML VIAL IM ONE (07:30)
[2021-04-16 07:31] LABS: Anisocytosis Slight; Basophils % (A) 0 %; Eosinophils # (A) 0.3 k/uL (0-0.7); Eosinophils % (A) 3 %; HCT 23.1 % (39.0-53.0); Hypochromasia Marked; Lymphocytes # (A) 1.2 k/uL (1.0-4.8); Lymphocytes % (A) 14 %; MCH 18.9 pg (25.0-35.0); MCV 67.3 fL (80.0-100.0); Mean Platelet Volume 7.9; Microcytosis Marked; Monocytes # (A) 0.5 k/uL (0-1.0); Monocytes % (A) 6 %; Neutrophils # (A) 6.5 k/uL (1.3-7.7); Neutrophils % (A) 75 %; Platelet Count 317 k/uL (150-450); Poikilocytosis Marked; RBC 3.43 m/uL (4.30-5.90); RDW 19.8 % (11.5-15.5); WBC 8.6 k/uL (3.8-10.6)
[2021-04-16 07:41] LABS: African American GFR (CKD) >90 (>60 ml/min/1.73 sqM); Anion Gap 3 mmol/L; Blood Urea Nitrogen 16 mg/dL (9-20); Calcium 8.5 mg/dL (8.4-10.2); Carbon Dioxide 28 mmol/L (22-30); Chloride 105 mmol/L (98-107); Glucose 184 mg/dL (74-99); HGB 6.5 gm/dL (13.0-17.5); Magnesium 1.9 mg/dL (1.6-2.3); Non-African American GFR(CKD) >90 (>60 ml/min/1.73 sqM); Potassium 4.4 mmol/L (3.5-5.1); Sodium 136 mmol/L (137-145)
--- NOTE | 2021-04-16 09:24 | P.PN ---
Progress Note - Text Progress Note Date: 04/16/21 Patient may still. He shows no signs of GI bleed. On exam vital signs are stable. Abdomen soft. Patient be scheduled for EGD on Monday.
[2021-04-16] MEDS: FERROUS SULFATE 325 MG TAB PO SCH ×2 (10:06→18:16)
[2021-04-16] MEDS: METOPROLOL TARTRATE 50 MG TAB PO SCH ×2 (10:06→21:27)
[2021-04-16] MEDS: PANTOPRAZOLE 40 MG/10 ML VIAL IVP SCH ×2 (10:07→21:28)
--- NOTE | 2021-04-16 11:16 | P.PN ---
Subjective This is a pleasant 65 years old male with past medical history of Heart Failure, Diabetes Mellitus, GERD/Reflux, Hyperlipidemia, Hypertension, Ost eoarthritis, diabetic neuropathy bilateral feet, duodenal ulcer that are healed, arthritis R wrist, post op umbilical hernia ileus/infection,remote history of pneumonia with pericarditis. Coronary artery disease status post CABG in 2104. Patient states that he presents because of right chest pain that has been going on for 3 weeks on and off but yesterday it was more severe that during the night he was talking to his to come to the morning to the emergency room but it did cause severe and he was on the floor and his called 911. The pain is nonradiating and feels like a sore spot on his right chest associated with some nausea and sweating. But no dyspnea or coughing. Patient states that he is been taking pain lately more frequently especially during the last few days because of his worsening chest pain, he could not remember the name of the patella but when I asked him if it is Motrin and he said yes it is similar to it. And also reports black stool which is unusual for him but he denies abdominal pain except for vomiting. No urinary complaints or dysuria. No headache or dizziness or weakness or numbness. He denies smoking, alcohol or illicit drugs. He has history of spinal fusion surgery. Also he has history of bypass surgery were all 3 vessels about 8-9 months ago. Vitas looks stable. Labs showing hemoglobin of 5.8, which is microcytic, rest of CBC is unremarkable as well as INR, BMP and liver enzymes. Glucose elevated 252 Occult blood in the stool is negative, coronavirus not detected EKG showing normal sinus rhythm at [address]-T changes. Chest x-ray: No acute process. There is improved aeration of the left lower lobe Patient received 1 unit of blood transfusion and his hemoglobin went up to 6.7. 04/16/2021 Patient with no chest pain and cardiology on the case and there, and to resume his and antiplatelet therapy when his is stable. However is still have severe anemia and hemoglobin is 6.5 after 1 unit of blood transfusion, the new cut before blood transfusion due to a national shortage is 6.5 and hemoglobin should be less than that. So we'll keep monitoring for now. Low iron is been replaced as well as vitamin B12 including one IM injection and continue with oral vitamin B12 tomorrow. No evidence of active bleeding and hemodynamically stable. No chest pain Plan for EGD on Monday, patient informed and he agrees Objective - Vital Signs Vital signs: Vital Signs Temp 98.6 F 04/16/21 04:56 Pulse 74 04/16/21 04:56 Resp 16 04/16/21 04:56 BP 104/49 04/16/21 04:56 Pulse Ox 96 04/16/21 04:56 Intake & Output 04/15/21 04/16/21 04/16/21 18:59 06:59 18:59 Intake Total 358 240 Output Total 575 Balance -217 240 Intake: Oral 358 240 Output: Urine 575 Other: Voiding Method Urinal Urinal # Voids 1 2 1 # Bowel Movements 1 - Exam GENERAL: The patient is alert and oriented x3, not in any acute distress. Well developed, well nourished. -HEENT: Pupils are round and equally reacting to light. EOMI. No scleral icterus. No conjunctival pallor. Normocephalic, atraumatic. No pharyngeal erythema. No thyromegaly. pale CARDIOVASCULAR: S1 and S2 present. No murmurs, rubs, or gallops. PULMONARY: Chest is clear to auscultation, no wheezing or crackles. ABDOMEN: Soft, nontender, nondistended, normoactive bowel sounds. No palpable organomegaly. MUSCULOSKELETAL: No joint swelling or deformity. EXTREMITIES: No cyanosis, clubbing, or pedal edema. NEUROLOGICAL: Gross neurological examination did not reveal any focal deficits. SKIN: No rashes. no petechiae. - Labs CBC & Chem 7: 04/16/21 07:06 04/16/21 07:06 Labs: Abnormal Lab Results - Last 24 Hours (Table) 04/14/21 04/15/21 04/15/21 Range/Units 22:11 11:19 15:53 RBC (4.30-5.90) m/uL Hgb (13.0-17.5) gm/dL Hct (39.0-53.0) % MCV (80.0-100.0) fL MCH (25.0-35.0) pg MCHC (31.0-37.0) g/dL RDW (11.5-15.5) % Sodium (137-145) mmol/L Glucose (74-99) mg/dL POC Glucose (mg/dL) 161 H 261 H (75-99) mg/dL Iron 17 L (65-175) ug/dL TIBC 496 H (228-460) ug/dL % Saturation 3.51 L (15.00-50.00) Ferritin 7.7 L (22.0-322.0) ng/mL 04/15/21 04/16/21 04/16/21 Range/Units 20:29 06:27 07:06 RBC 3.43 L (4.30-5.90) m/uL Hgb 6.5 L* (13.0-17.5) gm/dL Hct 23.1 L (39.0-53.0) % MCV 67.3 L (80.0-100.0) fL MCH 18.9 L (25.0-35.0) pg MCHC 28.0 L (31.0-37.0) g/dL RDW 19.8 H (11.5-15.5) % Sodium (137-145) mmol/L Glucose (74-99) mg/dL POC Glucose (mg/dL) 326 H 213 H (75-99) mg/dL Iron (65-175) ug/dL TIBC (228-460) ug/dL % Saturation (15.00-50.00) Ferritin (22.0-322.0) ng/mL 04/16/21 Range/Units 07:06 RBC (4.30-5.90) m/uL Hgb (13.0-17.5) gm/dL Hct (39.0-53.0) % MCV (80.0-100.0) fL MCH (25.0-35.0) pg MCHC (31.0-37.0) g/dL RDW (11.5-15.5) % Sodium 136 L (137-145) mmol/L Glucose 184 H (74-99) mg/dL POC Glucose (mg/dL) (75-99) mg/dL Iron (65-175) ug/dL TIBC (228-460) ug/dL % Saturation (15.00-50.00) Ferritin (22.0-322.0) ng/mL Assessment and Plan Assessment: acute anemia, rule out GI bleed. Suspected secondary to pain medication may be NSAIDs. Secondary to iron deficiency anemia. Borderline vitamin B12 level Chest pain, cardiac causes were ruled out. History of coronary artery disease status post CABG Hypertension Diabetes mellitus with hyperglycemia Hyperlipidemia Diabetic neuropathy History of arthritis Plan: this is a pleasant 65 years old male who presents because of severe iron deficiency anemia possible GI bleed Monitor hemoglobin Starts for us sulfate and vitamin B12 replacement possible EGD on Monday with surgery team Cardiology consult on the case. Continue with metoprolol. Nitroglycerin as needed labs and medication were reviewed.. Continue same treatment. Continue with symptomatic treatment. Resume home medication. Monitor lytes and vitals. DVT and GI prophylaxis. Further recommendations as per clinical course of the patient DVT prophylaxis:no Subcutaneous heparin GI Prophylaxis: Ppi Prognosis is guarded
[2021-04-16 11:50] LABS: Glucose,Whole Blood 304 mg/dL (75-99)
--- NOTE | 2021-04-16 13:47 | CDI ---
Documentation Clarification Form Chronic combined CHF, systolic and diastolic Date: 04/16/2021 01:10:02 PM From: Ruth Burciaga RN CCDS Admit Date: 04/15/2021 03:43:00 PM Patient Name: Dennys Youngblood Visit Number: [id number] Discharge Date: ATTENTION: The Clinical Documentation Specialists (CDI) and [facility] Coding Staff appreciate your assistance in clarifying documentation. Please respond to the clarification below the line at the bottom and electronically sign. The CDI & [facility] Coding staff will review the response and follow-up if needed. Please note: Queries are made part of the Legal Health Record. If you have any questions, please contact the author of this message via ITS. Dr. Anita Peres Your patient has the documented diagnosis of Ischemic Cardiomyopathy 04/15, Cardiology consult. Additional information regarding Ischemic Cardiomyopathy is requested. History/Risk Factors:65-year-old male presents to the ED with right chest pain for three weeks. Medical History: HTN, HLD and Heart Failure. H&P, 04/15. Clinical Indicators: VS/Pulse OX: 04/14 B/P 142/62; HR 86; Temp 98 F Oral; RR 18; SpO2 98% nc 2L Echocardiogram Results: 04/15 EF 40-45% Apical anterior LV wall motion is hypokinetic. Apical septum LV wall motion is hypokinetic. Mild aortic stenosis present. Mid mitral regurgitation is present. Mild tricuspid regurgitation present. Chest X Ray: 04/14 No active cardiopulmonary disease. Treatment: 04/15 to current Lasix 40mg PO AC Breakfast; 04/15 current Lopressor 50mg PO BID. In your professional opinion, can you please clarify the Ischemic Cardiomyopathy ? [ ] Chronic Systolic Heart Failure (reduced EF) [ ] Chronic Systolic Diastolic Heart Failure [ ] Other, please specify [ ] Unable to determine (Template Last Revised: March 2020) MTDD
[2021-04-16] MEDS: LOSARTAN 25 MG TAB PO SCH (14:00)
[2021-04-16 16:46] LABS: Glucose,Whole Blood 316 mg/dL (75-99)
[2021-04-16 20:14] LABS: Glucose,Whole Blood 307 mg/dL (75-99)
[2021-04-16] MEDS: ATORVASTATIN 40 MG TAB PO SCH (21:27)
[2021-04-17 06:10] LABS: Glucose,Whole Blood 197 mg/dL (75-99)
[2021-04-17] MEDS: SODIUM CHLORIDE 0.9% 1,000 ML IV SCH ×2 (06:17→20:43)
[2021-04-17] MEDS: INSULIN ASPART (NovoLOG) 100 UNIT/ML VIAL SQ SCH ×4 (06:17→20:43)
[2021-04-17] MEDS: FERROUS SULFATE 325 MG TAB PO SCH ×2 (06:17→17:41)
[2021-04-17] MEDS: FUROSEMIDE 40 MG TAB PO SCH (06:17)
[2021-04-17 08:01] LABS: Anisocytosis Moderate; Basophils % (A) 0 %; Eosinophils # (A) 0.2 k/uL (0-0.7); Eosinophils % (A) 2 %; HCT 24.1 % (39.0-53.0); Hypochromasia Marked; Lymphocytes % (A) 11 %; MCH 18.6 pg (25.0-35.0); MCHC 27.5 g/dL (31.0-37.0); MCV 67.8 fL (80.0-100.0); Mean Platelet Volume 8.4; Microcytosis Marked; Monocytes # (A) 0.5 k/uL (0-1.0); Monocytes % (A) 5 %; Neutrophils # (A) 7.1 k/uL (1.3-7.7); Neutrophils % (A) 78 %; Platelet Count 324 k/uL (150-450); Poikilocytosis Marked; RBC 3.55 m/uL (4.30-5.90); RDW 21.2 % (11.5-15.5); WBC 9.1 k/uL (3.8-10.6)
[2021-04-17 08:14] LABS: HGB 6.6 gm/dL (13.0-17.5)
[2021-04-17] MEDS: CYANOCOBALAMIN 500 MCG TAB PO SCH (09:03)
[2021-04-17] MEDS: PANTOPRAZOLE 40 MG/10 ML VIAL IVP SCH ×2 (09:03→20:42)
[2021-04-17] MEDS: METOPROLOL TARTRATE 50 MG TAB PO SCH ×2 (09:03→20:43)
--- NOTE | 2021-04-17 10:53 | P.PN ---
Subjective This is a pleasant 65 years old male with past medical history of Heart Failure, Diabetes Mellitus, GERD/Reflux, Hyperlipidemia, Hypertension, Ost eoarthritis, diabetic neuropathy bilateral feet, duodenal ulcer that are healed, arthritis R wrist, post op umbilical hernia ileus/infection,remote history of pneumonia with pericarditis. Coronary artery disease status post CABG in 2104. Patient states that he presents because of right chest pain that has been going on for 3 weeks on and off but yesterday it was more severe that during the night he was talking to his to come to the morning to the emergency room but it did cause severe and he was on the floor and his called 911. The pain is nonradiating and feels like a sore spot on his right chest associated with some nausea and sweating. But no dyspnea or coughing. Patient states that he is been taking pain lately more frequently especially during the last few days because of his worsening chest pain, he could not remember the name of the patella but when I asked him if it is Motrin and he said yes it is similar to it. And also reports black stool which is unusual for him but he denies abdominal pain except for vomiting. No urinary complaints or dysuria. No headache or dizziness or weakness or numbness. He denies smoking, alcohol or illicit drugs. He has history of spinal fusion surgery. Also he has history of bypass surgery were all 3 vessels about 8-9 months ago. Vitas looks stable. Labs showing hemoglobin of 5.8, which is microcytic, rest of CBC is unremarkable as well as INR, BMP and liver enzymes. Glucose elevated 252 Occult blood in the stool is negative, coronavirus not detected EKG showing normal sinus rhythm at [address]-T changes. Chest x-ray: No acute process. There is improved aeration of the left lower lobe Patient received 1 unit of blood transfusion and his hemoglobin went up to 6.7. 04/16/2021 Patient with no chest pain and cardiology on the case and there, and to resume his and antiplatelet therapy when his is stable. However is still have severe anemia and hemoglobin is 6.5 after 1 unit of blood transfusion, the new cut before blood transfusion due to a national shortage is 6.5 and hemoglobin should be less than that. So we'll keep monitoring for now. Low iron is been replaced as well as vitamin B12 including one IM injection and continue with oral vitamin B12 tomorrow. No evidence of active bleeding and hemodynamically stable. No chest pain Plan for EGD on Monday, patient informed and he agrees 04/17/2021 Patient had the distal chest pressure earlier which is resolved now. No other new complaint, no abdominal pain or vomiting. Hemodynamically stable. Hemoglobin 6.6 today. Ejection fraction is 40-45% He remains on Protonix IV, vitamin B12 and iron replacement therapy. Patient is also a prescription for Colace for constipation. Objective - Vital Signs Vital signs: Vital Signs Temp 97.3 F L 04/16/21 20:50 Pulse 68 04/17/21 04:00 Resp 20 04/17/21 04:00 BP 113/53 04/17/21 04:00 Pulse Ox 96 04/17/21 04:00 Intake & Output 04/16/21 04/17/21 04/17/21 18:59 06:59 18:59 Intake Total 720 485 240 Balance 720 485 240 Weight 98.5 kg Intake: Oral 720 485 240 Other: Voiding Method Urinal Urinal # Voids 2 - Exam GENERAL: The patient is alert and oriented x3, not in any acute distress. Well developed, well nourished. -HEENT: Pupils are round and equally reacting to light. EOMI. No scleral icterus. No conjunctival pallor. Normocephalic, atraumatic. No pharyngeal erythema. No thyromegaly. pale CARDIOVASCULAR: S1 and S2 present. No murmurs, rubs, or gallops. PULMONARY: Chest is clear to auscultation, no wheezing or crackles. ABDOMEN: Soft, nontender, nondistended, normoactive bowel sounds. No palpable organomegaly. MUSCULOSKELETAL: No joint swelling or deformity. EXTREMITIES: No cyanosis, clubbing, or pedal edema. NEUROLOGICAL: Gross neurological examination did not reveal any focal deficits. SKIN: No rashes. no petechiae. - Labs CBC & Chem 7: 04/17/21 07:32 04/16/21 07:06 Labs: Abnormal Lab Results - Last 24 Hours (Table) 04/16/21 04/16/21 04/16/21 Range/Units 11:49 16:43 20:12 RBC (4.30-5.90) m/uL Hgb (13.0-17.5) gm/dL Hct (39.0-53.0) % MCV (80.0-100.0) fL MCH (25.0-35.0) pg MCHC (31.0-37.0) g/dL RDW (11.5-15.5) % POC Glucose (mg/dL) 304 H 316 H 307 H (75-99) mg/dL 04/17/21 04/17/21 Range/Units 06:08 07:32 RBC 3.55 L (4.30-5.90) m/uL Hgb 6.6 L* (13.0-17.5) gm/dL Hct 24.1 L (39.0-53.0) % MCV 67.8 L (80.0-100.0) fL MCH 18.6 L (25.0-35.0) pg MCHC 27.5 L (31.0-37.0) g/dL RDW 21.2 H (11.5-15.5) % POC Glucose (mg/dL) 197 H (75-99) mg/dL Assessment and Plan Assessment: acute anemia, rule out GI bleed. Suspected secondary to pain medication may be NSAIDs. Secondary to iron deficiency anemia. Borderline vitamin B12 level Chest pain, cardiac causes were ruled out. History of coronary artery disease status post CABG Hypertension Diabetes mellitus with hyperglycemia Hyperlipidemia Diabetic neuropathy History of arthritis Plan: this is a pleasant 65 years old male who presents because of severe iron deficiency anemia possible GI bleed Monitor hemoglobin Starts for us sulfate and vitamin B12 replacement possible [facility] Cardiology consult on the case. Continue with metoprolol. Nitroglycerin as needed labs and medication were reviewed.. Continue same treatment. Continue with symptomatic treatment. Resume home medication. Monitor lytes and vitals. DVT and GI prophylaxis. Further recommendations as per clinical course of the patient DVT prophylaxis:no Subcutaneous heparin GI Prophylaxis: Ppi Prognosis is guarded
[2021-04-17 12:17] LABS: Glucose,Whole Blood 230 mg/dL (75-99)
[2021-04-17] MEDS: DOCUSATE 100 MG CAP PO SCH ×2 (13:04→20:42)
[2021-04-17] MEDS: LOSARTAN 25 MG TAB PO SCH (13:04)
[2021-04-17] MEDS: NITROGLYCERIN SL TABS 0.4 MG TAB SUBLINGUAL PRN ×3 (13:06→21:00)
--- NOTE | 2021-04-17 16:42 | P.PN ---
Subjective Progress Note Date: 04/17/21 CHIEF COMPLAINT: Acute anemia HISTORY OF PRESENT ILLNESS: The patient is a 65-year-old male initially admitted to the hospital for acute chest pain. During evaluation, patient had anemia hemoglobin less than 6.0. No reports of obvious GI bleed during hospitalization. He reports no bowel movement in 4 days. ROS: No reports of nausea and vomiting. No fevers or chills. He has past history of duodenal ulcers. On chronic antiplatelet therapy. Obesity, BMI 32.1 PHYSICAL EXAM: VITAL SIGNS: Reviewed CONSTITUTIONAL: Well developed and in no acute distress. EYES: Conjuctivae without sclera icterus. Extraocular movements grossly intact. HEAD, EARS, NOSE, THROAT: Moist buccal mucosa. Head is atraumatic, normocephalic. Hears conversational speech. No nasal drainage. RESPIRATORY: Non-labored respirations and equal bilateral excursions. CARDIOVASCULAR: Palpable 2+ radial pulses. ABDOMEN: No peritonitis MUSCULOSKELETAL: No gross deformity of the lower extremities noted. No clubbing. No cyanosis. SKIN: Good skin turgor. Well perfused. NEUROLOGIC: Cranial nerves II through XII grossly intact. No focal or lateralizing signs. PSYCH: Appropriate affect. Alert and oriented to person, place and time. CLINICAL LABS: Reviewed. Hemoglobin 6.5-6.6 ASSESSMENT: 1. Acute anemia 2. Constipation PLAN: 1. Recommend proceeding with upper endoscopy due to high risk antiplatelet N SAID use. 2. Laxative for constipation. Objective - Vital Signs Vital signs: Vital Signs Temp 98.6 F 04/17/21 08:00 Pulse 83 04/17/21 12:00 Resp 20 04/17/21 08:00 BP 125/60 04/17/21 12:00 Pulse Ox 93 L 04/17/21 12:00 Intake & Output 04/16/21 04/17/21 04/17/21 18:59 06:59 18:59 Intake Total 720 485 480 Balance 720 485 480 Weight 98.5 kg Intake: Oral 720 485 480 Other: Voiding Method Urinal Urinal Urinal # Voids 2 - Labs CBC & Chem 7: 04/17/21 07:32 04/16/21 07:06 Labs: Abnormal Lab Results - Last 24 Hours (Table) 04/16/21 04/16/21 04/17/21 Range/Units 16:43 20:12 06:08 RBC (4.30-5.90) m/uL Hgb (13.0-17.5) gm/dL Hct (39.0-53.0) % MCV (80.0-100.0) fL MCH (25.0-35.0) pg MCHC (31.0-37.0) g/dL RDW (11.5-15.5) % POC Glucose (mg/dL) 316 H 307 H 197 H (75-99) mg/dL 04/17/21 04/17/21 Range/Units 07:32 12:13 RBC 3.55 L (4.30-5.90) m/uL Hgb 6.6 L* (13.0-17.5) gm/dL Hct 24.1 L (39.0-53.0) % MCV 67.8 L (80.0-100.0) fL MCH 18.6 L (25.0-35.0) pg MCHC 27.5 L (31.0-37.0) g/dL RDW 21.2 H (11.5-15.5) % POC Glucose (mg/dL) 230 H (75-99) mg/dL
[2021-04-17 16:43] LABS: Glucose,Whole Blood 251 mg/dL (75-99)
[2021-04-17 20:05] LABS: Glucose,Whole Blood 268 mg/dL (75-99)
[2021-04-17] MEDS: ATORVASTATIN 40 MG TAB PO SCH (20:42)
[2021-04-18 04:12] LABS: Anisocytosis Moderate; Basophils % (A) 1 %; Eosinophils # (A) 0.2 k/uL (0-0.7); Eosinophils % (A) 2 %; HCT 21.3 % (39.0-53.0); Hypochromasia Marked; Lymphocytes # (A) 1.3 k/uL (1.0-4.8); Lymphocytes % (A) 15 %; MCH 18.8 pg (25.0-35.0); MCHC 26.9 g/dL (31.0-37.0); MCV 69.8 fL (80.0-100.0); Mean Platelet Volume 7.5; Microcytosis Marked; Monocytes # (A) 0.6 k/uL (0-1.0); Monocytes % (A) 7 %; Neutrophils # (A) 6.4 k/uL (1.3-7.7); Neutrophils % (A) 74 %; Platelet Count 304 k/uL (150-450); Poikilocytosis Moderate; RBC 3.05 m/uL (4.30-5.90); RDW 22.1 % (11.5-15.5); WBC 8.7 k/uL (3.8-10.6)
[2021-04-18 04:25] LABS: HGB 5.7 gm/dL (13.0-17.5)
[2021-04-18 06:11] LABS: Glucose,Whole Blood 236 mg/dL (75-99)
[2021-04-18] MEDS: FERROUS SULFATE 325 MG TAB PO SCH ×2 (06:42→17:32)
[2021-04-18] MEDS: FUROSEMIDE 40 MG TAB PO SCH (06:42)
[2021-04-18] MEDS: INSULIN ASPART (NovoLOG) 100 UNIT/ML VIAL SQ SCH ×4 (06:42→20:44)
[2021-04-18] MEDS ORDERED: PERMETHRIN 1% CREME RINSE 59 ML LIQUID TOPICAL ONE (09:07)
[2021-04-18] MEDS: PANTOPRAZOLE 40 MG/10 ML VIAL IVP SCH ×2 (09:24→20:44)
[2021-04-18] MEDS: CYANOCOBALAMIN 500 MCG TAB PO SCH (09:25)
[2021-04-18] MEDS: DOCUSATE 100 MG CAP PO SCH ×2 (09:25→20:44)
[2021-04-18] MEDS: METOPROLOL TARTRATE 50 MG TAB PO SCH ×2 (09:25→20:44)
--- NOTE | 2021-04-18 11:46 | P.PN ---
Subjective This is a pleasant 65 years old male with past medical history of Heart Failure, Diabetes Mellitus, GERD/Reflux, Hyperlipidemia, Hypertension, Ost eoarthritis, diabetic neuropathy bilateral feet, duodenal ulcer that are healed, arthritis R wrist, post op umbilical hernia ileus/infection,remote history of pneumonia with pericarditis. Coronary artery disease status post CABG in 2104. Patient states that he presents because of right chest pain that has been going on for 3 weeks on and off but yesterday it was more severe that during the night he was talking to his to come to the morning to the emergency room but it did cause severe and he was on the floor and his called 911. The pain is nonradiating and feels like a sore spot on his right chest associated with some nausea and sweating. But no dyspnea or coughing. Patient states that he is been taking pain lately more frequently especially during the last few days because of his worsening chest pain, he could not remember the name of the patella but when I asked him if it is Motrin and he said yes it is similar to it. And also reports black stool which is unusual for him but he denies abdominal pain except for vomiting. No urinary complaints or dysuria. No headache or dizziness or weakness or numbness. He denies smoking, alcohol or illicit drugs. He has history of spinal fusion surgery. Also he has history of bypass surgery were all 3 vessels about 8-9 months ago. Vitas looks stable. Labs showing hemoglobin of 5.8, which is microcytic, rest of CBC is unremarkable as well as INR, BMP and liver enzymes. Glucose elevated 252 Occult blood in the stool is negative, coronavirus not detected EKG showing normal sinus rhythm at [address]-T changes. Chest x-ray: No acute process. There is improved aeration of the left lower lobe Patient received 1 unit of blood transfusion and his hemoglobin went up to 6.7. 04/16/2021 Patient with no chest pain and cardiology on the case and there, and to resume his and antiplatelet therapy when his is stable. However is still have severe anemia and hemoglobin is 6.5 after 1 unit of blood transfusion, the new cut before blood transfusion due to a national shortage is 6.5 and hemoglobin should be less than that. So we'll keep monitoring for now. Low iron is been replaced as well as vitamin B12 including one IM injection and continue with oral vitamin B12 tomorrow. No evidence of active bleeding and hemodynamically stable. No chest pain Plan for EGD on Monday, patient informed and he agrees 04/17/2021 Patient had the distal chest pressure earlier which is resolved now. No other new complaint, no abdominal pain or vomiting. Hemodynamically stable. Hemoglobin 6.6 today. Ejection fraction is 40-45% He remains on Protonix IV, vitamin B12 and iron replacement therapy. Patient is also a prescription for Colace for constipation. 04/18/2021 Patient is awake and alert, no significant chest pain or dyspnea. He still complaining of from a rash in the upper chest and he wants something to help him with that, Rash looks sporadic, with itching and dried scabs on some of them, suspicious to be scabies versus others. Lysis was checked and could not be found in his hair however we will give him a therapeutic treatment of permethrin 1% and monitor for response. No abdominal pain or vomiting. His hemoglobin today it dropped to 5.7 and receiving 2 units of blood. Remains on Protonix, vitamin B12 and iron replacement therapy NSAIDs and anticoagulation on hold. Surgery team are recommended upper endoscopy. Objective - Vital Signs Vital signs: Vital Signs Temp 98.3 F 04/17/21 20:00 Pulse 78 04/18/21 04:00 Resp 18 04/18/21 04:00 BP 128/58 04/18/21 04:00 Pulse Ox 98 04/18/21 04:00 Intake & Output 04/17/21 04/18/21 04/18/21 18:59 06:59 18:59 Intake Total 600 485 Balance 600 485 Weight 98.5 kg Intake: Oral 600 485 Other: Voiding Method Urinal Urinal # Voids 1 - Exam GENERAL: The patient is alert and oriented x3, not in any acute distress. Well developed, well nourished. -HEENT: Pupils are round and equally reacting to light. EOMI. No scleral icterus. No conjunctival pallor. Normocephalic, atraumatic. No pharyngeal erythema. No thyromegaly. pale CARDIOVASCULAR: S1 and S2 present. No murmurs, rubs, or gallops. PULMONARY: Chest is clear to auscultation, no wheezing or crackles. ABDOMEN: Soft, nontender, nondistended, normoactive bowel sounds. No palpable organomegaly. MUSCULOSKELETAL: No joint swelling or deformity. EXTREMITIES: No cyanosis, clubbing, or pedal edema. NEUROLOGICAL: Gross neurological examination did not reveal any focal deficits. SKIN: No rashes. no petechiae. - Labs CBC & Chem 7: 04/18/21 03:14 04/16/21 07:06 Labs: Abnormal Lab Results - Last 24 Hours (Table) 04/17/21 04/17/21 04/17/21 Range/Units 12:13 16:42 20:04 RBC (4.30-5.90) m/uL Hgb (13.0-17.5) gm/dL Hct (39.0-53.0) % MCV (80.0-100.0) fL MCH (25.0-35.0) pg MCHC (31.0-37.0) g/dL RDW (11.5-15.5) % POC Glucose (mg/dL) 230 H 251 H 268 H (75-99) mg/dL Crossmatch 04/18/21 04/18/21 04/18/21 Range/Units 03:14 06:09 08:25 RBC 3.05 L (4.30-5.90) m/uL Hgb 5.7 L* (13.0-17.5) gm/dL Hct 21.3 L (39.0-53.0) % MCV 69.8 L (80.0-100.0) fL MCH 18.8 L (25.0-35.0) pg MCHC 26.9 L (31.0-37.0) g/dL RDW 22.1 H (11.5-15.5) % POC Glucose (mg/dL) 236 H (75-99) mg/dL Crossmatch See Detail Assessment and Plan Assessment: acute anemia, rule out GI bleed. Suspected secondary to pain medication may be NSAIDs. Secondary to iron deficiency anemia. 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 Continue with metoprolol labs and medication were reviewed.. Continue same treatment. Continue with symptomatic treatment. Resume home medication. Monitor lytes and vitals. DVT and GI prophylaxis. Further recommendations as per clinical course of the patient DVT prophylaxis:no heparin GI Prophylaxis: Ppi Prognosis is guarded
[2021-04-18 12:25] LABS: Glucose,Whole Blood 260 mg/dL (75-99)
[2021-04-18] MEDS: LOSARTAN 25 MG TAB PO SCH (12:29)
[2021-04-18 16:01] LABS: Anisocytosis Marked; HCT 24.5 % (39.0-53.0); Hypochromasia Marked; MCH 21.4 pg (25.0-35.0); MCHC 29.5 g/dL (31.0-37.0); MCV 72.6 fL (80.0-100.0); Mean Platelet Volume 8.9; Microcytosis Marked; Platelet Count 318 k/uL (150-450); Poikilocytosis Marked; RBC 3.38 m/uL (4.30-5.90); RDW 24.4 % (11.5-15.5); WBC 10.5 k/uL (3.8-10.6)
[2021-04-18 16:09] LABS: HGB 7.2 gm/dL (13.0-17.5)
--- NOTE | 2021-04-18 16:42 | P.PN ---
Subjective Progress Note Date: 04/18/21 CHIEF COMPLAINT: Acute anemia HISTORY OF PRESENT ILLNESS: The patient is a 65-year-old male initially admitted to the hospital for acute chest pain. During evaluation, patient had anemia hemoglobin less than 6.0. His Hgb dropped to 5.6 this morning. He was given blood, Hgb now up to 7.2. He denies any bowel movement in 5 days despite stool softeners. ROS: No reports of nausea and vomiting. No fevers or chills. He has past history of duodenal ulcers. On chronic antiplatelet therapy. Obesity, BMI 32.1 PHYSICAL EXAM: VITAL SIGNS: Reviewed CONSTITUTIONAL: Well developed and in no acute distress. EYES: Conjuctivae without sclera icterus. Extraocular movements grossly intact. HEAD, EARS, NOSE, THROAT: Moist buccal mucosa. Head is atraumatic, normocephalic. Hears conversational speech. No nasal drainage. RESPIRATORY: Non-labored respirations and equal bilateral excursions. CARDIOVASCULAR: 2+ radial pulses. ABDOMEN: Non-tender. Minimal distention MUSCULOSKELETAL: No gross deformity of the lower extremities noted. No clubbing. No cyanosis. SKIN: Good skin turgor. Well perfused. NEUROLOGIC: Cranial nerves II through XII grossly intact. No focal or lateralizing signs. PSYCH: Appropriate affect. Alert and oriented to person, place and time. CLINICAL LABS: Reviewed. Hemoglobin 5.7 now 7.2 ASSESSMENT: 1. Acute blood loss anemia 2. Constipation PLAN: 1. Milk of magnesia and lactulose for laxatives ordered. 2. Upper endoscopy for tomorrow. Objective - Vital Signs Vital signs: Vital Signs Temp 97.9 F 04/18/21 14:45 Pulse 81 04/18/21 14:45 Resp 18 04/18/21 14:00 BP 131/63 04/18/21 14:45 Pulse Ox 95 04/18/21 14:45 Intake & Output 04/17/21 04/18/21 04/18/21 18:59 06:59 18:59 Intake Total 600 485 570 Balance 600 485 570 Weight 98.5 kg Intake: Intake, IV Titration 20 Amount Sodium Chloride 0.9% 1, 20 000 ml @ 20 mls/hr IV . Q24H [facility] Rx#:[id number] Oral 600 485 240 Blood Product 310 Rc Irr As1 Unit 310 [id number] Other: Voiding Method Urinal Urinal Urinal # Voids 1 - Labs CBC & Chem 7: 04/18/21 15:34 04/16/21 07:06 Labs: Abnormal Lab Results - Last 24 Hours (Table) 04/17/21 04/17/21 04/18/21 Range/Units 16:42 20:04 03:14 RBC 3.05 L (4.30-5.90) m/uL Hgb 5.7 L* (13.0-17.5) gm/dL Hct 21.3 L (39.0-53.0) % MCV 69.8 L (80.0-100.0) fL MCH 18.8 L (25.0-35.0) pg MCHC 26.9 L (31.0-37.0) g/dL RDW 22.1 H (11.5-15.5) % POC Glucose (mg/dL) 251 H 268 H (75-99) mg/dL Crossmatch 04/18/21 04/18/21 04/18/21 Range/Units 06:09 08:25 12:22 RBC (4.30-5.90) m/uL Hgb (13.0-17.5) gm/dL Hct (39.0-53.0) % MCV (80.0-100.0) fL MCH (25.0-35.0) pg MCHC (31.0-37.0) g/dL RDW (11.5-15.5) % POC Glucose (mg/dL) 236 H 260 H (75-99) mg/dL Crossmatch See Detail 04/18/21 Range/Units 15:34 RBC 3.38 L (4.30-5.90) m/uL Hgb 7.2 L D (13.0-17.5) gm/dL Hct 24.5 L (39.0-53.0) % MCV 72.6 L (80.0-100.0) fL MCH 21.4 L (25.0-35.0) pg MCHC 29.5 L (31.0-37.0) g/dL RDW 24.4 H (11.5-15.5) % POC Glucose (mg/dL) (75-99) mg/dL Crossmatch Assessment and Plan (1) History of gastric ulcer Current Visit: Yes Status: Acute Code(s): Z87.11 - PERSONAL HISTORY OF PEPTIC ULCER DISEASE SNOMED Code(s): 545934937 (2) Encounter for blood transfusion Current Visit: Yes Status: Acute Code(s): Z51.89 - ENCOUNTER FOR OTHER SPECIFIED AFTERCARE SNOMED Code(s): 593585306 (3) Anemia Current Visit: Yes Status: Acute Code(s): D64.9 - ANEMIA, UNSPECIFIED SNOMED Code(s): 732582099
[2021-04-18 16:53] LABS: Glucose,Whole Blood 218 mg/dL (75-99)
[2021-04-18] MEDS ORDERED: MAGNESIUM HYDROXIDE 2,400 MG/10 ML CUP PO ONE (17:00)
[2021-04-18] MEDS ORDERED: LACTULOSE 20 GM/30 ML CUP PO ONE (17:00)
[2021-04-18 20:41] LABS: Glucose,Whole Blood 301 mg/dL (75-99)
[2021-04-18] MEDS: SODIUM CHLORIDE 0.9% 1,000 ML IV SCH (20:44)
[2021-04-18] MEDS: ATORVASTATIN 40 MG TAB PO SCH (20:44)
[2021-04-19 06:28] LABS: Glucose,Whole Blood 203 mg/dL (75-99)
[2021-04-19] MEDS: INSULIN ASPART (NovoLOG) 100 UNIT/ML VIAL SQ SCH ×4 (06:42→21:18)
[2021-04-19 08:25] LABS: African American GFR (CKD) >90 (>60 ml/min/1.73 sqM); Anion Gap 4 mmol/L; Blood Urea Nitrogen 9 mg/dL (9-20); Calcium 8.4 mg/dL (8.4-10.2); Carbon Dioxide 28 mmol/L (22-30); Chloride 104 mmol/L (98-107); Glucose 171 mg/dL (74-99); Non-African American GFR(CKD) >90 (>60 ml/min/1.73 sqM); Potassium 4.1 mmol/L (3.5-5.1); Sodium 136 mmol/L (137-145)
[2021-04-19 08:36] LABS: Anisocytosis Marked; Basophils % (A) 0 %; Eosinophils # (A) 0.2 k/uL (0-0.7); Eosinophils % (A) 2 %; HCT 24.6 % (39.0-53.0); HGB 7.1 gm/dL (13.0-17.5); Hypochromasia Marked; Lymphocytes # (A) 1.2 k/uL (1.0-4.8); Lymphocytes % (A) 12 %; MCH 21.1 pg (25.0-35.0); MCV 72.5 fL (80.0-100.0); Mean Platelet Volume 8.1; Microcytosis Marked; Monocytes # (A) 0.9 k/uL (0-1.0); Monocytes % (A) 9 %; Neutrophils # (A) 7.8 k/uL (1.3-7.7); Neutrophils % (A) 77 %; Platelet Count 296 k/uL (150-450); Poikilocytosis Marked; RBC 3.39 m/uL (4.30-5.90); RDW 24.5 % (11.5-15.5); WBC 10.2 k/uL (3.8-10.6)
[2021-04-19] MEDS: FERROUS SULFATE 325 MG TAB PO SCH ×2 (09:56→17:01)
[2021-04-19] MEDS: METOPROLOL TARTRATE 50 MG TAB PO SCH ×2 (09:56→21:17)
[2021-04-19] MEDS: PANTOPRAZOLE 40 MG/10 ML VIAL IVP SCH ×2 (09:57→21:18)
[2021-04-19] MEDS: FUROSEMIDE 40 MG TAB PO SCH ×2 (09:57→17:01)
[2021-04-19] MEDS: DOCUSATE 100 MG CAP PO SCH ×2 (09:57→21:17)
[2021-04-19] MEDS: CYANOCOBALAMIN 500 MCG TAB PO SCH (09:57)
[2021-04-19] MEDS ORDERED: diphenhydrAMINE 25 MG CAP PO PRN (11:16)
--- NOTE | 2021-04-19 11:25 | P.PN ---
Subjective This is a pleasant 65 years old male with past medical history of Heart Failure, Diabetes Mellitus, GERD/Reflux, Hyperlipidemia, Hypertension, Ost eoarthritis, diabetic neuropathy bilateral feet, duodenal ulcer that are healed, arthritis R wrist, post op umbilical hernia ileus/infection,remote history of pneumonia with pericarditis. Coronary artery disease status post CABG in 2104. Patient states that he presents because of right chest pain that has been going on for 3 weeks on and off but yesterday it was more severe that during the night he was talking to his to come to the morning to the emergency room but it did cause severe and he was on the floor and his called 911. The pain is nonradiating and feels like a sore spot on his right chest associated with some nausea and sweating. But no dyspnea or coughing. Patient states that he is been taking pain lately more frequently especially during the last few days because of his worsening chest pain, he could not remember the name of the patella but when I asked him if it is Motrin and he said yes it is similar to it. And also reports black stool which is unusual for him but he denies abdominal pain except for vomiting. No urinary complaints or dysuria. No headache or dizziness or weakness or numbness. He denies smoking, alcohol or illicit drugs. He has history of spinal fusion surgery. Also he has history of bypass surgery were all 3 vessels about 8-9 months ago. Vitas looks stable. Labs showing hemoglobin of 5.8, which is microcytic, rest of CBC is unremarkable as well as INR, BMP and liver enzymes. Glucose elevated 252 Occult blood in the stool is negative, coronavirus not detected EKG showing normal sinus rhythm at [address]-T changes. Chest x-ray: No acute process. There is improved aeration of the left lower lobe Patient received 1 unit of blood transfusion and his hemoglobin went up to 6.7. 04/16/2021 Patient with no chest pain and cardiology on the case and there, and to resume his and antiplatelet therapy when his is stable. However is still have severe anemia and hemoglobin is 6.5 after 1 unit of blood transfusion, the new cut before blood transfusion due to a national shortage is 6.5 and hemoglobin should be less than that. So we'll keep monitoring for now. Low iron is been replaced as well as vitamin B12 including one IM injection and continue with oral vitamin B12 tomorrow. No evidence of active bleeding and hemodynamically stable. No chest pain Plan for EGD on Monday, patient informed and he agrees 04/17/2021 Patient had the distal chest pressure earlier which is resolved now. No other new complaint, no abdominal pain or vomiting. Hemodynamically stable. Hemoglobin 6.6 today. Ejection fraction is 40-45% He remains on Protonix IV, vitamin B12 and iron replacement therapy. Patient is also a prescription for Colace for constipation. 04/18/2021 Patient is awake and alert, no significant chest pain or dyspnea. He still complaining of from a rash in the upper chest and he wants something to help him with that, Rash looks sporadic, with itching and dried scabs on some of them, suspicious to be scabies versus others. Lysis was checked and could not be found in his hair however we will give him a therapeutic treatment of permethrin 1% and monitor for response. No abdominal pain or vomiting. His hemoglobin today it dropped to 5.7 and receiving 2 units of blood. Remains on Protonix, vitamin B12 and iron replacement therapy NSAIDs and anticoagulation on hold. Surgery team are recommended upper endoscopy. 04/19/2021 Torres is with no much symptoms today. No chest pain. No more evidence of GI bleed. He is planned for EGD today with surgery team. Hemoglobin 7.1, After 2 units of blood transfusion yesterday. He remains on IV Protonix, iron pills and B12 replacement therapy. Aspirin and Plavix still on hold Objective - Vital Signs Vital signs: Vital Signs Temp 98.5 F 04/19/21 04:00 Pulse 78 04/19/21 04:00 Resp 18 04/19/21 04:00 BP 112/52 04/19/21 04:00 Pulse Ox 98 04/19/21 04:00 Intake & Output 04/18/21 04/19/21 04/19/21 18:59 06:59 18:59 Intake Total 810 0 Balance 810 0 Intake: Intake, IV Titration 20 Amount Sodium Chloride 0.9% 1, 20 000 ml @ 20 mls/hr IV . Q24H [facility] Rx#:[id number] Oral 480 0 Blood Product 310 Rc Irr As1 Unit 310 [id number] Other: Voiding Method Urinal Urinal # Voids 2 1 # Bowel Movements 1 - Exam GENERAL: The patient is alert and oriented x3, not in any acute distress. Well developed, well nourished. -HEENT: Pupils are round and equally reacting to light. EOMI. No scleral icterus. No conjunctival pallor. Normocephalic, atraumatic. No pharyngeal erythema. No thyromegaly. pale CARDIOVASCULAR: S1 and S2 present. No murmurs, rubs, or gallops. PULMONARY: Chest is clear to auscultation, no wheezing or crackles. ABDOMEN: Soft, nontender, nondistended, normoactive bowel sounds. No palpable organomegaly. MUSCULOSKELETAL: No joint swelling or deformity. EXTREMITIES: No cyanosis, clubbing, or pedal edema. NEUROLOGICAL: Gross neurological examination did not reveal any focal deficits. SKIN: No rashes. no petechiae. - Labs CBC & Chem 7: 04/19/21 06:43 04/19/21 06:43 Labs: Abnormal Lab Results - Last 24 Hours (Table) 04/18/21 04/18/21 04/18/21 Range/Units 08:25 12:22 15:34 RBC 3.38 L (4.30-5.90) m/uL Hgb 7.2 L D (13.0-17.5) gm/dL Hct 24.5 L (39.0-53.0) % MCV 72.6 L (80.0-100.0) fL MCH 21.4 L (25.0-35.0) pg MCHC 29.5 L (31.0-37.0) g/dL RDW 24.4 H (11.5-15.5) % Neutrophils # (1.3-7.7) k/uL Sodium (137-145) mmol/L Glucose (74-99) mg/dL POC Glucose (mg/dL) 260 H (75-99) mg/dL Crossmatch See Detail 04/18/21 04/18/21 04/19/21 Range/Units 16:50 20:40 06:26 RBC (4.30-5.90) m/uL Hgb (13.0-17.5) gm/dL Hct (39.0-53.0) % MCV (80.0-100.0) fL MCH (25.0-35.0) pg MCHC (31.0-37.0) g/dL RDW (11.5-15.5) % Neutrophils # (1.3-7.7) k/uL Sodium (137-145) mmol/L Glucose (74-99) mg/dL POC Glucose (mg/dL) 218 H 301 H 203 H (75-99) mg/dL Crossmatch 04/19/21 04/19/21 Range/Units 06:43 06:43 RBC 3.39 L (4.30-5.90) m/uL Hgb 7.1 L (13.0-17.5) gm/dL Hct 24.6 L (39.0-53.0) % MCV 72.5 L (80.0-100.0) fL MCH 21.1 L (25.0-35.0) pg MCHC 29.0 L (31.0-37.0) g/dL RDW 24.5 H (11.5-15.5) % Neutrophils # 7.8 H (1.3-7.7) k/uL Sodium 136 L (137-145) mmol/L Glucose 171 H (74-99) mg/dL POC Glucose (mg/dL) (75-99) mg/dL Crossmatch Assessment and Plan Assessment: acute anemia, rule out GI bleed. Suspected secondary to pain medication may be NSAIDs. Secondary to iron deficiency anemia. Borderline vitamin B12 level Upper trunk rash Chest pain, stock counter causes ruled out and cartilage team signed off History of coronary artery disease status post CABG Hypertension Diabetes mellitus with hyperglycemia Hyperlipidemia Diabetic neuropathy History of arthritis Plan: this is a pleasant 65 years old male who presents because of severe iron deficiency anemia possible GI bleed Monitor hemoglobin Given 2 units of blood transfusion Starts ferrous sulfate and vitamin B12 replacement possible EGD on Monday with surgery team Cardiology consult site of the case. Continue with metoprolol labs and medication were reviewed.. Continue same treatment. Continue with symptomatic treatment. Resume home medication. Monitor lytes and vitals. DVT and GI prophylaxis. Further recommendations as per clinical course of the patie nt DVT prophylaxis:no heparin GI Prophylaxis: Ppi Prognosis is guarded
[2021-04-19 12:02] LABS: Glucose,Whole Blood 184 mg/dL (75-99)
[2021-04-19] MEDS: LOSARTAN 25 MG TAB PO SCH (12:35)
[2021-04-19] MEDS ORDERED: PROPOFOL 10 MG/ML 20 ML VIAL IV ONE (13:57)
[2021-04-19] MEDS ORDERED: LIDOCAINE 1% INJ 10MG/ML (20 ML MDV) ONE (13:57)
[2021-04-19] MEDS ORDERED: LACTATED RINGERS 1,000 ML IV ONE ×2 (13:58)
[2021-04-19 16:47] LABS: Glucose,Whole Blood 183 mg/dL (75-99)
[2021-04-19 20:37] LABS: Glucose,Whole Blood 216 mg/dL (75-99)
[2021-04-19] MEDS: ATORVASTATIN 40 MG TAB PO SCH (21:16)
[2021-04-19] MEDS: BACLOFEN 10 MG TAB PO PRN (21:17)
[2021-04-20] MEDS: SODIUM CHLORIDE 0.9% 1,000 ML IV SCH ×2 (00:40→21:04)
[2021-04-20 06:05] LABS: Glucose,Whole Blood 184 mg/dL (75-99)
[2021-04-20] MEDS: INSULIN ASPART (NovoLOG) 100 UNIT/ML VIAL SQ SCH ×4 (06:26→21:11)
[2021-04-20] MEDS: FERROUS SULFATE 325 MG TAB PO SCH ×2 (06:27→16:56)
[2021-04-20] MEDS: FUROSEMIDE 40 MG TAB PO SCH (06:27)
[2021-04-20] MEDS: DOCUSATE 100 MG CAP PO SCH ×2 (09:19→21:10)
[2021-04-20] MEDS: METOPROLOL TARTRATE 50 MG TAB PO SCH ×2 (09:20→21:11)
[2021-04-20] MEDS: CYANOCOBALAMIN 500 MCG TAB PO SCH (09:20)
[2021-04-20] MEDS: PANTOPRAZOLE 40 MG/10 ML VIAL IVP SCH ×2 (09:20→21:11)
[2021-04-20 09:44] LABS: Anisocytosis Marked; HCT 25.5 % (39.0-53.0); HGB 7.4 gm/dL (13.0-17.5); Hypochromasia Marked; MCH 21.3 pg (25.0-35.0); MCHC 29.2 g/dL (31.0-37.0); Mean Platelet Volume 7.6; Microcytosis Marked; Platelet Count 347 k/uL (150-450); Poikilocytosis Marked; RBC 3.49 m/uL (4.30-5.90); WBC 8.6 k/uL (3.8-10.6)
[2021-04-20 10:03] LABS: RDW 26.2 % (11.5-15.5)
[2021-04-20] MEDS: CLOPIDOGREL 75 MG TAB PO SCH (10:17)
[2021-04-20 11:41] LABS: Glucose,Whole Blood 186 mg/dL (75-99)
--- NOTE | 2021-04-20 11:50 | P.PN ---
Subjective This is a pleasant 65 years old male with past medical history of Heart Failure, Diabetes Mellitus, GERD/Reflux, Hyperlipidemia, Hypertension, Ost eoarthritis, diabetic neuropathy bilateral feet, duodenal ulcer that are healed, arthritis R wrist, post op umbilical hernia ileus/infection,remote history of pneumonia with pericarditis. Coronary artery disease status post CABG in 2104. Patient states that he presents because of right chest pain that has been going on for 3 weeks on and off but yesterday it was more severe that during the night he was talking to his to come to the morning to the emergency room but it did cause severe and he was on the floor and his called 911. The pain is nonradiating and feels like a sore spot on his right chest associated with some nausea and sweating. But no dyspnea or coughing. Patient states that he is been taking pain lately more frequently especially during the last few days because of his worsening chest pain, he could not remember the name of the patella but when I asked him if it is Motrin and he said yes it is similar to it. And also reports black stool which is unusual for him but he denies abdominal pain except for vomiting. No urinary complaints or dysuria. No headache or dizziness or weakness or numbness. He denies smoking, alcohol or illicit drugs. He has history of spinal fusion surgery. Also he has history of bypass surgery were all 3 vessels about 8-9 months ago. Vitas looks stable. Labs showing hemoglobin of 5.8, which is microcytic, rest of CBC is unremarkable as well as INR, BMP and liver enzymes. Glucose elevated 252 Occult blood in the stool is negative, coronavirus not detected EKG showing normal sinus rhythm at [address]-T changes. Chest x-ray: No acute process. There is improved aeration of the left lower lobe Patient received 1 unit of blood transfusion and his hemoglobin went up to 6.7. 04/16/2021 Patient with no chest pain and cardiology on the case and there, and to resume his and antiplatelet therapy when his is stable. However is still have severe anemia and hemoglobin is 6.5 after 1 unit of blood transfusion, the new cut before blood transfusion due to a national shortage is 6.5 and hemoglobin should be less than that. So we'll keep monitoring for now. Low iron is been replaced as well as vitamin B12 including one IM injection and continue with oral vitamin B12 tomorrow. No evidence of active bleeding and hemodynamically stable. No chest pain Plan for EGD on Monday, patient informed and he agrees 04/17/2021 Patient had the distal chest pressure earlier which is resolved now. No other new complaint, no abdominal pain or vomiting. Hemodynamically stable. Hemoglobin 6.6 today. Ejection fraction is 40-45% He remains on Protonix IV, vitamin B12 and iron replacement therapy. Patient is also a prescription for Colace for constipation. 04/18/2021 Patient is awake and alert, no significant chest pain or dyspnea. He still complaining of from a rash in the upper chest and he wants something to help him with that, Rash looks sporadic, with itching and dried scabs on some of them, suspicious to be scabies versus others. Lysis was checked and could not be found in his hair however we will give him a therapeutic treatment of permethrin 1% and monitor for response. No abdominal pain or vomiting. His hemoglobin today it dropped to 5.7 and receiving 2 units of blood. Remains on Protonix, vitamin B12 and iron replacement therapy NSAIDs and anticoagulation on hold. Surgery team are recommended upper endoscopy. 04/19/2021 Torres is with no much symptoms today. No chest pain. No more evidence of GI bleed. He is planned for EGD today with surgery team. Hemoglobin 7.1, After 2 units of blood transfusion yesterday. He remains on IV Protonix, iron pills and B12 replacement therapy. Aspirin and Plavix still on hold 04/20/2021 Patient rash is improving, he does not have chest pain or dyspnea. EGD done yesterday, reports still pending but I discussed the case with Dr. Tai, it looks like he has evidence of gastritis. He recommended to start Plavix today, monitor him tomorrow if he tolerates that well then he may be considered for discharge His hemoglobin today actually improved to 7.4 I talked to the patient he wasn't sure if he takes aspirin or Plavix or both, on reviewing the home medication list we see only Plavix. Objective - Vital Signs Vital signs: Vital Signs Temp 98.2 F 04/20/21 08:00 Pulse 82 04/20/21 08:00 Resp 18 04/20/21 08:00 BP 146/64 04/20/21 08:00 Pulse Ox 94 L 04/20/21 08:00 Intake & Output 04/19/21 04/20/21 04/20/21 18:59 06:59 18:59 Intake Total 460 240 Output Total 100 Balance 360 240 Weight 98.2 kg Intake: IV 100 Oral 360 240 Output: Urine 100 Other: Voiding Method Urinal Toilet Toilet Urinal Urinal # Voids 1 1 # Bowel Movements 1 - Exam GENERAL: The patient is alert and oriented x3, not in any acute distress. Well developed, well nourished. -HEENT: Pupils are round and equally reacting to light. EOMI. No scleral icterus. No conjunctival pallor. Normocephalic, atraumatic. No pharyngeal erythema. No thyromegaly. pale CARDIOVASCULAR: S1 and S2 present. No murmurs, rubs, or gallops. PULMONARY: Chest is clear to auscultation, no wheezing or crackles. ABDOMEN: Soft, nontender, nondistended, normoactive bowel sounds. No palpable organomegaly. MUSCULOSKELETAL: No joint swelling or deformity. EXTREMITIES: No cyanosis, clubbing, or pedal edema. NEUROLOGICAL: Gross neurological examination did not reveal any focal deficits. SKIN: No rashes. no petechiae. - Labs CBC & Chem 7: 04/20/21 08:32 04/19/21 06:43 Labs: Abnormal Lab Results - Last 24 Hours (Table) 04/19/21 04/19/21 04/19/21 Range/Units 11:58 16:43 20:35 RBC (4.30-5.90) m/uL Hgb (13.0-17.5) gm/dL Hct (39.0-53.0) % MCV (80.0-100.0) fL MCH (25.0-35.0) pg MCHC (31.0-37.0) g/dL RDW (11.5-15.5) % POC Glucose (mg/dL) 184 H 183 H 216 H (75-99) mg/dL 04/20/21 04/20/21 Range/Units 06:03 08:32 RBC 3.49 L (4.30-5.90) m/uL Hgb 7.4 L (13.0-17.5) gm/dL Hct 25.5 L (39.0-53.0) % MCV 73.0 L (80.0-100.0) fL MCH 21.3 L (25.0-35.0) pg MCHC 29.2 L (31.0-37.0) g/dL RDW 26.2 H (11.5-15.5) % POC Glucose (mg/dL) 184 H (75-99) mg/dL Assessment and Plan Assessment: acute anemia, rule out GI bleed. Suspected secondary to pain medication may be NSAIDs. Secondary to iron deficiency anemia. Borderline vitamin B12 level Upper trunk rash Chest pain, outreach team member causes ruled out and cartilage team signed off History of coronary artery disease status post CABG Hypertension Diabetes mellitus with hyperglycemia Hyperlipidemia Diabetic neuropathy History of arthritis Plan: this is a pleasant 65 years old male who presents because of severe iron deficiency anemia possible GI bleed Monitor hemoglobin Start Plavix Surgery team on the case Continue with ferrous sulfate and vitamin B12 replacement Cardiology consult site of the case. Continue with metoprolol labs and medication were reviewed.. Continue same treatment. Continue with symptomatic treatment. Resume home medication. Monitor lytes and vitals. DVT and GI prophylaxis. Further recommendations as per clinical course of the patient DVT prophylaxis:no heparin GI Prophylaxis: Ppi Prognosis is possible discharge in 24-48 hours if he can improve
[2021-04-20] MEDS: LOSARTAN 25 MG TAB PO SCH (12:12)
--- NOTE | 2021-04-20 15:30 | P.PN ---
Subjective Progress Note Date: 04/20/21 CHIEF COMPLAINT: Anemia HISTORY OF PRESENT ILLNESS: Patient is status post EGD demonstrating gastritis. He denies any blood in his stools or black stools. He was more constipated today. Hemoglobin is up from 7.1-7.4 Patient seen and examined with Dr. rivera PHYSICAL EXAM: VITAL SIGNS: Reviewed. GENERAL: Well-developed in no acute distress. HEENT: No sclera icterus. Extraocular movements grossly intact. Moist buccal mucosa. Head is atraumatic, normocephalic. ABDOMEN: Soft. Nondistended. Nontender. NEUROLOGIC: Alert and oriented. Cranial nerves II through XII grossly intact. ASSESSMENT: 1. Anemia 2. Status post EGD showing gastritis. No active bleeding noted PLAN: -Continue PPI -Recommend to observe patient one more day -Okay to resume aspirin and Plavix from surgical standpoint -Possible discharge tomorrow if no active bleeding Physician Cig[employer] Bander Hand note has been reviewed by physician. Signing provider agrees with the documented findings, assessment, and plan of care. Objective - Vital Signs Vital signs: Vital Signs Temp 98.2 F 04/20/21 08:00 Pulse 70 04/20/21 14:00 Resp 18 04/20/21 14:00 BP 121/64 04/20/21 12:00 Pulse Ox 96 04/20/21 12:00 Intake & Output 04/19/21 04/20/21 04/20/21 18:59 06:59 18:59 Intake Total 460 358 Output Total 100 Balance 360 358 Weight 98.2 kg Intake: IV 100 Oral 360 358 Output: Urine 100 Other: Voiding Method Urinal Toilet Toilet Urinal Urinal # Voids 1 1 # Bowel Movements 1 - Labs CBC & Chem 7: 04/20/21 08:32 04/19/21 06:43 Labs: Abnormal Lab Results - Last 24 Hours (Table) 04/19/21 04/19/21 04/20/21 Range/Units 16:43 20:35 06:03 RBC (4.30-5.90) m/uL Hgb (13.0-17.5) gm/dL Hct (39.0-53.0) % MCV (80.0-100.0) fL MCH (25.0-35.0) pg MCHC (31.0-37.0) g/dL RDW (11.5-15.5) % POC Glucose (mg/dL) 183 H 216 H 184 H (75-99) mg/dL 04/20/21 04/20/21 Range/Units 08:32 11:39 RBC 3.49 L (4.30-5.90) m/uL Hgb 7.4 L (13.0-17.5) gm/dL Hct 25.5 L (39.0-53.0) % MCV 73.0 L (80.0-100.0) fL MCH 21.3 L (25.0-35.0) pg MCHC 29.2 L (31.0-37.0) g/dL RDW 26.2 H (11.5-15.5) % POC Glucose (mg/dL) 186 H (75-99) mg/dL
[2021-04-20 16:36] LABS: Glucose,Whole Blood 254 mg/dL (75-99)
[2021-04-20 20:15] LABS: Glucose,Whole Blood 252 mg/dL (75-99)
[2021-04-20] MEDS: BACLOFEN 10 MG TAB PO PRN (21:10)
[2021-04-20] MEDS: ATORVASTATIN 40 MG TAB PO SCH (21:11)
[2021-04-21 06:24] LABS: Glucose,Whole Blood 194 mg/dL (75-99)
[2021-04-21] MEDS: INSULIN ASPART (NovoLOG) 100 UNIT/ML VIAL SQ SCH ×2 (06:29→11:54)
[2021-04-21] MEDS: FERROUS SULFATE 325 MG TAB PO SCH (06:29)
[2021-04-21] MEDS: FUROSEMIDE 40 MG TAB PO SCH (06:29)
[2021-04-21 08:23] VITALS: RESP 18; TEMP 97.9
[2021-04-21] MEDS: CYANOCOBALAMIN 500 MCG TAB PO SCH (08:24)
[2021-04-21] MEDS: CLOPIDOGREL 75 MG TAB PO SCH (08:24)
[2021-04-21] MEDS: METOPROLOL TARTRATE 50 MG TAB PO SCH (08:24)
[2021-04-21] MEDS: PANTOPRAZOLE 40 MG/10 ML VIAL IVP SCH (08:24)
[2021-04-21] MEDS: DOCUSATE 100 MG CAP PO SCH (08:24)
[2021-04-21 09:12] LABS: Anisocytosis Marked; Basophils % (A) 0 %; Eosinophils # (A) 0.2 k/uL (0-0.7); Eosinophils % (A) 2 %; HCT 27.9 % (39.0-53.0); HGB 7.9 gm/dL (13.0-17.5); Hypochromasia Marked; Lymphocytes # (A) 0.8 k/uL (1.0-4.8); Lymphocytes % (A) 10 %; MCH 21.1 pg (25.0-35.0); MCHC 28.1 g/dL (31.0-37.0); MCV 75.2 fL (80.0-100.0); Mean Platelet Volume 8.8; Microcytosis Marked; Monocytes # (A) 0.3 k/uL (0-1.0); Monocytes % (A) 4 %; Neutrophils # (A) 6.3 k/uL (1.3-7.7); Neutrophils % (A) 81 %; Platelet Count 390 k/uL (150-450); Poikilocytosis Marked; RBC 3.71 m/uL (4.30-5.90); WBC 7.7 k/uL (3.8-10.6)
--- NOTE | 2021-04-21 11:06 | P.PN ---
Subjective Progress Note Date: 04/21/21 CHIEF COMPLAINT: Anemia HISTORY OF PRESENT ILLNESS: Patient is status post EGD demonstrating gastritis. He denies any blood in his stools or black stools. Had a bowel movement yesterday. Denies any nausea vomiting. Hemoglobin from 7.4-7.9. He was restarted on aspirin and Plavix yesterday. Patient seen and examined with Dr. rivera PHYSICAL EXAM: VITAL SIGNS: Reviewed. GENERAL: Well-developed in no acute distress. HEENT: No sclera icterus. Extraocular movements grossly intact. Moist buccal mucosa. Head is atraumatic, normocephalic. ABDOMEN: Soft. Nondistended. Nontender. NEUROLOGIC: Alert and oriented. Cranial nerves II through XII grossly intact. ASSESSMENT: 1. Anemia 2. Status post EGD showing gastritis. No active bleeding noted PLAN: -Patient can be discharged from surgical standpoint -Continue PPI Physician [employer] Cutter note has been reviewed by physician. Signing provider agrees with the documented findings, assessment, and plan of care. Objective - Vital Signs Vital signs: Vital Signs Temp 97.9 F 04/21/21 08:19 Pulse 94 04/21/21 08:19 Resp 18 04/21/21 08:19 BP 132/62 04/21/21 08:19 Pulse Ox 98 04/21/21 08:19 Intake & Output 04/20/21 04/21/21 04/21/21 18:59 06:59 18:59 Intake Total 598 20 Balance 598 20 Weight 92.5 kg Intake: IV 20 Invasive Line 4 20 Oral 598 Other: Voiding Method Toilet Toilet Toilet Urinal Urinal Urinal # Voids 1 2 # Bowel Movements 1 - Labs CBC & Chem 7: 04/21/21 08:46 04/19/21 06:43 Labs: Abnormal Lab Results - Last 24 Hours (Table) 04/20/21 04/20/21 04/20/21 Range/Units 11:39 16:34 20:13 RBC (4.30-5.90) m/uL Hgb (13.0-17.5) gm/dL Hct (39.0-53.0) % MCV (80.0-100.0) fL MCH (25.0-35.0) pg MCHC (31.0-37.0) g/dL RDW (11.5-15.5) % Lymphocytes # (1.0-4.8) k/uL POC Glucose (mg/dL) 186 H 254 H 252 H (75-99) mg/dL 04/21/21 04/21/21 Range/Units 06:22 08:46 RBC 3.71 L (4.30-5.90) m/uL Hgb 7.9 L (13.0-17.5) gm/dL Hct 27.9 L (39.0-53.0) % MCV 75.2 L (80.0-100.0) fL MCH 21.1 L (25.0-35.0) pg MCHC 28.1 L (31.0-37.0) g/dL RDW 27.0 H (11.5-15.5) % Lymphocytes # 0.8 L (1.0-4.8) k/uL POC Glucose (mg/dL) 194 H (75-99) mg/dL
[2021-04-21 11:49] LABS: Glucose,Whole Blood 226 mg/dL (75-99)
[2021-04-21 11:54] VITALS: BP 149/66; PULSE 74
[2021-04-21] MEDS: LOSARTAN 25 MG TAB PO SCH (11:55)
--- NOTE | 2021-04-21 20:28 | P.DS ---
Providers Date of admission: 04/15/21 15:43 Attending physician: Ed Henderson Consults: 04/14/21 23:09 Consult Physician Routine Consulting Provider: Anita Peres Consult Reason/Comments: chest pain Do you want consulting provider notified?: Yes 04/15/21 09:13 Consult Physician Urgent Consulting Provider: Thomas Tai Consult Reason/Comments: low Hb, possible gi bleed Do you want consulting provider notified?: Yes Primary care physician: Kristopher Berman [facility] Course: Diagnoses: -acute anemia, rule out GI bleed. Suspected secondary to pain medication may be NSAIDs. Secondary to iron deficiency anemia. Borderline vitamin B12 level. Status post EGD showing evidence of acute gastritis and erosions which is the most likely the source of bleeding -Upper trunk rash, improved after 1 dose of permethrin -ischemic cardiomyopathy with ejection fraction 40-45% -Chest pain, public health advisor causes ruled out and cardiology team signed off -History of coronary artery disease status post CABG -Hypertension -Diabetes mellitus with hyperglycemia -Hyperlipidemia -Diabetic neuropathy -History of arthritis Hospital course: This is a pleasant 65 years old male with past medical history of Heart Failure, Diabetes Mellitus, GERD/Reflux, Hyperlipidemia, Hypertension, Osteoarthritis, diabetic neuropathy bilateral feet, duodenal ulcer that are healed, arthritis R wrist, post op umbilical hernia ileus/infection,remote history of pneumonia with pericarditis. Coronary artery disease status post CABG in 2104. Patient states that he presents because of right chest pain that has been going on for 3 weeks on and off but yesterday it was more severe that during the night he was talking to his to come to ED, patient evaluated by public health advisor and cleared for discharge however patient found to have severe anemia with hemoglobin was low at 5.8, he received 2 units of blood transfusion and his hemoglobin is starts coming up 7.1, also received iron and B12 replacement therapy and his hemoglobin prior to discharge improved TO 7.9. Patient underwent EGD: And stomach biopsy of the antrum showing minimal chronic gastritis and mild chronic and focal acute gastritis in the gastric fundus associated with mucosal erosions and treatment and non-retractile foreign material of uncertain origin. Surgical team recommended to resume his Plavix yesterday and despite that hemoglobin improved 7.4 up to 7.9 and vitals are stable However patient remains asymptomatic today with no chest pain or dyspnea, no abdominal pain, no change in urine or bowel habits. No fever. Patient was fit for discharge by surgery team. His been discharged on Protonix twice a day, iron and B12. Problems and management plan were discussed with the patient and he verbalized understanding and acceptance Patient was found stable and can be discharged home however he needs follow-up as an outpatient. Patient was instructed to follow up with PCP Dr. Summers within one week and patient agrees Patient was instructed to follow up with Dr. Sweet on 04/29 and he agrees and with Dr. Archibald in 2 weeks and ball sorter in 1-2 weeks and he agrees Physical exam Gen: patient is a AAOx3, no distress CVS: S1-S2, RRR, no murmur Lungs: B/L CTA, no wheezing Abdomen: soft, no distention, no tenderness, positive bowel sounds Extremity: no leg edema or induration Time spent more than 35 minutes Patient Condition at Discharge: Critical Plan - Discharge Summary New Discharge Prescriptions: New Cyanocobalamin [Vitamin B-12] 1,000 mcg PO DAILY #30 tab Ferrous Sulfate [Iron (65 MG Elemental)] 325 mg PO BID-W/MEALS 30 Days #60 tab Continue Losartan [Cozaar] 25 mg PO DAILY@1200 #30 tab Clopidogrel [Plavix] 75 mg PO DAILY #30 tab Baclofen [Lioresal] 10 mg PO HS PRN PRN Reason: Muscle Spasm metFORMIN HCL [Glucophage] 500 mg PO TID-W/MEALS Insulin Glargine,Hum.rec.anlog [Lantus Solostar Pen] 20 unit SQ HS PRN PRN Reason: high bs Furosemide [Lasix] 40 mg PO AC-BRKFST Metoprolol Tartrate [Lopressor] 50 mg PO BID #60 tab sitaGLIPtin [Januvia] 100 mg PO DAILY #30 tab Potassium Chloride [Potassium Chloride ER] 10 meq PO HS Atorvastatin [Lipitor] 40 mg PO HS Changed Pantoprazole [Protonix] 40 mg PO BID 30 Days #60 tab Discontinued amLODIPine [Norvasc] 10 mg PO DAILY #30 tab Discharge Medication List Clopidogrel [Plavix] 75 mg PO DAILY #30 tab 07/20/20 [Rx] Losartan [Cozaar] 25 mg PO DAILY@1200 #30 tab 07/20/20 [Rx] Metoprolol Tartrate [Lopressor] 50 mg PO BID #60 tab 07/20/20 [Rx] sitaGLIPtin [Januvia] 100 mg PO DAILY #30 tab 07/20/20 [Rx] Atorvastatin [Lipitor] 40 mg PO HS 04/14/21 [History] Baclofen [Lioresal] 10 mg PO HS PRN 04/14/21 [History] Furosemide [Lasix] 40 mg PO AC-BRKFST 04/14/21 [History] Insulin Glargine,Hum.rec.anlog [Lantus Solostar Pen] 20 unit SQ HS PRN 04/14/21 [History] Potassium Chloride [Potassium Chloride ER] 10 meq PO HS 04/14/21 [History] metFORMIN HCL [Glucophage] 500 mg PO TID-W/MEALS 04/14/21 [History] Cyanocobalamin [Vitamin B-12] 1,000 mcg PO DAILY #30 tab 04/21/21 [Rx] Ferrous Sulfate [Iron (65 MG Elemental)] 325 mg PO BID-W/MEALS 30 Days #60 tab 04/21/21 [Rx] Pantoprazole [Protonix] 40 mg PO BID 30 Days #60 tab 04/21/21 [Rx] Follow up Appointment(s)/Referral(s): Antonella Summers MD [Primary Care Provider] - 04/26/21 1:30 pm Juli Kilpatrick MD [STAFF PHYSICIAN] - 1 Week (Skin Doctor-for your rash) Bruce Archibald MD [STAFF PHYSICIAN] - 04/28/21 2:15 pm Thomas Tai MD [STAFF PHYSICIAN] - 04/29/21 1:30 pm (MONDAY) Patient Instructions/Handouts: Chest Pain (DC), Anemia (DC) Activity/Diet/Wound Care/Special Instructions: heart healthy diet activity is restricted till you see your doctor we recommend to avoid NSAIDs like no motrin , no naproxen, no mobic ok if plavix and other heart medication Discharge Disposition: HOME SELF-CARE
== END 2021-04-21 14:01 | disposition home or self-care (01) | DRG 378 ==
LOC: EC 21:56 → 3SCARD 23:08 → OBSVTOIN 04-15 15:43
PROVIDERS: ADMIT Hospitalist; ATTEND Hospitalist
PROC: 30233N1 Transfusion of Nonautologous Red Blood Cells into Peripheral Vein, Percutaneous Approach (ICD-10-PCS; 2021-04-15)
PROC: 0DB78ZX Excision of Stomach, Pylorus, Via Natural or Artificial Opening Endoscopic, Diagnostic (ICD-10-PCS; principal; 2021-04-19 12:55)
DX: K29.01 Acute gastritis with bleeding (principal); D62 Acute posthemorrhagic anemia; I50.42 Chronic combined systolic (congestive) and diastolic (congestive) heart failure; D50.9 Iron deficiency anemia, unspecified; D75.89 Other specified diseases of blood and blood-forming organs; E11.40 Type 2 diabetes mellitus with diabetic neuropathy, unspecified; E11.51 Type 2 diabetes mellitus with diabetic peripheral angiopathy without gangrene; E11.65 Type 2 diabetes mellitus with hyperglycemia; E66.9 Obesity, unspecified; E78.5 Hyperlipidemia, unspecified; F17.210 Nicotine dependence, cigarettes, uncomplicated; I11.0 Hypertensive heart disease with heart failure; I25.10 Atherosclerotic heart disease of native coronary artery without angina pectoris; I25.5 Ischemic cardiomyopathy; I45.10 Unspecified right bundle-branch block; R21 Rash and other nonspecific skin eruption; K21.9 Gastro-esophageal reflux disease without esophagitis; Z87.11 Personal history of peptic ulcer disease; K59.00 Constipation, unspecified; Z68.32 Body mass index [BMI] 32.0-32.9, adult; M19.031 Primary osteoarthritis, right wrist; Z20.822 Contact with and (suspected) exposure to COVID-19; Z79.02 Long term (current) use of antithrombotics/antiplatelets; Z79.51 Long term (current) use of inhaled steroids; Z79.82 Long term (current) use of aspirin; Z79.84 Long term (current) use of oral hypoglycemic drugs; Z79.899 Other long term (current) drug therapy; Z82.49 Family history of ischemic heart disease and other diseases of the circulatory system; Z87.01 Personal history of pneumonia (recurrent); Z95.1 Presence of aortocoronary bypass graft; Z98.1 Arthrodesis status; T39.395A Adverse effect of other nonsteroidal anti-inflammatory drugs [NSAID], initial encounter; Z79.1 Long term (current) use of non-steroidal anti-inflammatories (NSAID); Z88.5 Allergy status to narcotic agent
CPT/HCPCS: 36415; 43239; 71046; 80048; 80053; 82272; 82607; 82728; 82746; 83540; 83550; 83690; 83735; 84484; 85025; 85027; 85610; 85730; 86850; 86900; 86901; 86920; 87635; 88305; 93005; 93306; 96365; 96375; 99291

== ENCOUNTER → 2022-01-28 | Outpatient (CLI) | payer MEDICARE ==
[2022-01-28 14:36] LABS: ALT 26 U/L (10-49); AST 16 U/L (14-35); Chol/HDL Ratio 6.09 Ratio; LDL Cholesterol,Calculated 106.7 mg/dL (0.0-131.0)
== END | disposition home or self-care (01) ==
LOC: LABWHC1 08:07
PROVIDERS: ATTEND Internal Medicine Cardiovascular Disease
DX: E78.2 Mixed hyperlipidemia (principal)
CPT/HCPCS: 36415; 80061; 84450; 84460

== ENCOUNTER → 2022-02-22 | Outpatient (CLI) | payer MEDICARE ==
--- NOTE | 2022-02-22 11:44 | CT ---
EXAMINATION TYPE: CT adrenal glands wo/w con CT DLP: 1914 mGycm, Automated exposure control for dose reduction was used. DATE OF EXAM: 02/22/2022 11:26 AM COMPARISON: CT abdomen 12/19/2018 CLINICAL INDICATION:Male, 66 years old with history of D35.00 adrenal MASS; adrenal mass TECHNIQUE: Standard CT of the abdomen before and after the uneventful administration of 70 cc of Is ovue-300 intravenously. Oral contrast was administered.. Coronal and sagittal reformats were performe d. FINDINGS: LOWER CHEST: Persistent pericardial calcification anteriorly. ABDOMEN LIVER: Diffusely hypoattenuating parenchyma. GALLBLADDER AND BILE DUCTS: Contracted gallbladder with cholelithiasis. No surrounding inflammatory c hanges. No biliary ductal dilatation. PANCREAS: Unremarkable. SPLEEN: Unremarkable. ADRENAL GLANDS: Right adrenal glands unremarkable. Left adrenal gland 1.9 cm nodule with a Hounsfield unit of 5 on the noncontrast image. This demonstrates a Hounsfield unit of 43 on the portal venous p hase and a Hounsfield unit of 15 on the delayed phase. Absolute washout of 74%. This is again consist ent with a benign lipid rich adrenal adenoma. KIDNEYS AND URETERS: No evidence of hydronephrosis or renal calculus. Stable left posterior mid kidne y exophytic 2.2 cm cyst. STOMACH AND BOWEL: Stomach and duodenum are unremarkable. Scattered colonic diverticulosis of the vis ualized descending colon. The appendix is within normal limits. Enteric contrast reaches the mid smal l bowel. No evidence of bowel obstruction. PERITONEUM: No evidence of pneumoperitoneum or free fluid. VASCULATURE: Moderate atherosclerotic calcifications are present throughout the abdominal aorta and i ts branches. No evidence of aortic aneurysm. MUSCULOSKELETAL: No acute osseous abnormalities. Grade 1 anterolisthesis of L4 on L5 without evidence of pars defects. Degenerative changes at L5-S1 with disc space narrowing, endplate sclerosis, and os teophyte formation. LYMPH NODES: No gross evidence for lymphadenopathy. SOFT TISSUE/ABDOMINAL WALL: Right lateral chest wall lipoma measuring up to 4.3 cm which is stable fr om prior exam. IMPRESSION: 1. Stable left adrenal gland nodule measuring up to 1.9 cm. This is again consistent with a benign l ipid adrenal adenoma. 2. Colonic diverticulosis without evidence for acute diverticulitis.
[2022-02-22 18:33] LABS: Prostate Specific Antigen 5.6 ng/mL (0.00-4.50)
== END | disposition home or self-care (01) ==
LOC: RADCTMAIN 09:58
PROVIDERS: ATTEND Urology
DX: D35.02 Benign neoplasm of left adrenal gland (principal); K57.30 Diverticulosis of large intestine without perforation or abscess without bleeding
CPT/HCPCS: 83835; 84153; 82533; 82565; 84520; 36415; 74170; Q9967 ×2

== ENCOUNTER → 2022-06-06 | Outpatient (CLI) | payer MEDICARE ==
[2022-06-06 16:12] LABS: Appearance,Urine Clear (Clear); Bilirubin,Urine Negative (Negative); Blood,Urine Negative (Negative); Color,Urine Yellow (Yellow); Ketones,Urine Negative (Negative); Nitrite,Urine Negative (Negative); PH, Urine 5.5 (5.0-8.0); Specific Gravity,Urine 1.016 (1.001-1.030); Urobilinogen,Urine 0.2 (0.2,1.0)
[2022-06-06 16:55] LABS: African American GFR (CKD) 79.8 (60.0-200.0); Anion Gap 10.7 mmol/L (10.00-18.00); BUN/Creat Ratio 19.55 Ratio (12.00-20.00); Blood Urea Nitrogen 21.7 mg/dL (9.0-27.0); Carbon Dioxide 27.9 mmol/L (20.0-27.5); Non-African American GFR(CKD) 68.8 (60.0-200.0); Potassium 4.6 mmol/L (3.5-5.5)
[2022-06-06 17:03] LABS: Basophils # (A) 0.04 X 10*3/uL (0.00-0.10); Basophils % (A) 0.4 %; Eosinophils # (A) 0.14 X 10*3/uL (0.04-0.35); Eosinophils % (A) 1.5 %; HCT 37.6 % (39.6-50.0); HGB 11.6 g/dL (13.0-17.0); Immature Grans, Automated 0.4 %; Lymphocytes # (A) 1.87 X 10*3/uL (0.90-5.00); Lymphocytes % (A) 20.5 %; MCH 25.4 pg (27.0-32.0); MCHC 30.9 g/dL (32.0-37.0); MCV 82.5 fL (80.0-97.0); Mean Platelet Volume 10.7 fL (9.5-12.2); Monocytes # (A) 0.65 X 10*3/uL (0.20-1.00); Monocytes % (A) 7.1 %; NRBC Per 100 WBC 0 /100 WBCS (0.0-0.0); Neutrophils # (A) 6.36 X 10*3/uL (1.80-7.70); Neutrophils % (A) 70.1 %; Platelet Count 308 X 10*3/uL (140-440); RBC 4.56 X 10*6/uL (4.40-5.60); RDW 15.9 % (11.5-14.5)
== END | disposition home or self-care (01) ==
LOC: LABPAT 12:05
PROVIDERS: ATTEND Urology
DX: Z01.812 Encounter for preprocedural laboratory examination (principal); R97.20 Elevated prostate specific antigen [PSA]; R31.29 Other microscopic hematuria
CPT/HCPCS: 80048; 81003; 83036; 85025; 87086

== ENCOUNTER 2022-06-14 11:15 | Day surgery (SDC) | payer MEDICARE ==
--- NOTE | 2022-06-07 08:58 | P.HPIHPCON ---
History of Present Illness H&P Date: 06/07/22 Chief Complaint: Elevated PSA This is a 66-year-old male with history of elevated PSA, underwent a prostate MRI that showed evidence of a PIRADS 4 lesion. Discussed with him given this finding recommend proceeding with a MRI fusion biopsy. Discussed risk which includes but not limited to bleeding, infection, potential of having prostate cancer even with negative biopsy. Risk of anesthesia was discussed. He understood all the risk and agreed to proceed Consent for Procedure: I have explained the operation/procedure to the patient, including the risks, benefits, side effects, alternative therapies (including not receiving the proposed treatment or service), the likelihood of the patient achieving his/her goals, and potential recuperation problems for the procedure/sedation/analgesia, as well as any blood products, if indicated. I also explained to the patient the risks, benefits and side effects of the alternatives, as well as the risks related to not receiving the proposed procedure, care, treatment, or services. Past Medical History Past Medical History: Chest Pain / Angina, Heart Failure, Diabetes Mellitus, GERD/Reflux, Hyperlipidemia, Hypertension, Osteoarthritis (OA), Skin Disorder, Vascular Disorder Additional Past Medical History / Comment(s): Chronic L leg edema and occasionally R leg edema, varicose veins right leg, NIDDM type II, neuropathy bilateral feet, duodenal ulcer that are healed, arthritis R wrist, post op umbilical hernia ileus/infection,remote history of pneumonia with pericarditis. History of Any Multi-Drug Resistant Organisms: None Reported Past Surgical History: Back Surgery, Coronary Bypass/CABG, Heart Catheterization, Hernia Repair, Orthopedic Surgery, Tonsillectomy Additional Past Surgical History / Comment(s): 02/2018 umbilical hernia repair with "bowel complication", 2011 cardiac cath with some blockages, lower back surgery d/t ruptured discs, L foot surgery d/t injury, bilateral laser eye surgery for cataracts Past Anesthesia/Blood Transfusion Reactions: No Reported Reaction Past Psychological History: No Psychological Hx Reported Additional Psychological History / Comment(s): Pt lives at home with his . 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 Smoking Status: Former smoker Past Alcohol Use History: None Reported Additional Past Alcohol Use History / Comment(s): SMOKES 1 PPD SINCE AGE 15 Past Drug Use History: None Reported - Past Family History Sister(s) Family Medical History: Pulmonary Embolus Father Family Medical History: Coronary Artery Disease (CAD), Myocardial Infarction ([place]) Additional Family Medical History / Comment(s): Father of [place] at age 68yrs. Mother Family Medical History: Cancer, Coronary Artery Disease (CAD), Deep Vein Thrombosis (DVT), Hypertension Additional Family Medical History / Comment(s): Mother has alot of allergies. RARE BLOOD CANCER Medications and Allergies Home Medications Medication Instructions Recorded Confirmed Type Clopidogrel [Plavix] 75 mg PO DAILY #30 tab 07/20/20 04/14/21 Rx Losartan [Cozaar] 25 mg PO DAILY@1200 #30 tab 07/20/20 04/14/21 Rx Metoprolol Tartrate [Lopressor] 50 mg PO BID #60 tab 07/20/20 04/14/21 Rx sitaGLIPtin [Januvia] 100 mg PO DAILY #30 tab 07/20/20 04/14/21 Rx Atorvastatin [Lipitor] 40 mg PO HS 04/14/21 04/14/21 History Baclofen [Lioresal] 10 mg PO HS PRN 04/14/21 04/14/21 History Furosemide [Lasix] 40 mg PO AC-BRKFST 04/14/21 04/14/21 History Insulin Glargine,Hum.rec.anlog 20 unit SQ HS PRN 04/14/21 04/14/21 History [Lantus Solostar Pen] Potassium Chloride [Potassium 10 meq PO HS 04/14/21 04/14/21 History Chloride ER] metFORMIN HCL [Glucophage] 500 mg PO TID-W/MEALS 04/14/21 04/14/21 History Cyanocobalamin [Vitamin B-12] 1,000 mcg PO DAILY #30 tab 04/21/21 Rx Ferrous Sulfate [Iron (65 MG 325 mg PO BID-W/MEALS 30 Days #60 04/21/21 Rx Elemental)] tab Pantoprazole [Protonix] 40 mg PO BID 30 Days #60 tab 04/21/21 Rx Allergies Allergy/AdvReac Type Severity Reaction Status Date / Time codeine Allergy Swelling Verified 04/14/21 23:24 tongue Surgical - Exam - General no distress, no pain - Eyes normal ocular movement, no pale - ENT normal nares, normal mucosa - Respiratory normal expansion, normal respiratory effort - Abdomen Abdomen: soft, non tender - Psychiatric oriented to time, oriented to person, oriented to place Assessment and Plan Assessment: OR MRI fusion biopsy
[~2022-06-14 11:15] MED LIST: GENTAMICIN 120 MG in SODIUM CHLORIDE 0.9% 100 ML IVPB PRN; LACTATED RINGERS 1,000 ML IV SCH; LIDOCAINE 1% (10MG/ML) FOR IV START INTRADERMA PRN
[2022-06-14 12:00] VITALS: TEMP 97.7
[2022-06-14] MEDS ORDERED: ONDANSETRON 4 MG/2 ML VIAL ONE (12:08)
[2022-06-14 12:09] LABS: Glucose,Whole Blood 183 mg/dL (70-110)
[2022-06-14] MEDS ORDERED: ONDANSETRON 4 MG/2 ML VIAL IVP ONE (12:10)
[2022-06-14] MEDS ORDERED: LIDOCAINE 2% INJ 20 MG/ML (2 ML VIAL) ONE (12:30)
[2022-06-14] MEDS ORDERED: PROPOFOL 10 MG/ML 20 ML VIAL IV ONE (12:30)
--- NOTE | 2022-06-14 13:05 | P.OP ---
Date of Procedure: 06/14/22 Preoperative Diagnosis: elevated PSA Postoperative Diagnosis: same Procedure(s) Performed: MRI fusion prostate biopsy Implants: none Anesthesia: MAC Estimated Blood Loss (ml): 1 Condition: stable Disposition: PACU Indications for Procedure: This is a 66-year-old male with history of elevated PSA, underwent a prostate MRI that showed evidence of a PIRADS 4 lesion. Discussed with him given this finding recommend proceeding with a MRI fusion biopsy. Discussed risk which includes but not limited to bleeding, infection, potential of having prostate cancer even with negative biopsy. Risk of anesthesia was discussed. He understood all the risk and agreed to proceed Description of Procedure: The patient was taken to the operating room and placed in the left lateral decubitus position. The Portal Profes transrectal ultrasound probe was placed intrarectally. It was then placed within the stand of the [facility] MRI/TRUS Fusion for Prostate Biopsy system. The prostate was imaged in both the axial and sagittal planes, revealing a prostate volume of 22 mL. Using the Biopsy gun, 3 biopsies were obtained from the target lesions. The remaining 12 biopsies of the peripheral zone were obtained utilizing a standard template. Once the procedure was completed, the ultrasound probe was removed. The patient tolerated the procedure well was taken to the recovery room stable condition.
[2022-06-14 13:28] VITALS: RESP 16
[2022-06-14 13:30] VITALS: BP 134/63; PULSE 68
== END 2022-06-14 13:51 | disposition home or self-care (01) ==
LOC: OR 11:15
PROVIDERS: ATTEND Urology
DX: C61 Malignant neoplasm of prostate (principal); I11.0 Hypertensive heart disease with heart failure; I50.9 Heart failure, unspecified; E78.5 Hyperlipidemia, unspecified; K21.9 Gastro-esophageal reflux disease without esophagitis; M19.90 Unspecified osteoarthritis, unspecified site; E11.40 Type 2 diabetes mellitus with diabetic neuropathy, unspecified; F17.210 Nicotine dependence, cigarettes, uncomplicated; Z95.5 Presence of coronary angioplasty implant and graft; Z98.890 Other specified postprocedural states; Z90.89 Acquired absence of other organs; Z98.41 Cataract extraction status, right eye; Z98.42 Cataract extraction status, left eye; Z82.49 Family history of ischemic heart disease and other diseases of the circulatory system; Z79.01 Long term (current) use of anticoagulants; Z79.84 Long term (current) use of oral hypoglycemic drugs; Z79.899 Other long term (current) drug therapy
CPT/HCPCS: 55700; 88344; 88305; 77021; J2405; J1580; J2704; J2001

== ENCOUNTER 2022-10-30 18:14 | Emergency (ER) | payer MEDICARE ==
[2022-10-30 18:23] VITALS: TEMP 98.2
[2022-10-30] MEDS ORDERED: ORPHENADRINE 30 MG/ML 2 ML VIAL IM STA (19:19)
[2022-10-30] MEDS ORDERED: KETOROLAC 15 MG/ML 1 ML VIAL IM STA (19:19)
--- NOTE | 2022-10-30 20:45 | CT ---
EXAMINATION TYPE: CT brain cspine wo con CT DLP: 1565.9 mGycm, Automated exposure control for dose reduction was used. DATE OF EXAM: 10/30/2022 7:40 PM COMPARISON: None. CLINICAL INDICATION:Male, 66 years old with history of Trauma, pain; neck pain TECHNIQUE: Brain: Multiple axial CT images of the brain were obtained without IV contrast. Cspine: Axial CT images from the skull base to the inferior aspect of T2 we obtained without intraven ous contrast. Coronal and sagittal reformatted images were also reviewed. FINDINGS: Brain: Extra-axial spaces: No abnormal extra-axial fluid collections. Ventricular system: Within normal limits Cerebral parenchyma: No acute intraparenchymal hemorrhage or mass effect. The alvarado-white junction is well differentiated. Cerebellum: Unremarkable. Mass effect: No evidence of midline shift. Intracranial vasculature: Atherosclerotic calcifications of the intracranial vessels. Soft tissues: Normal. Calvarium/osseous structures: No depressed skull fracture. Paranasal sinuses and mastoid air cells: Clear. Visualized orbits: Bilateral aphakia Cervical spine: Fracture: None. Osseous structures: Multilevel degenerative disc disease changes with endplate spurring and disc oste ophyte complex's. Vertebral alignment: Within normal limits. Spinal canal/Neural Foramina: Disc osteophyte complexes at C5-C7 with at least mild spinal canal sten osis. Facet joint uncovertebral joint arthropathy scattered throughout the cervical spine with varyin g degrees of neural foraminal stenosis. Neck soft tissues: Prevertebral soft tissues are within normal limits. Other: The airway is patent. The lung apices are clear. IMPRESSION: 1. No acute intracranial process. 2. Nonspecific white matter changes, likely secondary to chronic small vessel ischemic disease. 3. No evidence of cervical spine fracture. 4. Moderate multilevel degenerative disc disease.
--- NOTE | 2022-10-30 21:22 | ED ---
General Adult HPI - General Chief complaint: Neck Pain/Injury Stated complaint: Neck Pain Time Seen by Provider: 10/30/22 18:17 Source: patient Mode of arrival: EMS Limitations: physical limitation - History of Present Illness Initial comments: This is a 66-year-old male who presents emergency department via EMS for neck pain. The patient stated that he did fall approximately 3 weeks ago, landing on the back of his head and hyperextending his neck. The patient stated that he denied of any pain or complaints of the neck at that time but stated over the last 2 days and especially today, he had worsening pain at the midline upper portion of his neck. The patient stated that he tried muscle relaxers at home as well as Tylenol without any relief so he came to the emergency department via EMS for this pain. The patient denied any numbness or tingling as well as any focal deficits. The patient also denied any lightheadedness or dizziness. The patient denied any recent trauma to the neck besides the fall 3 weeks ago. - Related Data Home Medications Medication Instructions Recorded Confirmed Atorvastatin [Lipitor] 80 mg PO HS 04/14/21 06/08/22 Baclofen [Lioresal] 10 mg PO HS PRN 04/14/21 06/08/22 Furosemide [Lasix] 40 mg PO BID 04/14/21 06/08/22 Insulin Glargine,Hum.rec.anlog 20 unit SQ HS PRN 04/14/21 06/08/22 [Lantus Solostar Pen] Potassium Chloride [Potassium 10 meq PO HS 04/14/21 06/08/22 Chloride ER] metFORMIN HCL [Glucophage] 500 mg PO TID-W/MEALS 04/14/21 06/08/22 Aspirin 81 mg PO DAILY 06/08/22 06/08/22 Losartan [Cozaar] 50 mg PO DAILY 06/08/22 06/08/22 Unk Triamcinolone Acetonide Cr 1 applic TOPICAL DIRECTED PRN 06/08/22 06/14/22 Ciprofloxacin HCl 500 mg PO 06/14/22 Previous Rx's Medication Instructions Recorded Metoprolol Tartrate [Lopressor] 50 mg PO BID #60 tab 07/20/20 sitaGLIPtin [Januvia] 100 mg PO DAILY #30 tab 07/20/20 Ferrous Sulfate [Iron (65 MG 325 mg PO BID-W/MEALS 30 Days #60 04/21/21 Elemental)] tab Pantoprazole [Protonix] 40 mg PO BID 30 Days #60 tab 04/21/21 Lidocaine 5% Patch [Lidoderm] 1 patch TOPICAL DAILY #14 patch 10/30/22 Allergies Allergy/AdvReac Type Severity Reaction Status Date / Time codeine Allergy Swelling Verified 10/30/22 18:23 tongue Review of Systems ROS Statement: Those systems with pertinent positive or pertinent negative responses have been documented in the HPI. ROS Other: All systems not noted in ROS Statement are negative. Past Medical History Past Medical History: Chest Pain / Angina, Heart Failure, Diabetes Mellitus, GERD/Reflux, Hyperlipidemia, Hypertension, Myocardial Infarction ([place]), Osteoarthritis (OA), Prostate Disorder, Skin Disorder, Vascular Disorder Additional Past Medical History / Comment(s): Chronic L leg edema and occasionally R leg edema, varicose veins right leg, NIDDM type II, neuropathy bilateral feet, duodenal ulcer that are healed, arthritis R wrist, post op umbilical hernia ileus/infection,remote history of pneumonia with pericarditis. working up for Prostate cancer. mass on one kidney beng watched. rash to rt forearm ?eczema Last Myocardial Infarction Date:: 2020? History of Any Multi-Drug Resistant Organisms: None Reported Past Surgical History: Back Surgery, Coronary Bypass/CABG, Heart Catheterization, Hernia Repair, Orthopedic Surgery, Tonsillectomy Additional Past Surgical History / Comment(s): 02/2018 umbilical hernia repair with "bowel complication", 2011 cardiac cath with some blockages, lower back surgery d/t ruptured discs, L foot surgery d/t injury, bilateral laser eye surgery for cataracts. colonoscopy. biopsy of forehead,hasnt healed well per pt Past Anesthesia/Blood Transfusion Reactions: No Reported Reaction Past Psychological History: No Psychological Hx Reported Smoking Status: Former smoker Past Alcohol Use History: Occasional Past Drug Use History: Marijuana - Past Family History Sister(s) Family Medical History: Pulmonary Embolus Father Family Medical History: Coronary Artery Disease (CAD), Myocardial Infarction ([place]) Additional Family Medical History / Comment(s): Father of [place] at age 68yrs. not biological dad just found out a few years ago. Mother Family Medical History: Cancer, Coronary Artery Disease (CAD), Deep Vein Thrombosis (DVT), Hypertension Additional Family Medical History / Comment(s): Mother has alot of allergies. RARE BLOOD CANCER General Exam Limitations: no limitations General appearance: alert, in no apparent distress Head exam: Present: atraumatic, normocephalic, normal inspection Eye exam: Present: normal appearance, PERRL Pupils: Present: normal accommodation ENT exam: Present: normal exam, normal oropharynx, mucous membranes moist Neck exam: Present: tenderness (TTP over the midline, superior cervical spine) Respiratory exam: Present: normal lung sounds bilaterally, respiratory distress Cardiovascular Exam: Present: regular rate, normal rhythm, normal heart sounds GI/Abdominal exam: Present: soft, normal bowel sounds Extremities exam: Present: normal inspection, full ROM Back exam: Present: normal inspection, full ROM Neurological exam: Present: alert, oriented X3, CN II-XII intact Psychiatric exam: Present: normal affect, normal mood Skin exam: Present: warm, dry Course Vital Signs 10/30/22 10/30/22 10/30/22 18:19 19:42 21:21 Temperature 98.2 F Pulse Rate 78 71 64 Respiratory 18 16 18 Rate Blood Pressure 178/66 169/67 140/111 O2 Sat by Pulse 95 96 97 Oximetry 10/30/22 21:37 Temperature Pulse Rate 68 Respiratory 16 Rate Blood Pressure 143/70 O2 Sat by Pulse 96 Oximetry Medical Decision Making - Medical Decision Making Was pt. sent in by a medical professional or institution (, PA, CAREER COUNSELOR, urgent care, hospital, or intermediate...) When possible be specific @ -No Did you speak to anyone other than the patient for history (EMS, parent, family, police, friend...)? What history was obtained from this source @ -No Did you review nursing and triage notes (agree or disagree)? Why? @ -I reviewed and agree with nursing and triage notes Were old charts reviewed (outside hosp., previous admission, EMS record, old EKG, old radiological studies, urgent care reports/EKG's, intermediate records)? Report findings @ -No old charts were reviewed Differential Diagnosis (chest pain, altered mental status, abdominal pain women, abdominal pain men, vaginal bleeding, weakness, fever, dyspnea, syncope, headache, dizziness, GI bleed, back pain, seizure, CVA, palpatations, mental health)? @ -Acute cervical spinal fracture, cervical spinal sprain, cervical radiculopathy EKG interpreted by me (3pts min.). @ -None X-rays interpreted by me (1pt min.). @ -None done CT interpreted by me (1pt min.). @ -CT head and CT C-spine were obtained and were interpreted by myself showing no active acute process. U/S interpreted by me (1pt. min.). @ -None done What testing was considered but not performed or refused? (CT, X-rays, U/S, labs)? Why? @ -None What meds were considered but not given or refused? Why? @ -None Did you discuss the management of the patient with other professionals (professionals i.e. , PA, CAREER COUNSELOR, lab, RT, psych nurse, bilingual social worker, corporation lawyer, teacher, veterinary medical officer, watch caser)? Give summary @ -No Was smoking cessation discussed for >3mins.? @ -No Was critical care preformed (if so, how long)? @ -No Were there social determinants of health that impacted care today? How? (Homelessness, low income, unemployed, alcoholism, drug addiction, transport ation, low edu. Level, literacy, decrease access to med. care, [facility], rehab)? @ -No Was there de-escalation of care discussed even if they declined (Discuss DNR or withdrawal of care, Hospice)? DNR status @ -No What co-morbidities impacted this encounter? (DM, HTN, Smoking, COPD, CAD, Cancer, CVA, ARF, Chemo, Hep., AIDS, mental health diagnosis, sleep apnea, morbid obesity)? @ -None Was patient admitted / discharged? Hospital course, mention meds given and route, prescriptions, significant lab abnormalities, going to OR and other pertinent info. @ -The patient was seen and evaluated emergency department. Physical exam, the patient was resting in bed without any acute distress. Initially, the patient was in a c-collar however the patient did not have any recent falls and I did discontinue this on arrival. Vital signs were stable. Due to the nature the patient's complaints, CTs were obtained and were negative for any acute process. The patient received Norflex and Toradol and he did state that he had some relief with this. The patient had continued symptoms however were mild and therefore the patient can be discharged home as he did not have any numbness, tingling or any deficits noted. The patient was advised to follow-up with his primary care physician for an MRI of his neck and further evaluation of the cervical spinal pain. The patient was agreeable to this and did state that he had Mercedes arty home but I did prescribe lidocaine patches for him. The patient was agreeable to this and all his questions were answered. The patient was discharged home in stable condition with his . Undiagnosed new problem with uncertain prognosis? @ -No Drug Therapy requiring intensive monitoring for toxicity (Heparin, Nitro, Insulin, Cardizem)? @ -No Were any procedures done? @ -No Diagnosis/symptom? @ -Cervical radiculopathy Acute, or Chronic, or Acute on Chronic? @ -Acute Uncomplicated (without systemic symptoms) or Complicated (systemic symptoms)? @ -Uncomplicated Side effects of treatment? @ -No Exacerbation, Progression, or Severe Exacerbation? @ -No Poses a threat to life or bodily function? How? (Chest pain, [place], [place], pneumonia, PE, COPD, DKA, ARF, appy, cholecystitis, CVA, Diverticulitis, Homicidal, Suicidal, threat to staff... and all critical care pts) @ -No Disposition Clinical Impression: Cervical radiculopathy Disposition: HOME SELF-CARE Condition: Stable Instructions (If sedation given, give patient instructions): Cervical Radiculopathy (ED) Prescriptions: Lidocaine 5% Patch [Lidoderm] 1 patch TOPICAL DAILY #14 patch Is patient prescribed a controlled substance at d/c from ED?: No Referrals: Antonella Summers MD [Primary Care Provider] - 1-2 days Time of Disposition: 21:00
[2022-10-30 21:39] VITALS: BP 143/70; PULSE 68; RESP 16
== END 2022-10-30 21:39 | disposition home or self-care (01) ==
LOC: EC 18:14
DX: M54.12 Radiculopathy, cervical region (principal); I11.0 Hypertensive heart disease with heart failure; I50.9 Heart failure, unspecified; E11.9 Type 2 diabetes mellitus without complications; E78.5 Hyperlipidemia, unspecified; I10 Essential (primary) hypertension; I25.2 Old myocardial infarction; M19.90 Unspecified osteoarthritis, unspecified site; F12.90 Cannabis use, unspecified, uncomplicated; Z79.1 Long term (current) use of non-steroidal anti-inflammatories (NSAID); Z87.891 Personal history of nicotine dependence; Z79.84 Long term (current) use of oral hypoglycemic drugs; Z79.4 Long term (current) use of insulin; Z79.899 Other long term (current) drug therapy; Z88.5 Allergy status to narcotic agent; Z95.1 Presence of aortocoronary bypass graft; Z79.82 Long term (current) use of aspirin; X58.XXXA Exposure to other specified factors, initial encounter
CPT/HCPCS: 72125; 70450; 99284; 96372 ×2; J2360; J1885

== ENCOUNTER → 2023-01-17 | Outpatient (CLI) | payer MEDICARE ==
[2023-01-17 18:32] LABS: ALT 33 U/L (10-49); AST 14 U/L (14-35); Chol/HDL Ratio 4.75 Ratio; LDL Cholesterol,Calculated 73.7 mg/dL (0.0-131.0)
== END | disposition home or self-care (01) ==
LOC: LABWHC1 08:36
PROVIDERS: ATTEND Internal Medicine Cardiovascular Disease
DX: E78.2 Mixed hyperlipidemia (principal)
CPT/HCPCS: 36415; 80061; 84450; 84460

== ENCOUNTER → 2023-06-19 | Outpatient (CLI) | payer MEDICARE ==
--- NOTE | 2023-06-20 08:31 | XR ---
EXAMINATION TYPE: XR abdomen 2V DATE OF EXAM: 06/19/2023 CLINICAL DATA: 67-year-old male nonspecified abdominal pain, [facility] COMPARISON: 03/22/2018 FINDINGS: Lung bases are clear. Median sternotomy wires and post-CABG clips. No dilated small bowel o r air-fluid levels. Mild to moderate stool burden. No suspicious calcifications seen. IMPRESSION: 1. Mild to moderate stool burden. 2.No evidence of bowel obstruction or free intraperitoneal air.
== END | disposition home or self-care (01) ==
LOC: RADXRMAIN 15:35
PROVIDERS: ATTEND Family Medicine
DX: R10.9 Unspecified abdominal pain (principal)
CPT/HCPCS: 74019

== ENCOUNTER → 2023-06-24 | Outpatient (CLI) | payer MEDICARE ==
--- NOTE | 2023-06-25 11:13 | MR ---
EXAMINATION TYPE: MR Prostate wo/w con DATE OF EXAM: 06/24/2023 9:33 AM COMPARISON: None. CLINICAL INDICATION:Male, 67 years old with history of C61 PROSTATE CANCER; prior on PACS, prostate C A, elevated PSA, routine follow up, patient unsure if he had bx = PSA 02/22/22- 5.60 04/07/22- 6.80 12/05/22-7.62 TECHNIQUE: Multi-planar, multi-sequence imaging of the pelvis is performed prior to and following the uncomplicated administration of bolus intravenous gadolinium. CONTRAST: 9.5 Gadavist Interpretive Criteria: PI-RADS v2.1 SERUM PSA: 7.6 on 12/05/2022. 6.8 on 04/07/2022. 5.6 on 02/22/2022. SURGICAL PATHOLOGY: No data available. FINDINGS: Prostatic dimensions: 4.6 x 3.4 x 3.0 cm. "Bullet" Volume:30.71 (PSA density=0.25 ng/mL/mL) CENTRAL GLAND (Central and Transition Zones/CZ+TZ): Low T2/high DWI/low ADC signal lesion measuring 15 x 11 mm near the base. (PI-RADS 5) PERIPHERAL ZONE (PZ): Bilateral linear, indistinct wedgelike areas of low ADC, and low T2 signal, No evidence of masslike a bnormality, or localized perfusional hypervascularity, to further suggest a focus of clinically signi ficant prostate cancer. (PI-RADS 2) SEMINAL VESICLES (SV): Symmetric and unremarkable. PERIPROSTATIC TISSUES: Unremarkable. LYMPH NODES: No enlarged pelvic lymph node. REMAINING PELVIS: Bladder wall is within normal limits given distention. No abnormal free or organized intrapelvic fluid collection. No pathologic bowel dilation or mural thickening. Colonic diverticula are present. No hernia visualized OSSEOUS STRUCTURES: No suspicious osseous abnormality. IMPRESSION: 1. PI-RADS 5 lesion left central zone base measuring 15 x 11 mm. 2. Mild BPH, estimated gland volume 30.71 mL. 3. No suspicious osseous lesion. No lymphadenopathy. No evidence of prostate adenocarcinoma involving the periprostatic tissues.
== END | disposition home or self-care (01) ==
LOC: RADMRIMAIN 08:23
PROVIDERS: ATTEND Urology
DX: C61 Malignant neoplasm of prostate (principal); N40.0 Benign prostatic hyperplasia without lower urinary tract symptoms
CPT/HCPCS: 72197; A9585

== ENCOUNTER → 2023-07-25 | Outpatient (CLI) | payer MEDICARE ==
--- NOTE | 2023-07-26 19:04 | US ---
EXAMINATION TYPE: US abdomen complete DATE OF EXAM: 07/25/2023 COMPARISON: CT 02/22/2022, MR 06/24/2023 CLINICAL INDICATION: Male, 67 years old with history of R10.9 UNSPECIFIED ABDOMINAL PAIN; Abdominal p ain. Patient states hx of prostate cancer. TECHNIQUE: Multiple sonographic images of the abdomen are obtained. FINDINGS: EXAM MEASUREMENTS: Liver Length: 16.9 cm Gallbladder Wall: 0.32 cm CBD: 0.46 cm Spleen: 10.4 cm Right Kidney: 11.5 x 6.1 x 5.7 cm Left Kidney: 11.7 x 4.8 x 5.8 cm PSYCHOLOGIST INDUSTRIAL ORGANIZATIONAL NOTES: Exam is limited due to gas. Pancreas: Obscured Liver: Appears very coarse with increased echogenicity and attenuation. Gallbladder: *Hyperechoic area with possible comet tail artifact seen that appears to be attached to the gallbladder wall: 0.4 x 0.3 x 0.5 cm. Additional hyperechoic focus seen within the neck: 1.1 x 0.9 x 0.7 cm. Evidence for sonographic Paul's sign: No CBD: Appears wnl Spleen: Appears wnl Right Kidney: No hydronephrosis or masses seen Left Kidney: *Isoechoic lesion seen laterally at the upper pole: 2.4 x 2.6 x 2.1 cm. Additional sarah p with contrast-enhanced CT recommended. Upper IVC: Appears wnl Abd Aorta: Proximal segment appears ectatic measuring 2.7 cm AP. Limitations. Iliac arteries were ob scured. Atherosclerotic changes seen. IMPRESSION: 1. There may be adherent gallstones. 2. Solid-appearing area left mid kidney. Recommend CT with contrast for additional workup
== END | disposition home or self-care (01) ==
LOC: RADUSWWP 09:22
PROVIDERS: ATTEND Family Medicine
DX: R10.9 Unspecified abdominal pain (principal)
CPT/HCPCS: 76700

== ENCOUNTER → 2024-01-17 | Outpatient (CLI) | payer MEDICARE ==
[2024-01-17 15:31] LABS: ALT 27 U/L (10-49); AST 17 U/L (14-35); Chol/HDL Ratio 4.64 Ratio; LDL Cholesterol,Calculated 104.4 mg/dL (0.0-131.0)
== END | disposition home or self-care (01) ==
LOC: LABWHC1 11:40
PROVIDERS: ATTEND Internal Medicine Cardiovascular Disease
DX: E78.2 Mixed hyperlipidemia (principal)
CPT/HCPCS: 36415; 80061; 84450; 84460

== ENCOUNTER → 2024-01-29 | Outpatient (CLI) | payer MEDICARE | END | disposition home or self-care (01) | LOC: LABWHC1 08:56 | PROVIDERS: ATTEND Radiology Radiation Oncology | DX: C61 Malignant neoplasm of prostate (principal) | CPT/HCPCS: 36415; 84153 ==